=== PATIENT | male | born 1975 | race Caucasian/White ===

== ENCOUNTER 2020-05-05 07:26 | Inpatient (IN) | payer OTHER ==
[2020-05-05] MEDS ORDERED: SODIUM CHLORIDE 0.9% 1000 ML 1,000 ML IV ONE ×4 (07:58→09:45)
--- NOTE | 2020-05-05 08:02 | Emergency Department Report ---
ED General Adult HPI - General Chief complaint: Dyspnea/Respdistress Stated complaint: Time Seen by Provider: 05/05/20 07:57 Source: patient, EMS Mode of arrival: Stretcher Limitations: Language Barrier - History of Present Illness Initial comments: Patient is a 44-year-old male presents to emergency department for evaluation of shortness of breath for the past 3 weeks associate with dry cough. Patient notes abrupt worsening of shortness of breath today. Patient presents in respiratory distress, tachypneic, tachycardic, and hypoxic, consequently requiring my immediate attention. - Related Data Home Medications Medication Instructions Recorded Confirmed Last Taken No Known Home Medications [No 05/05/20 05/05/20 Unknown Reported Home Medications] Allergies Allergy/AdvReac Type Severity Reaction Status Date / Time No Known Allergies Allergy Unverified 05/05/20 07:53 ED Review of Systems ROS: Stated complaint: Other details as noted in HPI Comment: All other systems reviewed and negative ED Past Medical Hx - Past Medical History Previous Medical History?: No - Surgical History Past Surgical History?: Yes Hx Appendectomy: Yes - Medications Home Medications: Home Medications Medication Instructions Recorded Confirmed Last Taken Type No Known Home Medications [No 05/05/20 05/05/20 Unknown History Reported Home Medications] ED Physical Exam - General Limitations: Language Barrier General appearance: alert, in distress - Head Head exam: Present: atraumatic, normocephalic - Eye Eye exam: Present: normal appearance - ENT ENT exam: Present: mucous membranes moist - Neck Neck exam: Present: normal inspection - Respiratory Respiratory exam: Present: respiratory distress, rhonchi, accessory muscle use - Cardiovascular Cardiovascular Exam: Present: tachycardia - GI/Abdominal GI/Abdominal exam: Present: soft, normal bowel sounds - Rectal Rectal exam: Present: deferred - exam: Present: scrotal swelling - Extremities Exam Extremities exam: Present: normal inspection - Back Exam Back exam: Present: normal inspection - Neurological Exam Neurological exam: Present: alert, oriented X3 - Psychiatric Psychiatric exam: Present: normal affect, normal mood - Skin Skin exam: Present: warm, dry, intact, normal color. Absent: rash ED Course Vital Signs 05/05/20 05/05/20 05/05/20 08:08 08:20 08:30 Temperature 98.9 F Pulse Rate 125 H 126 H 127 H Respiratory 22 34 H 37 H Rate Blood Pressure 72/39 Blood Pressure 70/42 [Left] O2 Sat by Pulse 100 100 100 Oximetry 05/05/20 05/05/20 05/05/20 08:46 09:00 09:16 Temperature Pulse Rate 116 H 117 H 114 H Respiratory 20 19 22 Rate Blood Pressure 67/47 68/43 75/43 Blood Pressure [Left] O2 Sat by Pulse 100 100 100 Oximetry 05/05/20 05/05/20 05/05/20 09:30 09:46 10:00 Temperature Pulse Rate 120 H 115 H 116 H Respiratory 13 19 15 Rate Blood Pressure 64/37 73/51 86/55 Blood Pressure [Left] O2 Sat by Pulse 99 98 Oximetry 05/05/20 05/05/20 05/05/20 10:16 10:30 10:46 Temperature Pulse Rate 114 H 120 H 113 H Respiratory 30 H 16 31 H Rate Blood Pressure 81/53 71/39 79/48 Blood Pressure [Left] O2 Sat by Pulse 100 100 99 Oximetry 05/05/20 05/05/20 05/05/20 11:00 11:16 11:30 Temperature Pulse Rate 110 H 116 H 117 H Respiratory 31 H 37 H 15 Rate Blood Pressure 83/50 77/40 74/34 Blood Pressure [Left] O2 Sat by Pulse 100 100 100 Oximetry 05/05/20 05/05/20 05/05/20 11:46 12:00 12:15 Temperature Pulse Rate 116 H 114 H Respiratory 37 H 19 Rate Blood Pressure 70/38 94/55 101/63 Blood Pressure [Left] O2 Sat by Pulse 100 100 Oximetry 05/05/20 05/05/20 12:30 12:46 Temperature Pulse Rate 110 H 105 H Respiratory 33 H 24 Rate Blood Pressure 82/55 96/63 Blood Pressure [Left] O2 Sat by Pulse 100 100 Oximetry - Reevaluation(s) Reevaluation #1: 05/05/20 08:02 Patient immediately brought back to emergency department, IV access established, treated with IV normal saline 1 L x 1, oxygen via nasal cannula Reevaluation #2: 05/05/20 08:44 Patient hypotensive, with improving but persistent tachycardia, given additional IV NS x1, ABG, blood cultures, lactic ordered Reevaluation #3: 05/05/20 08:46 Patient appears to have infiltrate on x-ray, ordered additional IV NS x1, ceftriaxone, azithromycin, pending formal radiology interpretation Reevaluation #4: 05/05/20 09:08 Patient found to be anemic, ordered additional labs including type and screen, patient denies bleeding anywhere, denies change in stool color. Patient denies alcohol intake. Reevaluation #5: 05/05/20 09:44 Patient persistently hypotensive following 3 L IV normal saline, has not produ hayes any urine, additional IV NS ordered, IV magnesium ordered 05/05/20 11:41 Patient again becomes hypotensive, central line placed by myself, Levophed began in emergency department. 05/05/20 13:28 CTA chest shows multiple pulmonary emboli and possible hepatic abscess, hospitalist notified, heparin started to the emergency department. - Central Line Placement Right Femoral Consent Obtained: verbal consent, emergent situation Time Out Performed: Yes Patient Placed on Monitor/Pulse Ox: Yes MD Prep: mask, gown, gloves Central Line Prep: Chlorhexidine scrub Local Anesthesia Used: Lidocaine 1% Ultrasound Used for Placement: Yes Central Line Lumen Inserted: triple Reason for Insertion: Volume Resuscitation Central Line Position: good blood return, all ports aspirated, flus, sutured in place with nyl Dressing Applied: Tegaderm Patient Tolerated Procedure: well Complications: none ED Medical Decision Making - Lab Data Result diagrams: 05/05/20 08:10 05/05/20 08:10 Labs 05/05/20 05/05/20 05/05/20 08:10 08:10 08:10 WBC 11.0 RBC 2.91 L Hgb 8.1 L Hct 24.5 L MCV 84 MCH 28 MCHC 33 RDW 15.1 Plt Count 107 L Add Manual Diff Complete Total Counted 100 Seg Neutrophils % Production Miner Seg Neuts % (Manual) 97.0 H Lymphocytes % (Manual) 2.0 L Monocytes % (Manual) 1.0 Promyelocytes % 0 Nucleated RBC % Not Reportable Seg Neutrophils # Man 10.7 H Band Neutrophils # 0.0 Lymphocytes # (Manual) 0.2 L Abs React Lymphs (Man) 0.0 Monocytes # (Manual) 0.1 Eosinophils # (Manual) 0.0 Basophils # (Manual) 0.0 Metamyelocytes # 0.0 Myelocytes # 0.0 Promyelocytes # 0.0 Blast Cells # 0.0 WBC Morphology Not Reportable Hypersegmented Neuts Not Reportable Hyposegmented Neuts Not Reportable Hypogranular Neuts Not Reportable Smudge Cells Not Reportable Toxic Granulation Not Reportable Toxic Vacuolation Not Reportable Dohle Bodies Not Reportable Pelger-Huet Anomaly Not Reportable [place] Rods Not Reportable Platelet Estimate Consistent w auto Clumped Platelets Not Reportable Plt Clumps, EDTA Not Reportable Large Platelets Not Reportable Giant Platelets Not Reportable Platelet Satelliting Not Reportable Plt Morphology Comment Not Reportable RBC Morphology Normal Dimorphic RBCs Not Reportable Polychromasia Not Reportable Hypochromasia Not Reportable Poikilocytosis Not Reportable Anisocytosis Not Reportable Microcytosis Not Reportable Macrocytosis Not Reportable Spherocytes Not Reportable Pappenheimer Bodies Not Reportable Sickle Cells Not Reportable Target Cells Not Reportable Tear Drop Cells Not Reportable Ovalocytes Not Reportable Helmet Cells Not Reportable [place] Bodies Not Reportable Aylett Rings Not Reportable Mami Cells Not Reportable Bite Cells Not Reportable Crenated Cell Not Reportable Elliptocytes Not Reportable Acanthocytes (Spur) Not Reportable Rouleaux Not Reportable Hemoglobin C Crystals Not Reportable Schistocytes Not Reportable Malaria parasites Not Reportable Aristides Bodies Not Reportable Hem Pathologist Commnt No PT INR D-Dimer > 13925 H ABG pH ABG pCO2 ABG pO2 ABG HCO3 ABG O2 Saturation ABG O2 Content ABG Base Excess ABG Hemoglobin ABG Carboxyhemoglobin ABG Methemoglobin Oxyhemoglobin FiO2 Sodium 128 L Potassium 4.0 Chloride 98.8 Carbon Dioxide 15 L Anion Gap 18 BUN 32 H Creatinine 1.5 H Estimated GFR 51 BUN/Creatinine Ratio 21 Glucose 87 Lactic Acid Calcium 7.5 L Magnesium 1.30 L Troponin T 0.056 H Triglycerides 231 H Cholesterol 80 LDL Cholesterol Direct 17 L HDL Cholesterol 11 L Cholesterol/HDL Ratio 7.27 TSH Thyroxine (T4) Blood Type Antibody Screen 05/05/20 05/05/20 05/05/20 08:10 08:10 08:10 WBC RBC Hgb Hct MCV MCH MCHC RDW Plt Count Add Manual Diff Total Counted Seg Neutrophils % Seg Neuts % (Manual) Lymphocytes % (Manual) Monocytes % (Manual) Promyelocytes % Nucleated RBC % Seg Neutrophils # Man Band Neutrophils # Lymphocytes # (Manual) Abs React Lymphs (Man) Monocytes # (Manual) Eosinophils # (Manual) Basophils # (Manual) Metamyelocytes # Myelocytes # Promyelocytes # Blast Cells # WBC Morphology Hypersegmented Neuts Hyposegmented Neuts Hypogranular Neuts Smudge Cells Toxic Granulation Toxic Vacuolation Dohle Bodies Pelger-Huet Anomaly [place] Rods Platelet Estimate Clumped Platelets Plt Clumps, EDTA Large Platelets Giant Platelets Platelet Satelliting Plt Morphology Comment RBC Morphology Dimorphic RBCs Polychromasia Hypochromasia Poikilocytosis Anisocytosis Microcytosis Macrocytosis Spherocytes Pappenheimer Bodies Sickle Cells Target Cells Tear Drop Cells Ovalocytes Helmet Cells [place] Bodies Aylett Rings Mami Cells Bite Cells Crenated Cell Elliptocytes Acanthocytes (Spur) Rouleaux Hemoglobin C Crystals Schistocytes Malaria parasites Aristides Bodies Hem Pathologist Commnt PT 15.8 H INR 1.28 H D-Dimer ABG pH ABG pCO2 ABG pO2 ABG HCO3 ABG O2 Saturation ABG O2 Content ABG Base Excess ABG Hemoglobin ABG Carboxyhemoglobin ABG Methemoglobin Oxyhemoglobin FiO2 Sodium Potassium Chloride Carbon Dioxide Anion Gap BUN Creatinine Estimated GFR BUN/Creatinine Ratio Glucose Lactic Acid Calcium Magnesium Troponin T Triglycerides Cholesterol LDL Cholesterol Direct HDL Cholesterol Cholesterol/HDL Ratio TSH 12.770 H Thyroxine (T4) 7.4 Blood Type Antibody Screen 05/05/20 05/05/20 05/05/20 08:55 09:10 09:35 WBC RBC Hgb Hct MCV MCH MCHC RDW Plt Count Add Manual Diff Total Counted Seg Neutrophils % Seg Neuts % (Manual) Lymphocytes % (Manual) Monocytes % (Manual) Promyelocytes % Nucleated RBC % Seg Neutrophils # Man Band Neutrophils # Lymphocytes # (Manual) Abs React Lymphs (Man) Monocytes # (Manual) Eosinophils # (Manual) Basophils # (Manual) Metamyelocytes # Myelocytes # Promyelocytes # Blast Cells # WBC Morphology Hypersegmented Neuts Hyposegmented Neuts Hypogranular Neuts Smudge Cells Toxic Granulation Toxic Vacuolation Dohle Bodies Pelger-Huet Anomaly [place] Rods Platelet Estimate Clumped Platelets Plt Clumps, EDTA Large Platelets Giant Platelets Platelet Satelliting Plt Morphology Comment RBC Morphology Dimorphic RBCs Polychromasia Hypochromasia Poikilocytosis Anisocytosis Microcytosis Macrocytosis Spherocytes Pappenheimer Bodies Sickle Cells Target Cells Tear Drop Cells Ovalocytes Helmet Cells [place] Bodies Aylett Rings Mami Cells Bite Cells Crenated Cell Elliptocytes Acanthocytes (Spur) Rouleaux Hemoglobin C Crystals Schistocytes Malaria parasites Aristides Bodies Hem Pathologist Commnt PT INR D-Dimer ABG pH 7.409 ABG pCO2 16.7 ABG pO2 27.6 L* ABG HCO3 10.3 L ABG O2 Saturation 38.5 L ABG O2 Content 3.6 ABG Base Excess -13.0 L ABG Hemoglobin 6.7 L ABG Carboxyhemoglobin 1.0 ABG Methemoglobin 0.8 Oxyhemoglobin 37.9 L FiO2 21 Sodium Potassium Chloride Carbon Dioxide Anion Gap BUN Creatinine Estimated GFR BUN/Creatinine Ratio Glucose Lactic Acid 6.40 H* Calcium Magnesium Troponin T Triglycerides Cholesterol LDL Cholesterol Direct HDL Cholesterol Cholesterol/HDL Ratio TSH Thyroxine (T4) Blood Type O POSITIVE Antibody Screen Negative Vital Signs 05/05/20 05/05/20 05/05/20 08:08 08:20 08:30 Temperature 98.9 F Pulse Rate 125 H 126 H 127 H Respiratory 22 34 H 37 H Rate Blood Pressure 72/39 Blood Pressure 70/42 [Left] O2 Sat by Pulse 100 100 100 Oximetry 05/05/20 05/05/20 05/05/20 08:46 09:00 09:16 Temperature Pulse Rate 116 H 117 H 114 H Respiratory 20 19 22 Rate Blood Pressure 67/47 68/43 75/43 Blood Pressure [Left] O2 Sat by Pulse 100 100 100 Oximetry 05/05/20 05/05/20 05/05/20 09:30 09:46 10:00 Temperature Pulse Rate 120 H 115 H 116 H Respiratory 13 19 15 Rate Blood Pressure 64/37 73/51 86/55 Blood Pressure [Left] O2 Sat by Pulse 99 98 Oximetry - EKG Data -: EKG Interpreted by Me (Sinus tachycardia 116, no ST-T changes, normal QRS) - Radiology Data Radiology results: report reviewed [facility] [address] [place] [address] Cat Scan Report Signed Patient: ASHELY MORGAN MR#: [id number] 30 : 1975 Acct:[id number] Age/Sex: 44 / M ADM Date: 05/05/20 Loc: [facility]: ARA PETERSON MD Ordering Physician: MAXI CLANCY MD Date of Service: 05/05/20 Procedure(s): CT angio chest Accession Number(s): [id number] cc: MAXI CLANCY MD CT abdomen pelvis wo con, CT angio chest INDICATION: flank pain/renal failure. COMPARISON: None TECHNIQUE: Axial CT images were obtained through the chest after injection of IV contrast. 3 plane MIP and/or 3D reconstructions were produced. Abdominal and pelvic CT exam performed. All CT scans at this location are performed using CT dose reduction for ALARA by means of automated exposure control. FINDINGS: PULMONARY ARTERIES: There are pulmonary emboli with low clot burden. RV to LV ratio is normal. HEART: No significant abnormality. MEDIASTINUM / MONI: Reactive lymphadenopathy. LUNGS: There are numerous bilateral pulmonary nodules present in the lungs. One of the nodules in the left upper lobe demonstrates a small area of cavitation. Associated interlobular septal thickening. Small right greater than left pleural effusions. ADDITIONAL FINDINGS: None. SKELETAL STRUCTURES: No significant osseous abnormality. CT ABDOMEN and PELVIS: Liver: There is a right hepatic multiseptated fluid collection in hepatic segment 6 and 7. The largest collection measures approximately 7.3 x 6.3 x 7.9 cm in anteroposterior by transverse by craniocaudal dimension. There is mild extension into the perihepatic fat. There are other suspected smaller collections seen in the superior aspect of hepatic segment 7. Biliary: No significant abnormality. Spleen: No significant abnormality. Pancreas: No significant abnormality. Adrenals: No significant abnormality. Kidneys: No significant abnormality. Lymphatics: No lymphadenopathy. Vasculature: No significant abnormality. Bowel: No significant abnormality. Pelvis: No significant abnormality. Osseous Structures: No aggressive osseous lesion. Additional Findings: Large right fat containing hernia. IMPRESSION: 1. . Pulmonary emboli with large clot burden no evidence of right heart strain. 2. Diffuse septic pulmonary emboli. 3. Large right hepatic abscess. This is amenable to CT guided drain placement if indicated. Signer Name: Félix Aguirre MD Signed: 05/05/2020 12:55 PM Workstation Name: [id number] Transcribed By: DIAMOND Dictated By: Félix Aguirre MD Electronically Authenticated By: Félix Aguirre MD Signed Date/Time: 05/05/20 1255 DD/ 1247 TD/TT: [facility] [address] [place] [address] XRay Report Signed Patient: ASHELY MORGAN MR#: [id number] [birth year] : 1975 Acct:[id number] Age/Sex: 44 / M ADM Date: 05/05/20 Loc: ED Attending Dr: Ordering Physician: MAXI CLANCY MD Date of Service: 05/05/20 Procedure(s): XR chest 1V ap Accession Number(s): [id number] cc: MAXI CLANCY MD Fluoro Time In Minutes: CHEST 1 VIEW INDICATION: dyspnea. COMPARISON: None FINDINGS: SUPPORT DEVICES: None. HEART: Within normal limits. LUNGS/PLEURA: Patchy bibasilar predominant airspace disease. No appreciable effusion. ADDITIONAL FINDINGS: None. IMPRESSION: 1. Pulmonary findings as above. Signer Name: Oskar Hwang MD Signed: 05/05/2020 8:59 AM Workstation Name: [id number] Transcribed By: JW Dictated By: Oskar Hwang MD Electronically Authenticated By: Oskar Hwang MD Signed Date/Time: 05/05/20858 DD/ 8 TD/TT: Critical Care Time: Yes Critical care time in (mins) excluding proc time.: 70 Critical care attestation.: If time is entered above; I have spent that time in minutes in the direct care o f this critically ill patient, excluding procedure time. ED Disposition Clinical Impression: Severe sepsis, Pneumonia, unspecified organism, Multiple pulmonary emboli, Liver abscess, Inguinal hernia, Urinary tract infection Disposition: -09 OP ADMIT IP TO THIS HOSP Is pt being admited?: Yes Condition: Stable Severe Sepsis/Septic Shock - PUI for COVID-19 PUI?: Yes Vital Signs: Reviewed Rhonchi No Gallops Tachy Capillary refill < 2 secs Warm Pulse quality: +2 (normal)
[2020-05-05] MEDS ORDERED: cefTRIAXone/NS 1 GM/50 ML 1 GM/50 ML BAG IV ONE ×2 (08:45→12:00)
[2020-05-05] MEDS ORDERED: AZITHROMYCIN/NS 500 MG/250 ML 500 MG/250 ML BAG IV ONE (08:45)
[2020-05-05 08:50] LABS: Hematocrit 24.5 % (35.5-45.6); Hemoglobin 8.1 gm/dl (11.8-15.2); Mean Corpuscular HGB Conc 33 % (32-34); Mean Corpuscular Volume 84 fl (84-94); Platelet Count 107 K/mm3 (140-440); Red Blood Count 2.91 M/mm3 (3.65-5.03); Red Cell Distribution Width 15.1 % (13.2-15.2)
[2020-05-05 09:03] LABS: Calcium 7.5 mg/dL (8.4-10.2)
--- NOTE | 2020-05-05 09:04 | XRay Report ---
CHEST 1 VIEW INDICATION: dyspnea. COMPARISON: None FINDINGS: SUPPORT DEVICES: None. HEART: Within normal limits. LUNGS/PLEURA: Patchy bibasilar predominant airspace disease. No appreciable effusion. ADDITIONAL FINDINGS: None. IMPRESSION: 1. Pulmonary findings as above. Signer Name: Oskra Hwang MD Signed: 05/05/2020 8:59 AM Workstation Name: [id number]
[2020-05-05 09:17] LABS: Chol/HDL Ratio 7.27 %
[2020-05-05 09:23] LABS: Total Cells Counted 100
[2020-05-05 09:24] LABS: Platelet Estimate Consistent w Auto; RBC Morphology Normal
[2020-05-05 09:55] LABS: INR 1.28 (0.87-1.13)
[2020-05-05 10:08] LABS: ABG HCO3 10.3 mmol/L (20.0-26.0); ABG Methemoglobin 0.8 % (0.0-1.5); ABG Oxygen Saturation 38.5 % (95.0-99.0); ABG PCO2 16.7 mm Hg; ABG PH 7.409 pH Units (7.350-7.450)
[2020-05-05] MEDS ORDERED: MORPHINE 2 MG/1 ML INJ IV ONE (10:22)
[2020-05-05] MEDS ORDERED: MAGNESIUM SULFATE 1 GM in SODIUM CHLORIDE 0.9% 50 ML IV ONE (10:30)
[2020-05-05 10:34] LABS: ABG PO2 27.6 mm Hg (80.0-90.0)
[2020-05-05 10:37] LABS: Bacteria,Urine 4+ /HPF (Negative); Bilirubin,Urine NEG (Negative); Blood,Urine SM (Negative); Color,Urine Yellow (Yellow); Mucus,Urine 3+ /HPF; Protein,Urine <15 mg/dL mg/dL (Negative); Urobilinogen,Urine < 2.0 mg/dL (<2.0)
[2020-05-05 10:58] LABS: Albumin 1.5 g/dL (3.9-5); Bilirubin,Direct 0.4 mg/dL (0-0.2)
[2020-05-05] MEDS: NORepinephrine/NS 4 MG-250 ML 4 MG/250 ML BAG IV SCH (11:45)
[2020-05-05] MEDS ORDERED: dexAMETHasone 4 MG/ML VIAL IV ONE (12:00)
[2020-05-05] MEDS ORDERED: ENOXAPARIN 40 MG/0.4 ML INJ SUB-Q SCH (12:00)
[2020-05-05] MEDS ORDERED: HEPARIN 10,000 UNITS/10 ML VIAL IV PRN ×2 (12:41→13:53)
[2020-05-05] MEDS ORDERED: HEPARIN 10,000 UNITS/10 ML VIAL IV ONE (12:41)
--- NOTE | 2020-05-05 13:00 | Cat Scan Report ---
CT abdomen pelvis wo con, CT angio chest INDICATION: flank pain/renal failure. COMPARISON: None TECHNIQUE: Axial CT images were obtained through the chest after injection of IV contrast. 3 plane OK P and/or 3D reconstructions were produced. Abdominal and pelvic CT exam performed. All CT scans at [facility] location are performed using CT dose reduction for ALARA by means of automated exposure control. FINDINGS: PULMONARY ARTERIES: There are pulmonary emboli with low clot burden. RV to LV ratio is normal. HEART: No significant abnormality. MEDIASTINUM / MONI: Reactive lymphadenopathy. LUNGS: There are numerous bilateral pulmonary nodules present in the lungs. One of the nodules in the left upper lobe demonstrates a small area of cavitation. Associated interlobular septal thickening. Small right greater than left pleural effusions. ADDITIONAL FINDINGS: None. SKELETAL STRUCTURES: No significant osseous abnormality. CT ABDOMEN and PELVIS: Liver: There is a right hepatic multiseptated fluid collection in hepatic segment 6 and 7. The larges t collection measures approximately 7.3 x 6.3 x 7.9 cm in anteroposterior by transverse by craniocaud al dimension. There is mild extension into the perihepatic fat. There are other suspected smaller col lections seen in the superior aspect of hepatic segment 7. Biliary: No significant abnormality. Spleen: No significant abnormality. Pancreas: No significant abnormality. Adrenals: No significant abnormality. Kidneys: No significant abnormality. Lymphatics: No lymphadenopathy. Vasculature: No significant abnormality. Bowel: No significant abnormality. Pelvis: No significant abnormality. Osseous Structures: No aggressive osseous lesion. Additional Findings: Large right fat containing hernia. IMPRESSION: 1. . Pulmonary emboli with large clot burden no evidence of right heart strain. 2. Diffuse septic pulmonary emboli. 3. Large right hepatic abscess. This is amenable to CT guided drain placement if indicated. Signer Name: Félix Aguirre MD Signed: 05/05/2020 12:55 PM Workstation Name: [id number]
--- NOTE | 2020-05-05 13:00 | Cat Scan Report ---
CT abdomen pelvis wo con, CT angio chest INDICATION: flank pain/renal failure. COMPARISON: None TECHNIQUE: Axial CT images were obtained through the chest after injection of IV contrast. 3 plane MN P and/or 3D reconstructions were produced. Abdominal and pelvic CT exam performed. All CT scans at [facility] location are performed using CT dose reduction for ALARA by means of automated exposure control. FINDINGS: PULMONARY ARTERIES: There are pulmonary emboli with low clot burden. RV to LV ratio is normal. HEART: No significant abnormality. MEDIASTINUM / MONI: Reactive lymphadenopathy. LUNGS: There are numerous bilateral pulmonary nodules present in the lungs. One of the nodules in the left upper lobe demonstrates a small area of cavitation. Associated interlobular septal thickening. Small right greater than left pleural effusions. ADDITIONAL FINDINGS: None. SKELETAL STRUCTURES: No significant osseous abnormality. CT ABDOMEN and PELVIS: Liver: There is a right hepatic multiseptated fluid collection in hepatic segment 6 and 7. The larges t collection measures approximately 7.3 x 6.3 x 7.9 cm in anteroposterior by transverse by craniocaud al dimension. There is mild extension into the perihepatic fat. There are other suspected smaller col lections seen in the superior aspect of hepatic segment 7. Biliary: No significant abnormality. Spleen: No significant abnormality. Pancreas: No significant abnormality. Adrenals: No significant abnormality. Kidneys: No significant abnormality. Lymphatics: No lymphadenopathy. Vasculature: No significant abnormality. Bowel: No significant abnormality. Pelvis: No significant abnormality. Osseous Structures: No aggressive osseous lesion. Additional Findings: Large right fat containing hernia. IMPRESSION: 1. . Pulmonary emboli with large clot burden no evidence of right heart strain. 2. Diffuse septic pulmonary emboli. 3. Large right hepatic abscess. This is amenable to CT guided drain placement if indicated. Signer Name: Félix Aguirre MD Signed: 05/05/2020 12:55 PM Workstation Name: [id number]
--- NOTE | 2020-05-05 13:01 | History and Physical Report ---
History of Present Illness Date of examination: 05/05/20 Date of admission: 05/05/20 09:57 Chief complaint: Shortness of breath History of present illness: 44-year-old male with no significant past medical history presented to the emergency department with complaints of shortness of breath for the last 3 weeks. Shortness of breath is progressively worse and making to present to the emergency department this morning. Patient said he has associated dry cough. P atient denied fever chills, night sweats. Patient denied contact with Covid patient. He denied any chest pain, palpitation or leg swelling. Patient was seen in the emergency department. In the emergency department test x-ray was done and showed bibasilar infiltrates, CTA chest was done and significant for blood clot suspected septic emboli and liver abscess. Patient was hypotensive was started with IV fluids and pressor support. I have discussed with vascular surgery and said the clot burden is minimal and does not need any intervention at this time. Interventional radiology will do drainage of the abscess once the patient is stable. Patient started with IV antibiotics. ID was consulted. Patient was requiring 4 L of oxygen and pulmonary consulted. Patient will be admitted to [facility]. REVIEW OF SYSTEMS: GENERAL: no weight change, no fatigue, no fever HEAD: no head ache EYES: no blurry vision, no acute visual loss EARS: no hearing loss, no discharge, no earache NOSE: no stuffiness, no sneezing, no discharge MOUTH, THROAT AND NECK: no bleeding gums, no sore throat, no swollen neck CARDIAC: no palpitations, no dyspnea on exertion, no orthopnea, no PND, no edema, no chest pain RESPIRATORY: no shortness of breath, no wheeze, no cough, no sputum, no hemoptysis, no asthma GI: no decreased appetite, no nausea, no vomiting, no dysphagia, no diarrhea, no constipation, no abdominal pain URINARY: No urgency, hematuria, dysuria or frequency. MUSCULOSKELETAL: no muscle weakness, no pain, no joint stiffness NEUROLOGIC: no loss of sensation/numbness, no tingling, no tremors, no we akness/paralysis HEMATOLOGIC: no anemia, no easy bruising SKIN: no rashes ENDOCRINE: no heat/cold intolerance, no polyuria, no polydipsia, no thyroid problems, no diabetes PSYCHIATRIC: no anxiety, no depression, no suicidal ideations Past History Past Medical History: No medical history Past Surgical History: appendectomy Social history: full code. denies: smoking, alcohol abuse, prescription drug abuse, IV drug use Family history: no significant family history Medications and Allergies Allergies Allergy/AdvReac Type Severity Reaction Status Date / Time No Known Allergies Allergy Unverified 05/05/20 07:53 Home Medications Medication Instructions Recorded Confirmed Last Taken Type No Known Home Medications [No 05/05/20 05/05/20 Unknown History Reported Home Medications] Active Meds: Active Medications Azithromycin (Azithromycin 250 Mg Tab) 500 mg PO QDAY RADHA; Protocol Enoxaparin Sodium (Enoxaparin 40 Mg/0.4 Ml Inj) 40 mg SUB-Q BID RADHA; Protocol Last Admin: 05/05/20 12:17 Dose: 40 mg Documented by: Heparin Sodium (Porcine) (Heparin 10,000 Units/10 Ml Vial) 2,700 unit 40 unit/kg (2700 unit) IV Q6H PRN PRN Reason: Anti-Xa Assay < 0.1 units/ml Ceftriaxone Sodium (Rocephin/Ns 2 Gm/100 Ml) 2 gm in 100 mls @ 200 mls/hr IV Q24H RADHA; Protocol Sodium Chloride (Nacl 0.9% 1000 Ml) 1,000 mls @ 150 mls/hr IV DIRECT RADHA Norepinephrine (Levophed Drip 4 Mg/Ns 250 Ml) 4 mg in 250 mls @ 7.5 mls/hr IV TITR RADHA; Protocol Oxycodone/Acetaminophen (Oxycodone /Acetaminophen 5-325mg Tab) 1 tab PO Q6H PRN PRN Reason: Pain, Moderate (4-6) Exam - Physical Exam Narrative exam: Patient is on 4 L of oxygen The patient appeared well nourished and normally developed. Vital signs as documented. Head exam is unremarkable. No scleral icterus . Neck is without jugular venous distension, thyromegaly, or carotid bruits. Lungs dyspneic, on 4 L of oxygen, clear to auscultation Cardiac exam reveals regular rate and Rhythm. Abdominal exam reveals normal bowel sounds, nontender, no organomegaly. Extremities are nonedematous and both femoral and pedal pulses are normal. [employer]: Alert and oriented 3. No focal weakness. - Constitutional Vitals: Temp Pulse Resp BP Pulse Ox 98.9 F 116 H 15 86/55 98 05/05/20 08:08 05/05/20 10:00 05/05/20 10:00 05/05/20 10:00 05/05/20 10:00 HEART Score - HEART Score Troponin: Troponin T 0.056 ng/mL (0.00-0.029) H 05/05/20 08:10 Results - Labs CBC & Chem 7: 05/05/20 08:10 05/05/20 08:10 Labs: Laboratory Last Values WBC 11.0 K/mm3 (4.5-11.0) 05/05/20 08:10 RBC 2.91 M/mm3 (3.65-5.03) L 05/05/20 08:10 Hgb 8.1 gm/dl (11.8-15.2) L 05/05/20 08:10 Hct 24.5 % (35.5-45.6) L 05/05/20 08:10 MCV 84 fl (84-94) 05/05/20 08:10 MCH 28 pg (28-32) 05/05/20 08:10 MCHC 33 % (32-34) 05/05/20 08:10 RDW 15.1 % (13.2-15.2) 05/05/20 08:10 Plt Count 107 K/mm3 (140-440) L 05/05/20 08:10 Add Manual Diff Complete 05/05/20 08:10 Total Counted 100 05/05/20 08:10 Seg Neutrophils % Air Tester 05/05/20 08:10 Seg Neuts % (Manual) 97.0 % (40.0-70.0) H 05/05/20 08:10 Lymphocytes % (Manual) 2.0 % (13.4-35.0) L 05/05/20 08:10 Monocytes % (Manual) 1.0 % (0.0-7.3) 05/05/20 08:10 Promyelocytes % 0 % 05/05/20 08:10 Nucleated RBC % Not Reportable 05/05/20 08:10 Seg Neutrophils # Man 10.7 K/mm3 (1.8-7.7) H 05/05/20 08:10 Band Neutrophils # 0.0 K/mm3 05/05/20 08:10 Lymphocytes # (Manual) 0.2 K/mm3 (1.2-5.4) L 05/05/20 08:10 Abs React Lymphs (Man) 0.0 K/mm3 05/05/20 08:10 Monocytes # (Manual) 0.1 K/mm3 (0.0-0.8) 05/05/20 08:10 Eosinophils # (Manual) 0.0 K/mm3 (0.0-0.4) 05/05/20 08:10 Basophils # (Manual) 0.0 K/mm3 (0.0-0.1) 05/05/20 08:10 Metamyelocytes # 0.0 K/mm3 05/05/20 08:10 Myelocytes # 0.0 K/mm3 05/05/20 08:10 Promyelocytes # 0.0 K/mm3 05/05/20 08:10 Blast Cells # 0.0 K/mm3 05/05/20 08:10 WBC Morphology Not Reportable 05/05/20 08:10 Hypersegmented Neuts Not Reportable 05/05/20 08:10 Hyposegmented Neuts Not Reportable 05/05/20 08:10 Hypogranular Neuts Not Reportable 05/05/20 08:10 Smudge Cells Not Reportable 05/05/20 08:10 Toxic Granulation Not Reportable 05/05/20 08:10 Toxic Vacuolation Not Reportable 05/05/20 08:10 Dohle Bodies Not Reportable 05/05/20 08:10 Pelger-Huet Anomaly Not Reportable 05/05/20 08:10 Quita Rods Not Reportable 05/05/20 08:10 Platelet Estimate Consistent w auto 05/05/20 08:10 Clumped Platelets Not Reportable 05/05/20 08:10 Plt Clumps, EDTA Not Reportable 05/05/20 08:10 Large Platelets Not Reportable 05/05/20 08:10 Giant Platelets Not Reportable 05/05/20 08:10 Platelet Satelliting Not Reportable 05/05/20 08:10 Plt Morphology Comment Not Reportable 05/05/20 08:10 RBC Morphology Normal 05/05/20 08:10 Dimorphic RBCs Not Reportable 05/05/20 08:10 Polychromasia Not Reportable 05/05/20 08:10 Hypochromasia Not Reportable 05/05/20 08:10 Poikilocytosis Not Reportable 05/05/20 08:10 Anisocytosis Not Reportable 05/05/20 08:10 Microcytosis Not Reportable 05/05/20 08:10 Macrocytosis Not Reportable 05/05/20 08:10 Spherocytes Not Reportable 05/05/20 08:10 Pappenheimer Bodies Not Reportable 05/05/20 08:10 Sickle Cells Not Reportable 05/05/20 08:10 Target Cells Not Reportable 05/05/20 08:10 Tear Drop Cells Not Reportable 05/05/20 08:10 Ovalocytes Not Reportable 05/05/20 08:10 Helmet Cells Not Reportable 05/05/20 08:10 Bush-Helper Bodies Not Reportable 05/05/20 08:10 Culver Rings Not Reportable 05/05/20 08:10 Mami Cells Not Reportable 05/05/20 08:10 Bite Cells Not Reportable 05/05/20 08:10 Crenated Cell Not Reportable 05/05/20 08:10 Elliptocytes Not Reportable 05/05/20 08:10 Acanthocytes (Spur) Not Reportable 05/05/20 08:10 Rouleaux Not Reportable 05/05/20 08:10 Hemoglobin C Crystals Not Reportable 05/05/20 08:10 Schistocytes Not Reportable 05/05/20 08:10 Malaria parasites Not Reportable 05/05/20 08:10 Aristides Bodies Not Reportable 05/05/20 08:10 Hem Pathologist Commnt No 05/05/20 08:10 PT 15.8 Sec. (12.2-14.9) H 05/05/20 08:10 INR 1.28 (0.87-1.13) H 05/05/20 08:10 D-Dimer > 18056 ng/mlDDU (0-234) H 05/05/20 08:10 ABG pH 7.409 pH Units (7.350-7.450) 05/05/20 09:10 ABG pCO2 16.7 mm Hg 05/05/20 09:10 ABG pO2 27.6 mm Hg (80.0-90.0) L* 05/05/20 09:10 ABG HCO3 10.3 mmol/L (20.0-26.0) L 05/05/20 09:10 ABG O2 Saturation 38.5 % (95.0-99.0) L 05/05/20 09:10 ABG O2 Content 3.6 (0.0-44) 05/05/20 09:10 ABG Base Excess -13.0 mmol/L (-2.0-3.0) L 05/05/20 09:10 ABG Hemoglobin 6.7 gm/dl (14.0-18.0) L 05/05/20 09:10 ABG Carboxyhemoglobin 1.0 % (0.0-5.0) 05/05/20 09:10 ABG Methemoglobin 0.8 % (0.0-1.5) 05/05/20 09:10 Oxyhemoglobin 37.9 % (95.0-99.0) L 05/05/20 09:10 FiO2 21 % 05/05/20 09:10 Sodium 128 mmol/L (137-145) L 05/05/20 08:10 Potassium 4.0 mmol/L (3.6-5.0) 05/05/20 08:10 Chloride 98.8 mmol/L (98-107) 05/05/20 08:10 Carbon Dioxide 15 mmol/L (22-30) L 05/05/20 08:10 Anion Gap 18 mmol/L 05/05/20 08:10 BUN 32 mg/dL (9-20) H 05/05/20 08:10 Creatinine 1.5 mg/dL (0.8-1.3) H 05/05/20 08:10 Estimated GFR 51 ml/min 05/05/20 08:10 BUN/Creatinine Ratio 21 % 05/05/20 08:10 Glucose 87 mg/dL (75-100) 05/05/20 08:10 Lactic Acid 6.20 mmol/L (0.7-2.0) H* 05/05/20 10:17 Calcium 7.5 mg/dL (8.4-10.2) L 05/05/20 08:10 Magnesium 1.30 mg/dL (1.7-2.3) L 05/05/20 08:10 Total Bilirubin 0.40 mg/dL (0.1-1.2) 05/05/20 10:17 Direct Bilirubin 0.4 mg/dL (0-0.2) H 05/05/20 10:17 Indirect Bilirubin 0.0 mg/dL 05/05/20 10:17 AST 39 units/L (5-40) 05/05/20 10:17 ALT 42 units/L (7-56) 05/05/20 10:17 Alkaline Phosphatase 183 units/L (35-129) H 05/05/20 10:17 Troponin T 0.056 ng/mL (0.00-0.029) H 05/05/20 08:10 Total Protein 4.1 g/dL (6.3-8.2) L 05/05/20 10:17 Albumin 1.5 g/dL (3.9-5) L 05/05/20 10:17 Albumin/Globulin Ratio 0.6 % 05/05/20 10:17 Triglycerides 231 mg/dL (2-149) H 05/05/20 08:10 Cholesterol 80 mg/dL (50-199) 05/05/20 08:10 LDL Cholesterol Direct 17 mg/dL (50-130) L 05/05/20 08:10 HDL Cholesterol 11 mg/dL (40-59) L 05/05/20 08:10 Cholesterol/HDL Ratio 7.27 % 05/05/20 08:10 Lipase 68 units/L (13-60) H 05/05/20 10:17 TSH 12.770 mlU/mL (0.270-4.200) H 05/05/20 08:10 Thyroxine (T4) 7.4 ug/dL (4.0-12.0) 05/05/20 08:10 Urine Color Yellow (Yellow) 05/05/20 Unknown Urine Turbidity Slightly-cloudy (Clear) 05/05/20 Unknown Urine pH 5.0 (5.0-7.0) 05/05/20 Unknown Ur Specific Nichols 1.009 (1.003-1.030) 05/05/20 Unknown Urine Protein <15 mg/dl mg/dL (Negative) 05/05/20 Unknown Urine Glucose (UA) Neg mg/dL (Negative) 05/05/20 Unknown Urine Ketones Neg mg/dL (Negative) 05/05/20 Unknown Urine Blood Sm (Negative) 05/05/20 Unknown Urine Nitrite Pos (Negative) 05/05/20 Unknown Urine Bilirubin Neg (Negative) 05/05/20 Unknown Urine Urobilinogen < 2.0 mg/dL (<2.0) 05/05/20 Unknown Ur Leukocyte Esterase Neg (Negative) 05/05/20 Unknown Urine WBC (Auto) 13.0 /HPF (0.0-6.0) H 05/05/20 Unknown Urine RBC (Auto) 1.0 /HPF (0.0-6.0) 05/05/20 Unknown Urine Bacteria (Auto) 4+ /HPF (Negative) 05/05/20 Unknown Urine Mucus 3+ /HPF 05/05/20 Unknown Blood Type O POSITIVE 05/05/20 09:35 Antibody Screen Negative 05/05/20 09:35 Assessment and Plan Assessment and plan: Septic shock -Patient is on IV fluids, IV antibiotics, on pressor support -ID consulted -Order Covid test Septic emboli -Continue with IV antibiotics -Blood clot burden is minimal, no vascular intervention needed -I order echo -Start on heparin drip Acute respiratory failure with hypoxia -Patient is on 4 L of oxygen -Could be due to septic emboli -Continue antibiotics for now Liver abscess -Continue with antibiotics for now -Discussed with Dr. Pina and may consider drainage of the abscess once patient is stable CODE STATUS; full Prognosis; guarded Disposition; admit to ICU The high probability of a clinically significant, sudden or life threatening deterioration of the [respiratory, cardiovascular] system(s) required my full and direct attention, intervention and personal management. The aggregate critical care time was [45] minutes. This time is in addition to time spent performing reported procedures but includes the following: [x] Data Review and interpretation [x] Patient assessment and monitoring of vital signs [x] Documentation [x] Medication orders and management Advance Directives: Yes VTE prophylaxis?: Chemical Plan of care discussed with patient/family: Yes
--- NOTE | 2020-05-05 13:51 | Event Note ---
Date: 05/05/[address] scan. There is MINIMAL thrombus burden. There was a typographic error in the report. There are septic emboli with a right hepatic multiloculated, probable, hepatic abscess. If possible, recommend transfer to a facility with hepatobiliary surgeon. Patient may ultimately require partial right hepatectomy.
[2020-05-05] MEDS ORDERED: HEPARIN/ 0.45% NACL DRIP 25,000 UNIT/500 ML BAG ONE (14:00)
[2020-05-05 14:07] LABS: Hematocrit 25.8 % (35.5-45.6); Hemoglobin 8.5 gm/dl (11.8-15.2)
[2020-05-05] MEDS: HEPARIN/ 0.45% NACL DRIP 25,000 UNIT/500 ML BAG IV SCH (14:12)
--- NOTE | 2020-05-05 16:12 | Consultation ---
History of Present Illness - Reason for Consult Consult date: 05/05/20 - History of Present Illness 44-year-old male no past medical history admitted to the hospital complaining of shortness of breath. Began 3 weeks prior to admission and progressively worse since that time. He also complains of associated dry cough, however he denies any other symptoms. Afebrile with a normal white count. Renal function worsened, GFR 51. Covid pending. No cultures. Currently on ceftriaxone and azithromycin. Imaging personally viewed: Chest CTA: Pulmonary emboli with large clot burden, diffuse septic pulmonary emboli. Large right hepatic abscess. Review of systems: Deferred due to PPE conservation strategy. Past History Past Medical History: No medical history Past Surgical History: appendectomy Social history: full code. denies: smoking, alcohol abuse, prescription drug abuse, IV drug use Family history: no significant family history Medications and Allergies Allergies Allergy/AdvReac Type Severity Reaction Status Date / Time No Known Allergies Allergy Unverified 05/05/20 07:53 Home Medications Medication Instructions Recorded Confirmed Last Taken Type No Known Home Medications [No 05/05/20 05/05/20 Unknown History Reported Home Medications] Active Meds: Active Medications Azithromycin (Azithromycin 250 Mg Tab) 500 mg PO QDAY RADHA; Protocol Heparin Sodium (Porcine) (Heparin 10,000 Units/10 Ml Vial) 2,700 unit 40 unit/kg (2700 unit) IV Q6H PRN PRN Reason: Anti-Xa Assay < 0.1 units/ml Ceftriaxone Sodium (Rocephin/Ns 2 Gm/100 Ml) 2 gm in 100 mls @ 200 mls/hr IV Q24H RADHA; Protocol Sodium Chloride (Nacl 0.9% 1000 Ml) 1,000 mls @ 150 mls/hr IV DIRECT RADHA Norepinephrine (Levophed Drip 4 Mg/Ns 250 Ml) 4 mg in 250 mls @ 7.5 mls/hr IV TITR RADHA; Protocol Last Titration: 05/05/20 15:09 Dose: 10 mcg/min, 37.5 mls/hr Documented by: Heparin Sodium/Sodium Chloride (Heparin/ 0.45% Nacl-25,000 Unit/500 Ml) 25,000 unit in 500 mls @ 20 mls/hr IV TITR RADHA; Protocol Last Admin: 05/05/20 14:12 Dose: 1,000 units/hr, 20 mls/hr Documented by: Oxycodone/Acetaminophen (Oxycodone /Acetaminophen 5-325mg Tab) 1 tab PO Q6H PRN PRN Reason: Pain, Moderate (4-6) Physical Examination - Physical Exam Narrative exam: Physical exam deferred due to PPE conservation strategy. Please refer to primary team's note. - Constitutional Vitals: Vital Signs Temp Pulse Resp BP Pulse Ox 98.9 F 106 H 28 H 95/71 97 05/05/20 08:08 05/05/20 14:46 05/05/20 14:46 05/05/20 14:46 05/05/20 14:46 Temperature -Last 24 Hours Temperature 98.9 F Results - Labs CBC & Chem 7: 05/05/20 13:35 05/05/20 08:10 Labs: Abnormal lab results 05/05/20 05/05/20 05/05/20 Range/Units 08:10 08:10 08:10 RBC 2.91 L (3.65-5.03) M/mm3 Hgb 8.1 L (11.8-15.2) gm/dl Hct 24.5 L (35.5-45.6) % Plt Count 107 L (140-440) K/mm3 Seg Neuts % (Manual) 97.0 H (40.0-70.0) % Lymphocytes % (Manual) 2.0 L (13.4-35.0) % Seg Neutrophils # Man 10.7 H (1.8-7.7) K/mm3 Lymphocytes # (Manual) 0.2 L (1.2-5.4) K/mm3 PT (12.2-14.9) Sec. INR (0.87-1.13) APTT (24.2-36.6) Sec. D-Dimer > 36091 H (0-234) ng/mlDDU ABG pO2 (80.0-90.0) mm Hg ABG HCO3 (20.0-26.0) mmol/L ABG O2 Saturation (95.0-99.0) % ABG Base Excess (-2.0-3.0) mmol/L ABG Hemoglobin (14.0-18.0) gm/dl Oxyhemoglobin (95.0-99.0) % Sodium 128 L (137-145) mmol/L Carbon Dioxide 15 L (22-30) mmol/L BUN 32 H (9-20) mg/dL Creatinine 1.5 H (0.8-1.3) mg/dL Lactic Acid (0.7-2.0) mmol/L Calcium 7.5 L (8.4-10.2) mg/dL Magnesium 1.30 L (1.7-2.3) mg/dL Ferritin (30.0-300.0) ng/mL Direct Bilirubin (0-0.2) mg/dL Alkaline Phosphatase (35-129) units/L Troponin T 0.056 H (0.00-0.029) ng/mL Total Protein (6.3-8.2) g/dL Albumin (3.9-5) g/dL Triglycerides 231 H (2-149) mg/dL LDL Cholesterol Direct 17 L (50-130) mg/dL HDL Cholesterol 11 L (40-59) mg/dL Lipase (13-60) units/L TSH (0.270-4.200) mlU/mL Urine WBC (Auto) (0.0-6.0) /HPF 05/05/20 05/05/20 05/05/20 Range/Units 08:10 08:10 08:55 RBC (3.65-5.03) M/mm3 Hgb (11.8-15.2) gm/dl Hct (35.5-45.6) % Plt Count (140-440) K/mm3 Seg Neuts % (Manual) (40.0-70.0) % Lymphocytes % (Manual) (13.4-35.0) % Seg Neutrophils # Man (1.8-7.7) K/mm3 Lymphocytes # (Manual) (1.2-5.4) K/mm3 PT 15.8 H (12.2-14.9) Sec. INR 1.28 H (0.87-1.13) APTT (24.2-36.6) Sec. D-Dimer (0-234) ng/mlDDU ABG pO2 (80.0-90.0) mm Hg ABG HCO3 (20.0-26.0) mmol/L ABG O2 Saturation (95.0-99.0) % ABG Base Excess (-2.0-3.0) mmol/L ABG Hemoglobin (14.0-18.0) gm/dl Oxyhemoglobin (95.0-99.0) % Sodium (137-145) mmol/L Carbon Dioxide (22-30) mmol/L BUN (9-20) mg/dL Creatinine (0.8-1.3) mg/dL Lactic Acid 6.40 H* (0.7-2.0) mmol/L Calcium (8.4-10.2) mg/dL Magnesium (1.7-2.3) mg/dL Ferritin (30.0-300.0) ng/mL Direct Bilirubin (0-0.2) mg/dL Alkaline Phosphatase (35-129) units/L Troponin T (0.00-0.029) ng/mL Total Protein (6.3-8.2) g/dL Albumin (3.9-5) g/dL Triglycerides (2-149) mg/dL LDL Cholesterol Direct (50-130) mg/dL HDL Cholesterol (40-59) mg/dL Lipase (13-60) units/L TSH 12.770 H (0.270-4.200) mlU/mL Urine WBC (Auto) (0.0-6.0) /HPF 05/05/20 05/05/20 05/05/20 Range/Units 09:10 10:17 10:17 RBC (3.65-5.03) M/mm3 Hgb (11.8-15.2) gm/dl Hct (35.5-45.6) % Plt Count (140-440) K/mm3 Seg Neuts % (Manual) (40.0-70.0) % Lymphocytes % (Manual) (13.4-35.0) % Seg Neutrophils # Man (1.8-7.7) K/mm3 Lymphocytes # (Manual) (1.2-5.4) K/mm3 PT (12.2-14.9) Sec. INR (0.87-1.13) APTT (24.2-36.6) Sec. D-Dimer (0-234) ng/mlDDU ABG pO2 27.6 L* (80.0-90.0) mm Hg ABG HCO3 10.3 L (20.0-26.0) mmol/L ABG O2 Saturation 38.5 L (95.0-99.0) % ABG Base Excess -13.0 L (-2.0-3.0) mmol/L ABG Hemoglobin 6.7 L (14.0-18.0) gm/dl Oxyhemoglobin 37.9 L (95.0-99.0) % Sodium (137-145) mmol/L Carbon Dioxide (22-30) mmol/L BUN (9-20) mg/dL Creatinine (0.8-1.3) mg/dL Lactic Acid 6.20 H* (0.7-2.0) mmol/L Calcium (8.4-10.2) mg/dL Magnesium (1.7-2.3) mg/dL Ferritin (30.0-300.0) ng/mL Direct Bilirubin 0.4 H (0-0.2) mg/dL Alkaline Phosphatase 183 H (35-129) units/L Troponin T (0.00-0.029) ng/mL Total Protein 4.1 L (6.3-8.2) g/dL Albumin 1.5 L (3.9-5) g/dL Triglycerides (2-149) mg/dL LDL Cholesterol Direct (50-130) mg/dL HDL Cholesterol (40-59) mg/dL Lipase 68 H (13-60) units/L TSH (0.270-4.200) mlU/mL Urine WBC (Auto) (0.0-6.0) /HPF 05/05/20 05/05/20 05/05/20 Range/Units 10:17 13:35 13:35 RBC (3.65-5.03) M/mm3 Hgb 8.5 L (11.8-15.2) gm/dl Hct 25.8 L (35.5-45.6) % Plt Count (140-440) K/mm3 Seg Neuts % (Manual) (40.0-70.0) % Lymphocytes % (Manual) (13.4-35.0) % Seg Neutrophils # Man (1.8-7.7) K/mm3 Lymphocytes # (Manual) (1.2-5.4) K/mm3 PT (12.2-14.9) Sec. INR (0.87-1.13) APTT (24.2-36.6) Sec. D-Dimer (0-234) ng/mlDDU ABG pO2 (80.0-90.0) mm Hg ABG HCO3 (20.0-26.0) mmol/L ABG O2 Saturation (95.0-99.0) % ABG Base Excess (-2.0-3.0) mmol/L ABG Hemoglobin (14.0-18.0) gm/dl Oxyhemoglobin (95.0-99.0) % Sodium (137-145) mmol/L Carbon Dioxide (22-30) mmol/L BUN (9-20) mg/dL Creatinine (0.8-1.3) mg/dL Lactic Acid 4.70 H* (0.7-2.0) mmol/L Calcium (8.4-10.2) mg/dL Magnesium (1.7-2.3) mg/dL Ferritin 1695.0 H (30.0-300.0) ng/mL Direct Bilirubin (0-0.2) mg/dL Alkaline Phosphatase (35-129) units/L Troponin T (0.00-0.029) ng/mL Total Protein (6.3-8.2) g/dL Albumin (3.9-5) g/dL Triglycerides (2-149) mg/dL LDL Cholesterol Direct (50-130) mg/dL HDL Cholesterol (40-59) mg/dL Lipase (13-60) units/L TSH (0.270-4.200) mlU/mL Urine WBC (Auto) (0.0-6.0) /HPF 05/05/20 05/05/20 Range/Units 13:35 Unknown RBC (3.65-5.03) M/mm3 Hgb (11.8-15.2) gm/dl Hct (35.5-45.6) % Plt Count (140-440) K/mm3 Seg Neuts % (Manual) (40.0-70.0) % Lymphocytes % (Manual) (13.4-35.0) % Seg Neutrophils # Man (1.8-7.7) K/mm3 Lymphocytes # (Manual) (1.2-5.4) K/mm3 PT (12.2-14.9) Sec. INR (0.87-1.13) APTT 210.9 H* (24.2-36.6) Sec. D-Dimer (0-234) ng/mlDDU ABG pO2 (80.0-90.0) mm Hg ABG HCO3 (20.0-26.0) mmol/L ABG O2 Saturation (95.0-99.0) % ABG Base Excess (-2.0-3.0) mmol/L ABG Hemoglobin (14.0-18.0) gm/dl Oxyhemoglobin (95.0-99.0) % Sodium (137-145) mmol/L Carbon Dioxide (22-30) mmol/L BUN (9-20) mg/dL Creatinine (0.8-1.3) mg/dL Lactic Acid (0.7-2.0) mmol/L Calcium (8.4-10.2) mg/dL Magnesium (1.7-2.3) mg/dL Ferritin (30.0-300.0) ng/mL Direct Bilirubin (0-0.2) mg/dL Alkaline Phosphatase (35-129) units/L Troponin T (0.00-0.029) ng/mL Total Protein (6.3-8.2) g/dL Albumin (3.9-5) g/dL Triglycerides (2-149) mg/dL LDL Cholesterol Direct (50-130) mg/dL HDL Cholesterol (40-59) mg/dL Lipase (13-60) units/L TSH (0.270-4.200) mlU/mL Urine WBC (Auto) 13.0 H (0.0-6.0) /HPF Assessment and Plan Cultures: None A/P: 44 yo M no PMHx presents with liver abscess, PE, and septic emboli. #Liver abscess: Recommend drainage with culture and microscopy. Given migration from endemic areas would need to consider Entamoeba histolytica vs bacterial, less likely parasitic but would remain on differential. #Septic emboli: awaiting echocardigram, though may be shedding bacteria from liver? Contineu empiric antibiotics #PE: anticoagulation per hosptial protocol. Recs: -Follow up COVID PCR -Treat with empiric ceftriaxone and metronidazole -Drain liver abscess via IR, please send for culture and evaluate for Entamoeba histolytica. -Follow up echocardiogram read. -Ordered blood cultures Thank you for the consult, we will continue to follow. Whit Briggs MD [facility] ([facility] O: [phone] F: [phone]
[2020-05-05] MEDS: metroNIDAZOLE/NS 500 MG/100 ML 500 MG/100 ML BAG IV SCH (17:58)
[2020-05-05] MEDS: oxyCODONE /ACETAMINOPHEN 5-325MG TAB PO PRN (18:07)
[2020-05-06] MEDS: metroNIDAZOLE/NS 500 MG/100 ML 500 MG/100 ML BAG IV SCH ×3 (01:00→16:17)
[2020-05-06 05:19] LABS: Hemoglobin 7.2 gm/dl (11.8-15.2); Mean Corpuscular HGB Conc 33 % (32-34); Mean Corpuscular Volume 85 fl (84-94); Platelet Count 122 K/mm3 (140-440); Red Blood Count 2.59 M/mm3 (3.65-5.03)
[2020-05-06 05:23] LABS: Alanine Aminotransferase 48 units/L (7-56); Albumin 1.7 g/dL (3.9-5); Blood Urea Nitrogen 20 mg/dL (9-20); Calcium 7.2 mg/dL (8.4-10.2); Hemolysis Index 0
[2020-05-06 05:31] LABS: BUN/Creatinine Ratio 29
[2020-05-06 06:24] LABS: Band Neutrophils # (Manual) 0.7 K/mm3; Total Cells Counted 100
[2020-05-06 06:25] LABS: Anisocytosis Few; Hypochromasia 2+; Platelet Estimate Consistent w Auto; Target Cells Few
[2020-05-06] MEDS: NORepinephrine/NS 4 MG-250 ML 4 MG/250 ML BAG IV SCH (08:47)
--- NOTE | 2020-05-06 08:56 | Progress Note ---
Assessment and Plan Assessment and plan: Septic shock -Patient is on IV fluids, IV antibiotics, on pressor support -ID consulted -Order Covid test Septic emboli -Continue with IV antibiotics -Blood clot burden is minimal, no vascular intervention needed -I order echo -Start on heparin drip Acute respiratory failure with hypoxia -Patient is on 4 L of oxygen -Could be due to septic emboli -Continue antibiotics for now Liver abscess -Continue with antibiotics for now -Discussed with Dr. Pina and may consider drainage of the abscess once patient is stable CODE STATUS; full Prognosis; guarded Disposition; admit to ICU 05/06/2020 -Septic shock, septic emboli to the lungs, primary source could be the liver, liver abscess -Patient is on IV Levaquin and Flagyl, ID consult appreciated. Blood culture grew gram-positive rods, will follow identification -Patient is on IV heparin -Interventional radiology consulted for drainage of the liver abscess -Patient is still on pressors. Patient is off oxygen. The high probability of a clinically significant, sudden or life threatening deterioration of the [respiratory, cardiovascular] system(s) required my full and direct attention, intervention and personal management. The aggregate critical care time was [45] minutes. This time is in addition to time spent performing reported procedures but includes the following: [x] Data Review and interpretation [x] Patient assessment and monitoring of vital signs [x] Documentation [x] Medication orders and management History Interval history: Patient was seen and evaluated this morning Patient said he is feeling okay, no abdominal pain Patient is off oxygen Hospitalist Physical - Physical exam Narrative exam: Patient is on 4 L of oxygen The patient appeared well nourished and normally developed. Vital signs as documented. Head exam is unremarkable. No scleral icterus . Neck is without jugular venous distension, thyromegaly, or carotid bruits. Lungs clear to auscultation bilaterally Cardiac exam reveals regular rate and Rhythm. Abdominal exam reveals normal bowel sounds, nontender, no organomegaly. Extremities are nonedematous and both femoral and pedal pulses are normal. 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 No focal weakness. - Constitutional Vitals: Temp Pulse Resp BP Pulse Ox 98 F 94 H 29 H 96/48 95 05/06/20 08:00 05/06/20 08:49 05/06/20 08:49 05/06/20 08:00 05/06/20 08:49 HEART Score - HEART Score Troponin: Troponin T 0.056 ng/mL (0.00-0.029) H 05/05/20 08:10 Results - Labs CBC & Chem 7: 05/06/20 03:30 05/06/20 03:30 Labs: Laboratory Last Values WBC 22.9 K/mm3 (4.5-11.0) H 05/06/20 03:30 RBC 2.59 M/mm3 (3.65-5.03) L 05/06/20 03:30 Hgb 7.2 gm/dl (11.8-15.2) L 05/06/20 03:30 Hct 22.0 % (35.5-45.6) L 05/06/20 03:30 MCV 85 fl (84-94) 05/06/20 03:30 MCH 28 pg (28-32) 05/06/20 03:30 MCHC 33 % (32-34) 05/06/20 03:30 RDW 15.0 % (13.2-15.2) 05/06/20 03:30 Plt Count 122 K/mm3 (140-440) L 05/06/20 03:30 Add Manual Diff Complete 05/06/20 03:30 Total Counted 100 05/06/20 03:30 Seg Neutrophils % Bone Char Operator 05/06/20 03:30 Seg Neuts % (Manual) 89.0 % (40.0-70.0) H 05/06/20 03:30 Band Neutrophils % 3.0 % 05/06/20 03:30 Lymphocytes % (Manual) 5.0 % (13.4-35.0) L 05/06/20 03:30 Monocytes % (Manual) 3.0 % (0.0-7.3) 05/06/20 03:30 Promyelocytes % 0 % 05/05/20 08:10 Nucleated RBC % Not Reportable 05/06/20 03:30 Seg Neutrophils # Man 20.4 K/mm3 (1.8-7.7) H 05/06/20 03:30 Band Neutrophils # 0.7 K/mm3 05/06/20 03:30 Lymphocytes # (Manual) 1.1 K/mm3 (1.2-5.4) L 05/06/20 03:30 Abs React Lymphs (Man) 0.0 K/mm3 05/06/20 03:30 Monocytes # (Manual) 0.7 K/mm3 (0.0-0.8) 05/06/20 03:30 Eosinophils # (Manual) 0.0 K/mm3 (0.0-0.4) 05/06/20 03:30 Basophils # (Manual) 0.0 K/mm3 (0.0-0.1) 05/06/20 03:30 Metamyelocytes # 0.0 K/mm3 05/06/20 03:30 Myelocytes # 0.0 K/mm3 05/06/20 03:30 Promyelocytes # 0.0 K/mm3 05/06/20 03:30 Blast Cells # 0.0 K/mm3 05/06/20 03:30 WBC Morphology Not Reportable 05/06/20 03:30 Hypersegmented Neuts Not Reportable 05/06/20 03:30 Hyposegmented Neuts Not Reportable 05/06/20 03:30 Hypogranular Neuts Not Reportable 05/06/20 03:30 Smudge Cells Not Reportable 05/06/20 03:30 Toxic Granulation Not Reportable 05/06/20 03:30 Toxic Vacuolation Not Reportable 05/06/20 03:30 Dohle Bodies Not Reportable 05/06/20 03:30 Pelger-Huet Anomaly Not Reportable 05/06/20 03:30 [place] Rods Not Reportable 05/06/20 03:30 Platelet Estimate Consistent w auto 05/06/20 03:30 Clumped Platelets Not Reportable 05/06/20 03:30 Plt Clumps, EDTA Not Reportable 05/06/20 03:30 Large Platelets Not Reportable 05/06/20 03:30 Giant Platelets Not Reportable 05/06/20 03:30 Platelet Satelliting Not Reportable 05/06/20 03:30 Plt Morphology Comment Not Reportable 05/06/20 03:30 RBC Morphology Not Reportable 05/06/20 03:30 Dimorphic RBCs Not Reportable 05/06/20 03:30 Polychromasia Not Reportable 05/06/20 03:30 Hypochromasia 2+ 05/06/20 03:30 Poikilocytosis Not Reportable 05/06/20 03:30 Anisocytosis Few 05/06/20 03:30 Microcytosis Not Reportable 05/06/20 03:30 Macrocytosis Not Reportable 05/06/20 03:30 Spherocytes Not Reportable 05/06/20 03:30 Pappenheimer Bodies Not Reportable 05/06/20 03:30 Sickle Cells Not Reportable 05/06/20 03:30 Target Cells Few 05/06/20 03:30 Tear Drop Cells Not Reportable 05/06/20 03:30 Ovalocytes Not Reportable 05/06/20 03:30 Helmet Cells Not Reportable 05/06/20 03:30 [place] Bodies Not Reportable 05/06/20 03:30 [place] Rings Not Reportable 05/06/20 03:30 [place] Cells Not Reportable 05/06/20 03:30 Bite Cells Not Reportable 05/06/20 03:30 Crenated Cell Not Reportable 05/06/20 03:30 Elliptocytes Not Reportable 05/06/20 03:30 Acanthocytes (Spur) Not Reportable 05/06/20 03:30 Rouleaux Not Reportable 05/06/20 03:30 Hemoglobin C Crystals Not Reportable 05/06/20 03:30 Schistocytes Not Reportable 05/06/20 03:30 Malaria parasites Not Reportable 05/06/20 03:30 Aristides Bodies Not Reportable 05/06/20 03:30 Hem Pathologist Commnt No 05/06/20 03:30 PT 15.8 Sec. (12.2-14.9) H 05/05/20 08:10 INR 1.28 (0.87-1.13) H 05/05/20 08:10 APTT 210.9 Sec. (24.2-36.6) H* 05/05/20 13:35 D-Dimer > 96715 ng/mlDDU (0-234) H 05/05/20 08:10 Heparin Anti-Xa Level < 0.10 U.I./ml (0.3-0.7) L 05/06/20 02:30 ABG pH 7.409 pH Units (7.350-7.450) 05/05/20 09:10 ABG pCO2 16.7 mm Hg 05/05/20 09:10 ABG pO2 27.6 mm Hg (80.0-90.0) L* 05/05/20 09:10 ABG HCO3 10.3 mmol/L (20.0-26.0) L 05/05/20 09:10 ABG O2 Saturation 38.5 % (95.0-99.0) L 05/05/20 09:10 ABG O2 Content 3.6 (0.0-44) 05/05/20 09:10 ABG Base Excess -13.0 mmol/L (-2.0-3.0) L 05/05/20 09:10 ABG Hemoglobin 6.7 gm/dl (14.0-18.0) L 05/05/20 09:10 ABG Carboxyhemoglobin 1.0 % (0.0-5.0) 05/05/20 09:10 ABG Methemoglobin 0.8 % (0.0-1.5) 05/05/20 09:10 Oxyhemoglobin 37.9 % (95.0-99.0) L 05/05/20 09:10 FiO2 21 % 05/05/20 09:10 Sodium 134 mmol/L (137-145) L 05/06/20 03:30 Potassium 3.9 mmol/L (3.6-5.0) 05/06/20 03:30 Chloride 105.5 mmol/L (98-107) 05/06/20 03:30 Carbon Dioxide 22 mmol/L (22-30) D 05/06/20 03:30 Anion Gap 10 mmol/L 05/06/20 03:30 BUN 20 mg/dL (9-20) 05/06/20 03:30 Creatinine 0.7 mg/dL (0.8-1.3) L D 05/06/20 03:30 Estimated GFR > 60 ml/min 05/06/20 03:30 BUN/Creatinine Ratio 29 % 05/06/20 03:30 Glucose 162 mg/dL (75-100) H 05/06/20 03:30 Lactic Acid 1.20 mmol/L (0.7-2.0) 05/06/20 03:30 Calcium 7.2 mg/dL (8.4-10.2) L 05/06/20 03:30 Magnesium 1.90 mg/dL (1.7-2.3) 05/06/20 03:30 Ferritin 1695.0 ng/mL (30.0-300.0) H 05/05/20 10:17 Total Bilirubin 0.40 mg/dL (0.1-1.2) 05/06/20 03:30 Direct Bilirubin 0.4 mg/dL (0-0.2) H 05/05/20 10:17 Indirect Bilirubin 0.0 mg/dL 05/05/20 10:17 AST 38 units/L (5-40) 05/06/20 03:30 ALT 48 units/L (7-56) 05/06/20 03:30 Alkaline Phosphatase 153 units/L (35-129) H 05/06/20 03:30 Troponin T 0.056 ng/mL (0.00-0.029) H 05/05/20 08:10 Total Protein 4.9 g/dL (6.3-8.2) L 05/06/20 03:30 Albumin 1.7 g/dL (3.9-5) L 05/06/20 03:30 Albumin/Globulin Ratio 0.5 % 05/06/20 03:30 Triglycerides 231 mg/dL (2-149) H 05/05/20 08:10 Cholesterol 80 mg/dL (50-199) 05/05/20 08:10 LDL Cholesterol Direct 17 mg/dL (50-130) L 05/05/20 08:10 HDL Cholesterol 11 mg/dL (40-59) L 05/05/20 08:10 Cholesterol/HDL Ratio 7.27 % 05/05/20 08:10 Lipase 68 units/L (13-60) H 05/05/20 10:17 TSH 12.770 mlU/mL (0.270-4.200) H 05/05/20 08:10 Thyroxine (T4) 7.4 ug/dL (4.0-12.0) 05/05/20 08:10 Urine Color Yellow (Yellow) 05/05/20 Unknown Urine Turbidity Slightly-cloudy (Clear) 05/05/20 Unknown Urine pH 5.0 (5.0-7.0) 05/05/20 Unknown Ur Specific [place] 1.009 (1.003-1.030) 05/05/20 Unknown Urine Protein <15 mg/dl mg/dL (Negative) 05/05/20 Unknown Urine Glucose (UA) Neg mg/dL (Negative) 05/05/20 Unknown Urine Ketones Neg mg/dL (Negative) 05/05/20 Unknown Urine Blood Sm (Negative) 05/05/20 Unknown Urine Nitrite Pos (Negative) 05/05/20 Unknown Urine Bilirubin Neg (Negative) 05/05/20 Unknown Urine Urobilinogen < 2.0 mg/dL (<2.0) 05/05/20 Unknown Ur Leukocyte Esterase Neg (Negative) 05/05/20 Unknown Urine WBC (Auto) 13.0 /HPF (0.0-6.0) H 05/05/20 Unknown Urine RBC (Auto) 1.0 /HPF (0.0-6.0) 05/05/20 Unknown Urine Bacteria (Auto) 4+ /HPF (Negative) 05/05/20 Unknown Urine Mucus 3+ /HPF 05/05/20 Unknown Blood Type O POSITIVE 05/05/20 09:35 Antibody Screen Negative 05/05/20 09:35 Microbiology: Microbiology 05/05/20 08:55 Peripheral/Venous Blood Culture - Preliminary 05/05/20 08:55 Peripheral/Venous Blood Culture - Preliminary [place]/IV: Voiding Method Urinal Active Medications - Current Medications Current Medications: Generic Name Dose Route Start Last Admin Trade Name Freq PRN Reason Stop Dose Admin Heparin Sodium (Porcine) 2,700 unit 05/05/20 13:53 Heparin 10,000 Units/10 Ml Vial 40 unit/kg (2700 unit) IV Q6H PRN Anti-Xa Assay < 0.1 units/ml Ceftriaxone Sodium 2 gm in 100 mls @ 200 mls/hr 05/06/20 10:00 Rocephin/Ns 2 Gm/100 Ml IV Q24H RADHA Protocol Sodium Chloride 1,000 mls @ 150 mls/hr 05/05/20 12:00 Nacl 0.9% 1000 Ml IV DIRECT RADHA Norepinephrine 4 mg in 250 mls @ 7.5 mls/hr 05/05/20 12:00 05/06/20 08:47 Levophed Drip 4 Mg/Ns 250 Ml IV 2 mcg/min TITR RADHA 7.5 mls/hr Administration Protocol 2 MCG/MIN Heparin Sodium/Sodium Chloride 25,000 unit in 500 mls @ 20 mls/hr 05/05/20 14:00 05/06/20 05:52 Heparin/ 0.45% Nacl-25,000 Unit/500 Ml IV 1,200 units/hr TITR RADHA 24 mls/hr Titration Protocol 1,000 UNITS/HR Metronidazole 500 mg in 100 mls @ 100 mls/hr 05/05/20 17:00 05/06/20 08:43 Flagyl 500 Mg/100 Ml IV 100 mls/hr Q8H RADHA Administration Protocol Oxycodone/Acetaminophen 1 tab 05/05/20 11:29 05/05/20 18:07 Oxycodone /Acetaminophen 5-325mg Tab PO 1 tab Q6H PRN Administration Pain, Moderate (4-6)
[2020-05-06] MEDS: cefTRIAXone/NS 2 GM/100 ML 2 GM/100 ML BAG IV SCH (09:41)
[2020-05-06] MEDS ORDERED: AZITHROMYCIN 250 MG TAB PO SCH (10:00)
[2020-05-06] MEDS: SODIUM CHLORIDE 0.9% 1000 ML 1,000 ML IV SCH ×2 (11:44→21:04)
--- NOTE | 2020-05-06 13:14 | Consultation ---
History of Present Illness Consult date: 05/06/20 Requesting physician: ARA PETERSON Reason for consult: hypoxemia History of present illness: 44 y/o male admitted yesterday after findings on CTA showed septic emboli, questionable PE's with large burden (IR disagrees with this read) and hepatic abscess with bacteremia. Patient appears to may have been septic, early, so started on IVF's (ordered but not started) and started on IV pressor therapy and admitted to the unit. Per IMS note, we were consulted secondary to hypoxemia. Patient did not require EKOS. He has also been weaned off the pressors and is currently on room air. Past History Past Medical History: No medical history Past Surgical History: appendectomy Social history: full code. denies: smoking, alcohol abuse, prescription drug abuse, IV drug use Family history: no significant family history Medications and Allergies Allergies Allergy/AdvReac Type Severity Reaction Status Date / Time No Known Allergies Allergy Unverified 05/05/20 07:53 Home Medications Medication Instructions Recorded Confirmed Last Taken Type No Known Home Medications [No 05/05/20 05/05/20 Unknown History Reported Home Medications] Active Meds: Active Medications Heparin Sodium (Porcine) (Heparin 10,000 Units/10 Ml Vial) 2,700 unit 40 unit/kg (2700 unit) IV Q6H PRN PRN Reason: Anti-Xa Assay < 0.1 units/ml Ceftriaxone Sodium (Rocephin/Ns 2 Gm/100 Ml) 2 gm in 100 mls @ 200 mls/hr IV Q24H RADHA; Protocol Last Admin: 05/06/20 09:41 Dose: 200 mls/hr Documented by: Sodium Chloride (Nacl 0.9% 1000 Ml) 1,000 mls @ 150 mls/hr IV DIRECT RADHA Last Admin: 05/06/20 11:44 Dose: 150 mls/hr Documented by: Norepinephrine (Levophed Drip 4 Mg/Ns 250 Ml) 4 mg in 250 mls @ 7.5 mls/hr IV TITR RADHA; Protocol Last Titration: 05/06/20 11:44 Dose: 0 mcg/min, 0 mls/hr Documented by: Heparin Sodium/Sodium Chloride (Heparin/ 0.45% Nacl-25,000 Unit/500 Ml) 25,000 unit in 500 mls @ 20 mls/hr IV TITR RADHA; Protocol Last Titration: 05/06/20 05:52 Dose: 1,200 units/hr, 24 mls/hr Documented by: Metronidazole (Flagyl 500 Mg/100 Ml) 500 mg in 100 mls @ 100 mls/hr IV Q8H RADHA; Protocol Last Admin: 05/06/20 08:43 Dose: 100 mls/hr Documented by: Oxycodone/Acetaminophen (Oxycodone /Acetaminophen 5-325mg Tab) 1 tab PO Q6H PRN PRN Reason: Pain, Moderate (4-6) Last Admin: 05/05/20 18:07 Dose: 1 tab Documented by: Physical Examination Vital signs: Vital Signs Temp Pulse Resp BP Pulse Ox 98.9 F 125 H 22 70/42 100 05/05/20 08:08 05/05/20 08:08 05/05/20 08:08 05/05/20 08:08 05/05/20 08:08 General appearance: no acute distress, alert Eyes: non-icteric ENT: oropharynx moist Neck: supple Effort: normal Ascultation: Bilateral: clear Results - Laboratory Findings CBC and BMP: 05/06/20 03:30 05/06/20 03:30 ABG ABG pH 7.409 pH Units (7.350-7.450) 05/05/20 09:10 ABG pCO2 16.7 mm Hg 05/05/20 09:10 ABG pO2 27.6 mm Hg (80.0-90.0) L* 05/05/20 09:10 ABG O2 Saturation 38.5 % (95.0-99.0) L 05/05/20 09:10 PT/INR, D-dimer PT 15.8 Sec. (12.2-14.9) H 05/05/20 08:10 INR 1.28 (0.87-1.13) H 05/05/20 08:10 D-Dimer > 48944 ng/mlDDU (0-234) H 05/05/20 08:10 Abnormal lab findings: Abnormal Labs 05/05/20 05/05/20 05/05/20 08:10 08:10 08:10 WBC RBC 2.91 L Hgb 8.1 L Hct 24.5 L Plt Count 107 L Seg Neuts % (Manual) 97.0 H Lymphocytes % (Manual) 2.0 L Seg Neutrophils # Man 10.7 H Lymphocytes # (Manual) 0.2 L PT INR APTT D-Dimer > 34951 H Heparin Anti-Xa Level ABG pO2 ABG HCO3 ABG O2 Saturation ABG Base Excess ABG Hemoglobin Oxyhemoglobin Sodium 128 L Carbon Dioxide 15 L BUN 32 H Creatinine 1.5 H Glucose Lactic Acid Calcium 7.5 L Magnesium 1.30 L Ferritin Direct Bilirubin Alkaline Phosphatase Troponin T 0.056 H Total Protein Albumin Triglycerides 231 H LDL Cholesterol Direct 17 L HDL Cholesterol 11 L Lipase TSH Urine WBC (Auto) 05/05/20 05/05/20 05/05/20 08:10 08:10 08:55 WBC RBC Hgb Hct Plt Count Seg Neuts % (Manual) Lymphocytes % (Manual) Seg Neutrophils # Man Lymphocytes # (Manual) PT 15.8 H INR 1.28 H APTT D-Dimer Heparin Anti-Xa Level ABG pO2 ABG HCO3 ABG O2 Saturation ABG Base Excess ABG Hemoglobin Oxyhemoglobin Sodium Carbon Dioxide BUN Creatinine Glucose Lactic Acid 6.40 H* Calcium Magnesium Ferritin Direct Bilirubin Alkaline Phosphatase Troponin T Total Protein Albumin Triglycerides LDL Cholesterol Direct HDL Cholesterol Lipase TSH 12.770 H Urine WBC (Auto) 05/05/20 05/05/20 05/05/20 09:10 10:17 10:17 WBC RBC Hgb Hct Plt Count Seg Neuts % (Manual) Lymphocytes % (Manual) Seg Neutrophils # Man Lymphocytes # (Manual) PT INR APTT D-Dimer Heparin Anti-Xa Level ABG pO2 27.6 L* ABG HCO3 10.3 L ABG O2 Saturation 38.5 L ABG Base Excess -13.0 L ABG Hemoglobin 6.7 L Oxyhemoglobin 37.9 L Sodium Carbon Dioxide BUN Creatinine Glucose Lactic Acid 6.20 H* Calcium Magnesium Ferritin Direct Bilirubin 0.4 H Alkaline Phosphatase 183 H Troponin T Total Protein 4.1 L Albumin 1.5 L Triglycerides LDL Cholesterol Direct HDL Cholesterol Lipase 68 H TSH Urine WBC (Auto) 05/05/20 05/05/20 05/05/20 10:17 13:35 13:35 WBC RBC Hgb 8.5 L Hct 25.8 L Plt Count Seg Neuts % (Manual) Lymphocytes % (Manual) Seg Neutrophils # Man Lymphocytes # (Manual) PT INR APTT D-Dimer Heparin Anti-Xa Level ABG pO2 ABG HCO3 ABG O2 Saturation ABG Base Excess ABG Hemoglobin Oxyhemoglobin Sodium Carbon Dioxide BUN Creatinine Glucose Lactic Acid 4.70 H* Calcium Magnesium Ferritin 1695.0 H Direct Bilirubin Alkaline Phosphatase Troponin T Total Protein Albumin Triglycerides LDL Cholesterol Direct HDL Cholesterol Lipase TSH Urine WBC (Auto) 05/05/20 05/05/20 05/05/20 13:35 18:21 20:27 WBC RBC Hgb Hct Plt Count Seg Neuts % (Manual) Lymphocytes % (Manual) Seg Neutrophils # Man Lymphocytes # (Manual) PT INR APTT 210.9 H* D-Dimer Heparin Anti-Xa Level 0.23 L ABG pO2 ABG HCO3 ABG O2 Saturation ABG Base Excess ABG Hemoglobin Oxyhemoglobin Sodium Carbon Dioxide BUN Creatinine Glucose Lactic Acid 3.30 H* Calcium Magnesium Ferritin Direct Bilirubin Alkaline Phosphatase Troponin T Total Protein Albumin Triglycerides LDL Cholesterol Direct HDL Cholesterol Lipase TSH Urine WBC (Auto) 05/05/20 05/05/20 05/06/20 20:42 Unknown 02:30 WBC RBC Hgb Hct Plt Count Seg Neuts % (Manual) Lymphocytes % (Manual) Seg Neutrophils # Man Lymphocytes # (Manual) PT INR APTT D-Dimer Heparin Anti-Xa Level < 0.10 L ABG pO2 ABG HCO3 ABG O2 Saturation ABG Base Excess ABG Hemoglobin Oxyhemoglobin Sodium Carbon Dioxide BUN Creatinine Glucose Lactic Acid 4.20 H* Calcium Magnesium Ferritin Direct Bilirubin Alkaline Phosphatase Troponin T Total Protein Albumin Triglycerides LDL Cholesterol Direct HDL Cholesterol Lipase TSH Urine WBC (Auto) 13.0 H 05/06/20 05/06/20 05/06/20 03:30 03:30 11:54 WBC 22.9 H RBC 2.59 L Hgb 7.2 L Hct 22.0 L Plt Count 122 L Seg Neuts % (Manual) 89.0 H Lymphocytes % (Manual) 5.0 L Seg Neutrophils # Man 20.4 H Lymphocytes # (Manual) 1.1 L PT INR APTT D-Dimer Heparin Anti-Xa Level 0.13 L ABG pO2 ABG HCO3 ABG O2 Saturation ABG Base Excess ABG Hemoglobin Oxyhemoglobin Sodium 134 L Carbon Dioxide BUN Creatinine 0.7 L D Glucose 162 H Lactic Acid Calcium 7.2 L Magnesium Ferritin Direct Bilirubin Alkaline Phosphatase 153 H Troponin T Total Protein 4.9 L Albumin 1.7 L Triglycerides LDL Cholesterol Direct HDL Cholesterol Lipase TSH Urine WBC (Auto) - Diagnostic Findings Chest x-ray: image reviewed CT scan - chest: image reviewed (Appears to be septic emobli with some lower lobe atelectasis) Assessment and Plan 44 male with hepatic abscess and septic emboli with sepsis and septic shock, now resolving with abx therapy and fluid resuscitation. 1. Vasopressors are off. OXygen weaned off. If remains stable over the next few hours, will transfer to the floor. 2. Appreciate ID and Vascular help, continue broad spec abx therapy.
--- NOTE | 2020-05-06 14:36 | Event Note ---
Date: 05/06/20 44-year-old male with septic emboli to the lungs and right hepatic mass concerning for hepatic abscess. Patient has minimal thrombotic burden to the lungs with a single subsegmental left upper lung pulmonary embolism. DVT of the bilateral lower extremities ordered. GI and ID have been consulted. Patient will need GI work-up before drainage can be performed including AFP and hepatitis panel. Recommend transfer to facility with hepatobiliary surgery available as this abscess may ultimately require right partial hepatectomy. Due to the current pandemic, this may not be possible. However, this should probably be attempted prior to drainage. Drainage can be performed, but morbidity may occur with biloma formation and biliary leakage which is why hepatobiliary backup is important. N.p.o. after midnight except sips of water with meds in case more urgent drainage required.
--- NOTE | 2020-05-06 15:40 | Progress Note ---
Assessment and Plan Cultures: Blood cultures: Gram-negative selma A/P: 44 yo M no PMHx presents with liver abscess, PE, and septic emboli. #Liver abscess: Recommend drainage with culture and microscopy. Given migration from endemic areas would need to consider Entamoeba histolytica vs bacterial, less likely parasitic but would remain on differential. #Septic emboli: Echo without vegetations., though may be shedding bacteria from liver? Continue empiric antibiotics #PE: anticoagulation per hosptial protocol. Recs: -Treat with empiric ceftriaxone and metronidazole -Drain liver abscess via IR, please send for culture and evaluate for Entamoeba histolytica. -Follow-up blood culture results Thank you for the consult, we will continue to follow. Whit Briggs MD [facility], [place], [facility]ated [facility] ([facility]) O: [phone] F: [phone] Subjective Date of service: 05/06/20 Interval history: Afebrile, white count elevated 22.9. Covid negative. Blood cultures with gram-negative rods. Currently on ceftriaxone and metronidazole. Objective - Exam Narrative Exam: Physical exam deferred due to PPE conservation strategy. Please refer to primary team's note. - Constitutional Vitals: Vital Signs Temp Pulse Resp BP Pulse Ox 97.8 F 105 H 21 104/62 96 05/06/20 12:00 05/06/20 11:20 05/06/20 11:20 05/06/20 11:20 05/06/20 11:20 Temperature -Last 24 Hours Temperature 97.8 F Temperature 98 F Temperature 98.2 F Temperature 98.6 F Temperature 98.2 F Temperature 98.3 F - Labs CBC & Chem 7: 05/06/20 03:30 05/06/20 03:30 Labs: Abnormal lab results 05/05/20 05/05/20 05/05/20 Range/Units 18:21 20:27 20:42 WBC (4.5-11.0) K/mm3 RBC (3.65-5.03) M/mm3 Hgb (11.8-15.2) gm/dl Hct (35.5-45.6) % Plt Count (140-440) K/mm3 Seg Neuts % (Manual) (40.0-70.0) % Lymphocytes % (Manual) (13.4-35.0) % Seg Neutrophils # Man (1.8-7.7) K/mm3 Lymphocytes # (Manual) (1.2-5.4) K/mm3 Heparin Anti-Xa Level 0.23 L (0.3-0.7) U.I./ml Sodium (137-145) mmol/L Creatinine (0.8-1.3) mg/dL Glucose (75-100) mg/dL Lactic Acid 3.30 H* 4.20 H* (0.7-2.0) mmol/L Calcium (8.4-10.2) mg/dL Alkaline Phosphatase (35-129) units/L Total Protein (6.3-8.2) g/dL Albumin (3.9-5) g/dL 05/06/20 05/06/20 05/06/20 Range/Units 02:30 03:30 03:30 WBC 22.9 H (4.5-11.0) K/mm3 RBC 2.59 L (3.65-5.03) M/mm3 Hgb 7.2 L (11.8-15.2) gm/dl Hct 22.0 L (35.5-45.6) % Plt Count 122 L (140-440) K/mm3 Seg Neuts % (Manual) 89.0 H (40.0-70.0) % Lymphocytes % (Manual) 5.0 L (13.4-35.0) % Seg Neutrophils # Man 20.4 H (1.8-7.7) K/mm3 Lymphocytes # (Manual) 1.1 L (1.2-5.4) K/mm3 Heparin Anti-Xa Level < 0.10 L (0.3-0.7) U.I./ml Sodium 134 L (137-145) mmol/L Creatinine 0.7 L D (0.8-1.3) mg/dL Glucose 162 H (75-100) mg/dL Lactic Acid (0.7-2.0) mmol/L Calcium 7.2 L (8.4-10.2) mg/dL Alkaline Phosphatase 153 H (35-129) units/L Total Protein 4.9 L (6.3-8.2) g/dL Albumin 1.7 L (3.9-5) g/dL 05/06/20 Range/Units 11:54 WBC (4.5-11.0) K/mm3 RBC (3.65-5.03) M/mm3 Hgb (11.8-15.2) gm/dl Hct (35.5-45.6) % Plt Count (140-440) K/mm3 Seg Neuts % (Manual) (40.0-70.0) % Lymphocytes % (Manual) (13.4-35.0) % Seg Neutrophils # Man (1.8-7.7) K/mm3 Lymphocytes # (Manual) (1.2-5.4) K/mm3 Heparin Anti-Xa Level 0.13 L (0.3-0.7) U.I./ml Sodium (137-145) mmol/L Creatinine (0.8-1.3) mg/dL Glucose (75-100) mg/dL Lactic Acid (0.7-2.0) mmol/L Calcium (8.4-10.2) mg/dL Alkaline Phosphatase (35-129) units/L Total Protein (6.3-8.2) g/dL Albumin (3.9-5) g/dL
[2020-05-06] MEDS: HEPARIN/ 0.45% NACL DRIP 25,000 UNIT/500 ML BAG IV SCH (16:19)
[2020-05-06] MEDS ORDERED: IPRATROPIUM 0.02% NEBU 2.5 ML IH ONE (19:34)
[2020-05-06] MEDS ORDERED: LEVALBUTEROL 0.63 MG/3 ML NEBU IH ONE (19:35)
[2020-05-06] MEDS ORDERED: ADENOSINE 6 MG/2 ML INJ ONE ×4 (19:39→19:45)
[2020-05-06] MEDS ORDERED: HALOPERIDOL LACTATE 5 MG/1 ML INJ ONE ×2 (19:40→19:51)
[2020-05-06] MEDS ORDERED: HALOPERIDOL LACTATE 5 MG/1 ML INJ IM ONE (19:45)
[2020-05-06] MEDS ORDERED: AMIODARONE 150 MG/3 ML INJ IV ONE (19:45)
[2020-05-06] MEDS ORDERED: ADENOSINE 6 MG/2 ML INJ IV ONE ×3 (19:52)
[2020-05-06] MEDS ORDERED: ACETAMINOPHEN 650 MG RECT SUPP PR ONE ×2 (19:56→20:00)
[2020-05-06] MEDS ORDERED: HYDROmorphone 1 MG/1 ML INJ ONE (20:07)
[2020-05-06] MEDS ORDERED: AMIODARONE 150 MG in DEXTROSE 5% IN WATER 100 ML IV ONE (20:15)
--- NOTE | 2020-05-06 20:46 | XRay Report ---
CHEST 1 VIEW 05/06/2020 7:35 PM INDICATION / CLINICAL INFORMATION: respiratory distress. COMPARISON: One view of the chest from 05/05/2020. FINDINGS: SUPPORT DEVICES: None. HEART / MEDIASTINUM: Stable. LUNGS / PLEURA: Similar elevation of the right hemidiaphragm with low lung volumes and increased righ t pulmonary opacities with slightly improved left pulmonary opacities. No significant pleural effusio n. No pneumothorax. ADDITIONAL FINDINGS: No significant additional findings. IMPRESSION: Interval evolution of bilateral pulmonary opacities as above. Increased right pulmonary opacities may represent worsening atelectasis. Signer Name: Bert Vincent MD Signed: 05/06/2020 8:42 PM Workstation Name: [id number]
[2020-05-06] MEDS ORDERED: AMIODARONE 900 MG in DEXTROSE 5% IN WATER 482 ML IV SCH (21:00)
--- NOTE | 2020-05-06 22:06 | Progress Note ---
Assessment and Plan - Patient Problems (1) SVT (supraventricular tachycardia) Current Visit: Yes Status: Acute Plan to address problem: Patient with a heart rate of 170/min consistent with SVT Add nursing 6 mg, 12 mg, 18 mg was given with brief response Amiodarone 100 mg bolus was given and started on IV amiodarone drip Haldol was given 5 mg x 2 Some improvement in her heart rate to 130s Impression Severe PE Sepsis We will follow the patient closely Critical care statement The high probability OF a clinically significant sudden or life-threatening deterioration of the cardiorespiratory system and endocrine system required my full and direct attention, intervention and postoperative management. The aggregate critical care time was 32 minutes. The time is in addition to time spent performing reported procedures but includes the followin: Data review and interpretation 2: Patient assessment and monitoring of vital signs 3: Documentation 4:: Medication orders and management Recheck the patient after 1 hour Patient more stable Patient still tachycardic in 120s Subjective Date of service: 05/06/20 Principal diagnosis: Acute pulmonary embolism, liver abscess Interval history: Called to patient because of severe tachypnea and respiratory distress. Patient has a heart rate of 170 consistent with sinus tach Objective - Constitutional Vitals: Vital Signs - 12hr 05/06/20 05/06/20 05/06/20 10:10 10:20 10:30 Temperature Pulse Rate 91 H 90 110 H Pulse Rate [ From Monitor] Respiratory 22 20 30 H Rate Blood Pressure 94/60 94/60 97/61 O2 Sat by Pulse 94 93 94 Oximetry 05/06/20 05/06/20 05/06/20 10:40 10:50 11:00 Temperature Pulse Rate 96 H 96 H 111 H Pulse Rate [ From Monitor] Respiratory 20 23 24 Rate Blood Pressure 97/61 97/61 101/54 O2 Sat by Pulse 93 93 95 Oximetry 05/06/20 05/06/20 05/06/20 11:10 11:20 11:30 Temperature Pulse Rate 99 H 105 H 113 H Pulse Rate [ From Monitor] Respiratory 24 21 30 H Rate Blood Pressure 101/54 104/62 104/62 O2 Sat by Pulse 95 96 95 Oximetry 05/06/20 05/06/20 05/06/20 11:40 11:50 12:00 Temperature 97.8 F Pulse Rate 100 H 101 H 97 H Pulse Rate [ 96 H From Monitor] Respiratory 22 24 23 Rate Blood Pressure 98/72 97/55 101/53 O2 Sat by Pulse 94 94 95 Oximetry 05/06/20 05/06/20 05/06/20 12:10 12:20 12:30 Temperature Pulse Rate 107 H 100 H 96 H Pulse Rate [ From Monitor] Respiratory 17 24 24 Rate Blood Pressure 101/53 97/55 99/53 O2 Sat by Pulse 95 94 Oximetry 05/06/20 05/06/20 05/06/20 12:40 12:50 13:00 Temperature Pulse Rate 98 H 104 H 113 H Pulse Rate [ From Monitor] Respiratory 12 28 H 21 Rate Blood Pressure 99/53 101/56 101/56 O2 Sat by Pulse 96 95 97 Oximetry 05/06/20 05/06/20 05/06/20 13:10 13:20 13:30 Temperature Pulse Rate 99 H 100 H 103 H Pulse Rate [ From Monitor] Respiratory 23 25 H 16 Rate Blood Pressure 99/73 106/56 100/61 O2 Sat by Pulse 95 94 94 Oximetry 05/06/20 05/06/20 05/06/20 13:40 13:50 14:00 Temperature Pulse Rate 91 H 93 H 97 H Pulse Rate [ From Monitor] Respiratory 21 Rate Blood Pressure 100/61 98/58 106/55 O2 Sat by Pulse 94 94 94 Oximetry 05/06/20 05/06/20 05/06/20 14:10 14:20 14:30 Temperature Pulse Rate 98 H 110 H 97 H Pulse Rate [ From Monitor] Respiratory 25 H 21 15 Rate Blood Pressure 106/55 99/55 104/56 O2 Sat by Pulse 96 95 94 Oximetry 05/06/20 05/06/20 05/06/20 14:40 14:50 15:00 Temperature Pulse Rate 108 H 96 H 93 H Pulse Rate [ From Monitor] Respiratory 14 15 18 Rate Blood Pressure 104/56 105/61 109/58 O2 Sat by Pulse 94 94 95 Oximetry 05/06/20 05/06/20 05/06/20 15:10 15:20 15:30 Temperature Pulse Rate 97 H 105 H 107 H Pulse Rate [ From Monitor] Respiratory 26 H 33 H 25 H Rate Blood Pressure 109/58 110/63 106/69 O2 Sat by Pulse 93 96 95 Oximetry 05/06/20 05/06/20 05/06/20 15:40 15:50 16:00 Temperature 99.2 F Pulse Rate 90 97 H 95 H Pulse Rate [ From Monitor] Respiratory 22 21 19 Rate Blood Pressure 106/69 104/64 109/65 O2 Sat by Pulse 94 95 94 Oximetry 05/06/20 05/06/20 05/06/20 16:10 16:13 16:20 Temperature Pulse Rate 106 H 95 H Pulse Rate [ 91 H From Monitor] Respiratory 24 19 15 Rate Blood Pressure 109/65 109/58 O2 Sat by Pulse 94 94 95 Oximetry 05/06/20 05/06/20 05/06/20 16:30 16:40 16:50 Temperature Pulse Rate 101 H 94 H 105 H Pulse Rate [ From Monitor] Respiratory 20 22 26 H Rate Blood Pressure 104/63 104/63 113/71 O2 Sat by Pulse 94 95 95 Oximetry 05/06/20 05/06/20 05/06/20 17:00 17:10 17:20 Temperature Pulse Rate 93 H 112 H 100 H Pulse Rate [ From Monitor] Respiratory 21 33 H 26 H Rate Blood Pressure 110/59 110/59 106/68 O2 Sat by Pulse 95 95 Oximetry 05/06/20 05/06/20 05/06/20 17:30 17:40 17:50 Temperature Pulse Rate 100 H 110 H 107 H Pulse Rate [ From Monitor] Respiratory 25 H 30 H 27 H Rate Blood Pressure 106/64 106/64 113/70 O2 Sat by Pulse 97 96 94 Oximetry 05/06/20 05/06/20 05/06/20 18:00 18:10 18:20 Temperature Pulse Rate 109 H 101 H 108 H Pulse Rate [ From Monitor] Respiratory 26 H 22 27 H Rate Blood Pressure 116/63 116/63 112/67 O2 Sat by Pulse 95 94 96 Oximetry 05/06/20 05/06/20 05/06/20 18:30 18:40 18:50 Temperature Pulse Rate 112 H 106 H 108 H Pulse Rate [ From Monitor] Respiratory 27 H 26 H 23 Rate Blood Pressure 108/67 108/67 115/67 O2 Sat by Pulse 95 97 Oximetry 05/06/20 05/06/20 05/06/20 19:00 19:10 19:20 Temperature Pulse Rate 134 H 157 H 167 H Pulse Rate [ From Monitor] Respiratory 23 45 H 39 H Rate Blood Pressure 115/67 115/67 115/67 O2 Sat by Pulse 91 84 84 Oximetry 05/06/20 05/06/20 05/06/20 19:30 19:40 19:50 Temperature Pulse Rate 177 H 171 H 155 H Pulse Rate [ From Monitor] Respiratory 40 H 44 H 42 H Rate Blood Pressure 115/67 115/67 115/67 O2 Sat by Pulse 84 79 L 82 L Oximetry 05/06/20 05/06/20 05/06/20 20:00 20:10 20:20 Temperature 101.9 F H Pulse Rate 176 H 163 H 148 H Pulse Rate [ From Monitor] Respiratory 51 H 42 H 34 H Rate Blood Pressure 115/67 131/50 116/53 O2 Sat by Pulse 77 L 99 Oximetry 05/06/20 05/06/20 05/06/20 20:30 20:40 20:50 Temperature Pulse Rate 142 H 139 H 169 H Pulse Rate [ From Monitor] Respiratory 33 H 39 H 55 H Rate Blood Pressure 108/50 108/50 102/54 O2 Sat by Pulse 99 95 88 Oximetry 05/06/20 05/06/20 05/06/20 21:00 21:10 21:30 Temperature Pulse Rate 131 H 132 H Pulse Rate [ 146 H From Monitor] Respiratory 27 H 29 H Rate Blood Pressure 103/55 103/55 100/46 O2 Sat by Pulse 96 97 Oximetry General appearance: Present: severe distress, well-nourished - EENT Eyes: PERRL, EOM intact ENT: hearing intact, clear oral mucosa Ears: bilateral: normal - Neck Neck: supple, normal ROM - Respiratory Respiratory effort: normal Respiratory: bilateral: rhonchi, wheezing - Breasts Breasts: normal - Cardiovascular Heart rate: 170 Rhythm: regular Heart Sounds: Present: S1 & S2. Absent: gallop, rub Extremities: pulses intact, No edema, normal color, Full ROM - Gastrointestinal General gastrointestinal: Present: soft, non-tender, non-distended, normal bowel sounds - Genitourinary Male genitourinary: normal - Integumentary Integumentary: clear, warm, dry - Musculoskeletal Musculoskeletal: 1, strength equal bilaterally - Neurologic Neurologic: moves all extremities - Psychiatric Psychiatric: memory intact, appropriate mood/affect, intact judgment & insight - Labs CBC & Chem 7: 05/06/20 03:30 05/06/20 03:30 Labs: Abnormal lab results 05/05/20 05/06/20 05/06/20 Range/Units 20:42 02:30 03:30 WBC 22.9 H (4.5-11.0) K/mm3 RBC 2.59 L (3.65-5.03) M/mm3 Hgb 7.2 L (11.8-15.2) gm/dl Hct 22.0 L (35.5-45.6) % Plt Count 122 L (140-440) K/mm3 Seg Neuts % (Manual) 89.0 H (40.0-70.0) % Lymphocytes % (Manual) 5.0 L (13.4-35.0) % Seg Neutrophils # Man 20.4 H (1.8-7.7) K/mm3 Lymphocytes # (Manual) 1.1 L (1.2-5.4) K/mm3 Heparin Anti-Xa Level < 0.10 L (0.3-0.7) U.I./ml Sodium (137-145) mmol/L Creatinine (0.8-1.3) mg/dL Glucose (75-100) mg/dL Lactic Acid 4.20 H* (0.7-2.0) mmol/L Calcium (8.4-10.2) mg/dL Alkaline Phosphatase (35-129) units/L Total Protein (6.3-8.2) g/dL Albumin (3.9-5) g/dL 05/06/20 05/06/20 Range/Units 03:30 11:54 WBC (4.5-11.0) K/mm3 RBC (3.65-5.03) M/mm3 Hgb (11.8-15.2) gm/dl Hct (35.5-45.6) % Plt Count (140-440) K/mm3 Seg Neuts % (Manual) (40.0-70.0) % Lymphocytes % (Manual) (13.4-35.0) % Seg Neutrophils # Man (1.8-7.7) K/mm3 Lymphocytes # (Manual) (1.2-5.4) K/mm3 Heparin Anti-Xa Level 0.13 L (0.3-0.7) U.I./ml Sodium 134 L (137-145) mmol/L Creatinine 0.7 L D (0.8-1.3) mg/dL Glucose 162 H (75-100) mg/dL Lactic Acid (0.7-2.0) mmol/L Calcium 7.2 L (8.4-10.2) mg/dL Alkaline Phosphatase 153 H (35-129) units/L Total Protein 4.9 L (6.3-8.2) g/dL Albumin 1.7 L (3.9-5) g/dL HEART Score - HEART Score Troponin: Troponin T 0.056 ng/mL (0.00-0.029) H 05/05/20 08:10
[2020-05-07 00:08] LABS: Hepatitis B Surface Antigen Non-Reactive (Negative); Hepatitis C Virus Antibody Non-Reactive (NonReactive)
[2020-05-07] MEDS ORDERED: HEPARIN 10,000 UNITS/10 ML VIAL IV ONE (00:31)
[2020-05-07] MEDS: NORepinephrine/NS 4 MG-250 ML 4 MG/250 ML BAG IV SCH ×2 (00:53→22:46)
[2020-05-07] MEDS: metroNIDAZOLE/NS 500 MG/100 ML 500 MG/100 ML BAG IV SCH ×3 (02:59→17:05)
[2020-05-07] MEDS: SODIUM CHLORIDE 0.9% 1000 ML 1,000 ML IV SCH ×2 (03:00→15:57)
[2020-05-07] MEDS ORDERED: LEVALBUTEROL 0.63 MG/3 ML NEBU IH ONE (05:00)
[2020-05-07] MEDS: LEVALBUTEROL 0.63 MG/3 ML NEBU IH ONE (05:02)
[2020-05-07 06:46] LABS: Hematocrit 21.8 % (35.5-45.6); Hemoglobin 7.3 gm/dl (11.8-15.2); Mean Corpuscular HGB Conc 34 % (32-34); Mean Corpuscular Volume 83 fl (84-94); Platelet Count 107 K/mm3 (140-440); Red Blood Count 2.63 M/mm3 (3.65-5.03); Red Cell Distribution Width 15.5 % (13.2-15.2)
[2020-05-07] MEDS: HEPARIN/ 0.45% NACL DRIP 25,000 UNIT/500 ML BAG IV SCH (08:07)
--- NOTE | 2020-05-07 08:25 | Progress Note ---
Assessment and Plan Assessment and plan: Septic shock -Patient is on IV fluids, IV antibiotics, on pressor support -ID consulted -Order Covid test Septic emboli -Continue with IV antibiotics -Blood clot burden is minimal, no vascular intervention needed -I order echo -Start on heparin drip Acute respiratory failure with hypoxia -Patient is on 4 L of oxygen -Could be due to septic emboli -Continue antibiotics for now Liver abscess -Continue with antibiotics for now -Discussed with Dr. Pina and may consider drainage of the abscess once patient is stable CODE STATUS; full Prognosis; guarded Disposition; admit to ICU 05/06/2020 -Septic shock, septic emboli to the lungs, primary source could be the liver, liver abscess -Patient is on IV Levaquin and Flagyl, ID consult appreciated. Blood culture grew gram-positive rods, will follow identification -Patient is on IV heparin -Interventional radiology consulted for drainage of the liver abscess -Patient is still on pressors. Patient is off oxygen. 05/07/2020 -Patient had SVT yesterday afternoon and was given adenosine and amiodarone -Currently controlled, cardiology consult placed -IR will do drainage of the abscess The high probability of a clinically significant, sudden or life threatening deterioration of the [respiratory, cardiovascular] system(s) required my full and direct attention, intervention and personal management. The aggregate critical care time was [45] minutes. This time is in addition to time spent performing reported procedures but includes the following: [x] Data Review and interpretation [x] Patient assessment and monitoring of vital signs [x] Documentation [x] Medication orders and management History Interval history: Patient was seen and evaluated this morning Patient had SVT yesterday afternoon and was given adenosisne and amiodarone Hospitalist Physical - Physical exam Narrative exam: Patient is on 4 L of oxygen The patient appeared well nourished and normally developed. Vital signs as documented. Head exam is unremarkable. No scleral icterus . Neck is without jugular venous distension, thyromegaly, or carotid bruits. Lungs clear to auscultation bilaterally Cardiac exam reveals regular rate and Rhythm. Abdominal exam reveals normal bowel sounds, nontender, no organomegaly. Extremities are nonedematous and both femoral and pedal pulses are normal. 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 No focal weakness. - Constitutional Vitals: Temp Pulse Resp BP Pulse Ox 98.6 F 95 H 30 H 116/71 98 05/07/20 07:00 05/07/20 08:10 05/07/20 08:10 05/07/20 08:10 05/07/20 08:19 General appearance: Present: severe distress, well-nourished HEART Score - HEART Score Troponin: Troponin T 0.056 ng/mL (0.00-0.029) H 05/05/20 08:10 Results - Labs CBC & Chem 7: 05/07/20 06:30 05/06/20 03:30 Labs: Laboratory Last Values WBC 24.2 K/mm3 (4.5-11.0) H 05/07/20 06:30 RBC 2.63 M/mm3 (3.65-5.03) L 05/07/20 06:30 Hgb 7.3 gm/dl (11.8-15.2) L 05/07/20 06:30 Hct 21.8 % (35.5-45.6) L 05/07/20 06:30 MCV 83 fl (84-94) L 05/07/20 06:30 MCH 28 pg (28-32) 05/07/20 06:30 MCHC 34 % (32-34) 05/07/20 06:30 RDW 15.5 % (13.2-15.2) H 05/07/20 06:30 Plt Count 107 K/mm3 (140-440) L 05/07/20 06:30 Add Manual Diff Complete 05/06/20 03:30 Total Counted 100 05/06/20 03:30 Seg Neutrophils % Inventory Auditor 05/07/20 06:30 Seg Neuts % (Manual) 89.0 % (40.0-70.0) H 05/06/20 03:30 Band Neutrophils % 3.0 % 05/06/20 03:30 Lymphocytes % (Manual) 5.0 % (13.4-35.0) L 05/06/20 03:30 Monocytes % (Manual) 3.0 % (0.0-7.3) 05/06/20 03:30 Promyelocytes % 0 % 05/05/20 08:10 Nucleated RBC % Not Reportable 05/06/20 03:30 Seg Neutrophils # Man 20.4 K/mm3 (1.8-7.7) H 05/06/20 03:30 Band Neutrophils # 0.7 K/mm3 05/06/20 03:30 Lymphocytes # (Manual) 1.1 K/mm3 (1.2-5.4) L 05/06/20 03:30 Abs React Lymphs (Man) 0.0 K/mm3 05/06/20 03:30 Monocytes # (Manual) 0.7 K/mm3 (0.0-0.8) 05/06/20 03:30 Eosinophils # (Manual) 0.0 K/mm3 (0.0-0.4) 05/06/20 03:30 Basophils # (Manual) 0.0 K/mm3 (0.0-0.1) 05/06/20 03:30 Metamyelocytes # 0.0 K/mm3 05/06/20 03:30 Myelocytes # 0.0 K/mm3 05/06/20 03:30 Promyelocytes # 0.0 K/mm3 05/06/20 03:30 Blast Cells # 0.0 K/mm3 05/06/20 03:30 WBC Morphology Not Reportable 05/06/20 03:30 Hypersegmented Neuts Not Reportable 05/06/20 03:30 Hyposegmented Neuts Not Reportable 05/06/20 03:30 Hypogranular Neuts Not Reportable 05/06/20 03:30 Smudge Cells Not Reportable 05/06/20 03:30 Toxic Granulation Not Reportable 05/06/20 03:30 Toxic Vacuolation Not Reportable 05/06/20 03:30 Dohle Bodies Not Reportable 05/06/20 03:30 Pelger-Huet Anomaly Not Reportable 05/06/20 03:30 [place] Rods Not Reportable 05/06/20 03:30 Platelet Estimate Consistent w auto 05/06/20 03:30 Clumped Platelets Not Reportable 05/06/20 03:30 Plt Clumps, EDTA Not Reportable 05/06/20 03:30 Large Platelets Not Reportable 05/06/20 03:30 Giant Platelets Not Reportable 05/06/20 03:30 Platelet Satelliting Not Reportable 05/06/20 03:30 Plt Morphology Comment Not Reportable 05/06/20 03:30 RBC Morphology Not Reportable 05/06/20 03:30 Dimorphic RBCs Not Reportable 05/06/20 03:30 Polychromasia Not Reportable 05/06/20 03:30 Hypochromasia 2+ 05/06/20 03:30 Poikilocytosis Not Reportable 05/06/20 03:30 Anisocytosis Few 05/06/20 03:30 Microcytosis Not Reportable 05/06/20 03:30 Macrocytosis Not Reportable 05/06/20 03:30 Spherocytes Not Reportable 05/06/20 03:30 Pappenheimer Bodies Not Reportable 05/06/20 03:30 Sickle Cells Not Reportable 05/06/20 03:30 Target Cells Few 05/06/20 03:30 Tear Drop Cells Not Reportable 05/06/20 03:30 Ovalocytes Not Reportable 05/06/20 03:30 Helmet Cells Not Reportable 05/06/20 03:30 [place] Bodies Not Reportable 05/06/20 03:30 [place] Rings Not Reportable 05/06/20 03:30 [place] Cells Not Reportable 05/06/20 03:30 Bite Cells Not Reportable 05/06/20 03:30 Crenated Cell Not Reportable 05/06/20 03:30 Elliptocytes Not Reportable 05/06/20 03:30 Acanthocytes (Spur) Not Reportable 05/06/20 03:30 Rouleaux Not Reportable 05/06/20 03:30 Hemoglobin C Crystals Not Reportable 05/06/20 03:30 Schistocytes Not Reportable 05/06/20 03:30 Malaria parasites Not Reportable 05/06/20 03:30 Aristides Bodies Not Reportable 05/06/20 03:30 Hem Pathologist Commnt No 05/06/20 03:30 PT 15.8 Sec. (12.2-14.9) H 05/05/20 08:10 INR 1.28 (0.87-1.13) H 05/05/20 08:10 APTT 210.9 Sec. (24.2-36.6) H* 05/05/20 13:35 D-Dimer > 53239 ng/mlDDU (0-234) H 05/05/20 08:10 Heparin Anti-Xa Level 0.36 U.I./ml (0.3-0.7) 05/07/20 06:30 ABG pH 7.409 pH Units (7.350-7.450) 05/05/20 09:10 ABG pCO2 16.7 mm Hg 05/05/20 09:10 ABG pO2 27.6 mm Hg (80.0-90.0) L* 05/05/20 09:10 ABG HCO3 10.3 mmol/L (20.0-26.0) L 05/05/20 09:10 ABG O2 Saturation 38.5 % (95.0-99.0) L 05/05/20 09:10 ABG O2 Content 3.6 (0.0-44) 05/05/20 09:10 ABG Base Excess -13.0 mmol/L (-2.0-3.0) L 05/05/20 09:10 ABG Hemoglobin 6.7 gm/dl (14.0-18.0) L 05/05/20 09:10 ABG Carboxyhemoglobin 1.0 % (0.0-5.0) 05/05/20 09:10 ABG Methemoglobin 0.8 % (0.0-1.5) 05/05/20 09:10 Oxyhemoglobin 37.9 % (95.0-99.0) L 05/05/20 09:10 FiO2 21 % 05/05/20 09:10 Sodium 134 mmol/L (137-145) L 05/06/20 03:30 Potassium 3.9 mmol/L (3.6-5.0) 05/06/20 03:30 Chloride 105.5 mmol/L (98-107) 05/06/20 03:30 Carbon Dioxide 22 mmol/L (22-30) D 05/06/20 03:30 Anion Gap 10 mmol/L 05/06/20 03:30 BUN 20 mg/dL (9-20) 05/06/20 03:30 Creatinine 0.7 mg/dL (0.8-1.3) L D 05/06/20 03:30 Estimated GFR > 60 ml/min 05/06/20 03:30 BUN/Creatinine Ratio 29 % 05/06/20 03:30 Glucose 162 mg/dL (75-100) H 05/06/20 03:30 Lactic Acid 1.20 mmol/L (0.7-2.0) 05/06/20 03:30 Calcium 7.2 mg/dL (8.4-10.2) L 05/06/20 03:30 Magnesium 1.90 mg/dL (1.7-2.3) 05/06/20 03:30 Ferritin 1695.0 ng/mL (30.0-300.0) H 05/05/20 10:17 Total Bilirubin 0.40 mg/dL (0.1-1.2) 05/06/20 03:30 Direct Bilirubin 0.4 mg/dL (0-0.2) H 05/05/20 10:17 Indirect Bilirubin 0.0 mg/dL 05/05/20 10:17 AST 38 units/L (5-40) 05/06/20 03:30 ALT 48 units/L (7-56) 05/06/20 03:30 Alkaline Phosphatase 153 units/L (35-129) H 05/06/20 03:30 Troponin T 0.056 ng/mL (0.00-0.029) H 05/05/20 08:10 Total Protein 4.9 g/dL (6.3-8.2) L 05/06/20 03:30 Albumin 1.7 g/dL (3.9-5) L 05/06/20 03:30 Albumin/Globulin Ratio 0.5 % 05/06/20 03:30 Triglycerides 231 mg/dL (2-149) H 05/05/20 08:10 Cholesterol 80 mg/dL (50-199) 05/05/20 08:10 LDL Cholesterol Direct 17 mg/dL (50-130) L 05/05/20 08:10 HDL Cholesterol 11 mg/dL (40-59) L 05/05/20 08:10 Cholesterol/HDL Ratio 7.27 % 05/05/20 08:10 Lipase 68 units/L (13-60) H 05/05/20 10:17 TSH 12.770 mlU/mL (0.270-4.200) H 05/05/20 08:10 Thyroxine (T4) 7.4 ug/dL (4.0-12.0) 05/05/20 08:10 Urine Color Yellow (Yellow) 05/05/20 Unknown Urine Turbidity Slightly-cloudy (Clear) 05/05/20 Unknown Urine pH 5.0 (5.0-7.0) 05/05/20 Unknown Ur Specific [place] 1.009 (1.003-1.030) 05/05/20 Unknown Urine Protein <15 mg/dl mg/dL (Negative) 05/05/20 Unknown Urine Glucose (UA) Neg mg/dL (Negative) 05/05/20 Unknown Urine Ketones Neg mg/dL (Negative) 05/05/20 Unknown Urine Blood Sm (Negative) 05/05/20 Unknown Urine Nitrite Pos (Negative) 05/05/20 Unknown Urine Bilirubin Neg (Negative) 05/05/20 Unknown Urine Urobilinogen < 2.0 mg/dL (<2.0) 05/05/20 Unknown Ur Leukocyte Esterase Neg (Negative) 05/05/20 Unknown Urine WBC (Auto) 13.0 /HPF (0.0-6.0) H 05/05/20 Unknown Urine RBC (Auto) 1.0 /HPF (0.0-6.0) 05/05/20 Unknown Urine Bacteria (Auto) 4+ /HPF (Negative) 05/05/20 Unknown Urine Mucus 3+ /HPF 05/05/20 Unknown Coronavirus (PCR) Negative (Negative) 05/06/20 10:02 Hepatitis A IgM Ab Non-reactive (NonReactive) 05/06/20 22:22 Hep Bs Antigen Non-reactive (Negative) 05/06/20 22:22 Hep B Core IgM Ab Non-reactive (NonReactive) 05/06/20 22:22 Hepatitis C Antibody Non-reactive (NonReactive) 05/06/20 22:22 Blood Type O POSITIVE 05/05/20 09:35 Antibody Screen Negative 05/05/20 09:35 Microbiology: Microbiology 05/05/20 08:55 Peripheral/Venous Blood Culture - Preliminary 05/05/20 08:55 Peripheral/Venous Blood Culture - Preliminary Gram Negative Khalil 05/05/20 Unknown Urine,Clean Catch Urine Culture - Preliminary - Diagnostic Impressions Diagnostic Impressions: Echocardiogram 05/05/20 13:01 Transthoracic Echocardiogram Indication: PE BP: 95/71 HR: 108 Conclusions *Global left ventricular systolic function is normal. *The estimated ejection fraction is 50-55%. *The right ventricle is mildly dilated. *The right ventricular global systolic function is normal. *There is mild mitral regurgitation. *There is mild tricuspid regurgitation. *The right ventricular systolic pressure is calculated at 32 mmHg. *There is trace pulmonic regurgitation. *The aortic valve is trileaflet. The leaflets are thin with normal excursion. There is no aortic stenosis or regurgitation present. Findings Left Ventricle: The left ventricular chamber size is normal. Global left ventricular systolic function is normal. The estimated ejection fraction is 50-55%. Abnormal left ventricular diastolic filling is observed, consistent with impaired relaxation. Left Atrium: The left atrial chamber size is normal. Right Ventricle: The right ventricle is mildly dilated. The right ventricular global systolic function is normal. Right Atrium: The right atrial cavity size is normal. Aortic Valve: The aortic valve is trileaflet. The leaflets are thin with normal excursion. There is no aortic stenosis or regurgitation present. The aortic valve structure is normal. Mitral Valve: The mitral valve leaflets are mildly thickened. There is mild mitral regurgitation. Tricuspid Valve: The tricuspid valve leaflets are normal. There is mild tricuspid regurgitation. The right ventricular systolic pressure is calculated at 32 mmHg. Pulmonic Valve: The pulmonic valve appears normal. There is trace pulmonic regurgitation. Pericardium: There is no pericardial effusion. Aorta: The aorta appears normal. Venous: The inferior vena cava appears normal. Measurements Chambers 2D Name Value Normal Range IVSd (2D) 1.09 cm (0.6 - 1.1) LVPWd (2D) 1.08 cm (0.6 - 1.1) LVIDd (2D) 4.78 cm (3.7 - 5.6) LVIDs (2D) 3.74 cm (2 - 3.8) LV FS (2D) 21.72 % - Ao root diameter (2D) 3.12 cm (2 - 3.7) Volumes/Mass Name Value Normal Range LA ESV SP 4CH (A/L) 35.91 ml - LA ESV SP 2CH (A/L) 41.54 ml - LA ESV BP (A/L) 38.98 ml - LA ESV BP (A/L) index 22.28 ml/m2 - LA ESV SP 4CH (MOD) 31.77 ml - LA ESV SP 2CH (MOD) 41.03 ml - LA ESV BP (MOD) 36.28 ml - LA ESV BP (MOD) index 20.73 ml/m2 - Diastolic/Systolic Function Name Value Normal Range MV E-wave Vmax 0.93 m/sec - MV deceleration time 148.87 msec - MV A-wave Vmax 0.58 m/sec - MV E:A ratio 1.59 ratio - Aortic Valve Name Value Normal Range AV Vmax 1.34 m/sec - AV VTI 21.39 cm - AV peak gradient 7.18 mmHg - AV mean gradient 4.09 mmHg - LVOT diameter 2.04 cm - LVOT Vmax 1.06 m/sec - LVOT VTI 17.75 cm - LVOT peak gradient 4.48 mmHg - LVOT mean gradient 2.8 mmHg - SV LVOT 58.19 ml - PAUL (continuity Vmax) 2.59 cm2 - PAUL (continuity VTI) 2.72 cm2 - Ascending Ao 3.02 cm - Mitral Valve Name Value Normal Range MR Vmax 4.21 m/sec - Tricuspid Valve Name Value Normal Range TR Vmax 2.7 m/sec - TR peak gradient 29 mmHg - RAP 3 mmHg - RVSP 32 mmHg - IVC diameter 1.45 cm (1.2 - 2.3) Pulmonic Valve/Qp:Qs Name Value Normal Range PV Vmax 0.82 m/sec - PV peak gradient 2.71 mmHg - NV end-diastolic Vmax 1.1 m/sec - PV acceleration time 87.54 msec - [place]/IV: Voiding Method Urinal Active Medications - Current Medications Current Medications: Generic Name Dose Route Start Last Admin Trade Name Freq PRN Reason Stop Dose Admin Heparin Sodium (Porcine) 2,700 unit 05/05/20 13:53 Heparin 10,000 Units/10 Ml Vial 40 unit/kg (2700 unit) IV Q6H PRN Anti-Xa Assay < 0.1 units/ml Hydromorphone HCl 1 mg 05/06/20 20:14 Hydromorphone 1 Mg/1 Ml Inj IV Q3H PRN Pain , Severe (7-10) Ceftriaxone Sodium 2 gm in 100 mls @ 200 mls/hr 05/06/20 10:00 05/06/20 09:41 Rocephin/Ns 2 Gm/100 Ml IV 200 mls/hr Q24H RADHA Administration Protocol Sodium Chloride 1,000 mls @ 150 mls/hr 05/05/20 12:00 05/07/20 03:00 Nacl 0.9% 1000 Ml IV 150 mls/hr DIRECT RADHA Administration Norepinephrine 4 mg in 250 mls @ 7.5 mls/hr 05/05/20 12:00 05/07/20 07:51 Levophed Drip 4 Mg/Ns 250 Ml IV 0 mcg/min TITR RADHA 0 mls/hr Titration Protocol 2 MCG/MIN Heparin Sodium/Sodium Chloride 25,000 unit in 500 mls @ 20 mls/hr 05/05/20 14:00 05/07/20 08:07 Heparin/ 0.45% Nacl-25,000 Unit/500 Ml IV 1,550 units/hr TITR RADHA 31 mls/hr Administration Protocol 1,000 UNITS/HR Metronidazole 500 mg in 100 mls @ 100 mls/hr 05/05/20 17:00 05/07/20 02:59 Flagyl 500 Mg/100 Ml IV 100 mls/hr Q8H RADHA Administration Protocol Amiodarone HCl 900 mg/ 500 mls @ 33.333 mls/hr 05/06/20 21:00 05/06/20 20:37 Dextrose IV 1 mg/min DIRECT RADHA 33.333 mls/hr Administration Protocol 1 MG/MIN Oxycodone/Acetaminophen 1 tab 05/05/20 11:29 05/05/20 18:07 Oxycodone /Acetaminophen 5-325mg Tab PO 1 tab Q6H PRN Administration Pain, Moderate (4-6)
[2020-05-07] MEDS: HYDROmorphone 1 MG/1 ML INJ IV PRN ×4 (09:24→22:03)
[2020-05-07] MEDS: cefTRIAXone/NS 2 GM/100 ML 2 GM/100 ML BAG IV SCH (09:24)
--- NOTE | 2020-05-07 09:47 | Gastroenterology Consultation ---
History of Present Illness - Reason for Consult Consult date: 05/07/20 hepatic lesion/abscess Requesting physician: ARA PETERSON - History of Present Illness The patient is a 44 yo male who presented with progressive sob for past couple weeks, found to have septic pulmonary emboli and large liver abscess. Pt was hypotensive initially, on pressors, currently sleeping but arousable and answering questions appropriately. Denies abd pain, no known h/o liver disease, denies known chronic medical issues. No h/o alcohol abuse, IVDU, n/v, or other gi complaints. Currently on abx, ID and IR following. Past History Past Medical History: No medical history Past Surgical History: appendectomy Social history: full code. denies: smoking, alcohol abuse, prescription drug abuse, IV drug use Family history: no significant family history Medications and Allergies Allergies Allergy/AdvReac Type Severity Reaction Status Date / Time No Known Allergies Allergy Unverified 05/05/20 07:53 Home Medications Medication Instructions Recorded Confirmed Last Taken Type No Known Home Medications [No 05/05/20 05/05/20 Unknown History Reported Home Medications] Active Meds: Active Medications Heparin Sodium (Porcine) (Heparin 10,000 Units/10 Ml Vial) 2,700 unit 40 unit/kg (2700 unit) IV Q6H PRN PRN Reason: Anti-Xa Assay < 0.1 units/ml Hydromorphone HCl (Hydromorphone 1 Mg/1 Ml Inj) 1 mg IV Q3H PRN PRN Reason: Pain , Severe (7-10) Last Admin: 05/07/20 09:24 Dose: 1 mg Documented by: Ceftriaxone Sodium (Rocephin/Ns 2 Gm/100 Ml) 2 gm in 100 mls @ 200 mls/hr IV Q24H RADHA; Protocol Last Admin: 05/07/20 09:24 Dose: 200 mls/hr Documented by: Sodium Chloride (Nacl 0.9% 1000 Ml) 1,000 mls @ 150 mls/hr IV DIRECT RADHA Last Admin: 05/07/20 03:00 Dose: 150 mls/hr Documented by: Norepinephrine (Levophed Drip 4 Mg/Ns 250 Ml) 4 mg in 250 mls @ 7.5 mls/hr IV TITR RADHA; Protocol Last Titration: 05/07/20 07:51 Dose: 0 mcg/min, 0 mls/hr Documented by: Heparin Sodium/Sodium Chloride (Heparin/ 0.45% Nacl-25,000 Unit/500 Ml) 25,000 unit in 500 mls @ 20 mls/hr IV TITR RADHA; Protocol Last Titration: 05/07/20 09:14 Dose: 0 units/hr, 0 mls/hr Documented by: Metronidazole (Flagyl 500 Mg/100 Ml) 500 mg in 100 mls @ 100 mls/hr IV Q8H RADHA; Protocol Last Admin: 05/07/20 09:24 Dose: 100 mls/hr Documented by: Amiodarone HCl 900 mg/ (Dextrose) 500 mls @ 33.333 mls/hr IV DIRECT RADHA; Protocol Last Admin: 05/06/20 20:37 Dose: 1 mg/min, 33.333 mls/hr Documented by: Oxycodone/Acetaminophen (Oxycodone /Acetaminophen 5-325mg Tab) 1 tab PO Q6H PRN PRN Reason: Pain, Moderate (4-6) Last Admin: 05/05/20 18:07 Dose: 1 tab Documented by: Reviewed/updated patient's home and current medications Review of Systems - Review of Systems All systems: negative (per HPI) Exam - Constitutional Vital Signs: Temp Pulse Resp BP Pulse Ox 98.6 F 95 H 30 H 116/71 98 05/07/20 07:00 05/07/20 08:10 05/07/20 08:10 05/07/20 08:10 05/07/20 08:19 General appearance: no acute distress - Respiratory Respiratory effort: normal Respiratory: bilateral: CTA - Cardiovascular Rhythm: other (tachycardic) - Gastrointestinal General gastrointestinal: Present: soft, non-tender, non-distended - Integumentary Integumentary: Present: warm - Neurologic Neurological: alert and oriented x3 - Psychiatric Psychiatric: appropriate mood/affect - Labs CBC & Chem 7: 05/07/20 06:30 05/06/20 03:30 Lab Results: Laboratory Results - last 24 hr 05/06/20 05/06/20 05/06/20 10:02 11:54 22:22 WBC RBC Hgb Hct MCV MCH MCHC RDW Plt Count Seg Neutrophils % Heparin Anti-Xa Level 0.13 L Coronavirus (PCR) Negative Hepatitis A IgM Ab Non-reactive Hep Bs Antigen Non-reactive Hep B Core IgM Ab Non-reactive Hepatitis C Antibody Non-reactive 05/06/20 05/07/20 05/07/20 22:22 06:30 06:30 WBC 24.2 H RBC 2.63 L Hgb 7.3 L Hct 21.8 L MCV 83 L MCH 28 MCHC 34 RDW 15.5 H Plt Count 107 L Seg Neutrophils % [employer]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 Liver lesion - likely abscess, no known chronic liver disease/cirrhosis and imaging not characteristic of HCC per report, AFP pending, viral hep serologies negative. potential drainage per IR, ID following 2. Septic emboli 3. PE - anticoagulation per primary
[2020-05-07 10:40] LABS: Alanine Aminotransferase 38 units/L (7-56); Albumin 1.7 g/dL (3.9-5); BUN/Creatinine Ratio 21; Blood Urea Nitrogen 17 mg/dL (9-20); Calcium 6.6 mg/dL (8.4-10.2); Hemolysis Index 6
[2020-05-07 10:41] LABS: BUN/Creatinine Ratio 19; Blood Urea Nitrogen 15 mg/dL (9-20); Calcium 6.6 mg/dL (8.4-10.2); Hemolysis Index 8
[2020-05-07] MEDS ORDERED: MIDAZOLAM 5 MG/5 ML INJ MDV IV ONE (11:00)
[2020-05-07] MEDS ORDERED: fentaNYL 100 MCG/2 ML INJ IV ONE (11:00)
--- NOTE | 2020-05-07 11:28 | Consultation ---
History of Present Illness Consult date: 05/07/20 Requesting physician: ARA PETERSON Consult reason: other (SVT) History of present illness: The pt is a 44 YO male with no known past medical history. Pt is lethargic on evaluation and thus HPI is obtained per the chart and per primary RN. Pt presented on 05/05/2020 with complaints of shortness of breath for the last 3 weeks. Patient said he had associated dry cough. Patient denied fever chills, night sweats. Patient denied any known contact with COVID-19. He denied any chest pain, palpitations or leg swelling. Following arrival to ED, CXR showed bibasilar infiltrates, chest CTA showed diffuse septic pulmonary emboli, no evidence of right heart strain, large hepatic abscess. Abdomen/pelvis CT showed hepatic fluid collection likely c/w liver abscess. Pt has been initiated on heparin gtt in setting of PE. GI w/u of liver lesion is in progress. Per ID team, drainage of liver lesion is recommended. Pt was initially hypotensive requiring vasopressor support, currently weaned off vasopressors. Pt was noted t o have tachycardia yesterday which was suspected to be SVT for which he was initiated on IV amio overnight and thus cardiology has been consulted. Review of telemetry and ECGs does not show any apparent SVT, pt appears to have been in NSR and sinus tachycardia since admission. Past History Past Medical History: No medical history Past Surgical History: appendectomy Social history: full code. denies: smoking, alcohol abuse, prescription drug abuse, IV drug use Family history: no significant family history Medications and Allergies Allergies Allergy/AdvReac Type Severity Reaction Status Date / Time No Known Allergies Allergy Unverified 05/05/20 07:53 Home Medications Medication Instructions Recorded Confirmed Last Taken Type No Known Home Medications [No 05/05/20 05/05/20 Unknown History Reported Home Medications] Active Meds: Active Medications Heparin Sodium (Porcine) (Heparin 10,000 Units/10 Ml Vial) 2,700 unit 40 unit/kg (2700 unit) IV Q6H PRN PRN Reason: Anti-Xa Assay < 0.1 units/ml Hydromorphone HCl (Hydromorphone 1 Mg/1 Ml Inj) 1 mg IV Q3H PRN PRN Reason: Pain , Severe (7-10) Last Admin: 05/07/20 09:24 Dose: 1 mg Documented by: Ceftriaxone Sodium (Rocephin/Ns 2 Gm/100 Ml) 2 gm in 100 mls @ 200 mls/hr IV Q24H RADHA; Protocol Last Admin: 05/07/20 09:24 Dose: 200 mls/hr Documented by: Sodium Chloride (Nacl 0.9% 1000 Ml) 1,000 mls @ 150 mls/hr IV DIRECT RADHA Last Admin: 05/07/20 03:00 Dose: 150 mls/hr Documented by: Norepinephrine (Levophed Drip 4 Mg/Ns 250 Ml) 4 mg in 250 mls @ 7.5 mls/hr IV TITR RADHA; Protocol Last Titration: 05/07/20 07:51 Dose: 0 mcg/min, 0 mls/hr Documented by: Heparin Sodium/Sodium Chloride (Heparin/ 0.45% Nacl-25,000 Unit/500 Ml) 25,000 unit in 500 mls @ 20 mls/hr IV TITR RADHA; Protocol Last Titration: 05/07/20 09:14 Dose: 0 units/hr, 0 mls/hr Documented by: Metronidazole (Flagyl 500 Mg/100 Ml) 500 mg in 100 mls @ 100 mls/hr IV Q8H RADHA; Protocol Last Admin: 05/07/20 09:24 Dose: 100 mls/hr Documented by: Amiodarone HCl 900 mg/ (Dextrose) 500 mls @ 33.333 mls/hr IV DIRECT RADHA; Protocol Last Infusion: 05/07/20 09:50 Dose: 0 mg/min, 0 mls/hr Documented by: Oxycodone/Acetaminophen (Oxycodone /Acetaminophen 5-325mg Tab) 1 tab PO Q6H PRN PRN Reason: Pain, Moderate (4-6) Last Admin: 05/05/20 18:07 Dose: 1 tab Documented by: Review of Systems ROS unobtainable: due to mental status Physical Examination Vital Signs Temp Pulse Resp BP Pulse Ox 98.9 F 125 H 22 70/42 100 05/05/20 08:08 05/05/20 08:08 05/05/20 08:08 05/05/20 08:08 05/05/20 08:08 General appearance: other (lethargic) HEENT: Positive: PERRL Neck: Positive: neck supple, trachea midline Cardiac: Positive: Regular Rhythm, S1/S2, Tachycardia Lungs: Positive: Decreased Breath Sounds Neuro: Positive: Other (lethargic) Skin: Negative: Rash Extremities: Absent: edema Results 05/07/20 06:30 05/07/20 09:37 Cardiac Enzymes 05/07/20 Range/Units 06:30 AST 41 H (5-40) units/L CBC 05/07/20 Range/Units 06:30 WBC 24.2 H (4.5-11.0) K/mm3 RBC 2.63 L (3.65-5.03) M/mm3 Hgb 7.3 L (11.8-15.2) gm/dl Hct 21.8 L (35.5-45.6) % Plt Count 107 L (140-440) K/mm3 Comprehensive Metabolic Panel 05/07/20 05/07/20 Range/Units 06:30 09:37 Sodium Not Reportable 135 L Potassium Not Reportable 3.6 Chloride Not Reportable 107.6 H Carbon Dioxide 18 L 19 L (22-30) mmol/L BUN 17 15 (9-20) mg/dL Creatinine 0.8 0.8 (0.8-1.3) mg/dL Glucose 135 H 128 H (75-100) mg/dL Calcium 6.6 L 6.6 L (8.4-10.2) mg/dL AST 41 H (5-40) units/L ALT 38 (7-56) units/L Alkaline Phosphatase 204 H (35-129) units/L Total Protein 4.5 L (6.3-8.2) g/dL Albumin 1.7 L (3.9-5) g/dL - Imaging and Cardiology Echo: report reviewed EKG: report reviewed, image reviewed EKG interpretations - Telemetry EKG Rhythm: Sinus Tachycardia - EKG Sinus rhythms and dysrhythmias: sinus tachycardia Assessment and Plan Pt was noted to have tachycardia yesterday which was suspected to be SVT for which he was initiated on IV amio overnight and thus cardiology has been consulted. Review of telemetry and ECGs does not show any apparent SVT, pt appears to have been in NSR and sinus tachycardia since admission. tte reviewed - EF 50-55%, RV mildly dilated, RVSP 32mmHg, mild MR, mild TR. D/c IV amio. Initiate low dose lopressor and titrate as BPs permit. Management of suspected liver abscess per GI and ID teams - IR drainage of liver lesion has been recommended. Per IR - recommend transfer to facility with hepatobiliary surgery available as this abscess may ultimately require right partial hepatectomy. Drainage can be performed, but morbidity may occur with biloma formation and biliary leakage which is why hepatobiliary backup is important. Pt is noted to have anemia and thrombocytopenia. He is receiving heparin gtt in setting of PE - ? HIT. Recommend further eval/management per primary. Pt is critically ill. Overall guarded prognosis. Will follow. The patient has been seen in conjunction with Dr. Cruz who agrees with the assessment and plan of care. - Patient Problems (1) Sinus tachycardia Current Visit: Yes Status: Acute (2) Liver abscess Current Visit: Yes Status: Suspected (3) Sepsis Current Visit: Yes Status: Suspected (4) Multiple pulmonary emboli Current Visit: Yes Status: Acute (5) Anemia Current Visit: Yes Status: Acute (6) Thrombocytopenia Current Visit: Yes Status: Acute
--- NOTE | 2020-05-07 11:54 | Progress Note ---
Assessment and Plan 44 male with hepatic abscess and septic emboli with sepsis and septic shock, now resolving with abx therapy and fluid resuscitation. 05/07/20: Going for drainage catheter placement today. Continue broad spec abx therapy. Pressors are still off. Guarded prognosis. 1. Vasopressors are off. OXygen weaned off. If remains stable over the next few hours, will transfer to the floor. 2. Appreciate ID and Vascular help, continue broad spec abx therapy. Subjective Date of service: 05/07/20 Principal diagnosis: Acute pulmonary embolism, liver abscess Interval history: At shift change yesterday patient developed SVT, febrile and agitation along with presumed anxiety. Treated with adenosine but no relief so started on Amio. Cards has seen and stopped amio and placed on BID BB. Back on oxygen but now at 2 liters. Good sats. Patient still appears to be in pain as well. Objective Vital Signs - 12hr 05/06/20 05/06/20 05/06/20 23:40 23:50 23:56 Temperature Pulse Rate 117 H 106 H 102 H Pulse Rate [ From Monitor] Respiratory 19 26 H 24 Rate Blood Pressure 81/42 85/42 85/42 O2 Sat by Pulse 100 96 100 Oximetry 05/07/20 05/07/20 05/07/20 00:00 00:10 00:20 Temperature 99.5 F Pulse Rate 100 H 118 H 121 H Pulse Rate [ 107 H From Monitor] Respiratory 22 31 H 37 H Rate Blood Pressure 80/41 80/41 84/34 O2 Sat by Pulse 100 100 100 Oximetry 05/07/20 05/07/20 05/07/20 00:30 00:40 00:50 Temperature Pulse Rate 117 H 114 H 108 H Pulse Rate [ From Monitor] Respiratory 32 H 24 23 Rate Blood Pressure 80/49 80/49 83/47 O2 Sat by Pulse 96 97 97 Oximetry 05/07/20 05/07/20 05/07/20 01:00 01:10 01:20 Temperature Pulse Rate 114 H 104 H 119 H Pulse Rate [ From Monitor] Respiratory 17 22 23 Rate Blood Pressure 94/49 83/47 87/49 O2 Sat by Pulse 99 97 97 Oximetry 05/07/20 05/07/20 05/07/20 01:30 01:40 01:50 Temperature Pulse Rate 105 H 114 H 114 H Pulse Rate [ From Monitor] Respiratory 27 H 32 H 32 H Rate Blood Pressure 94/48 94/48 83/44 O2 Sat by Pulse 97 97 97 Oximetry 05/07/20 05/07/20 05/07/20 02:00 02:10 02:20 Temperature Pulse Rate 113 H 102 H 114 H Pulse Rate [ From Monitor] Respiratory 32 H 26 H 20 Rate Blood Pressure 93/57 93/57 97/45 O2 Sat by Pulse 85 99 98 Oximetry 05/07/20 05/07/20 05/07/20 02:30 02:40 02:50 Temperature Pulse Rate 103 H 113 H 102 H Pulse Rate [ From Monitor] Respiratory 24 33 H 21 Rate Blood Pressure 102/48 102/48 92/51 O2 Sat by Pulse 98 98 95 Oximetry 05/07/20 05/07/20 05/07/20 03:00 03:10 03:20 Temperature Pulse Rate 101 H Pulse Rate [ From Monitor] Respiratory 23 Rate Blood Pressure 93/56 93/56 95/58 O2 Sat by Pulse 98 98 99 Oximetry 05/07/20 05/07/20 05/07/20 03:30 03:40 03:50 Temperature Pulse Rate 91 H Pulse Rate [ From Monitor] Respiratory 23 Rate Blood Pressure 95/58 121/64 108/62 O2 Sat by Pulse 98 99 98 Oximetry 05/07/20 05/07/20 05/07/20 04:00 04:10 04:20 Temperature 99.3 F Pulse Rate 95 H 102 H 115 H Pulse Rate [ 93 H From Monitor] Respiratory 12 34 H 35 H Rate Blood Pressure 105/61 105/61 101/65 O2 Sat by Pulse 95 96 90 Oximetry 05/07/20 05/07/20 05/07/20 04:30 04:40 04:50 Temperature Pulse Rate 91 H 93 H 102 H Pulse Rate [ From Monitor] Respiratory 25 H 27 H 34 H Rate Blood Pressure 99/62 99/62 107/68 O2 Sat by Pulse 93 92 93 Oximetry 05/07/20 05/07/20 05/07/20 05:00 05:10 05:20 Temperature Pulse Rate 100 H 109 H 93 H Pulse Rate [ From Monitor] Respiratory 33 H 23 29 H Rate Blood Pressure 114/64 114/64 114/68 O2 Sat by Pulse 91 98 98 Oximetry 05/07/20 05/07/20 05/07/20 05:30 05:40 05:50 Temperature Pulse Rate 91 H 98 H 89 Pulse Rate [ From Monitor] Respiratory 32 H 26 H 24 Rate Blood Pressure 113/59 113/59 122/67 O2 Sat by Pulse 98 99 99 Oximetry 05/07/20 05/07/20 05/07/20 06:00 06:10 06:20 Temperature Pulse Rate 101 H 96 H 91 H Pulse Rate [ From Monitor] Respiratory 19 29 H 22 Rate Blood Pressure 119/69 119/69 122/67 O2 Sat by Pulse 98 99 99 Oximetry 05/07/20 05/07/20 05/07/20 06:30 06:40 06:50 Temperature Pulse Rate 94 H 90 92 H Pulse Rate [ From Monitor] Respiratory 27 H 24 25 H Rate Blood Pressure 119/65 119/65 120/72 O2 Sat by Pulse 100 99 99 Oximetry 05/07/20 05/07/20 05/07/20 07:00 07:10 07:20 Temperature 98.6 F Pulse Rate 97 H 94 H 102 H Pulse Rate [ From Monitor] Respiratory 23 26 H 32 H Rate Blood Pressure 114/82 114/82 116/72 O2 Sat by Pulse 99 100 99 Oximetry 05/07/20 05/07/20 05/07/20 07:30 07:40 07:50 Temperature Pulse Rate 108 H 92 H 98 H Pulse Rate [ From Monitor] Respiratory 16 24 27 H Rate Blood Pressure 102/69 102/69 112/73 O2 Sat by Pulse 100 100 100 Oximetry 05/07/20 05/07/20 05/07/20 08:00 08:10 08:19 Temperature Pulse Rate 117 H 95 H Pulse Rate [ From Monitor] Respiratory 30 H 30 H Rate Blood Pressure 116/71 116/71 O2 Sat by Pulse 97 98 98 Oximetry 05/07/20 05/07/20 05/07/20 08:20 08:30 08:40 Temperature Pulse Rate 109 H 106 H 108 H Pulse Rate [ From Monitor] Respiratory 38 H 37 H 37 H Rate Blood Pressure 126/73 129/76 129/76 O2 Sat by Pulse 98 98 89 Oximetry 05/07/20 05/07/20 05/07/20 08:50 09:00 09:10 Temperature Pulse Rate 98 H 106 H 123 H Pulse Rate [ From Monitor] Respiratory 29 H 32 H 47 H Rate Blood Pressure 132/82 109/82 109/82 O2 Sat by Pulse 93 91 89 Oximetry 05/07/20 05/07/20 05/07/20 09:20 09:30 09:40 Temperature Pulse Rate 105 H 105 H 102 H Pulse Rate [ From Monitor] Respiratory 34 H 26 H 24 Rate Blood Pressure 113/77 112/69 112/69 O2 Sat by Pulse 93 93 91 Oximetry 05/07/20 05/07/20 05/07/20 09:50 10:00 10:10 Temperature Pulse Rate 107 H 111 H 106 H Pulse Rate [ From Monitor] Respiratory 25 H 25 H 25 H Rate Blood Pressure 112/65 112/61 112/61 O2 Sat by Pulse 92 93 93 Oximetry 05/07/20 05/07/20 05/07/20 10:20 10:30 10:40 Temperature Pulse Rate 112 H 106 H 110 H Pulse Rate [ From Monitor] Respiratory 22 26 H 25 H Rate Blood Pressure 104/62 118/68 118/68 O2 Sat by Pulse 91 92 92 Oximetry 05/07/20 05/07/20 05/07/20 10:50 11:00 11:10 Temperature Pulse Rate 111 H 110 H 110 H Pulse Rate [ From Monitor] Respiratory 24 29 H 24 Rate Blood Pressure 124/66 127/70 127/70 O2 Sat by Pulse 93 88 91 Oximetry Constitutional: no acute distress, alert Eyes: non-icteric ENT: oropharynx moist Neck: supple Effort: normal Ascultation: Bilateral: clear CBC and BMP: 05/07/20 06:30 05/07/20 09:37 ABG, PT/INR, D-dimer: ABG ABG pH 7.409 pH Units (7.350-7.450) 05/05/20 09:10 ABG pCO2 16.7 mm Hg 05/05/20 09:10 ABG pO2 27.6 mm Hg (80.0-90.0) L* 05/05/20 09:10 ABG O2 Saturation 38.5 % (95.0-99.0) L 05/05/20 09:10 PT/INR, D-dimer PT 15.8 Sec. (12.2-14.9) H 05/05/20 08:10 INR 1.28 (0.87-1.13) H 05/05/20 08:10 D-Dimer Cancelled 05/07/20 06:30 Abnormal lab findings: Abnormal Labs 0205/05/20 05/05/20 08:10 08:10 08:10 WBC RBC 2.91 L Hgb 8.1 L Hct 24.5 L MCV RDW Plt Count 107 L Seg Neuts % (Manual) 97.0 H Lymphocytes % (Manual) 2.0 L Seg Neutrophils # Man 10.7 H Lymphocytes # (Manual) 0.2 L PT INR APTT D-Dimer > 76561 H Heparin Anti-Xa Level ABG pO2 ABG HCO3 ABG O2 Saturation ABG Base Excess ABG Hemoglobin Oxyhemoglobin Sodium 128 L Chloride Carbon Dioxide 15 L BUN 32 H Creatinine 1.5 H Glucose Lactic Acid Calcium 7.5 L Magnesium 1.30 L Ferritin Direct Bilirubin AST Alkaline Phosphatase Troponin T 0.056 H Total Protein Albumin Triglycerides 231 H LDL Cholesterol Direct 17 L HDL Cholesterol 11 L Lipase TSH Urine WBC (Auto) 05/05/20 05/05/20 05/05/20 08:10 08:10 08:55 WBC RBC Hgb Hct MCV RDW Plt Count Seg Neuts % (Manual) Lymphocytes % (Manual) Seg Neutrophils # Man Lymphocytes # (Manual) PT 15.8 H INR 1.28 H APTT D-Dimer Heparin Anti-Xa Level ABG pO2 ABG HCO3 ABG O2 Saturation ABG Base Excess ABG Hemoglobin Oxyhemoglobin Sodium Chloride Carbon Dioxide BUN Creatinine Glucose Lactic Acid 6.40 H* Calcium Magnesium Ferritin Direct Bilirubin AST Alkaline Phosphatase Troponin T Total Protein Albumin Triglycerides LDL Cholesterol Direct HDL Cholesterol Lipase TSH 12.770 H Urine WBC (Auto) 05/05/20 05/05/20 05/05/20 09:10 10:17 10:17 WBC RBC Hgb Hct MCV RDW Plt Count Seg Neuts % (Manual) Lymphocytes % (Manual) Seg Neutrophils # Man Lymphocytes # (Manual) PT INR APTT D-Dimer Heparin Anti-Xa Level ABG pO2 27.6 L* ABG HCO3 10.3 L ABG O2 Saturation 38.5 L ABG Base Excess -13.0 L ABG Hemoglobin 6.7 L Oxyhemoglobin 37.9 L Sodium Chloride Carbon Dioxide BUN Creatinine Glucose Lactic Acid 6.20 H* Calcium Magnesium Ferritin Direct Bilirubin 0.4 H AST Alkaline Phosphatase 183 H Troponin T Total Protein 4.1 L Albumin 1.5 L Triglycerides LDL Cholesterol Direct HDL Cholesterol Lipase 68 H TSH Urine WBC (Auto) 05/05/20 05/05/20 05/05/20 10:17 13:35 13:35 WBC RBC Hgb 8.5 L Hct 25.8 L MCV RDW Plt Count Seg Neuts % (Manual) Lymphocytes % (Manual) Seg Neutrophils # Man Lymphocytes # (Manual) PT INR APTT D-Dimer Heparin Anti-Xa Level ABG pO2 ABG HCO3 ABG O2 Saturation ABG Base Excess ABG Hemoglobin Oxyhemoglobin Sodium Chloride Carbon Dioxide BUN Creatinine Glucose Lactic Acid 4.70 H* Calcium Magnesium Ferritin 1695.0 H Direct Bilirubin AST Alkaline Phosphatase Troponin T Total Protein Albumin Triglycerides LDL Cholesterol Direct HDL Cholesterol Lipase TSH Urine WBC (Auto) 05/05/20 05/05/20 05/05/20 13:35 18:21 20:27 WBC RBC Hgb Hct MCV RDW Plt Count Seg Neuts % (Manual) Lymphocytes % (Manual) Seg Neutrophils # Man Lymphocytes # (Manual) PT INR APTT 210.9 H* D-Dimer Heparin Anti-Xa Level 0.23 L ABG pO2 ABG HCO3 ABG O2 Saturation ABG Base Excess ABG Hemoglobin Oxyhemoglobin Sodium Chloride Carbon Dioxide BUN Creatinine Glucose Lactic Acid 3.30 H* Calcium Magnesium Ferritin Direct Bilirubin AST Alkaline Phosphatase Troponin T Total Protein Albumin Triglycerides LDL Cholesterol Direct HDL Cholesterol Lipase TSH Urine WBC (Auto) 05/05/20 05/05/20 05/06/20 20:42 Unknown 02:30 WBC RBC Hgb Hct MCV RDW Plt Count Seg Neuts % (Manual) Lymphocytes % (Manual) Seg Neutrophils # Man Lymphocytes # (Manual) PT INR APTT D-Dimer Heparin Anti-Xa Level < 0.10 L ABG pO2 ABG HCO3 ABG O2 Saturation ABG Base Excess ABG Hemoglobin Oxyhemoglobin Sodium Chloride Carbon Dioxide BUN Creatinine Glucose Lactic Acid 4.20 H* Calcium Magnesium Ferritin Direct Bilirubin AST Alkaline Phosphatase Troponin T Total Protein Albumin Triglycerides LDL Cholesterol Direct HDL Cholesterol Lipase TSH Urine WBC (Auto) 13.0 H 05/06/20 05/06/20 05/06/20 03:30 03:30 11:54 WBC 22.9 H RBC 2.59 L Hgb 7.2 L Hct 22.0 L MCV RDW Plt Count 122 L Seg Neuts % (Manual) 89.0 H Lymphocytes % (Manual) 5.0 L Seg Neutrophils # Man 20.4 H Lymphocytes # (Manual) 1.1 L PT INR APTT D-Dimer Heparin Anti-Xa Level 0.13 L ABG pO2 ABG HCO3 ABG O2 Saturation ABG Base Excess ABG Hemoglobin Oxyhemoglobin Sodium 134 L Chloride Carbon Dioxide BUN Creatinine 0.7 L D Glucose 162 H Lactic Acid Calcium 7.2 L Magnesium Ferritin Direct Bilirubin AST Alkaline Phosphatase 153 H Troponin T Total Protein 4.9 L Albumin 1.7 L Triglycerides LDL Cholesterol Direct HDL Cholesterol Lipase TSH Urine WBC (Auto) 05/06/20 05/07/20 05/07/20 22:22 06:30 06:30 WBC 24.2 H RBC 2.63 L Hgb 7.3 L Hct 21.8 L MCV 83 L RDW 15.5 H Plt Count 107 L Seg Neuts % (Manual) Lymphocytes % (Manual) Seg Neutrophils # Man Lymphocytes # (Manual) PT INR APTT D-Dimer Heparin Anti-Xa Level < 0.10 L ABG pO2 ABG HCO3 ABG O2 Saturation ABG Base Excess ABG Hemoglobin Oxyhemoglobin Sodium Chloride Carbon Dioxide 18 L BUN Creatinine Glucose 135 H Lactic Acid Calcium 6.6 L Magnesium Ferritin Direct Bilirubin AST 41 H Alkaline Phosphatase 204 H Troponin T Total Protein 4.5 L Albumin 1.7 L Triglycerides LDL Cholesterol Direct HDL Cholesterol Lipase TSH Urine WBC (Auto) 05/07/20 09:37 WBC RBC Hgb Hct MCV RDW Plt Count Seg Neuts % (Manual) Lymphocytes % (Manual) Seg Neutrophils # Man Lymphocytes # (Manual) PT INR APTT D-Dimer Heparin Anti-Xa Level ABG pO2 ABG HCO3 ABG O2 Saturation ABG Base Excess ABG Hemoglobin Oxyhemoglobin Sodium 135 L Chloride 107.6 H Carbon Dioxide 19 L BUN Creatinine Glucose 128 H Lactic Acid Calcium 6.6 L Magnesium Ferritin Direct Bilirubin AST Alkaline Phosphatase Troponin T Total Protein Albumin Triglycerides LDL Cholesterol Direct HDL Cholesterol Lipase TSH Urine WBC (Auto)
[2020-05-07] MEDS ORDERED: SODIUM CHLORIDE 0.9% 500 ML 500 ML ONE (13:07)
[2020-05-07] MEDS ORDERED: SODIUM CHLORIDE 0.45% 500 ML IV SCH (13:25)
--- NOTE | 2020-05-07 13:36 | Operative Report ---
Operative Report Operative Report: Exam: CT-guided placement of 8 Bangladeshi drainage catheter in hepatic abscess Clinical indication: Patient with a history of sepsis nonresponsive to Flagyl and multiloculated right lobe hepatic abscess demonstrated on CT Date: 05/07/2020 Procedure: Following an explanation of the risks, benefits and alternatives; written informed consent was obtained. The patient was brought to the CT suite and placed in supine position on the gantry. Initial pt skilled images of the right upper abdomen were performed and appropriate access site chosen. I the patient's right upper quadrant was prepped and draped in the usual sterile fashion. 1% lidocaine was used for anesthesia. Using intermittent CT guidance, a 15 cm 18-gauge trocar needle was advanced penitentiary to position the tip of the trocar needle within the central aspect of the hepatic abscess. There is prompt return of brown purulent fluid. A total of 40 mL was aspirated and sent for laboratory analysis. A 0.035 guidewire was then advanced through the catheter and coiled within the abscess cavity. The needle was removed. Following serial dilation over the guidewire, an 8 Bangladeshi drainage catheter was advanced over the guidewire and positioned with the pigtail in the central aspect of the abscess. The catheter was securely fastened to the skin using 2-0 silk suture and attached to MARCIAL bulb drainage. A sterile dressing was applied. The patient tolerated the procedure well. There were no immediate postprocedure complications. Conscious sedation was not utilized. The patient was given half a milligram of Versed for anxiolysis. Continuous cardiopulmonary monitoring was utilized. Impression: CT-guided placement of 8 Bangladeshi drainage catheter in right lobe hepatic abscess with 40 mL of purulent fluid aspirated and sent for laboratory analysis.
[2020-05-07 13:53] LABS: Band Neutrophils # (Manual) 0.2 K/mm3; Total Cells Counted 100
[2020-05-07 13:54] LABS: Macrocytosis Rare
[2020-05-07 13:55] LABS: Platelet Estimate Consistent w Auto; Schistocytes Rare
[2020-05-07] MEDS ORDERED: ACETAMINOPHEN 325 MG TAB ONE (14:18)
[2020-05-07] MEDS: ACETAMINOPHEN 325 MG TAB PO PRN (14:30)
[2020-05-07 14:54] LABS: Iron 61 ug/dL (49-181); Total Iron Binding Capacity 169 mcg/dL (250-450)
[2020-05-07] MEDS: oxyCODONE /ACETAMINOPHEN 5-325MG TAB PO PRN (15:48)
--- NOTE | 2020-05-07 18:51 | Progress Note ---
Assessment and Plan Cultures: Blood cultures: ESBL E. coli A/P: 44 yo M no PMHx presents with liver abscess, PE, and septic emboli. #Liver abscess: Status post IR drainage, cultures with ESBL E. coli #Septic emboli: Echo without vegetations., though may be shedding bacteria from liver? Continue empiric antibiotics #PE: anticoagulation per hosptial protocol. Recs: -Stop empiric ceftriaxone and metronidazole -Start meropenem for ESBL -Follow-up blood culture results Thank you for the consult, we will continue to follow. Whit Briggs MD [facility] ([facility]) O: [phone] F: [phone] Subjective Date of service: 05/07/20 Principal diagnosis: Acute pulmonary embolism, liver abscess Interval history: Febrile to 103.1, white count 24.2. Cultures with ESBL E. coli Objective - Exam Narrative Exam: Physical exam deferred due to PPE conservation strategy. Please refer to primary team's note. - Constitutional Vitals: Vital Signs Temp Pulse Resp BP Pulse Ox 100.1 F H 85 19 99/56 94 05/07/20 16:08 05/07/20 18:00 05/07/20 18:00 05/07/20 18:00 05/07/20 18:00 Temperature -Last 24 Hours Temperature 100.1 F Temperature 103.1 F Temperature 98.6 F Temperature 99.3 F Temperature 99.5 F Temperature 101.9 F - Labs CBC & Chem 7: 05/07/20 06:30 05/07/20 09:37 Labs: Abnormal lab results 05/06/20 05/07/20 05/07/20 Range/Units 22:22 06:30 06:30 WBC 24.2 H (4.5-11.0) K/mm3 RBC 2.63 L (3.65-5.03) M/mm3 Hgb 7.3 L (11.8-15.2) gm/dl Hct 21.8 L (35.5-45.6) % MCV 83 L (84-94) fl RDW 15.5 H (13.2-15.2) % Plt Count 107 L (140-440) K/mm3 Seg Neuts % (Manual) 98.0 H (40.0-70.0) % Lymphocytes % (Manual) 1.0 L (13.4-35.0) % Seg Neutrophils # Man 23.7 H (1.8-7.7) K/mm3 Lymphocytes # (Manual) 0.2 L (1.2-5.4) K/mm3 Heparin Anti-Xa Level < 0.10 L (0.3-0.7) U.I./ml Sodium (137-145) mmol/L Chloride (98-107) mmol/L Carbon Dioxide 18 L (22-30) mmol/L Glucose 135 H (75-100) mg/dL POC Glucose (70-105) mg/dL Calcium 6.6 L (8.4-10.2) mg/dL TIBC (250-450) mcg/dL Ferritin (30.0-300.0) ng/mL AST 41 H (5-40) units/L Alkaline Phosphatase 204 H (35-129) units/L Total Protein 4.5 L (6.3-8.2) g/dL Albumin 1.7 L (3.9-5) g/dL Vitamin B12 (211-911) pg/mL Folate (7.3-26.0) ng/mL 05/07/20 05/07/20 05/07/20 Range/Units 09:37 11:38 12:38 WBC (4.5-11.0) K/mm3 RBC (3.65-5.03) M/mm3 Hgb (11.8-15.2) gm/dl Hct (35.5-45.6) % MCV (84-94) fl RDW (13.2-15.2) % Plt Count (140-440) K/mm3 Seg Neuts % (Manual) (40.0-70.0) % Lymphocytes % (Manual) (13.4-35.0) % Seg Neutrophils # Man (1.8-7.7) K/mm3 Lymphocytes # (Manual) (1.2-5.4) K/mm3 Heparin Anti-Xa Level (0.3-0.7) U.I./ml Sodium 135 L (137-145) mmol/L Chloride 107.6 H (98-107) mmol/L Carbon Dioxide 19 L (22-30) mmol/L Glucose 128 H (75-100) mg/dL POC Glucose 108 H (70-105) mg/dL Calcium 6.6 L (8.4-10.2) mg/dL TIBC 169 L (250-450) mcg/dL Ferritin (30.0-300.0) ng/mL AST (5-40) units/L Alkaline Phosphatase (35-129) units/L Total Protein (6.3-8.2) g/dL Albumin (3.9-5) g/dL Vitamin B12 (211-911) pg/mL Folate (7.3-26.0) ng/mL 05/07/20 05/07/20 05/07/20 Range/Units 12:38 12:39 12:39 WBC (4.5-11.0) K/mm3 RBC (3.65-5.03) M/mm3 Hgb (11.8-15.2) gm/dl Hct (35.5-45.6) % MCV (84-94) fl RDW (13.2-15.2) % Plt Count (140-440) K/mm3 Seg Neuts % (Manual) (40.0-70.0) % Lymphocytes % (Manual) (13.4-35.0) % Seg Neutrophils # Man (1.8-7.7) K/mm3 Lymphocytes # (Manual) (1.2-5.4) K/mm3 Heparin Anti-Xa Level (0.3-0.7) U.I./ml Sodium (137-145) mmol/L Chloride (98-107) mmol/L Carbon Dioxide (22-30) mmol/L Glucose (75-100) mg/dL POC Glucose (70-105) mg/dL Calcium (8.4-10.2) mg/dL TIBC (250-450) mcg/dL Ferritin 1831.0 H (30.0-300.0) ng/mL AST (5-40) units/L Alkaline Phosphatase (35-129) units/L Total Protein (6.3-8.2) g/dL Albumin (3.9-5) g/dL Vitamin B12 > 2000 H (211-911) pg/mL Folate 7.19 L (7.3-26.0) ng/mL
[2020-05-07] MEDS: MEROPENEM/NS 1 GRAM/100 ML 1 GRAM/100 ML BAG IV SCH (20:36)
[2020-05-07] MEDS: METOPROLOL TARTRATE 25 MG TAB PO SCH (21:34)
[2020-05-08] MEDS: oxyCODONE /ACETAMINOPHEN 5-325MG TAB PO PRN ×2 (00:36→18:07)
[2020-05-08] MEDS: HYDROmorphone 1 MG/1 ML INJ IV PRN ×3 (01:33→15:38)
[2020-05-08] MEDS: SODIUM CHLORIDE 0.9% 1000 ML 1,000 ML IV SCH ×3 (01:37→21:34)
[2020-05-08] MEDS: MEROPENEM/NS 1 GRAM/100 ML 1 GRAM/100 ML BAG IV SCH ×3 (04:21→21:33)
[2020-05-08 06:21] LABS: Hematocrit 23.9 % (35.5-45.6); Hemoglobin 7.9 gm/dl (11.8-15.2); Mean Corpuscular HGB Conc 33 % (32-34); Mean Corpuscular Volume 84 fl (84-94); Red Blood Count 2.83 M/mm3 (3.65-5.03); Red Cell Distribution Width 15.5 % (13.2-15.2)
[2020-05-08 06:37] LABS: Platelet Count 67 K/mm3 (140-440)
[2020-05-08 06:40] LABS: BUN/Creatinine Ratio 17; Blood Urea Nitrogen 15 mg/dL (9-20); Calcium 7.1 mg/dL (8.4-10.2); Hemolysis Index 5
[2020-05-08] MEDS: LEVALBUTEROL 0.63 MG/3 ML NEBU IH ONE (07:25)
[2020-05-08 07:40] LABS: Total Cells Counted 100
[2020-05-08 07:41] LABS: Anisocytosis 1+; Dohle Bodies Few; Platelet Estimate Consistent w Auto
[2020-05-08] MEDS: ACETAMINOPHEN 325 MG TAB PO PRN (07:49)
--- NOTE | 2020-05-08 09:44 | Progress Note ---
Assessment and Plan Assessment and plan: Septic shock -Patient is on IV fluids, IV antibiotics, on pressor support -ID consulted -Order Covid test Septic emboli -Continue with IV antibiotics -Blood clot burden is minimal, no vascular intervention needed -I order echo -Start on heparin drip Acute respiratory failure with hypoxia -Patient is on 4 L of oxygen -Could be due to septic emboli -Continue antibiotics for now Liver abscess -Continue with antibiotics for now -Discussed with Dr. Pina and may consider drainage of the abscess once patient is stable CODE STATUS; full Prognosis; guarded Disposition; admit to ICU 05/06/2020 -Septic shock, septic emboli to the lungs, primary source could be the liver, liver abscess -Patient is on IV Levaquin and Flagyl, ID consult appreciated. Blood culture grew gram-positive rods, will follow identification -Patient is on IV heparin -Interventional radiology consulted for drainage of the liver abscess -Patient is still on pressors. Patient is off oxygen. 05/07/2020 -Patient had SVT yesterday afternoon and was given adenosine and amiodarone -Currently controlled, cardiology consult placed -IR will do drainage of the abscess 05/08/2020 -IR drained about 40 mL of purulent fluid from the liver and put a draining tube -Blood culture grew ESBL and ID is following the patient and change antibiotics to meropenem -Patient still have leukocytosis and fever -We will continue inpatient management The high probability of a clinically significant, sudden or life threatening deterioration of the [respiratory, cardiovascular] system(s) required my full and direct attention, intervention and personal management. The aggregate critical care time was [45] minutes. This time is in addition to time spent performing reported procedures but includes the following: [x] Data Review and interpretation [x] Patient assessment and monitoring of vital signs [x] Documentation [x] Medication orders and management History Interval history: Patient was seen and evaluated this morning Patient did not have any complaints Patient had fever overnight Hospitalist Physical - Physical exam Narrative exam: Patient is on 4 L of oxygen The patient appeared well nourished and normally developed. Vital signs as documented. Head exam is unremarkable. No scleral icterus . Neck is without jugular venous distension, thyromegaly, or carotid bruits. Lungs clear to auscultation bilaterally Cardiac exam reveals regular rate and Rhythm. Abdominal exam reveals draining tube in the right upper quadrant. Extremities are nonedematous and both femoral and pedal pulses are normal. STRATEGY SPECIALIST: Alert and oriented 3. No focal weakness. - Constitutional Vitals: Temp Pulse Resp BP Pulse Ox 102.4 F H 98 H 33 H 130/52 98 05/08/20 07:33 05/08/20 06:10 05/08/20 07:56 05/08/20 06:10 05/08/20 06:10 General appearance: Present: severe distress, well-nourished HEART Score - HEART Score Troponin: Troponin T 0.056 ng/mL (0.00-0.029) H 05/05/20 08:10 Results - Labs CBC & Chem 7: 05/08/20 06:00 05/08/20 06:00 Labs: Laboratory Last Values WBC 23.4 K/mm3 (4.5-11.0) H 05/08/20 06:00 RBC 2.83 M/mm3 (3.65-5.03) L 05/08/20 06:00 Hgb 7.9 gm/dl (11.8-15.2) L 05/08/20 06:00 Hct 23.9 % (35.5-45.6) L 05/08/20 06:00 MCV 84 fl (84-94) 05/08/20 06:00 MCH 28 pg (28-32) 05/08/20 06:00 MCHC 33 % (32-34) 05/08/20 06:00 RDW 15.5 % (13.2-15.2) H 05/08/20 06:00 Plt Count 67 K/mm3 (140-440) L 05/08/20 06:00 Add Manual Diff Complete 05/08/20 06:00 Total Counted 100 05/08/20 06:00 Seg Neutrophils % Cattle Inspector 05/08/20 06:00 Seg Neuts % (Manual) 98.0 % (40.0-70.0) H 05/08/20 06:00 Band Neutrophils % 1.0 % 05/07/20 06:30 Lymphocytes % (Manual) 2.0 % (13.4-35.0) L 05/08/20 06:00 Monocytes % (Manual) 3.0 % (0.0-7.3) 05/06/20 03:30 Promyelocytes % 0 % 05/05/20 08:10 Nucleated RBC % Not Reportable 05/08/20 06:00 Seg Neutrophils # Man 22.9 K/mm3 (1.8-7.7) H 05/08/20 06:00 Band Neutrophils # 0.0 K/mm3 05/08/20 06:00 Lymphocytes # (Manual) 0.5 K/mm3 (1.2-5.4) L 05/08/20 06:00 Abs React Lymphs (Man) 0.0 K/mm3 05/08/20 06:00 Monocytes # (Manual) 0.0 K/mm3 (0.0-0.8) 05/08/20 06:00 Eosinophils # (Manual) 0.0 K/mm3 (0.0-0.4) 05/08/20 06:00 Basophils # (Manual) 0.0 K/mm3 (0.0-0.1) 05/08/20 06:00 Metamyelocytes # 0.0 K/mm3 05/08/20 06:00 Myelocytes # 0.0 K/mm3 05/08/20 06:00 Promyelocytes # 0.0 K/mm3 05/08/20 06:00 Blast Cells # 0.0 K/mm3 05/08/20 06:00 WBC Morphology Not Reportable 05/08/20 06:00 Hypersegmented Neuts Not Reportable 05/08/20 06:00 Hyposegmented Neuts Not Reportable 05/08/20 06:00 Hypogranular Neuts Not Reportable 05/08/20 06:00 Smudge Cells Not Reportable 05/08/20 06:00 Toxic Granulation Not Reportable 05/08/20 06:00 Toxic Vacuolation Not Reportable 05/08/20 06:00 Dohle Bodies Few 05/08/20 06:00 Pelger-Huet Anomaly Not Reportable 05/08/20 06:00 [place] Rods Not Reportable 05/08/20 06:00 Platelet Estimate Consistent w auto 05/08/20 06:00 Clumped Platelets Not Reportable 05/08/20 06:00 Plt Clumps, EDTA Not Reportable 05/08/20 06:00 Large Platelets Not Reportable 05/08/20 06:00 Giant Platelets Not Reportable 05/08/20 06:00 Platelet Satelliting Not Reportable 05/08/20 06:00 Plt Morphology Comment Not Reportable 05/08/20 06:00 RBC Morphology Not Reportable 05/08/20 06:00 Dimorphic RBCs Not Reportable 05/08/20 06:00 Polychromasia Not Reportable 05/08/20 06:00 Hypochromasia Not Reportable 05/08/20 06:00 Poikilocytosis Not Reportable 05/08/20 06:00 Anisocytosis 1+ 05/08/20 06:00 Microcytosis Not Reportable 05/08/20 06:00 Macrocytosis Not Reportable 05/08/20 06:00 Spherocytes Not Reportable 05/08/20 06:00 Pappenheimer Bodies Not Reportable 05/08/20 06:00 Sickle Cells Not Reportable 05/08/20 06:00 Target Cells Not Reportable 05/08/20 06:00 Tear Drop Cells Not Reportable 05/08/20 06:00 Ovalocytes Not Reportable 05/08/20 06:00 Helmet Cells Not Reportable 05/08/20 06:00 [place] Bodies Not Reportable 05/08/20 06:00 [place] Rings Not Reportable 05/08/20 06:00 Mami Cells Not Reportable 05/08/20 06:00 Bite Cells Not Reportable 05/08/20 06:00 Crenated Cell Not Reportable 05/08/20 06:00 Elliptocytes Not Reportable 05/08/20 06:00 Acanthocytes (Spur) Not Reportable 05/08/20 06:00 Rouleaux Not Reportable 05/08/20 06:00 Hemoglobin C Crystals Not Reportable 05/08/20 06:00 Schistocytes Not Reportable 05/08/20 06:00 Malaria parasites Not Reportable 05/08/20 06:00 Aristides Bodies Not Reportable 05/08/20 06:00 Hem Pathologist Commnt No 05/08/20 06:00 PT 15.8 Sec. (12.2-14.9) H 05/05/20 08:10 INR 1.28 (0.87-1.13) H 05/05/20 08:10 APTT 210.9 Sec. (24.2-36.6) H* 05/05/20 13:35 D-Dimer Cancelled 05/07/20 06:30 Heparin Anti-Xa Level 0.36 U.I./ml (0.3-0.7) 05/07/20 06:30 ABG pH 7.409 pH Units (7.350-7.450) 05/05/20 09:10 ABG pCO2 16.7 mm Hg 05/05/20 09:10 ABG pO2 27.6 mm Hg (80.0-90.0) L* 05/05/20 09:10 ABG HCO3 10.3 mmol/L (20.0-26.0) L 05/05/20 09:10 ABG O2 Saturation 38.5 % (95.0-99.0) L 05/05/20 09:10 ABG O2 Content 3.6 (0.0-44) 05/05/20 09:10 ABG Base Excess -13.0 mmol/L (-2.0-3.0) L 05/05/20 09:10 ABG Hemoglobin 6.7 gm/dl (14.0-18.0) L 05/05/20 09:10 ABG Carboxyhemoglobin 1.0 % (0.0-5.0) 05/05/20 09:10 ABG Methemoglobin 0.8 % (0.0-1.5) 05/05/20 09:10 Oxyhemoglobin 37.9 % (95.0-99.0) L 05/05/20 09:10 FiO2 21 % 05/05/20 09:10 Sodium 137 mmol/L (137-145) 05/08/20 06:00 Potassium 3.4 mmol/L (3.6-5.0) L 05/08/20 06:00 Chloride 108.7 mmol/L (98-107) H 05/08/20 06:00 Carbon Dioxide 22 mmol/L (22-30) 05/08/20 06:00 Anion Gap 10 mmol/L 05/08/20 06:00 BUN 15 mg/dL (9-20) 05/08/20 06:00 Creatinine 0.9 mg/dL (0.8-1.3) 05/08/20 06:00 Estimated GFR > 60 ml/min 05/08/20 06:00 BUN/Creatinine Ratio 17 % 05/08/20 06:00 Glucose 106 mg/dL (75-100) H 05/08/20 06:00 POC Glucose 84 mg/dL (70-105) 05/07/20 17:40 Lactic Acid 1.20 mmol/L (0.7-2.0) 05/06/20 03:30 Calcium 7.1 mg/dL (8.4-10.2) L 05/08/20 06:00 Magnesium 1.90 mg/dL (1.7-2.3) 05/06/20 03:30 Iron 61 ug/dL (49-181) 05/07/20 12:38 TIBC 169 mcg/dL (250-450) L 05/07/20 12:38 Ferritin 1831.0 ng/mL (30.0-300.0) H 05/07/20 12:38 Total Bilirubin 0.70 mg/dL (0.1-1.2) 05/07/20 06:30 Direct Bilirubin 0.4 mg/dL (0-0.2) H 05/05/20 10:17 Indirect Bilirubin 0.0 mg/dL 05/05/20 10:17 AST 41 units/L (5-40) H 05/07/20 06:30 ALT 38 units/L (7-56) 05/07/20 06:30 Alkaline Phosphatase 204 units/L (35-129) H 05/07/20 06:30 Troponin T 0.056 ng/mL (0.00-0.029) H 05/05/20 08:10 Total Protein 4.5 g/dL (6.3-8.2) L 05/07/20 06:30 Albumin 1.7 g/dL (3.9-5) L 05/07/20 06:30 Albumin/Globulin Ratio 0.6 % 05/07/20 06:30 Triglycerides 231 mg/dL (2-149) H 05/05/20 08:10 Cholesterol 80 mg/dL (50-199) 05/05/20 08:10 LDL Cholesterol Direct 17 mg/dL (50-130) L 05/05/20 08:10 HDL Cholesterol 11 mg/dL (40-59) L 05/05/20 08:10 Cholesterol/HDL Ratio 7.27 % 05/05/20 08:10 Lipase 68 units/L (13-60) H 05/05/20 10:17 Vitamin B12 > 2000 pg/mL (211-911) H 05/07/20 12:39 Folate 7.19 ng/mL (7.3-26.0) L 05/07/20 12:39 TSH 12.770 mlU/mL (0.270-4.200) H 05/05/20 08:10 Thyroxine (T4) 7.4 ug/dL (4.0-12.0) 05/05/20 08:10 Free T3 Index 3.7 pg/mL (2.3-4.2) 05/05/20 08:10 Urine Color Yellow (Yellow) 05/05/20 Unknown Urine Turbidity Slightly-cloudy (Clear) 05/05/20 Unknown Urine pH 5.0 (5.0-7.0) 05/05/20 Unknown Ur Specific [place] 1.009 (1.003-1.030) 05/05/20 Unknown Urine Protein <15 mg/dl mg/dL (Negative) 05/05/20 Unknown Urine Glucose (UA) Neg mg/dL (Negative) 05/05/20 Unknown Urine Ketones Neg mg/dL (Negative) 05/05/20 Unknown Urine Blood Sm (Negative) 05/05/20 Unknown Urine Nitrite Pos (Negative) 05/05/20 Unknown Urine Bilirubin Neg (Negative) 05/05/20 Unknown Urine Urobilinogen < 2.0 mg/dL (<2.0) 05/05/20 Unknown Ur Leukocyte Esterase Neg (Negative) 05/05/20 Unknown Urine WBC (Auto) 13.0 /HPF (0.0-6.0) H 05/05/20 Unknown Urine RBC (Auto) 1.0 /HPF (0.0-6.0) 05/05/20 Unknown Urine Bacteria (Auto) 4+ /HPF (Negative) 05/05/20 Unknown Urine Mucus 3+ /HPF 05/05/20 Unknown Coronavirus (PCR) Negative (Negative) 05/06/20 10:02 Hepatitis A IgM Ab Non-reactive (NonReactive) 05/06/20 22:22 Hep Bs Antigen Non-reactive (Negative) 05/06/20 22:22 Hep B Core IgM Ab Non-reactive (NonReactive) 05/06/20 22:22 Hepatitis C Antibody Non-reactive (NonReactive) 05/06/20 22:22 Blood Type O POSITIVE 05/05/20 09:35 Antibody Screen Negative 05/05/20 09:35 Microbiology: Microbiology 05/05/20 08:55 Peripheral/Venous Blood Culture - Preliminary Escherichia Coli - Diagnostic Impressions Diagnostic Impressions: Echocardiogram 05/05/20 13:01 Transthoracic Echocardiogram Indication: PE BP: 95/71 HR: 108 Conclusions *Global left ventricular systolic function is normal. *The estimated ejection fraction is 50-55%. *The right ventricle is mildly dilated. *The right ventricular global systolic function is normal. *There is mild mitral regurgitation. *There is mild tricuspid regurgitation. *The right ventricular systolic pressure is calculated at 32 mmHg. *There is trace pulmonic regurgitation. *The aortic valve is trileaflet. The leaflets are thin with normal excursion. There is no aortic stenosis or regurgitation present. Findings Left Ventricle: The left ventricular chamber size is normal. Global left ventricular systolic function is normal. The estimated ejection fraction is 50-55%. Abnormal left ventricular diastolic filling is observed, consistent with impaired relaxation. Left Atrium: The left atrial chamber size is normal. Right Ventricle: The right ventricle is mildly dilated. The right ventricular global systolic function is normal. Right Atrium: The right atrial cavity size is normal. Aortic Valve: The aortic valve is trileaflet. The leaflets are thin with normal excursion. There is no aortic stenosis or regurgitation present. The aortic valve structure is normal. Mitral Valve: The mitral valve leaflets are mildly thickened. There is mild mitral regurgitation. Tricuspid Valve: The tricuspid valve leaflets are normal. There is mild tricuspid regurgitation. The right ventricular systolic pressure is calculated at 32 mmHg. Pulmonic Valve: The pulmonic valve appears normal. There is trace pulmonic regurgitation. Pericardium: There is no pericardial effusion. Aorta: The aorta appears normal. Venous: The inferior vena cava appears normal. Measurements Chambers 2D Name Value Normal Range IVSd (2D) 1.09 cm (0.6 - 1.1) LVPWd (2D) 1.08 cm (0.6 - 1.1) LVIDd (2D) 4.78 cm (3.7 - 5.6) LVIDs (2D) 3.74 cm (2 - 3.8) LV FS (2D) 21.72 % - Ao root diameter (2D) 3.12 cm (2 - 3.7) Volumes/Mass Name Value Normal Range LA ESV SP 4CH (A/L) 35.91 ml - LA ESV SP 2CH (A/L) 41.54 ml - LA ESV BP (A/L) 38.98 ml - LA ESV BP (A/L) index 22.28 ml/m2 - LA ESV SP 4CH (MOD) 31.77 ml - LA ESV SP 2CH (MOD) 41.03 ml - LA ESV BP (MOD) 36.28 ml - LA ESV BP (MOD) index 20.73 ml/m2 - Diastolic/Systolic Function Name Value Normal Range MV E-wave Vmax 0.93 m/sec - MV deceleration time 148.87 msec - MV A-wave Vmax 0.58 m/sec - MV E:A ratio 1.59 ratio - Aortic Valve Name Value Normal Range AV Vmax 1.34 m/sec - AV VTI 21.39 cm - AV peak gradient 7.18 mmHg - AV mean gradient 4.09 mmHg - LVOT diameter 2.04 cm - LVOT Vmax 1.06 m/sec - LVOT VTI 17.75 cm - LVOT peak gradient 4.48 mmHg - LVOT mean gradient 2.8 mmHg - SV LVOT 58.19 ml - PAUL (continuity Vmax) 2.59 cm2 - PAUL (continuity VTI) 2.72 cm2 - Ascending Ao 3.02 cm - Mitral Valve Name Value Normal Range MR Vmax 4.21 m/sec - Tricuspid Valve Name Value Normal Range TR Vmax 2.7 m/sec - TR peak gradient 29 mmHg - RAP 3 mmHg - RVSP 32 mmHg - IVC diameter 1.45 cm (1.2 - 2.3) Pulmonic Valve/Qp:Qs Name Value Normal Range PV Vmax 0.82 m/sec - PV peak gradient 2.71 mmHg - IN end-diastolic Vmax 1.1 m/sec - PV acceleration time 87.54 msec - [place]/IV: Voiding Method Urinal Active Medications - Current Medications Current Medications: Generic Name Dose Route Start Last Admin Trade Name Freq PRN Reason Stop Dose Admin Acetaminophen 650 mg 05/07/20 14:23 05/08/20 07:49 Acetaminophen 325 Mg Tab PO 650 mg Q6H PRN Administration Fever >101 Heparin Sodium (Porcine) 2,700 unit 05/05/20 13:53 Heparin 10,000 Units/10 Ml Vial 40 unit/kg (2700 unit) IV Q6H PRN Anti-Xa Assay < 0.1 units/ml Hydromorphone HCl 1 mg 05/06/20 20:14 05/08/20 07:56 Hydromorphone 1 Mg/1 Ml Inj IV 1 mg Q3H PRN Administration Pain , Severe (7-10) Sodium Chloride 1,000 mls @ 150 mls/hr 05/05/20 12:00 05/08/20 09:27 Nacl 0.9% 1000 Ml IV 150 mls/hr DIRECT RADHA Administration Norepinephrine 4 mg in 250 mls @ 7.5 mls/hr 05/05/20 12:00 05/08/20 09:27 Levophed Drip 4 Mg/Ns 250 Ml IV 6 mcg/min TITR RADHA 22.5 mls/hr Titration Protocol 2 MCG/MIN Heparin Sodium/Sodium Chloride 25,000 unit in 500 mls @ 20 mls/hr 05/05/20 14:00 05/07/20 09:14 Heparin/ 0.45% Nacl-25,000 Unit/500 Ml IV 0 units/hr TITR RADHA 0 mls/hr Titration Protocol 1,000 UNITS/HR Sodium Chloride 500 mls @ 999 mls/hr 05/07/20 13:25 Nacl 0.45% IV DIRECT RADHA MEROPENEM/NS 1 GRAM/100 ML 1 gram in 100 mls @ 100 mls/hr 05/07/20 20:00 05/08/20 04:21 Merrem/Ns 1 Gram/100 Ml IV 100 mls/hr Q8H RADHA Administration Protocol Metoprolol Tartrate 12.5 mg 05/07/20 22:00 05/07/20 21:34 Metoprolol Tartrate 25 Mg Tab PO Not Given BID RADHA Oxycodone/Acetaminophen 1 tab 05/05/20 11:29 05/08/20 00:36 Oxycodone /Acetaminophen 5-325mg Tab PO 1 tab Q6H PRN Administration Pain, Moderate (4-6)
[2020-05-08] MEDS: METOPROLOL TARTRATE 25 MG TAB PO SCH (09:52)
[2020-05-08 10:25] LABS: INR 1.55 (0.87-1.13)
[2020-05-08] MEDS: NORepinephrine/NS 4 MG-250 ML 4 MG/250 ML BAG IV SCH (10:39)
[2020-05-08] MEDS: LACTATED RINGERS 1,000 ML IV SCH ×2 (11:53→13:03)
[2020-05-08] MEDS ORDERED: POTASSIUM CHLORIDE 20 MEQ PACKET FEEDTUBE ONE (12:00)
[2020-05-08] MEDS ORDERED: MAGNESIUM SULFATE 2 GM/50 ML BAG IV ONE (13:00)
--- NOTE | 2020-05-08 13:09 | Progress Note ---
Assessment and Plan 44 male with hepatic abscess and septic emboli with sepsis and septic shock, now resolving with abx therapy and fluid resuscitation. 05/08/20: Vasodilated secondary to catecholamine release and sepsis. Will given more IVF's in addition to maintenance fluids. Wean Pressors for MAPs >65. Monitor urine output. Continue IV abx therapy per ID recs. Will check CXR. RPT Mag. SCD's and hold anticoagulation given low platelets, although likely low from sepsis. CCT 31 minutes 05/07/20: Going for drainage catheter placement today. Continue broad spec abx therapy. Pressors are still off. Guarded prognosis. 1. Vasopressors are off. OXygen weaned off. If remains stable over the next few hours, will transfer to the floor. 2. Appreciate ID and Vascular help, continue broad spec abx therapy. Subjective Date of service: 05/08/20 Principal diagnosis: Acute pulmonary embolism, liver abscess Interval history: Drains placed yesterday. Clinically improved. Still Hypotensive. Awake and alert. on 4 liters NC as he had significant desats last night. Pain appears to be controlled. Objective Vital Signs - 12hr 05/08/20 05/08/20 05/08/20 01:00 01:10 01:20 Temperature Pulse Rate 95 H 108 H 96 H Respiratory 19 17 18 Rate Blood Pressure 116/77 116/77 117/71 O2 Sat by Pulse 98 97 96 Oximetry 05/08/20 05/08/20 05/08/20 01:30 01:33 01:40 Temperature Pulse Rate 114 H 100 H Respiratory 25 H 23 13 Rate Blood Pressure 117/71 127/65 O2 Sat by Pulse 96 96 Oximetry 05/08/20 05/08/20 05/08/20 01:50 02:00 02:10 Temperature Pulse Rate 105 H 99 H 100 H Respiratory 19 13 13 Rate Blood Pressure 105/61 104/56 104/56 O2 Sat by Pulse 93 96 96 Oximetry 05/08/20 05/08/20 05/08/20 02:20 02:30 02:40 Temperature Pulse Rate 113 H 95 H 103 H Respiratory 21 7 L 18 Rate Blood Pressure 101/47 104/58 104/58 O2 Sat by Pulse 91 98 96 Oximetry 05/08/20 05/08/20 05/08/20 02:50 03:00 03:10 Temperature Pulse Rate 95 H 91 H 94 H Respiratory 13 16 16 Rate Blood Pressure 106/54 110/59 110/59 O2 Sat by Pulse 97 98 98 Oximetry 05/08/20 05/08/20 05/08/20 03:14 03:20 03:30 Temperature 100.9 F H Pulse Rate 114 H 103 H Respiratory 17 20 Rate Blood Pressure 101/58 102/55 O2 Sat by Pulse 98 98 Oximetry 05/08/20 05/08/20 05/08/20 03:40 03:50 04:00 Temperature Pulse Rate 99 H 93 H 102 H Respiratory 14 14 13 Rate Blood Pressure 102/55 102/55 114/59 O2 Sat by Pulse 98 99 98 Oximetry 05/08/20 05/08/20 05/08/20 04:10 04:20 04:30 Temperature Pulse Rate 107 H 88 110 H Respiratory 24 15 20 Rate Blood Pressure 114/59 115/58 115/58 O2 Sat by Pulse 99 99 96 Oximetry 05/08/20 05/08/20 05/08/20 04:40 04:50 05:00 Temperature Pulse Rate 89 94 H 102 H Respiratory 15 17 20 Rate Blood Pressure 111/66 124/70 125/68 O2 Sat by Pulse 100 100 100 Oximetry 05/08/20 05/08/20 05/08/20 05:10 05:20 05:30 Temperature Pulse Rate 101 H 117 H 97 H Respiratory 14 20 14 Rate Blood Pressure 125/68 117/63 114/63 O2 Sat by Pulse 99 97 99 Oximetry 05/08/20 05/08/20 05/08/20 05:40 05:50 06:00 Temperature Pulse Rate 98 H 121 H 97 H Respiratory 17 35 H 18 Rate Blood Pressure 114/63 121/58 130/52 O2 Sat by Pulse 99 95 100 Oximetry 05/08/20 05/08/20 05/08/20 06:10 07:33 07:56 Temperature 102.4 F H Pulse Rate 98 H Respiratory 19 33 H Rate Blood Pressure 130/52 O2 Sat by Pulse 98 Oximetry 05/08/20 05/08/20 08:26 11:40 Temperature 98.3 F Pulse Rate Respiratory 20 Rate Blood Pressure O2 Sat by Pulse Oximetry Constitutional: no acute distress, alert Eyes: non-icteric ENT: oropharynx moist Neck: supple Effort: normal Ascultation: Bilateral: clear CBC and BMP: 05/08/20 06:00 05/08/20 06:00 ABG, PT/INR, D-dimer: ABG ABG pH 7.409 pH Units (7.350-7.450) 05/05/20 09:10 ABG pCO2 16.7 mm Hg 05/05/20 09:10 ABG pO2 27.6 mm Hg (80.0-90.0) L* 05/05/20 09:10 ABG O2 Saturation 38.5 % (95.0-99.0) L 05/05/20 09:10 PT/INR, D-dimer PT 18.6 Sec. (12.2-14.9) H 05/08/20 09:15 INR 1.55 (0.87-1.13) H 05/08/20 09:15 D-Dimer Cancelled 05/07/20 06:30 Abnormal lab findings: Abnormal Labs 05/05/20 05/05/20 05/05/20 08:10 08:10 08:10 WBC RBC 2.91 L Hgb 8.1 L Hct 24.5 L MCV RDW Plt Count 107 L Seg Neuts % (Manual) 97.0 H Lymphocytes % (Manual) 2.0 L Seg Neutrophils # Man 10.7 H Lymphocytes # (Manual) 0.2 L PT INR APTT D-Dimer > 00873 H Heparin Anti-Xa Level ABG pO2 ABG HCO3 ABG O2 Saturation ABG Base Excess ABG Hemoglobin Oxyhemoglobin Sodium 128 L Potassium Chloride Carbon Dioxide 15 L BUN 32 H Creatinine 1.5 H Glucose POC Glucose Lactic Acid Calcium 7.5 L Magnesium 1.30 L TIBC Ferritin Direct Bilirubin AST Alkaline Phosphatase Troponin T 0.056 H Total Protein Albumin Triglycerides 231 H LDL Cholesterol Direct 17 L HDL Cholesterol 11 L Lipase Vitamin B12 Folate TSH Urine WBC (Auto) 05/05/20 05/05/20 05/05/20 08:10 08:10 08:55 WBC RBC Hgb Hct MCV RDW Plt Count Seg Neuts % (Manual) Lymphocytes % (Manual) Seg Neutrophils # Man Lymphocytes # (Manual) PT 15.8 H INR 1.28 H APTT D-Dimer Heparin Anti-Xa Level ABG pO2 ABG HCO3 ABG O2 Saturation ABG Base Excess ABG Hemoglobin Oxyhemoglobin Sodium Potassium Chloride Carbon Dioxide BUN Creatinine Glucose POC Glucose Lactic Acid 6.40 H* Calcium Magnesium TIBC Ferritin Direct Bilirubin AST Alkaline Phosphatase Troponin T Total Protein Albumin Triglycerides LDL Cholesterol Direct HDL Cholesterol Lipase Vitamin B12 Folate TSH 12.770 H Urine WBC (Auto) 05/05/20 05/05/20 05/05/20 09:10 10:17 10:17 WBC RBC Hgb Hct MCV RDW Plt Count Seg Neuts % (Manual) Lymphocytes % (Manual) Seg Neutrophils # Man Lymphocytes # (Manual) PT INR APTT D-Dimer Heparin Anti-Xa Level ABG pO2 27.6 L* ABG HCO3 10.3 L ABG O2 Saturation 38.5 L ABG Base Excess -13.0 L ABG Hemoglobin 6.7 L Oxyhemoglobin 37.9 L Sodium Potassium Chloride Carbon Dioxide BUN Creatinine Glucose POC Glucose Lactic Acid 6.20 H* Calcium Magnesium TIBC Ferritin Direct Bilirubin 0.4 H AST Alkaline Phosphatase 183 H Troponin T Total Protein 4.1 L Albumin 1.5 L Triglycerides LDL Cholesterol Direct HDL Cholesterol Lipase 68 H Vitamin B12 Folate TSH Urine WBC (Auto) 05/05/20 05/05/20 05/05/20 10:17 13:35 13:35 WBC RBC Hgb 8.5 L Hct 25.8 L MCV RDW Plt Count Seg Neuts % (Manual) Lymphocytes % (Manual) Seg Neutrophils # Man Lymphocytes # (Manual) PT INR APTT D-Dimer Heparin Anti-Xa Level ABG pO2 ABG HCO3 ABG O2 Saturation ABG Base Excess ABG Hemoglobin Oxyhemoglobin Sodium Potassium Chloride Carbon Dioxide BUN Creatinine Glucose POC Glucose Lactic Acid 4.70 H* Calcium Magnesium TIBC Ferritin 1695.0 H Direct Bilirubin AST Alkaline Phosphatase Troponin T Total Protein Albumin Triglycerides LDL Cholesterol Direct HDL Cholesterol Lipase Vitamin B12 Folate TSH Urine WBC (Auto) 05/05/20 05/05/20 05/05/20 13:35 18:21 20:27 WBC RBC Hgb Hct MCV RDW Plt Count Seg Neuts % (Manual) Lymphocytes % (Manual) Seg Neutrophils # Man Lymphocytes # (Manual) PT INR APTT 210.9 H* D-Dimer Heparin Anti-Xa Level 0.23 L ABG pO2 ABG HCO3 ABG O2 Saturation ABG Base Excess ABG Hemoglobin Oxyhemoglobin Sodium Potassium Chloride Carbon Dioxide BUN Creatinine Glucose POC Glucose Lactic Acid 3.30 H* Calcium Magnesium TIBC Ferritin Direct Bilirubin AST Alkaline Phosphatase Troponin T Total Protein Albumin Triglycerides LDL Cholesterol Direct HDL Cholesterol Lipase Vitamin B12 Folate TSH Urine WBC (Auto) 05/05/20 05/05/2021 20:42 Unknown 02:30 WBC RBC Hgb Hct MCV RDW Plt Count Seg Neuts % (Manual) Lymphocytes % (Manual) Seg Neutrophils # Man Lymphocytes # (Manual) PT INR APTT D-Dimer Heparin Anti-Xa Level < 0.10 L ABG pO2 ABG HCO3 ABG O2 Saturation ABG Base Excess ABG Hemoglobin Oxyhemoglobin Sodium Potassium Chloride Carbon Dioxide BUN Creatinine Glucose POC Glucose Lactic Acid 4.20 H* Calcium Magnesium TIBC Ferritin Direct Bilirubin AST Alkaline Phosphatase Troponin T Total Protein Albumin Triglycerides LDL Cholesterol Direct HDL Cholesterol Lipase Vitamin B12 Folate TSH Urine WBC (Auto) 13.0 H 05/06/20 05/06/20 05/06/20 03:30 03:30 11:54 WBC 22.9 H RBC 2.59 L Hgb 7.2 L Hct 22.0 L MCV RDW Plt Count 122 L Seg Neuts % (Manual) 89.0 H Lymphocytes % (Manual) 5.0 L Seg Neutrophils # Man 20.4 H Lymphocytes # (Manual) 1.1 L PT INR APTT D-Dimer Heparin Anti-Xa Level 0.13 L ABG pO2 ABG HCO3 ABG O2 Saturation ABG Base Excess ABG Hemoglobin Oxyhemoglobin Sodium 134 L Potassium Chloride Carbon Dioxide BUN Creatinine 0.7 L D Glucose 162 H POC Glucose Lactic Acid Calcium 7.2 L Magnesium TIBC Ferritin Direct Bilirubin AST Alkaline Phosphatase 153 H Troponin T Total Protein 4.9 L Albumin 1.7 L Triglycerides LDL Cholesterol Direct HDL Cholesterol Lipase Vitamin B12 Folate TSH Urine WBC (Auto) 05/06/20 05/07/20 05/07/20 22:22 06:30 06:30 WBC 24.2 H RBC 2.63 L Hgb 7.3 L Hct 21.8 L MCV 83 L RDW 15.5 H Plt Count 107 L Seg Neuts % (Manual) 98.0 H Lymphocytes % (Manual) 1.0 L Seg Neutrophils # Man 23.7 H Lymphocytes # (Manual) 0.2 L PT INR APTT D-Dimer Heparin Anti-Xa Level < 0.10 L ABG pO2 ABG HCO3 ABG O2 Saturation ABG Base Excess ABG Hemoglobin Oxyhemoglobin Sodium Potassium Chloride Carbon Dioxide 18 L BUN Creatinine Glucose 135 H POC Glucose Lactic Acid Calcium 6.6 L Magnesium TIBC Ferritin Direct Bilirubin AST 41 H Alkaline Phosphatase 204 H Troponin T Total Protein 4.5 L Albumin 1.7 L Triglycerides LDL Cholesterol Direct HDL Cholesterol Lipase Vitamin B12 Folate TSH Urine WBC (Auto) 05/07/20 05/07/20 05/07/20 09:37 11:38 12:38 WBC RBC Hgb Hct MCV RDW Plt Count Seg Neuts % (Manual) Lymphocytes % (Manual) Seg Neutrophils # Man Lymphocytes # (Manual) PT INR APTT D-Dimer Heparin Anti-Xa Level ABG pO2 ABG HCO3 ABG O2 Saturation ABG Base Excess ABG Hemoglobin Oxyhemoglobin Sodium 135 L Potassium Chloride 107.6 H Carbon Dioxide 19 L BUN Creatinine Glucose 128 H POC Glucose 108 H Lactic Acid Calcium 6.6 L Magnesium TIBC 169 L Ferritin Direct Bilirubin AST Alkaline Phosphatase Troponin T Total Protein Albumin Triglycerides LDL Cholesterol Direct HDL Cholesterol Lipase Vitamin B12 Folate TSH Urine WBC (Auto) 05/07/20 05/07/20 05/07/20 12:38 12:39 12:39 WBC RBC Hgb Hct MCV RDW Plt Count Seg Neuts % (Manual) Lymphocytes % (Manual) Seg Neutrophils # Man Lymphocytes # (Manual) PT INR APTT D-Dimer Heparin Anti-Xa Level ABG pO2 ABG HCO3 ABG O2 Saturation ABG Base Excess ABG Hemoglobin Oxyhemoglobin Sodium Potassium Chloride Carbon Dioxide BUN Creatinine Glucose POC Glucose Lactic Acid Calcium Magnesium TIBC Ferritin 1831.0 H Direct Bilirubin AST Alkaline Phosphatase Troponin T Total Protein Albumin Triglycerides LDL Cholesterol Direct HDL Cholesterol Lipase Vitamin B12 > 2000 H Folate 7.19 L TSH Urine WBC (Auto) 05/08/20 05/08/20 05/08/20 06:00 06:00 09:15 WBC 23.4 H RBC 2.83 L Hgb 7.9 L Hct 23.9 L MCV RDW 15.5 H Plt Count 67 L Seg Neuts % (Manual) 98.0 H Lymphocytes % (Manual) 2.0 L Seg Neutrophils # Man 22.9 H Lymphocytes # (Manual) 0.5 L PT 18.6 H INR 1.55 H APTT D-Dimer Heparin Anti-Xa Level ABG pO2 ABG HCO3 ABG O2 Saturation ABG Base Excess ABG Hemoglobin Oxyhemoglobin Sodium Potassium 3.4 L Chloride 108.7 H Carbon Dioxide BUN Creatinine Glucose 106 H POC Glucose Lactic Acid Calcium 7.1 L Magnesium TIBC Ferritin Direct Bilirubin AST Alkaline Phosphatase Troponin T Total Protein Albumin Triglycerides LDL Cholesterol Direct HDL Cholesterol Lipase Vitamin B12 Folate TSH Urine WBC (Auto)
--- NOTE | 2020-05-08 13:31 | Progress Note ---
Assessment and Plan Tele reviewed: Pt remains in sinus tach, HR 100s. Continued low dose lopressor. Management of suspected liver abscess per GI and ID teams - s/p CT guided drainage of liver lesion. Pt is noted to have anemia and thrombocytopenia, suspect secondary to sepsis per critical care team. Heparin gtt is currently held. Further eval/management per critical care team/ primary team. Currently stable cardiac status. Will follow on as needed basis over the weekend. The patient has been seen in conjunction with Dr. Crzu who agrees with the as sessment and plan of care. - Patient Problems (1) Sinus tachycardia Current Visit: Yes Status: Acute (2) Liver abscess Current Visit: Yes Status: Suspected (3) Sepsis Current Visit: Yes Status: Suspected (4) Multiple pulmonary emboli Current Visit: Yes Status: Acute (5) Anemia Current Visit: Yes Status: Acute (6) Thrombocytopenia Current Visit: Yes Status: Acute Subjective Date of service: 05/08/20 Principal diagnosis: Acute pulmonary embolism, liver abscess Interval history: Patient is resting in bed comfortably, alert & oriented. No new cardiac complaints. Tele reviewed: Sinus Tach, HR 107. Objective Last Vital Signs Temp 98.3 F 05/08/20 11:40 Pulse 98 H 05/08/20 06:10 Resp 20 05/08/20 08:26 BP 130/52 05/08/20 06:10 Pulse Ox 98 05/08/20 06:10 - Physical Examination HEENT: Positive: PERRL Neck: Positive: neck supple, trachea midline Neuro: Positive: Other (lethargic) Skin: Negative: Rash Extremities: Absent: edema - Labs and Meds Coagulation 05/08/20 Range/Units 09:15 PT 18.6 H (12.2-14.9) Sec. INR 1.55 H (0.87-1.13) CBC 05/08/20 Range/Units 06:00 WBC 23.4 H (4.5-11.0) K/mm3 RBC 2.83 L (3.65-5.03) M/mm3 Hgb 7.9 L (11.8-15.2) gm/dl Hct 23.9 L (35.5-45.6) % Plt Count 67 L (140-440) K/mm3 Comprehensive Metabolic Panel 05/08/20 Range/Units 06:00 Sodium 137 (137-145) mmol/L Potassium 3.4 L (3.6-5.0) mmol/L Chloride 108.7 H (98-107) mmol/L Carbon Dioxide 22 (22-30) mmol/L BUN 15 (9-20) mg/dL Creatinine 0.9 (0.8-1.3) mg/dL Glucose 106 H (75-100) mg/dL Calcium 7.1 L (8.4-10.2) mg/dL - Imaging and Cardiology EKG: report reviewed, image reviewed Echo: report reviewed - Telemetry EKG Rhythm: Sinus Tachycardia - EKG Sinus rhythms and dysrhythmias: sinus tachycardia
--- NOTE | 2020-05-08 14:29 | Progress Note ---
Assessment and Plan Cultures: Blood cultures: ESBL E. coli Surgical culture: Gram-negative selma A/P: 44 yo M no PMHx presents with liver abscess, PE, and septic emboli. #Acute sepsis: Present with fevers and leukocytosis. Secondary to bacteremia and liver abscess #Liver abscess: Status post IR drainage, cultures with ESBL E. coli #Septic emboli: Echo without vegetations, though may be shedding bacteria from liver? Continue empiric antibiotics #PE: anticoagulation per hosptial protocol. Recs: -Stop empiric ceftriaxone and metronidazole -Start meropenem for ESBL -Follow-up repeat blood cultures -If sepsis does not improve now with appropriate anti-ESBL therapy, would reimage abdomen with contrast to ensure no on drained fluid collections Thank you for the consult, we will continue to follow. Dr. Gaona covering this weekend, Dr. Garrett taking over Monday Whit Briggs MD [facility] ([facility]) O: [phone] F: [phone] Subjective Date of service: 05/08/20 Principal diagnosis: Acute pulmonary embolism, liver abscess Interval history: Remains persistently febrile to 102.4. White count remains elevated 23.4. Blood cultures now positive Objective - Exam Narrative Exam: Physical exam deferred due to PPE conservation strategy. Please refer to [facility] team's note. - Constitutional Vitals: Vital Signs Temp Pulse Resp BP Pulse Ox 98.3 F 98 H 20 130/52 98 05/08/20 11:40 05/08/20 06:10 05/08/20 08:26 05/08/20 06:10 05/08/20 06:10 Temperature -Last 24 Hours Temperature 98.3 F Temperature 102.4 F Temperature 100.9 F Temperature 98.7 F Temperature 97.8 F Temperature 100.1 F - Labs CBC & Chem 7: 05/08/20 06:00 05/08/20 06:00 Labs: Abnormal lab results 05/07/20 05/07/20 05/07/20 Range/Units 11:38 12:38 12:38 WBC (4.5-11.0) K/mm3 RBC (3.65-5.03) M/mm3 Hgb (11.8-15.2) gm/dl Hct (35.5-45.6) % RDW (13.2-15.2) % Plt Count (140-440) K/mm3 Seg Neuts % (Manual) (40.0-70.0) % Lymphocytes % (Manual) (13.4-35.0) % Seg Neutrophils # Man (1.8-7.7) K/mm3 Lymphocytes # (Manual) (1.2-5.4) K/mm3 PT (12.2-14.9) Sec. INR (0.87-1.13) Potassium (3.6-5.0) mmol/L Chloride (98-107) mmol/L Glucose (75-100) mg/dL POC Glucose 108 H (70-105) mg/dL Calcium (8.4-10.2) mg/dL TIBC 169 L (250-450) mcg/dL Ferritin 1831.0 H (30.0-300.0) ng/mL Vitamin B12 (211-911) pg/mL Folate (7.3-26.0) ng/mL 05/07/20 05/07/20 05/08/20 Range/Units 12:39 12:39 06:00 WBC 23.4 H (4.5-11.0) K/mm3 RBC 2.83 L (3.65-5.03) M/mm3 Hgb 7.9 L (11.8-15.2) gm/dl Hct 23.9 L (35.5-45.6) % RDW 15.5 H (13.2-15.2) % Plt Count 67 L (140-440) K/mm3 Seg Neuts % (Manual) 98.0 H (40.0-70.0) % Lymphocytes % (Manual) 2.0 L (13.4-35.0) % Seg Neutrophils # Man 22.9 H (1.8-7.7) K/mm3 Lymphocytes # (Manual) 0.5 L (1.2-5.4) K/mm3 PT (12.2-14.9) Sec. INR (0.87-1.13) Potassium (3.6-5.0) mmol/L Chloride (98-107) mmol/L Glucose (75-100) mg/dL POC Glucose (70-105) mg/dL Calcium (8.4-10.2) mg/dL TIBC (250-450) mcg/dL Ferritin (30.0-300.0) ng/mL Vitamin B12 > 2000 H (211-911) pg/mL Folate 7.19 L (7.3-26.0) ng/mL 05/08/20 05/08/20 Range/Units 06:00 09:15 WBC (4.5-11.0) K/mm3 RBC (3.65-5.03) M/mm3 Hgb (11.8-15.2) gm/dl Hct (35.5-45.6) % RDW (13.2-15.2) % Plt Count (140-440) K/mm3 Seg Neuts % (Manual) (40.0-70.0) % Lymphocytes % (Manual) (13.4-35.0) % Seg Neutrophils # Man (1.8-7.7) K/mm3 Lymphocytes # (Manual) (1.2-5.4) K/mm3 PT 18.6 H (12.2-14.9) Sec. INR 1.55 H (0.87-1.13) Potassium 3.4 L (3.6-5.0) mmol/L Chloride 108.7 H (98-107) mmol/L Glucose 106 H (75-100) mg/dL POC Glucose (70-105) mg/dL Calcium 7.1 L (8.4-10.2) mg/dL TIBC (250-450) mcg/dL Ferritin (30.0-300.0) ng/mL Vitamin B12 (211-911) pg/mL Folate (7.3-26.0) ng/mL
--- NOTE | 2020-05-08 19:25 | XRay Report ---
CHEST 1 VIEW 05/08/2020 6:14 PM INDICATION / CLINICAL INFORMATION: hypoxia. COMPARISON: 05/06/2020 FINDINGS: SUPPORT DEVICES: None. HEART / MEDIASTINUM: Unchanged LUNGS / PLEURA: There are worsening pulmonary opacities bilaterally. There is elevation of the right hemidiaphragm. No pneumothorax. ADDITIONAL FINDINGS: No significant additional findings. IMPRESSION: 1. Interval worsening. Signer Name: Manjit Cruz MD Signed: 05/08/2020 7:21 PM Workstation Name: [id number]
[2020-05-09] MEDS: ACETAMINOPHEN 325 MG TAB PO PRN (00:05)
[2020-05-09] MEDS: oxyCODONE /ACETAMINOPHEN 5-325MG TAB PO PRN ×2 (00:06→12:39)
[2020-05-09] MEDS: MEROPENEM/NS 1 GRAM/100 ML 1 GRAM/100 ML BAG IV SCH ×3 (03:13→21:45)
[2020-05-09 06:26] LABS: Basophils % (Auto) 0.2 % (0.0-1.8); Eosinophils # (Auto) 0.1 K/mm3 (0.0-0.4); Eosinophils % (Auto) 0.8 % (0.0-4.3); Hematocrit 20.4 % (35.5-45.6); Hemoglobin 6.7 gm/dl (11.8-15.2); Lymphocytes # (Auto) 1.2 K/mm3 (1.2-5.4); Lymphocytes % (Auto) 9.4 % (13.4-35.0); Mean Corpuscular HGB Conc 33 % (32-34); Mean Corpuscular Volume 85 fl (84-94); Monocytes # (Auto) 0.5 K/mm3 (0.0-0.8); Monocytes % (Auto) 3.7 % (0.0-7.3); Red Blood Count 2.41 M/mm3 (3.65-5.03); Red Cell Distribution Width 15.9 % (13.2-15.2)
[2020-05-09 06:27] LABS: Platelet Count 71 K/mm3 (140-440)
[2020-05-09 06:39] LABS: Blood Urea Nitrogen 14 mg/dL (9-20); Hemolysis Index 3
[2020-05-09 06:47] LABS: BUN/Creatinine Ratio 20
[2020-05-09] MEDS: SODIUM CHLORIDE 0.9% 1000 ML 1,000 ML IV SCH ×2 (07:27→12:44)
--- NOTE | 2020-05-09 09:41 | Progress Note ---
Assessment and Plan 44 male with hepatic abscess and septic emboli with sepsis and septic shock, now resolving with abx therapy and fluid resuscitation. 05/09/20: Wean FiO2 for sats >88%. Abx therapy per ID. CXR is most likely volume overload vs systemic changes post drain placement from catecholamine response. He has gotten a lot of fluid, however BP is borderline so will hold on lasix and ask RT to continue to wean FiO2 and flow. Prognosis still remains guarded. 05/08/20: Vasodilated secondary to catecholamine release and sepsis. Will given more IVF's in addition to maintenance fluids. Wean Pressors for MAPs >65. Monitor urine output. Continue IV abx therapy per ID recs. Will check CXR. RPT Mag. SCD's and hold anticoagulation given low platelets, although likely low from sepsis. CCT 31 minutes 05/07/20: Going for drainage catheter placement today. Continue broad spec abx therapy. Pressors are still off. Guarded prognosis. 1. Vasopressors are off. OXygen weaned off. If remains stable over the next few hours, will transfer to the floor. 2. Appreciate ID and Vascular help, continue broad spec abx therapy. Subjective Date of service: 05/09/20 Principal diagnosis: Acute pulmonary embolism, liver abscess Interval history: Down to 10 liters now with good sats. BP stable. Objective Vital Signs - 12hr 05/08/20 05/08/20 05/08/20 21:40 21:50 22:00 Temperature Pulse Rate 98 H 100 H 110 H Pulse Rate [ From Monitor] Respiratory 15 19 23 Rate Respiratory Rate [Left Back ] Blood Pressure 89/60 89/60 89/60 O2 Sat by Pulse 99 100 100 Oximetry 05/08/20 05/08/20 05/08/20 22:10 22:20 22:30 Temperature Pulse Rate 95 H 93 H 97 H Pulse Rate [ From Monitor] Respiratory 23 17 15 Rate Respiratory Rate [Left Back ] Blood Pressure 139/112 89/60 89/60 O2 Sat by Pulse 100 100 100 Oximetry 05/08/20 05/08/20 05/08/20 22:40 22:50 23:00 Temperature Pulse Rate 93 H 98 H 91 H Pulse Rate [ From Monitor] Respiratory 14 18 16 Rate Respiratory Rate [Left Back ] Blood Pressure 89/60 89/60 107/61 O2 Sat by Pulse 100 100 100 Oximetry 05/08/20 05/08/20 05/08/20 23:10 23:20 23:30 Temperature Pulse Rate 96 H 98 H 98 H Pulse Rate [ From Monitor] Respiratory 15 13 17 Rate Respiratory Rate [Left Back ] Blood Pressure 107/61 107/61 107/61 O2 Sat by Pulse 100 100 100 Oximetry 05/08/20 05/08/20 05/08/20 23:40 23:44 23:50 Temperature Pulse Rate 132 H 119 H Pulse Rate [ From Monitor] Respiratory 32 H 32 H Rate Respiratory Rate [Left Back ] Blood Pressure 107/61 107/61 O2 Sat by Pulse 100 99 100 Oximetry 05/08/20 05/09/20 05/09/20 23:56 00:00 00:05 Temperature 100.6 F H Pulse Rate 114 H 131 H Pulse Rate [ From Monitor] Respiratory 30 H 39 H 24 Rate Respiratory 39 H Rate [Left Back ] Blood Pressure 107/61 107/61 O2 Sat by Pulse 97 95 Oximetry 05/09/20 05/09/20 05/09/20 00:06 00:27 00:30 Temperature Pulse Rate 130 H 125 H Pulse Rate [ From Monitor] Respiratory 24 25 H Rate Respiratory Rate [Left Back ] Blood Pressure 122/99 O2 Sat by Pulse 97 Oximetry 05/09/20 05/09/20 05/09/20 01:00 01:05 01:06 Temperature Pulse Rate 119 H Pulse Rate [ From Monitor] Respiratory 23 16 16 Rate Respiratory Rate [Left Back ] Blood Pressure 111/56 O2 Sat by Pulse 100 Oximetry 05/09/20 05/09/20 05/09/20 01:30 02:00 02:30 Temperature Pulse Rate 128 H 99 H 106 H Pulse Rate [ From Monitor] Respiratory 23 15 17 Rate Respiratory Rate [Left Back ] Blood Pressure 111/56 82/38 95/39 O2 Sat by Pulse 87 100 100 Oximetry 05/09/20 05/09/20 05/09/20 03:00 03:29 03:30 Temperature Pulse Rate 90 83 81 Pulse Rate [ From Monitor] Respiratory 18 16 Rate Respiratory Rate [Left Back ] Blood Pressure 93/47 82/49 O2 Sat by Pulse 100 100 Oximetry 05/09/20 05/09/20 05/09/20 04:00 04:30 05:00 Temperature 98.9 F Pulse Rate 82 79 79 Pulse Rate [ 82 From Monitor] Respiratory 15 17 14 Rate Respiratory Rate [Left Back ] Blood Pressure 93/48 84/54 99/54 O2 Sat by Pulse 100 100 100 Oximetry 05/09/20 05/09/20 05/09/20 05:30 06:00 06:06 Temperature Pulse Rate 75 76 Pulse Rate [ From Monitor] Respiratory 19 11 L Rate Respiratory Rate [Left Back ] Blood Pressure 104/58 108/57 O2 Sat by Pulse 100 100 100 Oximetry 05/09/20 05/09/20 05/09/20 06:30 08:00 08:52 Temperature 98.2 F Pulse Rate 76 Pulse Rate [ From Monitor] Respiratory 18 Rate Respiratory Rate [Left Back ] Blood Pressure 102/59 O2 Sat by Pulse 100 100 Oximetry Constitutional: no acute distress, alert Eyes: non-icteric ENT: oropharynx moist Neck: supple Effort: normal Ascultation: Bilateral: clear CBC and BMP: 05/09/20 05:34 05/09/20 05:34 ABG, PT/INR, D-dimer: ABG ABG pH 7.409 pH Units (7.350-7.450) 05/05/20 09:10 ABG pCO2 16.7 mm Hg 05/05/20 09:10 ABG pO2 27.6 mm Hg (80.0-90.0) L* 05/05/20 09:10 ABG O2 Saturation 38.5 % (95.0-99.0) L 05/05/20 09:10 PT/INR, D-dimer PT 18.6 Sec. (12.2-14.9) H 05/08/20 09:15 INR 1.55 (0.87-1.13) H 05/08/20 09:15 D-Dimer Cancelled 05/07/20 06:30 Abnormal lab findings: Abnormal Labs 05/05/20 05/05/20 05/05/20 08:10 08:10 08:10 WBC RBC 2.91 L Hgb 8.1 L Hct 24.5 L MCV RDW Plt Count 107 L Lymph % (Auto) Seg Neutrophils % Seg Neuts % (Manual) 97.0 H Lymphocytes % (Manual) 2.0 L Seg Neutrophils # Seg Neutrophils # Man 10.7 H Lymphocytes # (Manual) 0.2 L PT INR APTT D-Dimer > 53197 H Heparin Anti-Xa Level ABG pO2 ABG HCO3 ABG O2 Saturation ABG Base Excess ABG Hemoglobin Oxyhemoglobin Sodium 128 L Potassium Chloride Carbon Dioxide 15 L BUN 32 H Creatinine 1.5 H Glucose POC Glucose Lactic Acid Calcium 7.5 L Magnesium 1.30 L TIBC Ferritin Direct Bilirubin AST Alkaline Phosphatase Troponin T 0.056 H Total Protein Albumin Triglycerides 231 H LDL Cholesterol Direct 17 L HDL Cholesterol 11 L Lipase Vitamin B12 Folate TSH Urine WBC (Auto) 05/05/20 05/05/20 05/05/20 08:10 08:10 08:55 WBC RBC Hgb Hct MCV RDW Plt Count Lymph % (Auto) Seg Neutrophils % Seg Neuts % (Manual) Lymphocytes % (Manual) Seg Neutrophils # Seg Neutrophils # Man Lymphocytes # (Manual) PT 15.8 H INR 1.28 H APTT D-Dimer Heparin Anti-Xa Level ABG pO2 ABG HCO3 ABG O2 Saturation ABG Base Excess ABG Hemoglobin Oxyhemoglobin Sodium Potassium Chloride Carbon Dioxide BUN Creatinine Glucose POC Glucose Lactic Acid 6.40 H* Calcium Magnesium TIBC Ferritin Direct Bilirubin AST Alkaline Phosphatase Troponin T Total Protein Albumin Triglycerides LDL Cholesterol Direct HDL Cholesterol Lipase Vitamin B12 Folate TSH 12.770 H Urine WBC (Auto) 05/05/20 05/05/20 05/05/20 09:10 10:17 10:17 WBC RBC Hgb Hct MCV RDW Plt Count Lymph % (Auto) Seg Neutrophils % Seg Neuts % (Manual) Lymphocytes % (Manual) Seg Neutrophils # Seg Neutrophils # Man Lymphocytes # (Manual) PT INR APTT D-Dimer Heparin Anti-Xa Level ABG pO2 27.6 L* ABG HCO3 10.3 L ABG O2 Saturation 38.5 L ABG Base Excess -13.0 L ABG Hemoglobin 6.7 L Oxyhemoglobin 37.9 L Sodium Potassium Chloride Carbon Dioxide BUN Creatinine Glucose POC Glucose Lactic Acid 6.20 H* Calcium Magnesium TIBC Ferritin Direct Bilirubin 0.4 H AST Alkaline Phosphatase 183 H Troponin T Total Protein 4.1 L Albumin 1.5 L Triglycerides LDL Cholesterol Direct HDL Cholesterol Lipase 68 H Vitamin B12 Folate TSH Urine WBC (Auto) 05/05/20 05/05/20 05/05/20 10:17 13:35 13:35 WBC RBC Hgb 8.5 L Hct 25.8 L MCV RDW Plt Count Lymph % (Auto) Seg Neutrophils % Seg Neuts % (Manual) Lymphocytes % (Manual) Seg Neutrophils # Seg Neutrophils # Man Lymphocytes # (Manual) PT INR APTT D-Dimer Heparin Anti-Xa Level ABG pO2 ABG HCO3 ABG O2 Saturation ABG Base Excess ABG Hemoglobin Oxyhemoglobin Sodium Potassium Chloride Carbon Dioxide BUN Creatinine Glucose POC Glucose Lactic Acid 4.70 H* Calcium Magnesium TIBC Ferritin 1695.0 H Direct Bilirubin AST Alkaline Phosphatase Troponin T Total Protein Albumin Triglycerides LDL Cholesterol Direct HDL Cholesterol Lipase Vitamin B12 Folate TSH Urine WBC (Auto) 05/05/20 05/05/20 05/05/20 13:35 18:21 20:27 WBC RBC Hgb Hct MCV RDW Plt Count Lymph % (Auto) Seg Neutrophils % Seg Neuts % (Manual) Lymphocytes % (Manual) Seg Neutrophils # Seg Neutrophils # Man Lymphocytes # (Manual) PT INR APTT 210.9 H* D-Dimer Heparin Anti-Xa Level 0.23 L ABG pO2 ABG HCO3 ABG O2 Saturation ABG Base Excess ABG Hemoglobin Oxyhemoglobin Sodium Potassium Chloride Carbon Dioxide BUN Creatinine Glucose POC Glucose Lactic Acid 3.30 H* Calcium Magnesium TIBC Ferritin Direct Bilirubin AST Alkaline Phosphatase Troponin T Total Protein Albumin Triglycerides LDL Cholesterol Direct HDL Cholesterol Lipase Vitamin B12 Folate TSH Urine WBC (Auto) 05/05/20 05/05/20 05/06/20 20:42 Unknown 02:30 WBC RBC Hgb Hct MCV RDW Plt Count Lymph % (Auto) Seg Neutrophils % Seg Neuts % (Manual) Lymphocytes % (Manual) Seg Neutrophils # Seg Neutrophils # Man Lymphocytes # (Manual) PT INR APTT D-Dimer Heparin Anti-Xa Level < 0.10 L ABG pO2 ABG HCO3 ABG O2 Saturation ABG Base Excess ABG Hemoglobin Oxyhemoglobin Sodium Potassium Chloride Carbon Dioxide BUN Creatinine Glucose POC Glucose Lactic Acid 4.20 H* Calcium Magnesium TIBC Ferritin Direct Bilirubin AST Alkaline Phosphatase Troponin T Total Protein Albumin Triglycerides LDL Cholesterol Direct HDL Cholesterol Lipase Vitamin B12 Folate TSH Urine WBC (Auto) 13.0 H 05/06/20 05/06/20 05/06/20 03:30 03:30 11:54 WBC 22.9 H RBC 2.59 L Hgb 7.2 L Hct 22.0 L MCV RDW Plt Count 122 L Lymph % (Auto) Seg Neutrophils % Seg Neuts % (Manual) 89.0 H Lymphocytes % (Manual) 5.0 L Seg Neutrophils # Seg Neutrophils # Man 20.4 H Lymphocytes # (Manual) 1.1 L PT INR APTT D-Dimer Heparin Anti-Xa Level 0.13 L ABG pO2 ABG HCO3 ABG O2 Saturation ABG Base Excess ABG Hemoglobin Oxyhemoglobin Sodium 134 L Potassium Chloride Carbon Dioxide BUN Creatinine 0.7 L D Glucose 162 H POC Glucose Lactic Acid Calcium 7.2 L Magnesium TIBC Ferritin Direct Bilirubin AST Alkaline Phosphatase 153 H Troponin T Total Protein 4.9 L Albumin 1.7 L Triglycerides LDL Cholesterol Direct HDL Cholesterol Lipase Vitamin B12 Folate TSH Urine WBC (Auto) 05/06/20 05/07/20 05/07/20 22:22 06:30 06:30 WBC 24.2 H RBC 2.63 L Hgb 7.3 L Hct 21.8 L MCV 83 L RDW 15.5 H Plt Count 107 L Lymph % (Auto) Seg Neutrophils % Seg Neuts % (Manual) 98.0 H Lymphocytes % (Manual) 1.0 L Seg Neutrophils # Seg Neutrophils # Man 23.7 H Lymphocytes # (Manual) 0.2 L PT INR APTT D-Dimer Heparin Anti-Xa Level < 0.10 L ABG pO2 ABG HCO3 ABG O2 Saturation ABG Base Excess ABG Hemoglobin Oxyhemoglobin Sodium Potassium Chloride Carbon Dioxide 18 L BUN Creatinine Glucose 135 H POC Glucose Lactic Acid Calcium 6.6 L Magnesium TIBC Ferritin Direct Bilirubin AST 41 H Alkaline Phosphatase 204 H Troponin T Total Protein 4.5 L Albumin 1.7 L Triglycerides LDL Cholesterol Direct HDL Cholesterol Lipase Vitamin B12 Folate TSH Urine WBC (Auto) 05/07/20 05/07/20 05/07/20 09:37 11:38 12:38 WBC RBC Hgb Hct MCV RDW Plt Count Lymph % (Auto) Seg Neutrophils % Seg Neuts % (Manual) Lymphocytes % (Manual) Seg Neutrophils # Seg Neutrophils # Man Lymphocytes # (Manual) PT INR APTT D-Dimer Heparin Anti-Xa Level ABG pO2 ABG HCO3 ABG O2 Saturation ABG Base Excess ABG Hemoglobin Oxyhemoglobin Sodium 135 L Potassium Chloride 107.6 H Carbon Dioxide 19 L BUN Creatinine Glucose 128 H POC Glucose 108 H Lactic Acid Calcium 6.6 L Magnesium TIBC 169 L Ferritin Direct Bilirubin AST Alkaline Phosphatase Troponin T Total Protein Albumin Triglycerides LDL Cholesterol Direct HDL Cholesterol Lipase Vitamin B12 Folate TSH Urine WBC (Auto) 05/07/20 05/07/20 05/07/20 12:38 12:39 12:39 WBC RBC Hgb Hct MCV RDW Plt Count Lymph % (Auto) Seg Neutrophils % Seg Neuts % (Manual) Lymphocytes % (Manual) Seg Neutrophils # Seg Neutrophils # Man Lymphocytes # (Manual) PT INR APTT D-Dimer Heparin Anti-Xa Level ABG pO2 ABG HCO3 ABG O2 Saturation ABG Base Excess ABG Hemoglobin Oxyhemoglobin Sodium Potassium Chloride Carbon Dioxide BUN Creatinine Glucose POC Glucose Lactic Acid Calcium Magnesium TIBC Ferritin 1831.0 H Direct Bilirubin AST Alkaline Phosphatase Troponin T Total Protein Albumin Triglycerides LDL Cholesterol Direct HDL Cholesterol Lipase Vitamin B12 > 2000 H Folate 7.19 L TSH Urine WBC (Auto) 05/08/20 05/08/20 05/08/20 06:00 06:00 09:15 WBC 23.4 H RBC 2.83 L Hgb 7.9 L Hct 23.9 L MCV RDW 15.5 H Plt Count 67 L Lymph % (Auto) Seg Neutrophils % Seg Neuts % (Manual) 98.0 H Lymphocytes % (Manual) 2.0 L Seg Neutrophils # Seg Neutrophils # Man 22.9 H Lymphocytes # (Manual) 0.5 L PT 18.6 H INR 1.55 H APTT D-Dimer Heparin Anti-Xa Level ABG pO2 ABG HCO3 ABG O2 Saturation ABG Base Excess ABG Hemoglobin Oxyhemoglobin Sodium Potassium 3.4 L Chloride 108.7 H Carbon Dioxide BUN Creatinine Glucose 106 H POC Glucose Lactic Acid Calcium 7.1 L Magnesium TIBC Ferritin Direct Bilirubin AST Alkaline Phosphatase Troponin T Total Protein Albumin Triglycerides LDL Cholesterol Direct HDL Cholesterol Lipase Vitamin B12 Folate TSH Urine WBC (Auto) 05/09/20 05/09/20 05:34 05:34 WBC 12.6 H RBC 2.41 L Hgb 6.7 L Hct 20.4 L MCV RDW 15.9 H Plt Count 71 L Lymph % (Auto) 9.4 L Seg Neutrophils % 85.9 H Seg Neuts % (Manual) Lymphocytes % (Manual) Seg Neutrophils # 10.8 H Seg Neutrophils # Man Lymphocytes # (Manual) PT INR APTT D-Dimer Heparin Anti-Xa Level ABG pO2 ABG HCO3 ABG O2 Saturation ABG Base Excess ABG Hemoglobin Oxyhemoglobin Sodium Potassium Chloride 111.1 H Carbon Dioxide 21 L BUN Creatinine 0.7 L Glucose POC Glucose Lactic Acid Calcium 7.0 L Magnesium TIBC Ferritin Direct Bilirubin AST Alkaline Phosphatase Troponin T Total Protein Albumin Triglycerides LDL Cholesterol Direct HDL Cholesterol Lipase Vitamin B12 Folate TSH Urine WBC (Auto)
--- NOTE | 2020-05-09 10:55 | Progress Note ---
Assessment and Plan Septic shock -Patient is on IV fluids, IV antibiotics, able to discontinue pressor support. -ID consulted -Order Covid test Septic emboli -Antibiotics changed to meropenem secondary to ESBL positivity. -Blood clot burden is minimal, no vascular intervention needed -Since meropenem patient's fever curve is come down to 98. Patient's white count is come down to 23. -I order echo -Start on heparin drip Acute respiratory failure with hypoxia -Patient is on 4 L of oxygen -Could be due to septic emboli -Continue antibiotics for now Sinus tachycardia improved with low-dose Lopressor. Will titrate accordingly. Liver abscess -Continue with antibiotics for now -Discussed with Dr. Pina and may consider drainage of the abscess once patient is stable Anemia associated thrombocytopenia we will transfuse 1 unit packed red blood cells today. Hold heparin. Most likely secondary to severe sepsis. CODE STATUS; full Prognosis; guarded Disposition; admit to ICU The high probability of a clinically significant, sudden or life threatening d eterioration of the x] system(s) required my full and direct attention, intervention and personal management. The aggregate critical care time was [32] minutes. This time is in addition to time spent performing reported procedures but includes the following: [x] Data Review and interpretation [x] Patient assessment and monitoring of vital signs [x] Documentation [x] Medication orders and management Subjective Date of service: 05/09/20 Principal diagnosis: Acute pulmonary embolism, liver abscess Interval history: 44-year-old male with no significant past medical history presented to the emergency department with complaints of shortness of breath for the last 3 weeks. Shortness of breath is progressively worse and making to present to the emergency department this morning. Patient said he has associated dry cough. Patient denied fever chills, night sweats. Patient denied contact with Covid patient. He denied any chest pain, palpitation or leg swelling. Patient was seen in the emergency department. In the emergency department test x-ray was done and showed bibasilar infiltrates, CTA chest was done and significant for blood clot suspected septic emboli and liver abscess. Patient was hypotensive was started with IV fluids and pressor support. I have discussed with vascular surgery and said the clot burden is minimal and does not need any intervention at this time. Interve ntional radiology will do drainage of the abscess once the patient is stable. Patient started with IV antibiotics. ID was consulted. Patient was requiring 4 L of oxygen and pulmonary consulted. Patient will be admitted to ICU. 05/06/2020 -Septic shock, septic emboli to the lungs, primary source could be the liver, liver abscess -Patient is on IV Levaquin and Flagyl, ID consult appreciated. Blood culture grew gram-positive rods, will follow identification -Patient is on IV heparin -Interventional radiology consulted for drainage of the liver abscess -Patient is still on pressors. Patient is off oxygen. 05/07/2020 -Patient had SVT yesterday afternoon and was given adenosine and amiodarone -Currently controlled, cardiology consult placed -IR will do drainage of the abscess 05/08/2020 -IR drained about 40 mL of purulent fluid from the liver and put a draining tube -Blood culture grew ESBL and ID is following the patient and change antibiotics to meropenem -Patient still have leukocytosis and fever -We will continue inpatient management 05/09/2020 Purulent exudate has decreased from draining Hospital course complicated by blood culture ESBL started on meropenem Patient is afebrile so far today. SVT has resolved pulse in the 90s. Objective - Constitutional Vitals: Vital Signs - 12hr 05/08/20 05/08/20 05/08/20 23:00 23:10 23:20 Temperature Pulse Rate 91 H 96 H 98 H Pulse Rate [ From Monitor] Respiratory 16 15 13 Rate Respiratory Rate [Left Back ] Blood Pressure 107/61 107/61 107/61 O2 Sat by Pulse 100 100 100 Oximetry 05/08/20 05/08/20 05/08/20 23:30 23:40 23:44 Temperature Pulse Rate 98 H 132 H Pulse Rate [ From Monitor] Respiratory 17 32 H Rate Respiratory Rate [Left Back ] Blood Pressure 107/61 107/61 O2 Sat by Pulse 100 100 99 Oximetry 05/08/20 05/08/20 05/09/20 23:50 23:56 00:00 Temperature 100.6 F H Pulse Rate 119 H 114 H 131 H Pulse Rate [ From Monitor] Respiratory 32 H 30 H 39 H Rate Respiratory Rate [Left Back ] Blood Pressure 107/61 107/61 107/61 O2 Sat by Pulse 100 97 95 Oximetry 05/09/20 05/09/20 05/09/20 00:05 00:06 00:27 Temperature Pulse Rate 130 H Pulse Rate [ From Monitor] Respiratory 24 24 Rate Respiratory 39 H Rate [Left Back ] Blood Pressure O2 Sat by Pulse Oximetry 05/09/20 05/09/20 05/09/20 00:30 01:00 01:05 Temperature Pulse Rate 125 H 119 H Pulse Rate [ From Monitor] Respiratory 25 H 23 16 Rate Respiratory Rate [Left Back ] Blood Pressure 122/99 111/56 O2 Sat by Pulse 97 100 Oximetry 05/09/20 05/09/20 05/09/20 01:06 01:30 02:00 Temperature Pulse Rate 128 H 99 H Pulse Rate [ From Monitor] Respiratory 16 23 15 Rate Respiratory Rate [Left Back ] Blood Pressure 111/56 82/38 O2 Sat by Pulse 87 100 Oximetry 05/09/20 05/09/20 05/09/20 02:30 03:00 03:29 Temperature Pulse Rate 106 H 90 83 Pulse Rate [ From Monitor] Respiratory 17 18 Rate Respiratory Rate [Left Back ] Blood Pressure 95/39 93/47 O2 Sat by Pulse 100 100 Oximetry 05/09/20 05/09/20 05/09/20 03:30 04:00 04:30 Temperature 98.9 F Pulse Rate 81 82 79 Pulse Rate [ 82 From Monitor] Respiratory 16 15 17 Rate Respiratory Rate [Left Back ] Blood Pressure 82/49 93/48 84/54 O2 Sat by Pulse 100 100 100 Oximetry 05/09/20 05/09/20 05/09/20 05:00 05:30 06:00 Temperature Pulse Rate 79 75 76 Pulse Rate [ From Monitor] Respiratory 14 19 11 L Rate Respiratory Rate [Left Back ] Blood Pressure 99/54 104/58 108/57 O2 Sat by Pulse 100 100 100 Oximetry 05/09/20 05/09/20 05/09/20 06:06 06:30 08:00 Temperature 98.2 F Pulse Rate 76 Pulse Rate [ From Monitor] Respiratory 18 Rate Respiratory Rate [Left Back ] Blood Pressure 102/59 O2 Sat by Pulse 100 100 Oximetry 05/09/20 08:52 Temperature Pulse Rate Pulse Rate [ From Monitor] Respiratory Rate Respiratory Rate [Left Back ] Blood Pressure O2 Sat by Pulse 100 Oximetry General appearance: Present: no acute distress - EENT Eyes: PERRL, EOM intact - Respiratory Respiratory effort: normal - Cardiovascular Heart rate: 105 Extremities: pulses intact, No edema, normal color, Full ROM - Gastrointestinal General gastrointestinal: Present: soft, non-tender, non-distended, normal bowel sounds - Musculoskeletal Musculoskeletal: generalized weakness - Neurologic Neurologic: moves all extremities - Psychiatric Psychiatric: memory intact, appropriate mood/affect, intact judgment & insight - Labs CBC & Chem 7: 05/09/20 05:34 05/09/20 05:34 Labs: Abnormal lab results 05/09/20 05/09/20 Range/Units 05:34 05:34 WBC 12.6 H (4.5-11.0) K/mm3 RBC 2.41 L (3.65-5.03) M/mm3 Hgb 6.7 L (11.8-15.2) gm/dl Hct 20.4 L (35.5-45.6) % RDW 15.9 H (13.2-15.2) % Plt Count 71 L (140-440) K/mm3 Lymph % (Auto) 9.4 L (13.4-35.0) % Seg Neutrophils % 85.9 H (40.0-70.0) % Seg Neutrophils # 10.8 H (1.8-7.7) K/mm3 Chloride 111.1 H (98-107) mmol/L Carbon Dioxide 21 L (22-30) mmol/L Creatinine 0.7 L (0.8-1.3) mg/dL Calcium 7.0 L (8.4-10.2) mg/dL HEART Score - HEART Score Troponin: Troponin T 0.056 ng/mL (0.00-0.029) H 05/05/20 08:10
[2020-05-09] MEDS ORDERED: SODIUM CHLORIDE 0.9% 500 ML 500 ML IV ONE (14:58)
[2020-05-10] MEDS: SODIUM CHLORIDE 0.9% 1000 ML 1,000 ML IV SCH ×4 (00:21→22:31)
[2020-05-10] MEDS: ACETAMINOPHEN 325 MG TAB PO PRN (00:21)
[2020-05-10] MEDS: MEROPENEM/NS 1 GRAM/100 ML 1 GRAM/100 ML BAG IV SCH ×3 (04:21→20:47)
[2020-05-10] MEDS: HYDROmorphone 1 MG/1 ML INJ IV PRN (07:39)
[2020-05-10 07:52] LABS: Hematocrit 27.8 % (35.5-45.6); Hemoglobin 9.4 gm/dl (11.8-15.2)
[2020-05-10 08:50] LABS: Hematocrit 27.1 % (35.5-45.6); Hemoglobin 9.3 gm/dl (11.8-15.2); Mean Corpuscular HGB Conc 34 % (32-34); Mean Corpuscular Volume 84 fl (84-94); Red Blood Count 3.24 M/mm3 (3.65-5.03)
[2020-05-10 08:52] LABS: Platelet Count 56 K/mm3 (140-440)
[2020-05-10] MEDS: oxyCODONE /ACETAMINOPHEN 5-325MG TAB PO PRN ×2 (09:19→15:06)
--- NOTE | 2020-05-10 10:24 | Progress Note ---
Assessment and Plan Cultures: Blood cultures 05/05/2020: ESBL E. coli Surgical culture 05/07/2020: ESBL E. coli A/P: 44 yo M no PMHx presents with liver abscess, PE, and septic emboli. #Acute sepsis with initial septic shock: Patient is off pressors, leukocytosis improving, remains with high fever 103. Secondary to bacteremia and liver abscess #ESBL E. coli bacteremia: Secondary to liver abscess. #Large multiseptated liver abscess: CT shows a right hepatic multiseptated collection 7.3 x 6.3 x 7.9 cm. Status post IR drainage on 05/07/2020 70 cc of purulent drained, cultures with ESBL E. coli #Septic emboli: Echo without vegetations, though may be shedding bacteria from liver? Continue empiric antibiotics #Acute hypoxemic respiratory failure: Now on 5 L nasal cannula. #PE: anticoagulation per hosptial protocol. #Acute thrombocytopenia: Worsening. Recs: -Surgical evaluation, fever worsening, large multiseptated liver abscesses so metimes require evaluation by HPB surgery due to inadequate response to IR drainage -Order blood cultures today, given fever 103 this morning -Continue meropenem 1 g IV every 8 hours for ESBL D4 Connie Gaona MD [facility] ([facility]) Office [phone] Subjective Date of service: 05/10/20 Principal diagnosis: Acute pulmonary embolism, liver abscess Interval history: Feels okay, patient is not the best historian, noted fever 103 Objective - Exam Narrative Exam: General appearance: Alert in NAD pleasant Eyes: anicteric sclerae, moist conjunctivae; no lid-lag; PERRLA HENT: Normocephalic, Atraumatic; normal external ears, nares open, oropharynx clear Neck: supple, tracheal midline, no JVD Lungs: CTA CV: RRR no murmur Abdomen: Soft, mild distention, nontender Extremities: no edema, no cyanosis Skin: No rash. Psych: no agitated Neuro: alert and oriented x 3. Moving all extermities - Constitutional Vitals: Vital Signs Temp Pulse Resp BP Pulse Ox 99.2 F 101 H 16 100/56 95 05/10/20 09:55 05/10/20 10:00 05/10/20 10:00 05/10/20 10:00 05/10/20 10:00 Temperature -Last 24 Hours Temperature 99.2 F Temperature 103.0 F Temperature 98.5 F Temperature 100.5 F Temperature 98.9 F Temperature 98.9 F Temperature 98.8 F Temperature 98.7 F Temperature 98.7 F Temperature 98.7 F Temperature 98.2 F Temperature 98.1 F Temperature 98 F Temperature 98.1 F Temperature 97.8 F Temperature 98.3 F Temperature 98 F - Labs CBC & Chem 7: 05/10/20 07:00 05/09/20 05:34 Labs: Abnormal lab results 05/09/20 05/10/20 05/10/20 Range/Units 15:30 07:00 07:00 WBC 11.8 H (4.5-11.0) K/mm3 RBC 3.24 L (3.65-5.03) M/mm3 Hgb 9.4 L 9.3 L (11.8-15.2) gm/dl Hct 27.8 L D 27.1 L (35.5-45.6) % RDW 16.0 H (13.2-15.2) % Plt Count 56 L (140-440) K/mm3 Crossmatch See Detail
--- NOTE | 2020-05-10 10:50 | Progress Note ---
Assessment and Plan Septic shock -Patient is on IV fluids, IV antibiotics, able to discontinue pressor support. -ID consulted -Order Covid test Septic emboli-from liver -Antibiotics changed to meropenem secondary to ESBL positivity. -Blood clot burden is minimal, no vascular intervention needed -Since meropenem patient's fever curve is come down to 98. Patient's white count is come down to 23. - order echo -Start on heparin drip Acute respiratory failure with hypoxia -Patient is on 4 L of oxygen -Could be due to septic emboli -Continue antibiotics for now Sinus tachycardia improved with low-dose Lopressor. Will titrate accordingly. Liver abscess -Continue with antibiotics for now -Abscess has been drained however patient had fever yesterday was considering need for surgical intervention. Anemia associated thrombocytopenia patient transfused yesterday. Hold heparin. Most likely secondary to severe sepsis. CODE STATUS; full Prognosis; guarded Disposition; admit to ICU The high probability of a clinically significant, sudden or life threatening deterioration of the x] system(s) required my full and direct attention, intervention and personal management. The aggregate critical care time was [32] minutes. This time is in addition to time spent performing reported procedures but includes the following: [x] Data Review and interpretation [x] Patient assessment and monitoring of vital signs [x] Documentation [x] Medication orders and management Subjective Date of service: 05/10/20 Principal diagnosis: Acute pulmonary embolism, liver abscess Interval history: 44-year-old male with no significant past medical history presented to the em ergency department with complaints of shortness of breath for the last 3 weeks. Shortness of breath is progressively worse and making to present to the emergency department this morning. Patient said he has associated dry cough. Patient denied fever chills, night sweats. Patient denied contact with Covid patient. He denied any chest pain, palpitation or leg swelling. Patient was seen in the emergency department. In the emergency department test x-ray was done and showed bibasilar infilt rates, CTA chest was done and significant for blood clot suspected septic emboli and liver abscess. Patient was hypotensive was started with IV fluids and pressor support. I have discussed with vascular surgery and said the clot burden is minimal and does not need any intervention at this time. I nterventional radiology will do drainage of the abscess once the patient is stable. Patient started with IV antibiotics. ID was consulted. Patient was requiring 4 L of oxygen and pulmonary consulted. Patient will be admitted to ICU. 05/06/2020 -Septic shock, septic emboli to the lungs, primary source could be the liver, liver abscess -Patient is on IV Levaquin and Flagyl, ID consult appreciated. Blood culture grew gram-positive rods, will follow identification -Patient is on IV heparin -Interventional radiology consulted for drainage of the liver abscess -Patient is still on pressors. Patient is off oxygen. 05/07/2020 -Patient had SVT yesterday afternoon and was given adenosine and amiodarone -Currently controlled, cardiology consult placed -IR will do drainage of the abscess 05/08/2020 -IR drained about 40 mL of purulent fluid from the liver and put a draining tube -Blood culture grew ESBL and ID is following the patient and change antibiotics to meropenem -Patient still have leukocytosis and fever -We will continue inpatient management 05/09/2020 Purulent exudate has decreased from draining Hospital course complicated by blood culture ESBL started on meropenem Patient is afebrile so far today. SVT has resolved pulse in the 90s. 05/10/2020 Patient today remains febrile at 101. Patient denied any pain. Able to eat felt well. No arthralgias myalgias. Discussed with patient about blood culture findings in [place]. Antibiotics has been changed to meropenem Objective - Constitutional Vitals: Vital Signs - 12hr 05/09/20 05/09/20 05/10/20 23:00 23:30 00:00 Temperature 100.5 F H Pulse Rate 121 H 92 H 89 Pulse Rate [ 89 From Monitor] Pulse Rate [ Right Dorsalis Pedis] Respiratory 27 H 25 H 23 Rate Blood Pressure 125/83 125/83 126/68 O2 Sat by Pulse 100 100 100 Oximetry 05/10/20 05/10/20 05/10/20 00:30 01:00 01:30 Temperature Pulse Rate 86 88 87 Pulse Rate [ From Monitor] Pulse Rate [ Right Dorsalis Pedis] Respiratory 24 23 20 Rate Blood Pressure 126/68 116/66 116/66 O2 Sat by Pulse 100 100 100 Oximetry 05/10/20 05/10/20 05/10/20 02:00 02:30 03:00 Temperature Pulse Rate 86 88 80 Pulse Rate [ From Monitor] Pulse Rate [ Right Dorsalis Pedis] Respiratory 20 23 22 Rate Blood Pressure 109/60 109/60 112/69 O2 Sat by Pulse 100 100 100 Oximetry 05/10/20 05/10/20 05/10/20 03:24 03:30 04:00 Temperature 98.5 F Pulse Rate 78 75 Pulse Rate [ 78 From Monitor] Pulse Rate [ Right Dorsalis Pedis] Respiratory 20 20 Rate Blood Pressure 112/69 113/70 O2 Sat by Pulse 100 100 Oximetry 05/10/20 05/10/20 05/10/20 04:22 04:30 05:00 Temperature Pulse Rate 86 81 Pulse Rate [ From Monitor] Pulse Rate [ Right Dorsalis Pedis] Respiratory 21 21 Rate Blood Pressure 113/70 120/77 O2 Sat by Pulse 99 98 100 Oximetry 05/10/20 05/10/20 05/10/20 05:30 06:00 06:30 Temperature Pulse Rate 103 H 140 H Pulse Rate [ From Monitor] Pulse Rate [ Right Dorsalis Pedis] Respiratory 34 H 47 H 40 H Rate Blood Pressure 120/77 120/77 143/104 O2 Sat by Pulse Oximetry 05/10/20 05/10/20 05/10/20 07:00 07:30 08:00 Temperature 103.0 F H Pulse Rate 132 H 134 H 127 H Pulse Rate [ 130 H From Monitor] Pulse Rate [ 130 H Right Dorsalis Pedis] Respiratory 19 34 H 19 Rate Blood Pressure 138/86 143/104 151/83 O2 Sat by Pulse 93 98 Oximetry 05/10/20 05/10/20 05/10/20 08:08 08:30 09:00 Temperature Pulse Rate 127 H 110 H Pulse Rate [ From Monitor] Pulse Rate [ Right Dorsalis Pedis] Respiratory 21 18 Rate Blood Pressure 151/83 132/74 O2 Sat by Pulse 97 96 96 Oximetry 05/10/20 05/10/20 05/10/20 09:30 09:55 10:00 Temperature 99.2 F Pulse Rate 104 H 101 H Pulse Rate [ From Monitor] Pulse Rate [ Right Dorsalis Pedis] Respiratory 23 16 Rate Blood Pressure 143/94 100/56 O2 Sat by Pulse 95 Oximetry General appearance: Present: no acute distress, well-nourished - EENT Eyes: PERRL, EOM intact ENT: hearing intact, clear oral mucosa Ears: bilateral: normal - Neck Neck: supple, normal ROM - Respiratory Respiratory effort: normal Respiratory: bilateral: CTA - Breasts Breasts: normal - Cardiovascular Rhythm: regular Heart Sounds: Present: S1 & S2. Absent: gallop, rub Extremities: pulses intact, No edema, normal color, Full ROM - Gastrointestinal General gastrointestinal: Present: soft, non-tender, non-distended, normal bowel sounds - Genitourinary Male genitourinary: normal - Integumentary Integumentary: clear, warm, dry - Musculoskeletal Musculoskeletal: 1, strength equal bilaterally - Neurologic Neurologic: moves all extremities - Psychiatric Psychiatric: memory intact, appropriate mood/affect, intact judgment & insight - Labs CBC & Chem 7: 05/11/20 04:48 05/09/20 05:34 Labs: Abnormal lab results 05/09/20 05/10/20 05/10/20 Range/Units 15:30 07:00 07:00 WBC 11.8 H (4.5-11.0) K/mm3 RBC 3.24 L (3.65-5.03) M/mm3 Hgb 9.4 L 9.3 L (11.8-15.2) gm/dl Hct 27.8 L D 27.1 L (35.5-45.6) % RDW 16.0 H (13.2-15.2) % Plt Count 56 L (140-440) K/mm3 Crossmatch See Detail HEART Score - HEART Score Troponin: Troponin T 0.056 ng/mL (0.00-0.029) H 05/05/20 08:10
[2020-05-10 10:51] LABS: Total Cells Counted 100
[2020-05-10 10:52] LABS: Hypochromasia 1+
[2020-05-10 10:55] LABS: Platelet Estimate Consistent w Auto; Schistocytes Few
[2020-05-10] MEDS ORDERED: METOPROLOL TARTRATE 5 MG/5 ML INJ IV PRN (12:26)
[2020-05-11] MEDS: MEROPENEM/NS 1 GRAM/100 ML 1 GRAM/100 ML BAG IV SCH ×3 (04:08→21:34)
[2020-05-11 05:48] LABS: Hematocrit 24.7 % (35.5-45.6); Hemoglobin 8.3 gm/dl (11.8-15.2)
[2020-05-11] MEDS: SODIUM CHLORIDE 0.9% 1000 ML 1,000 ML IV SCH (07:30)
[2020-05-11] MEDS: oxyCODONE /ACETAMINOPHEN 5-325MG TAB PO PRN (08:10)
--- NOTE | 2020-05-11 10:34 | Progress Note ---
Assessment and Plan Septic shock now resolved. Patient was still having fever however until today. -Patient is on IV fluids, IV antibiotics, able to discontinue pressor support. -ID consulted Septic emboli-from liver -Antibiotics changed to meropenem secondary to ESBL positivity. At present afebrile. -Blood clot burden is minimal, no vascular intervention needed -Since meropenem patient's fever curve is come down to 98. Patient's white count is come down as well -Previous plan was to consult surgery when patient had persistent fever. Patient had I&D from interventional radiology for liver abscess. Still possible failed attempt. Given the fact the patient was afebrile may be responding to meropenem. Also surgical intervention will be much more invasive.. - order echo Acute respiratory failure with hypoxia-resolved oxygen has been weaned. Will wean down again today -Patient is on 3 L of oxygen continue to wean O2. -Could be due to septic emboli -Continue antibiotics for now Sinus tachycardia improved with low-dose Lopressor. Will titrate accordingly. Liver abscess -Continue with antibiotics for now -Abscess has been drained however patient had fever yesterday was considering need for surgical intervention. Anemia associated thrombocytopenia patient transfused yesterday. H&H 8 and 23 hold heparin. Most likely secondary to severe sepsis. CODE STATUS; full Prognosis; guarded Disposition; admit to ICU The high probability of a clinically significant, sudden or life threatening deterioration of the x] system(s) required my full and direct attention, intervention and personal management. The aggregate critical care time was [32] minutes. This time is in addition to time spent performing reported procedures but includes the following: [x] Data Review and interpretation [x] Patient assessment and monitoring of vital signs [x] Documentation [x] Medication orders and management Subjective Date of service: 05/11/20 Principal diagnosis: Acute pulmonary embolism, liver abscess Interval history: 44-year-old male with no significant past medical history presented to the emergency department with complaints of shortness of breath for the last 3 weeks. Shortness of breath is progressively worse and making to present to the emergency department this morning. Patient said he has associated dry cough. Patient denied fever chills, night sweats. Patient denied contact with Covid patient. He denied any chest pain, palpitation or leg swelling. Patient was seen in the emergency department. In the emergency department test x-ray was done and showed bibasilar infiltrates, CTA chest was done and significant for blood clot suspected septic emboli and liver abscess. Patient was hypotensive was started with IV fluids and pressor support. I have discussed with vascular surgery and said the clot burden is minimal and does not need any intervention at this time. Interventional radiology will do drainage of the abscess once the patient is stable. Patient started with IV antibiotics. ID was consulted. Patient was r equiring 4 L of oxygen and pulmonary consulted. Patient will be admitted to ICU. 05/06/2020 -Septic shock, septic emboli to the lungs, primary source could be the liver, liver abscess -Patient is on IV Levaquin and Flagyl, ID consult appreciated. Blood culture grew gram-positive rods, will follow identification -Patient is on IV heparin -Interventional radiology consulted for drainage of the liver abscess -Patient is still on pressors. Patient is off oxygen. 05/07/2020 -Patient had SVT yesterday afternoon and was given adenosine and amiodarone -Currently controlled, cardiology consult placed -IR will do drainage of the abscess 05/08/2020 -IR drained about 40 mL of purulent fluid from the liver and put a draining tube -Blood culture grew ESBL and ID is following the patient and change antibiotics to meropenem -Patient still have leukocytosis and fever -We will continue inpatient management 05/09/2020 Purulent exudate has decreased from draining Hospital course complicated by blood culture ESBL started on meropenem Patient is afebrile so far today. SVT has resolved pulse in the 90s. 05/10/2020 Patient today remains febrile at 101. Patient denied any pain. Able to eat felt well. No arthralgias myalgias. Discussed with patient about blood culture findings in [place]. Antibiotics has been changed to meropenem 05/11/2020. This is the first morning that patient has been afebrile. Patient denies pain denies arthralgias myalgias eating well. Hemoglobin hematocrit 8 and 24. Objective - Constitutional Vitals: Vital Signs - 12hr 05/10/20 05/10/20 05/11/20 22:44 23:00 00:00 Temperature 98.2 F Pulse Rate 69 73 77 Respiratory 14 14 23 Rate Blood Pressure 140/91 139/86 140/91 O2 Sat by Pulse 100 96 100 Oximetry 05/11/20 05/11/2021 00:01 01:00 02:00 Temperature Pulse Rate 72 81 82 Respiratory 21 17 Rate Blood Pressure 146/98 O2 Sat by Pulse 100 100 Oximetry 05/11/20 05/11/20 05/11/20 03:00 03:41 04:00 Temperature 98.8 F Pulse Rate 88 83 Respiratory 21 25 H Rate Blood Pressure 120/79 134/84 O2 Sat by Pulse 100 100 Oximetry 05/11/20 05/11/20 05/11/20 05:00 06:00 07:00 Temperature Pulse Rate 80 88 Respiratory 26 H 18 Rate Blood Pressure 137/83 124/82 135/87 O2 Sat by Pulse 100 100 100 Oximetry 05/11/20 09:24 Temperature Pulse Rate Respiratory Rate Blood Pressure O2 Sat by Pulse 95 Oximetry General appearance: Present: no acute distress, well-nourished - EENT Eyes: PERRL, EOM intact ENT: hearing intact, clear oral mucosa Ears: bilateral: normal - Neck Neck: supple, normal ROM - Respiratory Respiratory effort: normal Respiratory: bilateral: CTA - Breasts Breasts: normal - Cardiovascular Rhythm: regular Heart Sounds: Present: S1 & S2. Absent: gallop, rub Extremities: pulses intact, No edema, normal color, Full ROM - Gastrointestinal General gastrointestinal: Present: soft, non-tender, non-distended, normal bowel sounds - Genitourinary Male genitourinary: normal - Integumentary Integumentary: clear, warm, dry - Musculoskeletal Musculoskeletal: 1, strength equal bilaterally - Neurologic Neurologic: moves all extremities - Psychiatric Psychiatric: memory intact, appropriate mood/affect, intact judgment & insight - Labs CBC & Chem 7: 05/11/20 04:48 05/09/20 05:34 Labs: Abnormal lab results 05/10/20 05/11/20 Range/Units 07:00 04:48 Hgb 8.3 L (11.8-15.2) gm/dl Hct 24.7 L (35.5-45.6) % Plt Count 74 L (140-440) K/mm3 Seg Neuts % (Manual) 99.0 H (40.0-70.0) % Nucleated RBC % 1.0 H (0.0-0.9) % Seg Neutrophils # Man 11.7 H (1.8-7.7) K/mm3 Lymphocytes # (Manual) 0.0 L (1.2-5.4) K/mm3 HEART Score - HEART Score Troponin: Troponin T 0.056 ng/mL (0.00-0.029) H 05/05/20 08:10
[2020-05-11 10:36] LABS: Alanine Aminotransferase 26 units/L (7-56); Albumin 1.6 g/dL (3.9-5); Blood Urea Nitrogen 9 mg/dL (9-20); Calcium 7.2 mg/dL (8.4-10.2); Hemolysis Index 11
[2020-05-11 10:37] LABS: BUN/Creatinine Ratio 23
--- NOTE | 2020-05-11 11:37 | Progress Note ---
Assessment and Plan Pt resting in bed, no current cardiac complaints. tele reviewed - currently in ST HR 115, in SR HR 80s - 115s over the weekend. Sinus tachycardia appears physiologic. Cont PO lopressor. Management of suspected liver abscess per GI and ID teams - s/p CT guided drainage of liver lesion. Chest CTA positive for pulmonary emboli - septic emboli suspected. Pt noted to have anemia and thrombocytopenia, suspect secondary to sepsis per critical care team, and thus heparin gtt has been held. Further eval/management per critical care team/ primary team. Currently stable cardiac status. Nothing further to add from cardiac perspective at this time. Will follow on as needed basis. Recommend pt follow up in our office with Dr. Cruz within 2 weeks of hospital discharge ([phone]). The patient has been seen in conjunction with Dr. Adame who agrees with the assessment and plan of care. - Patient Problems (1) Sinus tachycardia Current Visit: Yes Status: Acute (2) Liver abscess Current Visit: Yes Status: Suspected (3) Sepsis Current Visit: Yes Status: Suspected (4) Multiple pulmonary emboli Current Visit: Yes Status: Acute (5) Anemia Current Visit: Yes Status: Acute (6) Thrombocytopenia Current Visit: Yes Status: Acute Subjective Date of service: 05/11/20 Principal diagnosis: Acute pulmonary embolism, liver abscess Interval history: pt resting in bed, no current cardiac complaints. tele reviewed - currently in ST HR 115, in SR HR 80s - 115s over the weekend. Objective Last Vital Signs Temp 98.8 F 05/11/20 03:41 Pulse 88 05/11/20 06:00 Resp 18 05/11/20 06:00 BP 135/87 05/11/20 07:00 Pulse Ox 95 05/11/20 09:24 - Physical Examination General: No Apparent Distress HEENT: Positive: PERRL Neck: Positive: neck supple, trachea midline Cardiac: Positive: Regular Rhythm, S1/S2 Lungs: Positive: Decreased Breath Sounds Neuro: Positive: Grossly Intact Abdomen: Negative: Tender Skin: Negative: Rash Musculoskeletal: No Pain Extremities: Absent: edema - Labs and Meds Cardiac Enzymes 05/11/20 Range/Units 09:11 AST 35 (5-40) units/L CBC 05/11/20 Range/Units 04:48 Hgb 8.3 L (11.8-15.2) gm/dl Hct 24.7 L (35.5-45.6) % Plt Count 74 L (140-440) K/mm3 Comprehensive Metabolic Panel 05/11/20 Range/Units 09:11 Sodium 137 (137-145) mmol/L Potassium 3.6 (3.6-5.0) mmol/L Chloride 105.8 (98-107) mmol/L Carbon Dioxide 25 (22-30) mmol/L BUN 9 (9-20) mg/dL Creatinine 0.4 L (0.8-1.3) mg/dL Glucose 99 (75-100) mg/dL Calcium 7.2 L (8.4-10.2) mg/dL AST 35 (5-40) units/L ALT 26 (7-56) units/L Alkaline Phosphatase 348 H (35-129) units/L Total Protein 5.1 L (6.3-8.2) g/dL Albumin 1.6 L (3.9-5) g/dL - Imaging and Cardiology EKG: report reviewed, image reviewed Echo: report reviewed - Telemetry EKG Rhythm: Sinus Tachycardia - EKG Sinus rhythms and dysrhythmias: sinus tachycardia
--- NOTE | 2020-05-11 12:07 | Progress Note ---
Assessment and Plan Cultures: 05/05/2020 blood culture: ESBL E. coli 05/07/2020 IR drainage culture: E. coli 05/10/2020 blood culture: No growth A/P: 44 yo M no PMHx presents with liver abscess, PE, and septic emboli. #Acute sepsis with initial septic shock: Secondary to bacteremia and liver abscess #ESBL E. coli bacteremia: Secondary to liver abscess. #Large multiseptated liver abscess: CT showed a right hepatic multiseptated collection 7.3 x 6.3 x 7.9 cm. Status post IR drainage on 05/07/2020, 70 cc of purulent drained, cultures with E. coli #Septic emboli: Echo without vegetations, though may be shedding bacteria from liver abscess causing lung seeding. Continue antibiotics #Acute hypoxemic respiratory failure #Acute PE: on anticoagulation. #Acute thrombocytopenia: probably from sepsis Recs: -Continue meropenem 1 g IV every 8 hours, D4 -f/u blood cultures -anticipate 4-6 weeks of IV abx and repeat imaging to ensure radiologic improvement before abx can be stopped -given large size and multiloculated abscess, I suspect he may need interim imaging to ensure adequate drainage of all loculations Ese Garrett MD, FACP [facility], [place], [facility] ([facility] O: [phone] F: [phone] Subjective Date of service: 05/11/20 Principal diagnosis: Acute pulmonary embolism, liver abscess Interval history: No fever. Complains of back pain. Drain+. Objective - Exam Narrative Exam: Physical Exam: Constitutional: Alert, cooperative. No acute distress Head, Ears, Nose: Normocephalic, atraumatic. External ears, nose normal Eyes: Conjunctivae/corneas clear. No icterus. No ptosis. Neck: Supple, no meningeal signs Cardiovascular: S1, S2 normal. Respiratory: Good air entry, clear to auscultation bilaterally GI: Soft, RUQ drain present; bowel sounds normal. No peritoneal signs Musculoskeletal: No pedal edema, no cyanosis. Skin: No rash or abscess Hem/Lymphatic: No palpable cervical or supraclavicular nodes. No lymphangitis Psych: Mood ok. Affect normal Neurological: Awake, alert, oriented. No gross abnormality - Constitutional Vitals: Vital Signs Temp Pulse Resp BP Pulse Ox 98.8 F 88 18 135/87 95 03/01/21 03:41 05/11/20 06:00 05/11/20 06:00 05/11/20 07:00 05/11/20 09:24 Temperature -Last 24 Hours Temperature 98.8 F Temperature 98.2 F Temperature 97.7 F Temperature 98.7 F Temperature 99 F - Labs CBC & Chem 7: 05/11/20 04:48 05/11/20 09:11 Labs: Abnormal lab results 05/11/20 05/11/20 Range/Units 04:48 09:11 Hgb 8.3 L (11.8-15.2) gm/dl Hct 24.7 L (35.5-45.6) % Plt Count 74 L (140-440) K/mm3 Creatinine 0.4 L (0.8-1.3) mg/dL Calcium 7.2 L (8.4-10.2) mg/dL Alkaline Phosphatase 348 H (35-129) units/L Total Protein 5.1 L (6.3-8.2) g/dL Albumin 1.6 L (3.9-5) g/dL
[2020-05-11] MEDS: ACETAMINOPHEN 325 MG TAB PO PRN (12:12)
--- NOTE | 2020-05-11 13:38 | Consultation ---
History of Present Illness Consult date: 05/11/20 Chief complaint: Liver abscess - History of present illness History of present illness: 44-year-old male with no past medical history presents to the emergency room secondary to shortness of breath. Cup in the emergency room including a CT of the chest showed pulmonary emboli along with a liver abscess. Patient was found to be septic and was started on IV fluids and pressors. Currently the patient has no complaints. He is tolerating a diet. He denies pain, nausea, vomiting. He has been febrile throughout the hospitalization with most recent T-max of 103. Patient is on antibiotics per infectious disease service. He underwent CT-guided drainage of the liver abscess on 05/07/[address] Bird. Surgery is consulted due to liver abscess with persistent fevers. Past History Past Medical History: No medical history Past Surgical History: appendectomy Social history: full code. denies: smoking, alcohol abuse, prescription drug abuse, IV drug use Family history: no significant family history Medications and Allergies Allergies Allergy/AdvReac Type Severity Reaction Status Date / Time No Known Allergies Allergy Unverified 05/05/20 07:53 Home Medications Medication Instructions Recorded Confirmed Last Taken Type No Known Home Medications [No 05/05/20 05/05/20 Unknown History Reported Home Medications] Active Meds: Active Medications Acetaminophen (Acetaminophen 325 Mg Tab) 650 mg PO Q6H PRN PRN Reason: Fever >101 Last Admin: 05/11/20 12:12 Dose: 650 mg Documented by: Hydromorphone HCl (Hydromorphone 1 Mg/1 Ml Inj) 2 mg IV Q3H PRN PRN Reason: Pain , Severe (7-10) Last Admin: 05/10/20 07:39 Dose: 2 mg Documented by: MEROPENEM/NS 1 GRAM/100 ML (Merrem/Ns 1 Gram/100 Ml) 1 gram in 100 mls @ 100 mls/hr IV Q8H RADHA; Protocol Last Admin: 05/11/20 04:08 Dose: 100 mls/hr Documented by: Metoprolol Tartrate (Metoprolol Tartrate 5 Mg/5 Ml Inj) 2.5 mg IV Q6HR PRN PRN Reason: HR>120 Metoprolol Tartrate (Metoprolol Tartrate 25 Mg Tab) 25 mg PO BID [facility] Oxycodone/Acetaminophen (Oxycodone /Acetaminophen 5-325mg Tab) 1 tab PO Q6H PRN PRN Reason: Pain, Moderate (4-6) Last Admin: 05/11/20 08:10 Dose: 1 tab Documented by: Review of Systems All systems: negative (10 point ROS performed and negative except for that listed in HPI) Exam Vital Signs Temp Pulse Resp BP Pulse Ox 98.9 F 125 H 22 70/42 100 05/05/20 08:08 05/05/20 08:08 05/05/20 08:08 05/05/20 08:08 05/05/20 08:08 Narrative exam: Gen.: Awake, alert, oriented 3. No apparent distress ENT: Trachea midline. No lymphadenopathy. + scleral icterus, No conjunctival pallor CV: S1, S2 present Respiratory: No audible wheezes Abdomen: Soft, nondistended, nontender. Right upper quadrant MARCIAL drain with serous fluid in bulb. No rebound, rigidity, guarding Extremities: No clubbing, cyanosis, edema Results - Labs 05/11/20 04:48 05/11/20 09:11 Abnormal lab results 05/11/20 05/11/20 Range/Units 04:48 09:11 Hgb 8.3 L (11.8-15.2) gm/dl Hct 24.7 L (35.5-45.6) % Plt Count 74 L (140-440) K/mm3 Creatinine 0.4 L (0.8-1.3) mg/dL Calcium 7.2 L (8.4-10.2) mg/dL Alkaline Phosphatase 348 H (35-129) units/L Total Protein 5.1 L (6.3-8.2) g/dL Albumin 1.6 L (3.9-5) g/dL Diabetes panel 05/11/20 Range/Units 09:11 Sodium 137 (137-145) mmol/L Potassium 3.6 (3.6-5.0) mmol/L Chloride 105.8 (98-107) mmol/L Carbon Dioxide 25 (22-30) mmol/L BUN 9 (9-20) mg/dL Creatinine 0.4 L (0.8-1.3) mg/dL Glucose 99 (75-100) mg/dL Calcium 7.2 L (8.4-10.2) mg/dL AST 35 (5-40) units/L ALT 26 (7-56) units/L Alkaline Phosphatase 348 H (35-129) units/L Total Protein 5.1 L (6.3-8.2) g/dL Albumin 1.6 L (3.9-5) g/dL Calcium panel 05/11/20 Range/Units 09:11 Calcium 7.2 L (8.4-10.2) mg/dL Albumin 1.6 L (3.9-5) g/dL Pituitary panel 05/11/20 Range/Units 09:11 Sodium 137 (137-145) mmol/L Potassium 3.6 (3.6-5.0) mmol/L Chloride 105.8 (98-107) mmol/L Carbon Dioxide 25 (22-30) mmol/L BUN 9 (9-20) mg/dL Creatinine 0.4 L (0.8-1.3) mg/dL Glucose 99 (75-100) mg/dL Calcium 7.2 L (8.4-10.2) mg/dL Adrenal panel 05/11/20 Range/Units 09:11 Sodium 137 (137-145) mmol/L Potassium 3.6 (3.6-5.0) mmol/L Chloride 105.8 (98-107) mmol/L Carbon Dioxide 25 (22-30) mmol/L BUN 9 (9-20) mg/dL Creatinine 0.4 L (0.8-1.3) mg/dL Glucose 99 (75-100) mg/dL Calcium 7.2 L (8.4-10.2) mg/dL Total Bilirubin 0.90 (0.1-1.2) mg/dL AST 35 (5-40) units/L ALT 26 (7-56) units/L Alkaline Phosphatase 348 H (35-129) units/L Total Protein 5.1 L (6.3-8.2) g/dL Albumin 1.6 L (3.9-5) g/dL - Imaging CT scan - abdomen: report reviewed, image reviewed CT scan - pelvis: report reviewed, image reviewed Assessment and Plan 44 yo M with 1. large loculated right liver abscess s/p IR drainage 05/07/20 2. sepsis 04/14 #1 Plan: 1. continue IR drain - record output q shift 2. IV abx per ID 3. repeat CT scan A/P with and without IV contrast to reeval abscess 4. If abscess does not show improvement and patient continues to be febrile, recommend transfer to facility with Hepatobiliary surgeon for further evaluation and treatment. D/W Dr Hodge. Plan explained to patient as well. Thank you for this consultation. Please call with any questions or concerns. Evaluation and treatment of this patient was during the time of the national and state emergency arising from COVID19 coronavirus pandemic. Treatment and procedures performed meet the current and available best practice and guidelines for patient during the COVID pandemic.
[2020-05-11] MEDS: METOPROLOL TARTRATE 25 MG TAB PO SCH (21:34)
[2020-05-12] MEDS: MEROPENEM/NS 1 GRAM/100 ML 1 GRAM/100 ML BAG IV SCH ×3 (03:28→20:27)
[2020-05-12 06:33] LABS: Basophils % (Auto) 0.1 % (0.0-1.8); Blood Urea Nitrogen 7 mg/dL (9-20); Calcium 7.4 mg/dL (8.4-10.2); Eosinophils # (Auto) 0.1 K/mm3 (0.0-0.4); Eosinophils % (Auto) 0.4 % (0.0-4.3); Hematocrit 25.7 % (35.5-45.6); Hemoglobin 8.6 gm/dl (11.8-15.2); Hemolysis Index 4; Lymphocytes # (Auto) 1.2 K/mm3 (1.2-5.4); Lymphocytes % (Auto) 7.1 % (13.4-35.0); Mean Corpuscular HGB Conc 33 % (32-34); Mean Corpuscular Volume 86 fl (84-94); Monocytes # (Auto) 0.5 K/mm3 (0.0-0.8); Monocytes % (Auto) 2.9 % (0.0-7.3); Red Blood Count 3.01 M/mm3 (3.65-5.03); Red Cell Distribution Width 16.6 % (13.2-15.2)
[2020-05-12 06:51] LABS: BUN/Creatinine Ratio 18
[2020-05-12 06:52] LABS: Platelet Count 77 K/mm3 (140-440)
--- NOTE | 2020-05-12 10:44 | Progress Note ---
Assessment and Plan Assessment and plan: 44-year-old male with no significant past medical history presented to the emergency department with complaints of shortness of breath for the last 3 weeks. Shortness of breath is progressively worse and making to present to the emergency department this morning. Patient said he has associated dry cough. Patient denied fever chills, night sweats. Patient denied contact with Covid patient. He denied any chest pain, palpitation or leg swelling. Patient was seen in the emergency department. In the emergency department test x-ray was done and showed bibasilar infiltrates, CTA chest was done and significant for blood clot suspected septic emboli and liver abscess. Patient was hypotensive was started with IV fluids and pressor support. I have discussed with vascular surgery and said the clot burden is minimal and does not need any intervention at this time. Interventional radiology will do drainage of the abscess once the patient is stable. Patient started with IV antibiotics. ID was consulted. Patient was requiring 4 L of oxygen and pulmonary consulted. Patient will be admitted to ICU. Septic shock now resolved. Patient was still having fever however until today. -Patient is on IV fluids, IV antibiotics, able to discontinue pressor support. -ID consulted Septic emboli-from liver -Antibiotics changed to meropenem secondary to ESBL positivity. At present afebrile. -Blood clot burden is minimal, no vascular intervention needed -Since meropenem patient's fever curve is come down to 98. Patient's white count is come down as well -Previous plan was to consult surgery when patient had persistent fever. Patient had I&D from interventional radiology for liver abscess. Still possible failed attempt. Given the fact the patient was afebrile may be responding to meropenem. Also surgical intervention will be much more invasive.. - order echo Acute respiratory failure with hypoxia-resolved oxygen has been weaned. Will wean down again today -Patient is on 3 L of oxygen continue to wean O2. -Could be due to septic emboli -Continue antibiotics for now Sinus tachycardia improved with low-dose Lopressor. Will titrate accordingly. Liver abscess -Continue with antibiotics for now -Abscess has been drained however patient had fever yesterday was considering need for surgical intervention. Anemia associated thrombocytopenia patient transfused yesterday. H&H 8 and 23 hold heparin. Most likely secondary to severe sepsis. 05/06/2020 -Septic shock, septic emboli to the lungs, primary source could be the liver, liver abscess -Patient is on IV Levaquin and Flagyl, ID consult appreciated. Blood culture grew gram-positive rods, will follow identification -Patient is on IV heparin -Interventional radiology consulted for drainage of the liver abscess -Patient is still on pressors. Patient is off oxygen. 05/07/2020 -Patient had SVT yesterday afternoon and was given adenosine and amiodarone -Currently controlled, cardiology consult placed -IR will do drainage of the abscess 05/08/2020 -IR drained about 40 mL of purulent fluid from the liver and put a draining tube -Blood culture grew ESBL and ID is following the patient and change antibiotics to meropenem -Patient still have leukocytosis and fever -We will continue inpatient management 05/09/2020 Purulent exudate has decreased from draining Hospital course complicated by blood culture ESBL started on meropenem Patient is afebrile so far today. SVT has resolved pulse in the 90s. 05/10/2020 Patient today remains febrile at 101. Patient denied any pain. Able to eat felt well. No arthralgias myalgias. Discussed with patient about blood culture findings in [place]. Antibiotics has been changed to meropenem 05/11/2020. This is the first morning that patient has been afebrile. Patient denies pain denies arthralgias myalgias eating well. Hemoglobin hematocrit 8 and 24. 3: Patient today with worsening Leukocytosis, awaiting repeat CT scan to evaluate hepatic abscess. Based on this information a decision should be made if transfer is warranted. I have discussed and updated the spouse Iesha on the plan of care. I will also replace electrolytes and monitor. Continue abx for now. History Interval history: Patient seen and examined, resting comfortable, no new complaints, MARCIAL drain with no output today. Hospitalist Physical - Physical exam Narrative exam: General appearance: Present: no acute distress, well-nourished - EENT Eyes: PERRL, EOM intact ENT: hearing intact, clear oral mucosa Ears: bilateral: normal - Neck Neck: supple, normal ROM - Respiratory Respiratory effort: normal Respiratory: bilateral: CTA - Breasts Breasts: normal - Cardiovascular Rhythm: regular Heart Sounds: Present: S1 & S2. Absent: gallop, rub Extremities: pulses intact, No edema, normal color, Full ROM - Gastrointestinal General gastrointestinal: Present: soft, non-tender, non-distended, normal bowel sounds. MARCIAL blas in pLACE - Genitourinary Male genitourinary: normal - Integumentary Integumentary: clear, warm, dry - Musculoskeletal Musculoskeletal: 1, strength equal bilaterally - Neurologic Neurologic: moves all extremities - Psychiatric Psychiatric: memory intact, appropriate mood/affect, intact judgment & insight - Constitutional Vitals: Temp Pulse Resp BP Pulse Ox 100.8 F H 97 H 24 123/72 100 05/12/20 07:28 05/12/20 06:00 05/12/20 06:00 05/12/20 06:00 05/12/20 09:09 General appearance: Present: no acute distress, well-nourished HEART Score - HEART Score Troponin: Troponin T 0.056 ng/mL (0.00-0.029) H 05/05/20 08:10 Results - Labs CBC & Chem 7: 05/12/20 05:26 05/12/20 05:26 Labs: Laboratory Last Values WBC 17.1 K/mm3 (4.5-11.0) H 05/12/20 05:26 RBC 3.01 M/mm3 (3.65-5.03) L 05/12/20 05:26 Hgb 8.6 gm/dl (11.8-15.2) L 05/12/20 05:26 Hct 25.7 % (35.5-45.6) L 05/12/20 05:26 MCV 86 fl (84-94) 05/12/20 05:26 MCH 29 pg (28-32) 05/12/20 05:26 MCHC 33 % (32-34) 05/12/20 05:26 RDW 16.6 % (13.2-15.2) H 05/12/20 05:26 Plt Count 77 K/mm3 (140-440) L 05/12/20 05:26 Lymph % (Auto) 7.1 % (13.4-35.0) L 05/12/20 05:26 [place] % (Auto) 2.9 % (0.0-7.3) 05/12/20 05:26 Eos % (Auto) 0.4 % (0.0-4.3) 05/12/20 05:26 Baso % (Auto) 0.1 % (0.0-1.8) 05/12/20 05:26 Lymph # (Auto) 1.2 K/mm3 (1.2-5.4) 05/12/20 05:26 [place] # (Auto) 0.5 K/mm3 (0.0-0.8) 05/12/20 05:26 Eos # (Auto) 0.1 K/mm3 (0.0-0.4) 05/12/20 05:26 Baso # (Auto) 0.0 K/mm3 (0.0-0.1) 05/12/20 05:26 Add Manual Diff Complete 05/10/20 07:00 Total Counted 100 05/10/20 07:00 Seg Neutrophils % 89.5 % (40.0-70.0) H 05/12/20 05:26 Seg Neuts % (Manual) 99.0 % (40.0-70.0) H 05/10/20 07:00 Band Neutrophils % 1.0 % 05/07/20 06:30 Lymphocytes % (Manual) 2.0 % (13.4-35.0) L 05/08/20 06:00 Monocytes % (Manual) 1.0 % (0.0-7.3) 05/10/20 07:00 Promyelocytes % 0 % 05/05/20 08:10 Nucleated RBC % 1.0 % (0.0-0.9) H 05/10/20 07:00 Seg Neutrophils # 15.3 K/mm3 (1.8-7.7) H 05/12/20 05:26 Seg Neutrophils # Man 11.7 K/mm3 (1.8-7.7) H 05/10/20 07:00 Band Neutrophils # 0.0 K/mm3 05/10/20 07:00 Lymphocytes # (Manual) 0.0 K/mm3 (1.2-5.4) L 05/10/20 07:00 Abs React Lymphs (Man) 0.0 K/mm3 05/10/20 07:00 Monocytes # (Manual) 0.1 K/mm3 (0.0-0.8) 05/10/20 07:00 Eosinophils # (Manual) 0.0 K/mm3 (0.0-0.4) 05/10/20 07:00 Basophils # (Manual) 0.0 K/mm3 (0.0-0.1) 05/10/20 07:00 Metamyelocytes # 0.0 K/mm3 05/10/20 07:00 Myelocytes # 0.0 K/mm3 05/10/20 07:00 Promyelocytes # 0.0 K/mm3 05/10/20 07:00 Blast Cells # 0.0 K/mm3 05/10/20 07:00 WBC Morphology Not Reportable 05/10/20 07:00 Hypersegmented Neuts Not Reportable 05/10/20 07:00 Hyposegmented Neuts Not Reportable 05/10/20 07:00 Hypogranular Neuts Not Reportable 05/10/20 07:00 Smudge Cells Not Reportable 05/10/20 07:00 Toxic Granulation Not Reportable 05/10/20 07:00 Toxic Vacuolation Not Reportable 05/10/20 07:00 Dohle Bodies Not Reportable 05/10/20 07:00 Pelger-Huet Anomaly Not Reportable 05/10/20 07:00 [place] Rods Not Reportable 05/10/20 07:00 Platelet Estimate Consistent w auto 05/10/20 07:00 Clumped Platelets Not Reportable 05/10/20 07:00 Plt Clumps, EDTA Not Reportable 05/10/20 07:00 Large Platelets Not Reportable 05/10/20 07:00 Giant Platelets Not Reportable 05/10/20 07:00 Platelet Satelliting Not Reportable 05/10/20 07:00 Plt Morphology Comment Not Reportable 05/10/20 07:00 RBC Morphology Not Reportable 05/10/20 07:00 Dimorphic RBCs Not Reportable 05/10/20 07:00 Polychromasia Not Reportable 05/10/20 07:00 Hypochromasia 1+ 05/10/20 07:00 Poikilocytosis Not Reportable 05/10/20 07:00 Anisocytosis Not Reportable 05/10/20 07:00 Microcytosis Not Reportable 05/10/20 07:00 Macrocytosis Not Reportable 05/10/20 07:00 Spherocytes Not Reportable 05/10/20 07:00 Pappenheimer Bodies Not Reportable 05/10/20 07:00 Sickle Cells Not Reportable 05/10/20 07:00 Target Cells Not Reportable 05/10/20 07:00 Tear Drop Cells Not Reportable 05/10/20 07:00 Ovalocytes Not Reportable 05/10/20 07:00 Helmet Cells Not Reportable 05/10/20 07:00 [place] Bodies Not Reportable 05/10/20 07:00 [place] Rings Not Reportable 05/10/20 07:00 [place] Cells Not Reportable 05/10/20 07:00 Bite Cells Not Reportable 05/10/20 07:00 Crenated Cell Not Reportable 05/10/20 07:00 Elliptocytes Not Reportable 05/10/20 07:00 Acanthocytes (Spur) Not Reportable 05/10/20 07:00 Rouleaux Not Reportable 05/10/20 07:00 Hemoglobin C Crystals Not Reportable 05/10/20 07:00 Schistocytes Few 05/10/20 07:00 Malaria parasites Not Reportable 05/10/20 07:00 Aristides Bodies Not Reportable 05/10/20 07:00 Hem Pathologist Commnt No 05/10/20 07:00 PT 18.6 Sec. (12.2-14.9) H 05/08/20 09:15 INR 1.55 (0.87-1.13) H 05/08/20 09:15 APTT 210.9 Sec. (24.2-36.6) H* 05/05/20 13:35 D-Dimer Cancelled 05/07/20 06:30 Heparin Anti-Xa Level 0.36 U.I./ml (0.3-0.7) 05/07/20 06:30 ABG pH 7.409 pH Units (7.350-7.450) 05/05/20 09:10 ABG pCO2 16.7 mm Hg 05/05/20 09:10 ABG pO2 27.6 mm Hg (80.0-90.0) L* 05/05/20 09:10 ABG HCO3 10.3 mmol/L (20.0-26.0) L 05/05/20 09:10 ABG O2 Saturation 38.5 % (95.0-99.0) L 05/05/20 09:10 ABG O2 Content 3.6 (0.0-44) 05/05/20 09:10 ABG Base Excess -13.0 mmol/L (-2.0-3.0) L 05/05/20 09:10 ABG Hemoglobin 6.7 gm/dl (14.0-18.0) L 05/05/20 09:10 ABG Carboxyhemoglobin 1.0 % (0.0-5.0) 05/05/20 09:10 ABG Methemoglobin 0.8 % (0.0-1.5) 05/05/20 09:10 Oxyhemoglobin 37.9 % (95.0-99.0) L 05/05/20 09:10 FiO2 21 % 05/05/20 09:10 Sodium 136 mmol/L (137-145) L 05/12/20 05:26 Potassium 3.3 mmol/L (3.6-5.0) L 05/12/20 05:26 Chloride 103.6 mmol/L (98-107) 05/12/20 05:26 Carbon Dioxide 28 mmol/L (22-30) 05/12/20 05:26 Anion Gap 8 mmol/L 05/12/20 05:26 BUN 7 mg/dL (9-20) L 05/12/20 05:26 Creatinine 0.4 mg/dL (0.8-1.3) L 05/12/20 05:26 Estimated GFR > 60 ml/min 05/12/20 05:26 BUN/Creatinine Ratio 18 % 05/12/20 05:26 Glucose 85 mg/dL (75-100) 05/12/20 05:26 POC Glucose 85 mg/dL (70-105) 05/08/20 16:46 Lactic Acid 1.20 mmol/L (0.7-2.0) 05/06/20 03:30 Calcium 7.4 mg/dL (8.4-10.2) L 05/12/20 05:26 Magnesium 1.80 mg/dL (1.7-2.3) 05/08/20 06:00 Iron 61 ug/dL (49-181) 05/07/20 12:38 TIBC 169 mcg/dL (250-450) L 05/07/20 12:38 Ferritin 1831.0 ng/mL (30.0-300.0) H 05/07/20 12:38 Total Bilirubin 0.90 mg/dL (0.1-1.2) 05/11/20 09:11 Direct Bilirubin 0.4 mg/dL (0-0.2) H 05/05/20 10:17 Indirect Bilirubin 0.0 mg/dL 05/05/20 10:17 AST 35 units/L (5-40) 05/11/20 09:11 ALT 26 units/L (7-56) 05/11/20 09:11 Alkaline Phosphatase 348 units/L (35-129) H 05/11/20 09:11 Troponin T 0.056 ng/mL (0.00-0.029) H 05/05/20 08:10 Total Protein 5.1 g/dL (6.3-8.2) L 05/11/20 09:11 Albumin 1.6 g/dL (3.9-5) L 05/11/20 09:11 Albumin/Globulin Ratio 0.5 % 05/11/20 09:11 Triglycerides 231 mg/dL (2-149) H 05/05/20 08:10 Cholesterol 80 mg/dL (50-199) 05/05/20 08:10 LDL Cholesterol Direct 17 mg/dL (50-130) L 05/05/20 08:10 HDL Cholesterol 11 mg/dL (40-59) L 05/05/20 08:10 Cholesterol/HDL Ratio 7.27 % 05/05/20 08:10 Lipase 68 units/L (13-60) H 05/05/20 10:17 Vitamin B12 > 2000 pg/mL (211-911) H 05/07/20 12:39 Folate 7.19 ng/mL (7.3-26.0) L 05/07/20 12:39 TSH 12.770 mlU/mL (0.270-4.200) H 05/05/20 08:10 Thyroxine (T4) 7.4 ug/dL (4.0-12.0) 05/05/20 08:10 Free T3 Index 3.7 pg/mL (2.3-4.2) 05/05/20 08:10 Urine Color Yellow (Yellow) 05/05/20 Unknown Urine Turbidity Slightly-cloudy (Clear) 05/05/20 Unknown Urine pH 5.0 (5.0-7.0) 05/05/20 Unknown Ur Specific Kell 1.009 (1.003-1.030) 05/05/20 Unknown Urine Protein <15 mg/dl mg/dL (Negative) 05/05/20 Unknown Urine Glucose (UA) Neg mg/dL (Negative) 05/05/20 Unknown Urine Ketones Neg mg/dL (Negative) 05/05/20 Unknown Urine Blood Sm (Negative) 05/05/20 Unknown Urine Nitrite Pos (Negative) 05/05/20 Unknown Urine Bilirubin Neg (Negative) 05/05/20 Unknown Urine Urobilinogen < 2.0 mg/dL (<2.0) 05/05/20 Unknown Ur Leukocyte Esterase Neg (Negative) 05/05/20 Unknown Urine WBC (Auto) 13.0 /HPF (0.0-6.0) H 05/05/20 Unknown Urine RBC (Auto) 1.0 /HPF (0.0-6.0) 05/05/20 Unknown Urine Bacteria (Auto) 4+ /HPF (Negative) 05/05/20 Unknown Urine Mucus 3+ /HPF 05/05/20 Unknown Coronavirus (PCR) Negative (Negative) 05/06/20 10:02 Hepatitis A IgM Ab Non-reactive (NonReactive) 05/06/20 22:22 Hep Bs Antigen Non-reactive (Negative) 05/06/20 22:22 Hep B Core IgM Ab Non-reactive (NonReactive) 05/06/20 22:22 Hepatitis C Antibody Non-reactive (NonReactive) 05/06/20 22:22 Blood Type O POSITIVE 05/09/20 15:30 Antibody Screen Negative 05/09/20 15:30 Crossmatch See Detail 05/09/20 15:30 Microbiology: Microbiology 05/07/20 Unknown Abdomen Surgical Culture - Preliminary Escherichia Coli 05/10/20 10:15 Peripheral/Venous Blood Culture - Preliminary NO GROWTH AFTER 24 HOURS 05/10/20 10:15 Peripheral/Venous Blood Culture - Preliminary NO GROWTH AFTER 24 HOURS - Diagnostic Impressions Diagnostic Impressions: Echocardiogram 05/05/20 13:01 Transthoracic Echocardiogram Indication: PE BP: 95/71 HR: 108 Conclusions *Global left ventricular systolic function is normal. *The estimated ejection fraction is 50-55%. *The right ventricle is mildly dilated. *The right ventricular global systolic function is normal. *There is mild mitral regurgitation. *There is mild tricuspid regurgitation. *The right ventricular systolic pressure is calculated at 32 mmHg. *There is trace pulmonic regurgitation. *The aortic valve is trileaflet. The leaflets are thin with normal excursion. There is no aortic stenosis or regurgitation present. Findings Left Ventricle: The left ventricular chamber size is normal. Global left ventricular systolic function is normal. The estimated ejection fraction is 50-55%. Abnormal left ventricular diastolic filling is observed, consistent with impaired relaxation. Left Atrium: The left atrial chamber size is normal. Right Ventricle: The right ventricle is mildly dilated. The right ventricular global systolic function is normal. Right Atrium: The right atrial cavity size is normal. Aortic Valve: The aortic valve is trileaflet. The leaflets are thin with normal excursion. There is no aortic stenosis or regurgitation present. The aortic valve structure is normal. Mitral Valve: The mitral valve leaflets are mildly thickened. There is mild mitral regurgitation. Tricuspid Valve: The tricuspid valve leaflets are normal. There is mild tricuspid regurgitation. The right ventricular systolic pressure is calculated at 32 mmHg. Pulmonic Valve: The pulmonic valve appears normal. There is trace pulmonic regurgitation. Pericardium: There is no pericardial effusion. Aorta: The aorta appears normal. Venous: The inferior vena cava appears normal. Measurements Chambers 2D Name Value Normal Range IVSd (2D) 1.09 cm (0.6 - 1.1) LVPWd (2D) 1.08 cm (0.6 - 1.1) LVIDd (2D) 4.78 cm (3.7 - 5.6) LVIDs (2D) 3.74 cm (2 - 3.8) LV FS (2D) 21.72 % - Ao root diameter (2D) 3.12 cm (2 - 3.7) Volumes/Mass Name Value Normal Range LA ESV SP 4CH (A/L) 35.91 ml - LA ESV SP 2CH (A/L) 41.54 ml - LA ESV BP (A/L) 38.98 ml - LA ESV BP (A/L) index 22.28 ml/m2 - LA ESV SP 4CH (MOD) 31.77 ml - LA ESV SP 2CH (MOD) 41.03 ml - LA ESV BP (MOD) 36.28 ml - LA ESV BP (MOD) index 20.73 ml/m2 - Diastolic/Systolic Function Name Value Normal Range MV E-wave Vmax 0.93 m/sec - MV deceleration time 148.87 msec - MV A-wave Vmax 0.58 m/sec - MV E:A ratio 1.59 ratio - Aortic Valve Name Value Normal Range AV Vmax 1.34 m/sec - AV VTI 21.39 cm - AV peak gradient 7.18 mmHg - AV mean gradient 4.09 mmHg - LVOT diameter 2.04 cm - LVOT Vmax 1.06 m/sec - LVOT VTI 17.75 cm - LVOT peak gradient 4.48 mmHg - LVOT mean gradient 2.8 mmHg - SV LVOT 58.19 ml - PAUL (continuity Vmax) 2.59 cm2 - PAUL (continuity VTI) 2.72 cm2 - Ascending Ao 3.02 cm - Mitral Valve Name Value Normal Range MR Vmax 4.21 m/sec - Tricuspid Valve Name Value Normal Range TR Vmax 2.7 m/sec - TR peak gradient 29 mmHg - RAP 3 mmHg - RVSP 32 mmHg - IVC diameter 1.45 cm (1.2 - 2.3) Pulmonic Valve/Qp:Qs Name Value Normal Range PV Vmax 0.82 m/sec - PV peak gradient 2.71 mmHg - MI end-diastolic Vmax 1.1 m/sec - PV acceleration time 87.54 msec - [place]/IV: Voiding Method Urinal Active Medications - Current Medications Current Medications: Generic Name Dose Route Start Last Admin Trade Name Freq PRN Reason Stop Dose Admin Acetaminophen 650 mg 05/07/20 14:23 05/11/20 12:12 Acetaminophen 325 Mg Tab PO 650 mg Q6H PRN Administration Fever >101 Hydromorphone HCl 2 mg 05/08/20 12:00 05/10/20 07:39 Hydromorphone 1 Mg/1 Ml Inj IV 2 mg Q3H PRN Administration Pain , Severe (7-10) MEROPENEM/NS 1 GRAM/100 ML 1 gram in 100 mls @ 100 mls/hr 05/07/20 20:00 05/12/20 03:28 Merrem/Ns 1 Gram/100 Ml IV 100 mls/hr Q8H RADHA Administration Protocol Metoprolol Tartrate 2.5 mg 05/10/20 12:26 Metoprolol Tartrate 5 Mg/5 Ml Inj IV Q6HR PRN HR>120 Metoprolol Tartrate 25 mg 05/11/20 22:00 05/11/20 21:34 Metoprolol Tartrate 25 Mg Tab PO Not Given BID RADHA Oxycodone/Acetaminophen 1 tab 05/05/20 11:29 05/11/20 08:10 Oxycodone /Acetaminophen 5-325mg Tab PO 1 tab Q6H PRN Administration Pain, Moderate (4-6)
[2020-05-12] MEDS: METOPROLOL TARTRATE 25 MG TAB PO SCH ×2 (12:04→21:57)
--- NOTE | 2020-05-12 13:05 | Progress Note ---
Assessment and Plan Cultures: 05/05/2020 blood culture: ESBL E. coli 05/07/2020 IR drainage culture: E. coli 05/10/2020 blood culture: No growth A/P: 44 yo M no PMHx presents with liver abscess, PE, and septic emboli. #Acute sepsis with initial septic shock: Secondary to bacteremia and liver abscess #ESBL E. coli bacteremia: Secondary to liver abscess. #Large multiseptated liver abscess: CT showed a right hepatic multiseptated collection 7.3 x 6.3 x 7.9 cm. Status post IR drainage on 05/07/2020, 70 cc of purulent drained, cultures with E. coli #Septic emboli: Echo without vegetations, though may be shedding bacteria from liver abscess causing lung seeding. Continue antibiotics #Acute hypoxemic respiratory failure #Acute PE: on anticoagulation. #Acute thrombocytopenia: probably from sepsis Recs: -Continue meropenem 1 g IV every 8 hours, D5 -appreciate Gen Surg eval, f/u repeat CT, depending on response, plan for hepatobiliary surgery eval at higher center -anticipate 4-6 weeks of IV abx and repeat imaging to ensure radiologic improvement before abx can be stopped Ese Garrett MD, FACP [facility] ([facility]) O: [phone] F: [phone] Subjective Date of service: 05/12/20 Principal diagnosis: Acute pulmonary embolism, liver abscess Interval history: No fever. Drain+. Objective - Exam Narrative Exam: Physical Exam: Constitutional: Alert, cooperative. No acute distress Head, Ears, Nose: Normocephalic, atraumatic. External ears, nose normal Eyes: Conjunctivae/corneas clear. No icterus. No ptosis. Neck: Supple, no meningeal signs Cardiovascular: S1, S2 normal. Respiratory: Good air entry, clear to auscultation bilaterally GI: Soft, RUQ drain present; bowel sounds normal. No peritoneal signs Musculoskeletal: No pedal edema, no cyanosis. Skin: No rash or abscess Hem/Lymphatic: No palpable cervical or supraclavicular nodes. No lymphangitis Psych: Mood ok. Affect normal Neurological: Awake, alert, oriented. No gross abnormality - Constitutional Vitals: Vital Signs Temp Pulse Resp BP Pulse Ox 100.8 F H 113 H 24 111/64 100 05/12/20 07:28 05/12/20 12:04 05/12/20 06:00 05/12/20 12:04 05/12/20 09:09 Temperature -Last 24 Hours Temperature 100.8 F Temperature 98.6 F Temperature 98.6 F Temperature 98.4 F Temperature 98.3 F Temperature 99.4 F - Labs CBC & Chem 7: 05/12/20 05:26 05/12/20 05:26 Labs: Abnormal lab results 05/12/20 05/12/20 Range/Units 05:26 05:26 WBC 17.1 H (4.5-11.0) K/mm3 RBC 3.01 L (3.65-5.03) M/mm3 Hgb 8.6 L (11.8-15.2) gm/dl Hct 25.7 L (35.5-45.6) % RDW 16.6 H (13.2-15.2) % Plt Count 77 L (140-440) K/mm3 Lymph % (Auto) 7.1 L (13.4-35.0) % Seg Neutrophils % 89.5 H (40.0-70.0) % Seg Neutrophils # 15.3 H (1.8-7.7) K/mm3 Sodium 136 L (137-145) mmol/L Potassium 3.3 L (3.6-5.0) mmol/L BUN 7 L (9-20) mg/dL Creatinine 0.4 L (0.8-1.3) mg/dL Calcium 7.4 L (8.4-10.2) mg/dL
[2020-05-12] MEDS ORDERED: POTASSIUM CHLORIDE ER 20 MEQ TAB PO ONE (14:00)
--- NOTE | 2020-05-12 16:45 | Cat Scan Report ---
CT ABDOMEN AND PELVIS WITHOUT AND WITH CONTRAST INDICATION / CLINICAL INFORMATION: Liver abscess, follow up. TECHNIQUE: Axial CT images were obtained through the abdomen and pelvis before and after 100 cc Omnipaque [address] scans at this location are performed using CT dose reduction for ALARA by means of automated exposure control. COMPARISON: CT abdomen and pelvis without contrast from 05/05/2020. FINDINGS: LOWER CHEST: Previously seen pleural effusions are larger, but remains small, with increased bilatera l lower lobe airspace disease. Multiple bilateral cavitary and noncavitary pulmonary nodules are agai n noted. No other significant abnormality. LIVER: Multiple lesions of fluid density are noted along the posterior segment of the right hepatic l obe that are consistent with the provided history of abscess with interval percutaneous drainage of t he most anteriorly and inferiorly located abscess measuring 3.8 x 2.7 cm on image 76 of series 5. On the CT performed prior to drainage, that abscess measured 4.1 x 3.6 cm. It is unclear whether or not immediately adjacent abcesses communicate with the drained abscess. The largest residual abscess loca tara posteriorly and laterally along the right hepatic lobe measures 5.8 x 3.0 cm on image 63 of serie s 5. No other significant abnormality. GALLBLADDER: No significant abnormality. BILE DUCTS: A nonspecific moderately dilated right hepatic lobe bile duct is seen on images 42 throug h 50 of series 5. No other biliary ductal dilatation. PANCREAS: No significant abnormality. SPLEEN: Similarly enlarged, measuring 16 cm in length. No other significant abnormality. ADRENALS: No significant abnormality. RIGHT KIDNEY / URETER: No significant abnormality. LEFT KIDNEY / URETER: A lower pole cyst measures up to 1 cm. No other significant abnormality. STOMACH / SMALL BOWEL: No significant abnormality. COLON: There is mild sigmoid diverticulosis without evidence of diverticulitis. No other significant abnormality. APPENDIX: Surgically absent. PERITONEUM: A small amount of free fluid has developed in the interval along the pelvis. No free air. No other organized fluid collection is seen outside of the liver. LYMPH NODES: No significant adenopathy. AORTA / ARTERIES: No significant abnormality. IVC / VEINS: No significant abnormality. URINARY BLADDER: No significant abnormality. REPRODUCTIVE ORGANS: No significant abnormality. ADDITIONAL FINDINGS: Unchanged large right inguinal hernia containing fat without associated acute in flammation. SKELETAL SYSTEM: No significant abnormality. IMPRESSION: 1. Partially visualized multiple bilateral septic emboli with increased atelectasis/other airspace di sease along the lower lobes and slightly larger pleural effusions. 2. Interval percutaneous drainage of a right hepatic lobe abscess with multiple abscesses remaining a long the right hepatic lobe detailed above, some of which may communicate with the previously drained abscess. 3. Additional findings as above. Signer Name: Bert Vincent MD Signed: 05/12/2020 4:41 PM Workstation Name: [id number]
[2020-05-13] MEDS: MEROPENEM/NS 1 GRAM/100 ML 1 GRAM/100 ML BAG IV SCH ×3 (03:39→19:59)
[2020-05-13 06:37] LABS: Hematocrit 21.4 % (35.5-45.6); Hemoglobin 7.4 gm/dl (11.8-15.2)
[2020-05-13] MEDS ORDERED: POTASSIUM CHLORIDE 20 MEQ PACKET FEEDTUBE ONE (08:00)
[2020-05-13] MEDS ORDERED: MAGNESIUM SULFATE 1 GM in SODIUM CHLORIDE 0.9% 50 ML IV ONE (08:30)
[2020-05-13] MEDS: ACETAMINOPHEN 325 MG TAB PO PRN (09:09)
[2020-05-13] MEDS: METOPROLOL TARTRATE 25 MG TAB PO SCH ×2 (09:09→21:48)
[2020-05-13 09:48] LABS: Blood Urea Nitrogen 7 mg/dL (9-20); Calcium 7.1 mg/dL (8.4-10.2); Hemolysis Index 0
[2020-05-13 09:55] LABS: BUN/Creatinine Ratio 14
--- NOTE | 2020-05-13 11:00 | Progress Note ---
Assessment and Plan Assessment and plan: 44-year-old male with no significant past medical history presented to the emergency department with complaints of shortness of breath for the last 3 weeks. Shortness of breath is progressively worse and making to present to the emergency department this morning. Patient said he has associated dry cough. Patient denied fever chills, night sweats. Patient denied contact with Covid patient. He denied any chest pain, palpitation or leg swelling. Patient was seen in the emergency department. In the emergency department test x-ray was done and showed bibasilar infiltrates, CTA chest was done and significant for blood clot suspected septic emboli and liver abscess. Patient was hypotensive was started with IV fluids and pressor support. I have discussed with vascular surgery and said the clot burden is minimal and does not need any intervention at this time. Interventional radiology will do drainage of the abscess once the patient is stable. Patient started with IV antibiotics. ID was consulted. Patient was requiring 4 L of oxygen and pulmonary consulted. Patient will be admitted to ICU. Septic shock now resolved. Patient was still having fever however until today. -Patient is on IV fluids, IV antibiotics, able to discontinue pressor support. -ID consulted Septic emboli-from liver -Antibiotics changed to meropenem secondary to ESBL positivity. At present afebrile. -Blood clot burden is minimal, no vascular intervention needed -Since meropenem patient's fever curve is come down to 98. Patient's white count is come down as well -Previous plan was to consult surgery when patient had persistent fever. Patient had I&D from intervention radiology for liver abscess. Still possible failed attempt. Given the fact the patient was afebrile may be responding to meropenem. Also surgical intervention will be much more invasive.. - order echo Acute respiratory failure with hypoxia-resolved oxygen has been weaned. Will wean down again today -Patient is on 3 L of oxygen continue to wean O2. -Could be due to septic emboli -Continue antibiotics for now Sinus tachycardia improved with low-dose Lopressor. Will titrate accordingly. Liver abscess -Continue with antibiotics for now -Abscess has been drained however patient had fever yesterday was considering need for surgical intervention. Anemia associated thrombocytopenia patient transfused yesterday. H&H 8 and 23 hold heparin. Most likely secondary to severe sepsis. 05/06/2020 -Septic shock, septic emboli to the lungs, primary source could be the liver, liver abscess -Patient is on IV Levaquin and Flagyl, ID consult appreciated. Blood culture grew gram-positive rods, will follow identification -Patient is on IV heparin -Interventional radiology consulted for drainage of the liver abscess -Patient is still on pressors. Patient is off oxygen. 05/07/2020 -Patient had SVT yesterday afternoon and was given adenosine and amiodarone -Currently controlled, cardiology consult placed -IR will do drainage of the abscess 05/08/2020 -IR drained about 40 mL of purulent fluid from the liver and put a draining tube -Blood culture grew ESBL and ID is following the patient and change antibiotics to meropenem -Patient still have leukocytosis and fever -We will continue inpatient management 05/09/2020 Purulent exudate has decreased from draining Hospital course complicated by blood culture ESBL started on meropenem Patient is afebrile so far today. SVT has resolved pulse in the 90s. 05/10/2020 Patient today remains febrile at 101. Patient denied any pain. Able to eat felt well. No arthralgias myalgias. Discussed with patient about blood culture findings in [place]. Antibiotics has been changed to meropenem 05/11/2020. This is the first morning that patient has been afebrile. Patient denies pain denies arthralgias myalgias eating well. Hemoglobin hematocrit 8 and 24. 05/12: Patient today with worsening Leukocytosis, awaiting repeat CT scan to evaluate hepatic abscess. Based on this information a decision should be made if transfer is warranted. I have discussed and updated the spouse Iesha on the plan of care. I will also replace electrolytes and monitor. Continue abx for now. 05/13: Patient seen and examined, imaging study still showing multifocal hepatic Abscess. Discussed with the surgeon, I have contacted [facility] and they are reviewing as patient will need hepatobiliary surgeon, [facility] unable to accept. Hypokalemia, will replace AND ALSO Check Magnesium level. History Interval history: Patient seen and examined, resting comfortable, no new complaints, MARCIAL drain with no output today. Hospitalist Physical - Physical exam Narrative exam: General appearance: Present: no acute distress, well-nourished - EENT Eyes: PERRL, EOM intact ENT: hearing intact, clear oral mucosa Ears: bilateral: normal - Neck Neck: supple, normal ROM - Respiratory Respiratory effort: normal Respiratory: bilateral: CTA - Breasts Breasts: normal - Cardiovascular Rhythm: regular Heart Sounds: Present: S1 & S2. Absent: gallop, rub Extremities: pulses intact, No edema, normal color, Full ROM - Gastrointestinal General gastrointestinal: Present: soft, non-tender, non-distended, normal bowel sounds. MARCIAL blas in pLACE - Genitourinary Male genitourinary: normal - Integumentary Integumentary: clear, warm, dry - Musculoskeletal Musculoskeletal: 1, strength equal bilaterally - Neurologic Neurologic: moves all extremities - Psychiatric Psychiatric: memory intact, appropriate mood/affect, intact judgment & insight - Constitutional Vitals: Temp Pulse Resp BP Pulse Ox 98.9 F 142 H 33 H 130/70 95 05/13/20 08:00 05/13/20 09:09 05/13/20 06:00 05/13/20 09:09 05/13/20 06:00 General appearance: Present: no acute distress, well-nourished HEART Score - HEART Score Troponin: Troponin T 0.056 ng/mL (0.00-0.029) H 05/05/20 08:10 Results - Labs CBC & Chem 7: 05/13/20 05:13 05/13/20 09:21 Labs: Laboratory Last Values WBC 17.1 K/mm3 (4.5-11.0) H 05/12/20 05:26 RBC 3.01 M/mm3 (3.65-5.03) L 05/12/20 05:26 Hgb 7.4 gm/dl (11.8-15.2) L 05/13/20 05:13 Hct 21.4 % (35.5-45.6) L 05/13/20 05:13 MCV 86 fl (84-94) 05/12/20 05:26 MCH 29 pg (28-32) 05/12/20 05:26 MCHC 33 % (32-34) 05/12/20 05:26 RDW 16.6 % (13.2-15.2) H 05/12/20 05:26 Plt Count 96 K/mm3 (140-440) L 05/13/20 05:13 Lymph % (Auto) 7.1 % (13.4-35.0) L 05/12/20 05:26 Stone % (Auto) 2.9 % (0.0-7.3) 05/12/20 05:26 Eos % (Auto) 0.4 % (0.0-4.3) 05/12/20 05:26 Baso % (Auto) 0.1 % (0.0-1.8) 05/12/20 05:26 Lymph # (Auto) 1.2 K/mm3 (1.2-5.4) 05/12/20 05:26 Stone # (Auto) 0.5 K/mm3 (0.0-0.8) 05/12/20 05:26 Eos # (Auto) 0.1 K/mm3 (0.0-0.4) 05/12/20 05:26 Baso # (Auto) 0.0 K/mm3 (0.0-0.1) 05/12/20 05:26 Add Manual Diff Complete 05/10/20 07:00 Total Counted 100 05/10/20 07:00 Seg Neutrophils % 89.5 % (40.0-70.0) H 05/12/20 05:26 Seg Neuts % (Manual) 99.0 % (40.0-70.0) H 05/10/20 07:00 Band Neutrophils % 1.0 % 05/07/20 06:30 Lymphocytes % (Manual) 2.0 % (13.4-35.0) L 05/08/20 06:00 Monocytes % (Manual) 1.0 % (0.0-7.3) 05/10/20 07:00 Promyelocytes % 0 % 05/05/20 08:10 Nucleated RBC % 1.0 % (0.0-0.9) H 05/10/20 07:00 Seg Neutrophils # 15.3 K/mm3 (1.8-7.7) H 05/12/20 05:26 Seg Neutrophils # Man 11.7 K/mm3 (1.8-7.7) H 05/10/20 07:00 Band Neutrophils # 0.0 K/mm3 05/10/20 07:00 Lymphocytes # (Manual) 0.0 K/mm3 (1.2-5.4) L 05/10/20 07:00 Abs React Lymphs (Man) 0.0 K/mm3 05/10/20 07:00 Monocytes # (Manual) 0.1 K/mm3 (0.0-0.8) 05/10/20 07:00 Eosinophils # (Manual) 0.0 K/mm3 (0.0-0.4) 05/10/20 07:00 Basophils # (Manual) 0.0 K/mm3 (0.0-0.1) 05/10/20 07:00 Metamyelocytes # 0.0 K/mm3 05/10/20 07:00 Myelocytes # 0.0 K/mm3 05/10/20 07:00 Promyelocytes # 0.0 K/mm3 05/10/20 07:00 Blast Cells # 0.0 K/mm3 05/10/20 07:00 WBC Morphology Not Reportable 05/10/20 07:00 Hypersegmented Neuts Not Reportable 05/10/20 07:00 Hyposegmented Neuts Not Reportable 05/10/20 07:00 Hypogranular Neuts Not Reportable 05/10/20 07:00 Smudge Cells Not Reportable 05/10/20 07:00 Toxic Granulation Not Reportable 05/10/20 07:00 Toxic Vacuolation Not Reportable 05/10/20 07:00 Dohle Bodies Not Reportable 05/10/20 07:00 Pelger-Huet Anomaly Not Reportable 05/10/20 07:00 [place] Rods Not Reportable 05/10/20 07:00 Platelet Estimate Consistent w auto 05/10/20 07:00 Clumped Platelets Not Reportable 05/10/20 07:00 Plt Clumps, EDTA Not Reportable 05/10/20 07:00 Large Platelets Not Reportable 05/10/20 07:00 Giant Platelets Not Reportable 05/10/20 07:00 Platelet Satelliting Not Reportable 05/10/20 07:00 Plt Morphology Comment Not Reportable 05/10/20 07:00 RBC Morphology Not Reportable 05/10/20 07:00 Dimorphic RBCs Not Reportable 05/10/20 07:00 Polychromasia Not Reportable 05/10/20 07:00 Hypochromasia 1+ 05/10/20 07:00 Poikilocytosis Not Reportable 05/10/20 07:00 Anisocytosis Not Reportable 05/10/20 07:00 Microcytosis Not Reportable 05/10/20 07:00 Macrocytosis Not Reportable 05/10/20 07:00 Spherocytes Not Reportable 05/10/20 07:00 Pappenheimer Bodies Not Reportable 05/10/20 07:00 Sickle Cells Not Reportable 05/10/20 07:00 Target Cells Not Reportable 05/10/20 07:00 Tear Drop Cells Not Reportable 05/10/20 07:00 Ovalocytes Not Reportable 05/10/20 07:00 Helmet Cells Not Reportable 05/10/20 07:00 Bush-Goessel Bodies Not Reportable 05/10/20 07:00 [place] Rings Not Reportable 05/10/20 07:00 Mami Cells Not Reportable 05/10/20 07:00 Bite Cells Not Reportable 05/10/20 07:00 Crenated Cell Not Reportable 05/10/20 07:00 Elliptocytes Not Reportable 05/10/20 07:00 Acanthocytes (Spur) Not Reportable 05/10/20 07:00 Rouleaux Not Reportable 05/10/20 07:00 Hemoglobin C Crystals Not Reportable 05/10/20 07:00 Schistocytes Few 05/10/20 07:00 Malaria parasites Not Reportable 05/10/20 07:00 Aristides Bodies Not Reportable 05/10/20 07:00 Hem Pathologist Commnt No 05/10/20 07:00 PT 18.6 Sec. (12.2-14.9) H 05/08/20 09:15 INR 1.55 (0.87-1.13) H 05/08/20 09:15 APTT 210.9 Sec. (24.2-36.6) H* 05/05/20 13:35 D-Dimer Cancelled 05/07/20 06:30 Heparin Anti-Xa Level 0.36 U.I./ml (0.3-0.7) 05/07/20 06:30 ABG pH 7.409 pH Units (7.350-7.450) 05/05/20 09:10 ABG pCO2 16.7 mm Hg 05/05/20 09:10 ABG pO2 27.6 mm Hg (80.0-90.0) L* 05/05/20 09:10 ABG HCO3 10.3 mmol/L (20.0-26.0) L 05/05/20 09:10 ABG O2 Saturation 38.5 % (95.0-99.0) L 05/05/20 09:10 ABG O2 Content 3.6 (0.0-44) 05/05/20 09:10 ABG Base Excess -13.0 mmol/L (-2.0-3.0) L 05/05/20 09:10 ABG Hemoglobin 6.7 gm/dl (14.0-18.0) L 05/05/20 09:10 ABG Carboxyhemoglobin 1.0 % (0.0-5.0) 05/05/20 09:10 ABG Methemoglobin 0.8 % (0.0-1.5) 05/05/20 09:10 Oxyhemoglobin 37.9 % (95.0-99.0) L 05/05/20 09:10 FiO2 21 % 05/05/20 09:10 Sodium 136 mmol/L (137-145) L 05/13/20 09:21 Potassium 3.4 mmol/L (3.6-5.0) L 05/13/20 09:21 Chloride 101.1 mmol/L (98-107) 05/13/20 09:21 Carbon Dioxide 26 mmol/L (22-30) 05/13/20 09:21 Anion Gap 12 mmol/L 05/13/20 09:21 BUN 7 mg/dL (9-20) L 05/13/20 09:21 Creatinine 0.5 mg/dL (0.8-1.3) L 05/13/20 09:21 Estimated GFR > 60 ml/min 05/13/20 09:21 BUN/Creatinine Ratio 14 % 05/13/20 09:21 Glucose 124 mg/dL (75-100) H 05/13/20 09:21 POC Glucose 85 mg/dL (70-105) 05/08/20 16:46 Lactic Acid 1.20 mmol/L (0.7-2.0) 05/06/20 03:30 Calcium 7.1 mg/dL (8.4-10.2) L 05/13/20 09:21 Magnesium 1.40 mg/dL (1.7-2.3) L 05/13/20 09:21 Iron 61 ug/dL (49-181) 05/07/20 12:38 TIBC 169 mcg/dL (250-450) L 05/07/20 12:38 Ferritin 1831.0 ng/mL (30.0-300.0) H 05/07/20 12:38 Total Bilirubin 0.90 mg/dL (0.1-1.2) 05/11/20 09:11 Direct Bilirubin 0.4 mg/dL (0-0.2) H 05/05/20 10:17 Indirect Bilirubin 0.0 mg/dL 05/05/20 10:17 AST 35 units/L (5-40) 05/11/20 09:11 ALT 26 units/L (7-56) 05/11/20 09:11 Alkaline Phosphatase 348 units/L (35-129) H 05/11/20 09:11 Troponin T 0.056 ng/mL (0.00-0.029) H 05/05/20 08:10 Total Protein 5.1 g/dL (6.3-8.2) L 05/11/20 09:11 Albumin 1.6 g/dL (3.9-5) L 05/11/20 09:11 Albumin/Globulin Ratio 0.5 % 05/11/20 09:11 Triglycerides 231 mg/dL (2-149) H 05/05/20 08:10 Cholesterol 80 mg/dL (50-199) 05/05/20 08:10 LDL Cholesterol Direct 17 mg/dL (50-130) L 05/05/20 08:10 HDL Cholesterol 11 mg/dL (40-59) L 05/05/20 08:10 Cholesterol/HDL Ratio 7.27 % 05/05/20 08:10 Lipase 68 units/L (13-60) H 05/05/20 10:17 Vitamin B12 > 2000 pg/mL (211-911) H 05/07/20 12:39 Folate 7.19 ng/mL (7.3-26.0) L 05/07/20 12:39 TSH 12.770 mlU/mL (0.270-4.200) H 05/05/20 08:10 Thyroxine (T4) 7.4 ug/dL (4.0-12.0) 05/05/20 08:10 Free T3 Index 3.7 pg/mL (2.3-4.2) 05/05/20 08:10 Urine Color Yellow (Yellow) 05/05/20 Unknown Urine Turbidity Slightly-cloudy (Clear) 05/05/20 Unknown Urine pH 5.0 (5.0-7.0) 05/05/20 Unknown Ur Specific [place] 1.009 (1.003-1.030) 05/05/20 Unknown Urine Protein <15 mg/dl mg/dL (Negative) 05/05/20 Unknown Urine Glucose (UA) Neg mg/dL (Negative) 05/05/20 Unknown Urine Ketones Neg mg/dL (Negative) 05/05/20 Unknown Urine Blood Sm (Negative) 05/05/20 Unknown Urine Nitrite Pos (Negative) 05/05/20 Unknown Urine Bilirubin Neg (Negative) 05/05/20 Unknown Urine Urobilinogen < 2.0 mg/dL (<2.0) 05/05/20 Unknown Ur Leukocyte Esterase Neg (Negative) 05/05/20 Unknown Urine WBC (Auto) 13.0 /HPF (0.0-6.0) H 05/05/20 Unknown Urine RBC (Auto) 1.0 /HPF (0.0-6.0) 05/05/20 Unknown Urine Bacteria (Auto) 4+ /HPF (Negative) 05/05/20 Unknown Urine Mucus 3+ /HPF 05/05/20 Unknown Coronavirus (PCR) Negative (Negative) 05/06/20 10:02 Hepatitis A IgM Ab Non-reactive (NonReactive) 05/06/20 22:22 Hep Bs Antigen Non-reactive (Negative) 05/06/20 22:22 Hep B Core IgM Ab Non-reactive (NonReactive) 05/06/20 22:22 Hepatitis C Antibody Non-reactive (NonReactive) 05/06/20 22:22 Blood Type O POSITIVE 05/09/20 15:30 Antibody Screen Negative 05/09/20 15:30 Crossmatch See Detail 05/09/20 15:30 Microbiology: Microbiology 05/07/20 Unknown Abdomen Surgical Culture - Final Escherichia Coli 05/10/20 10:15 Peripheral/Venous Blood Culture - Preliminary NO GROWTH AFTER 48 HOURS 05/10/20 10:15 Peripheral/Venous Blood Culture - Preliminary NO GROWTH AFTER 48 HOURS - Diagnostic Impressions Diagnostic Impressions: Echocardiogram 05/05/20 13:01 Transthoracic Echocardiogram Indication: PE BP: 95/71 HR: 108 Conclusions *Global left ventricular systolic function is normal. *The estimated ejection fraction is 50-55%. *The right ventricle is mildly dilated. *The right ventricular global systolic function is normal. *There is mild mitral regurgitation. *There is mild tricuspid regurgitation. *The right ventricular systolic pressure is calculated at 32 mmHg. *There is trace pulmonic regurgitation. *The aortic valve is trileaflet. The leaflets are thin with normal excursion. There is no aortic stenosis or regurgitation present. Findings Left Ventricle: The left ventricular chamber size is normal. Global left ventricular systolic function is normal. The estimated ejection fraction is 50-55%. Abnormal left ventricular diastolic filling is observed, consistent with impaired relaxation. Left Atrium: The left atrial chamber size is normal. Right Ventricle: The right ventricle is mildly dilated. The right ventricular global systolic function is normal. Right Atrium: The right atrial cavity size is normal. Aortic Valve: The aortic valve is trileaflet. The leaflets are thin with normal excursion. There is no aortic stenosis or regurgitation present. The aortic valve structure is normal. Mitral Valve: The mitral valve leaflets are mildly thickened. There is mild mitral regurgitation. Tricuspid Valve: The tricuspid valve leaflets are normal. There is mild tricuspid regurgitation. The right ventricular systolic pressure is calculated at 32 mmHg. Pulmonic Valve: The pulmonic valve appears normal. There is trace pulmonic regurgitation. Pericardium: There is no pericardial effusion. Aorta: The aorta appears normal. Venous: The inferior vena cava appears normal. Measurements Chambers 2D Name Value Normal Range IVSd (2D) 1.09 cm (0.6 - 1.1) LVPWd (2D) 1.08 cm (0.6 - 1.1) LVIDd (2D) 4.78 cm (3.7 - 5.6) LVIDs (2D) 3.74 cm (2 - 3.8) LV FS (2D) 21.72 % - Ao root diameter (2D) 3.12 cm (2 - 3.7) Volumes/Mass Name Value Normal Range LA ESV SP 4CH (A/L) 35.91 ml - LA ESV SP 2CH (A/L) 41.54 ml - LA ESV BP (A/L) 38.98 ml - LA ESV BP (A/L) index 22.28 ml/m2 - LA ESV SP 4CH (MOD) 31.77 ml - LA ESV SP 2CH (MOD) 41.03 ml - LA ESV BP (MOD) 36.28 ml - LA ESV BP (MOD) index 20.73 ml/m2 - Diastolic/Systolic Function Name Value Normal Range MV E-wave Vmax 0.93 m/sec - MV deceleration time 148.87 msec - MV A-wave Vmax 0.58 m/sec - MV E:A ratio 1.59 ratio - Aortic Valve Name Value Normal Range AV Vmax 1.34 m/sec - AV VTI 21.39 cm - AV peak gradient 7.18 mmHg - AV mean gradient 4.09 mmHg - LVOT diameter 2.04 cm - LVOT Vmax 1.06 m/sec - LVOT VTI 17.75 cm - LVOT peak gradient 4.48 mmHg - LVOT mean gradient 2.8 mmHg - SV LVOT 58.19 ml - PAUL (continuity Vmax) 2.59 cm2 - PAUL (continuity VTI) 2.72 cm2 - Ascending Ao 3.02 cm - Mitral Valve Name Value Normal Range MR Vmax 4.21 m/sec - Tricuspid Valve Name Value Normal Range TR Vmax 2.7 m/sec - TR peak gradient 29 mmHg - RAP 3 mmHg - RVSP 32 mmHg - IVC diameter 1.45 cm (1.2 - 2.3) Pulmonic Valve/Qp:Qs Name Value Normal Range PV Vmax 0.82 m/sec - PV peak gradient 2.71 mmHg - SD end-diastolic Vmax 1.1 m/sec - PV acceleration time 87.54 msec - [place]/IV: Voiding Method Urinal Active Medications - Current Medications Current Medications: Generic Name Dose Route Start Last Admin Trade Name Freq PRN Reason Stop Dose Admin Acetaminophen 650 mg 05/07/20 14:23 05/13/20 09:09 Acetaminophen 325 Mg Tab PO 650 mg Q6H PRN Administration Fever >101 Hydromorphone HCl 2 mg 05/08/20 12:00 05/10/20 07:39 Hydromorphone 1 Mg/1 Ml Inj IV 2 mg Q3H PRN Administration Pain , Severe (7-10) MEROPENEM/NS 1 GRAM/100 ML 1 gram in 100 mls @ 100 mls/hr 05/07/20 20:00 05/13/20 03:39 Merrem/Ns 1 Gram/100 Ml IV 100 mls/hr Q8H RADHA Administration Protocol Metoprolol Tartrate 2.5 mg 05/10/20 12:26 Metoprolol Tartrate 5 Mg/5 Ml Inj IV Q6HR PRN HR>120 Metoprolol Tartrate 25 mg 05/11/20 22:00 05/13/20 09:09 Metoprolol Tartrate 25 Mg Tab PO 25 mg BID RADHA Administration Oxycodone/Acetaminophen 1 tab 05/05/20 11:29 05/11/20 08:10 Oxycodone /Acetaminophen 5-325mg Tab PO 1 tab Q6H PRN Administration Pain, Moderate (4-6) Nutrition/Malnutrition Assess - Dietary Evaluation Nutrition/Malnutrition Findings: Nutrition Notes Start: 05/12/20 11:40 Freq: Status: Active Protocol: Document 05/12/20 11:40 AL (Rec: 05/12/20 12:00 AL [id number]) Co-Sign 05/12/20 11:40 LP Nutrition Notes Need for Assessment generated from: LOS Initial or Follow up Brief Note Current Diagnosis Sepsis Other Pertinent Diagnosis SOB, Liver abcess, Pneumonia, ANemia, UTI Current Diet Regular Diet [place] Body Weight (kg) 0 Weight Status Overweight Subjective/Other Information Pt is a LOS. Pt reported eating 50% of breakfast because it was "too early" and ate 100% of dinner last night . Pt says appetite is good and has no need for ONS. Burn Absent Trauma Absent GI Symptoms None Current % PO Good (75-100%) Minimum of two criteria No physical signs of malnutrition #1 Nutrition Diagnosis No nutrition diagnosis at this time Nutrition Intervention Change Diet Order: Continue Regular diet Anticipated Discharge Needs: Regular diet Revisit per MD consult or patient Sign Off request:
--- NOTE | 2020-05-13 12:18 | Progress Note ---
Assessment and Plan Cultures: 05/05/2020 blood culture: ESBL E. coli 05/07/2020 IR drainage culture: E. coli 05/10/2020 blood culture: No growth A/P: 44 yo M no PMHx presents with liver abscess, PE, and septic emboli. #Acute sepsis with initial septic shock: Secondary to bacteremia and liver abscess #ESBL E. coli bacteremia: Secondary to liver abscess. #Large multiseptated liver abscess: CT showed a right hepatic multiseptated collection 7.3 x 6.3 x 7.9 cm. Status post IR drainage on 05/07/2020, 70 cc of purulent drained, cultures with E. coli #Septic emboli: Echo without vegetations, though may be shedding bacteria from liver abscess causing lung seeding. Continue antibiotics #Acute hypoxemic respiratory failure #Acute PE: on anticoagulation. #Acute thrombocytopenia: probably from sepsis Recs: -Continue meropenem 1 g IV every 8 hours, D6 -f/u repeat CT shows ongoing abscess, unclear if all abscesses communicate with the existing drain. Hence, hepatobiliary surgery eval at higher center v/s additional drain placements -anticipate 4-6 weeks of IV abx and repeat imaging to ensure radiologic improvement before abx can be stopped Ese Garrett MD, FACP [facility] ([facility] O: [phone] F: [phone] Subjective Date of service: 05/13/20 Principal diagnosis: Acute pulmonary embolism, liver abscess Interval history: No fever. Drain+. Got CT done. Denies any new complaints. Objective - Exam Narrative Exam: Physical Exam: Constitutional: Alert, cooperative. No acute distress Head, Ears, Nose: Normocephalic, atraumatic. External ears, nose normal Eyes: Conjunctivae/corneas clear. No icterus. No ptosis. Neck: Supple, no meningeal signs Cardiovascular: S1, S2 normal. Respiratory: Good air entry, clear to auscultation bilaterally GI: Soft, RUQ drain present; bowel sounds normal. No peritoneal signs Musculoskeletal: No pedal edema, no cyanosis. Skin: No rash or abscess Hem/Lymphatic: No palpable cervical or supraclavicular nodes. No lymphangitis Psych: Mood ok. Affect normal Neurological: Awake, alert, oriented. No gross abnormality - Constitutional Vitals: Vital Signs Temp Pulse Resp BP Pulse Ox 98.9 F 120 H 42 H 130/70 97 05/13/20 08:00 05/13/20 10:00 05/13/20 10:00 05/13/20 11:00 05/13/20 11:00 Temperature -Last 24 Hours Temperature 98.9 F Temperature 99.4 F Temperature 98.2 F Temperature 98.4 F Temperature 99.0 F - Labs CBC & Chem 7: 05/13/20 05:13 05/13/20 09:21 Labs: Abnormal lab results 05/13/20 05/13/20 05/13/20 Range/Units 05:13 05:13 09:21 Hgb 7.4 L (11.8-15.2) gm/dl Hct 21.4 L (35.5-45.6) % Plt Count 96 L (140-440) K/mm3 Sodium 136 L (137-145) mmol/L Potassium 3.1 L 3.4 L (3.6-5.0) mmol/L BUN 7 L (9-20) mg/dL Creatinine 0.5 L (0.8-1.3) mg/dL Glucose 124 H (75-100) mg/dL Calcium 7.1 L (8.4-10.2) mg/dL Magnesium 1.40 L (1.7-2.3) mg/dL
[2020-05-13] MEDS: oxyCODONE /ACETAMINOPHEN 5-325MG TAB PO PRN (12:48)
--- NOTE | 2020-05-13 13:14 | Event Note ---
Date: 05/13/20 Pt chart reviewed. Tm 100 over last 24 hours. Patient tolerating diet. RUQ Bal[place]zar drain with scant drainage Repeat CT A/P 05/12/20 images and report reviewed - Interval drainage of the most anteriorly and inferiorly located abscess measuring 3.8 x 2.7 cm, previously 4.1 x 3.6 cm. Multiple other adjacent abscesses, the largest residual abscess located posteriorly and laterally along the right hepatic lobe measuring 5.8 x 3 cm. Patient with mildly improvement of liver abscesses on CT s/p IR drainage 05/07/20. Discussed with Dr. Bird - no role for additional percutaneous drains at this time -Recommend transfer to tertiary care facility so patient can be evaluated by hepatobiliary surgery and possible right partial hepatectomy. HBP surgery not available at [facility]. - Continue abx per ID Discussed with Dr. Berkowitz.
[2020-05-14] MEDS: MEROPENEM/NS 1 GRAM/100 ML 1 GRAM/100 ML BAG IV SCH ×4 (05:44→18:07)
--- NOTE | 2020-05-14 09:12 | Event Note ---
Date: 05/14/20 Spoke with Hepatobiliary surgeon Dr. Marrufo at [facility] yesterday. Details of patient's condition discussed along with imaging findings and interventions thus far. Dr. Marrufo recommended continuing alf abx for at least 6 weeks. He also recommended upsizing existing RUQ drain vs placing additional drain in larger abscess. States there is no role for hepatectomy until patient has failed nonsurgical treatment as surgery would be aggressive option. Transfer request closed. Discussed with Dr. Bird. He will reassess patient today for additional procedures. Dr. Berkowitz notified.
[2020-05-14] MEDS: METOPROLOL TARTRATE 25 MG TAB PO SCH ×2 (09:27→22:01)
[2020-05-14] MEDS ORDERED: fentaNYL 100 MCG/2 ML INJ IV NR (13:10)
[2020-05-14] MEDS ORDERED: MIDAZOLAM 5 MG/5 ML INJ MDV IV ONE (13:12)
[2020-05-14] MEDS ORDERED: SODIUM CHLORIDE 0.9% 500 ML 500 ML ONE (13:12)
--- NOTE | 2020-05-14 13:12 | Progress Note ---
Assessment and Plan Assessment and plan: 44-year-old male with no significant past medical history presented to the emergency department with complaints of shortness of breath for the last 3 weeks. Shortness of breath is progressively worse and making to present to the emergency department this morning. Patient said he has associated dry cough. Patient denied fever chills, night sweats. Patient denied contact with Covid patient. He denied any chest pain, palpitation or leg swelling. Patient was seen in the emergency department. In the emergency department test x-ray was done and showed bibasilar infiltrates, CTA chest was done and significant for blood clot suspected septic emboli and liver abscess. Patient was hypotensive was started with IV fluids and pressor support. I have discussed with vascular surgery and said the clot burden is minimal and does not need any intervention at this time. Interventional radiology will do drainage of the abscess once the patient is stable. Patient started with IV antibiotics. ID was consulted. Patient was requiring 4 L of oxygen and pulmonary consulted. Patient will be admitted to ICU. Septic shock now resolved. Patient was still having fever however until today. -Patient is on IV fluids, IV antibiotics, able to discontinue pressor support. -ID consulted Septic emboli-from liver -Antibiotics changed to meropenem secondary to ESBL positivity. At present afebrile. -Blood clot burden is minimal, no vascular intervention needed -Since meropenem patient's fever curve is come down to 98. Patient's white count is come down as well -Previous plan was to consult surgery when patient had persistent fever. Patient had I&D from intervention radiology for liver abscess. Still possible failed attempt. Given the fact the patient was afebrile may be responding to meropenem. Also surgical intervention will be much more invasive.. - order echo Acute respiratory failure with hypoxia-resolved oxygen has been weaned. Will wean down again today -Patient is on 3 L of oxygen continue to wean O2. -Could be due to septic emboli -Continue antibiotics for now Sinus tachycardia improved with low-dose Lopressor. Will titrate accordingly. Liver abscess -Continue with antibiotics for now -Abscess has been drained however patient had fever yesterday was considering need for surgical intervention. Anemia associated thrombocytopenia patient transfused yesterday. H&H 8 and 23 hold heparin. Most likely secondary to severe sepsis. 05/06/2020 -Septic shock, septic emboli to the lungs, primary source could be the liver, liver abscess -Patient is on IV Levaquin and Flagyl, ID consult appreciated. Blood culture grew gram-positive rods, will follow identification -Patient is on IV heparin -Interventional radiology consulted for drainage of the liver abscess -Patient is still on pressors. Patient is off oxygen. 05/07/2020 -Patient had SVT yesterday afternoon and was given adenosine and amiodarone -Currently controlled, cardiology consult placed -IR will do drainage of the abscess 05/08/2020 -IR drained about 40 mL of purulent fluid from the liver and put a draining tube -Blood culture grew ESBL and ID is following the patient and change antibiotics to meropenem -Patient still have leukocytosis and fever -We will continue inpatient management 05/09/2020 Purulent exudate has decreased from draining Hospital course complicated by blood culture ESBL started on meropenem Patient is afebrile so far today. SVT has resolved pulse in the 90s. 05/10/2020 Patient today remains febrile at 101. Patient denied any pain. Able to eat felt well. No arthralgias myalgias. Discussed with patient about blood culture findings in [place]. Antibiotics has been changed to meropenem 05/11/2020. This is the first morning that patient has been afebrile. Patient denies pain denies arthralgias myalgias eating well. Hemoglobin hematocrit 8 and 24. 05/12: Patient today with worsening Leukocytosis, awaiting repeat CT scan to evaluate hepatic abscess. Based on this information a decision should be made if transfer is warranted. I have discussed and updated the spouse Iesha on the plan of care. I will also replace electrolytes and monitor. Continue abx for now. 05/13: Patient seen and examined, imaging study still showing multifocal hepatic Abscess. Discussed with the surgeon, I have contacted [facility] and they are reviewing as patient will need hepatobiliary surgeon, [facility] unable to accept. Hypokalemia, will replace AND ALSO Check Magnesium level. 05/14: Clinical stable continue to monitor. Per surgery as noted below. Spoke with Hepatobiliary surgeon Dr. Marrufo at [facility] yesterday. Details of patient's condition discussed along with imaging findings and interventions thus far. Dr. Marrufo recommended continuing chcf abx for at least 6 weeks. He als o recommended upsizing existing RUQ drain vs placing additional drain in larger abscess. States there is no role for hepatectomy until patient has failed nonsurgical treatment as surgery would be aggressive option. Transfer request closed. Discussed with Dr. Bird. He will reassess patient today for additional procedures. Will follow. Check am labs. History Interval history: Patient seen and examined, resting comfortable, no new complaints, hr improved Hospitalist Physical - Physical exam Narrative exam: General appearance: Present: no acute distress, well-nourished - EENT Eyes: PERRL, EOM intact ENT: hearing intact, clear oral mucosa Ears: bilateral: normal - Neck Neck: supple, normal ROM - Respiratory Respiratory effort: normal Respiratory: bilateral: CTA - Breasts Breasts: normal - Cardiovascular Rhythm: regular Heart Sounds: Present: S1 & S2. Absent: gallop, rub Extremities: pulses intact, No edema, normal color, Full ROM - Gastrointestinal General gastrointestinal: Present: soft, non-tender, non-distended, normal bowel sounds. MARCIAL blas in pLACE - Genitourinary Male genitourinary: normal - Integumentary Integumentary: clear, warm, dry - Musculoskeletal Musculoskeletal: 1, strength equal bilaterally - Neurologic Neurologic: moves all extremities - Psychiatric Psychiatric: memory intact, appropriate mood/affect, intact judgment & insight - Constitutional Vitals: Temp Pulse Resp BP Pulse Ox 98.4 F 97 H 27 H 95/54 98 05/14/20 08:00 05/14/20 12:00 05/14/20 12:00 05/14/20 12:00 05/14/20 12:00 General appearance: Present: no acute distress, well-nourished HEART Score - HEART Score Troponin: Troponin T 0.056 ng/mL (0.00-0.029) H 05/05/20 08:10 Results - Labs CBC & Chem 7: 05/13/20 05:13 05/13/20 09:21 Labs: Laboratory Last Values WBC 17.1 K/mm3 (4.5-11.0) H 05/12/20 05:26 RBC 3.01 M/mm3 (3.65-5.03) L 05/12/20 05:26 Hgb 7.4 gm/dl (11.8-15.2) L 05/13/20 05:13 Hct 21.4 % (35.5-45.6) L 05/13/20 05:13 MCV 86 fl (84-94) 05/12/20 05:26 MCH 29 pg (28-32) 05/12/20 05:26 MCHC 33 % (32-34) 05/12/20 05:26 RDW 16.6 % (13.2-15.2) H 05/12/20 05:26 Plt Count 96 K/mm3 (140-440) L 05/13/20 05:13 Lymph % (Auto) 7.1 % (13.4-35.0) L 05/12/20 05:26 [place] % (Auto) 2.9 % (0.0-7.3) 05/12/20 05:26 Eos % (Auto) 0.4 % (0.0-4.3) 05/12/20 05:26 Baso % (Auto) 0.1 % (0.0-1.8) 05/12/20 05:26 Lymph # (Auto) 1.2 K/mm3 (1.2-5.4) 05/12/20 05:26 [place] # (Auto) 0.5 K/mm3 (0.0-0.8) 05/12/20 05:26 Eos # (Auto) 0.1 K/mm3 (0.0-0.4) 05/12/20 05:26 Baso # (Auto) 0.0 K/mm3 (0.0-0.1) 05/12/20 05:26 Add Manual Diff Complete 05/10/20 07:00 Total Counted 100 05/10/20 07:00 Seg Neutrophils % 89.5 % (40.0-70.0) H 05/12/20 05:26 Seg Neuts % (Manual) 99.0 % (40.0-70.0) H 05/10/20 07:00 Band Neutrophils % 1.0 % 05/07/20 06:30 Lymphocytes % (Manual) 2.0 % (13.4-35.0) L 05/08/20 06:00 Monocytes % (Manual) 1.0 % (0.0-7.3) 05/10/20 07:00 Promyelocytes % 0 % 05/05/20 08:10 Nucleated RBC % 1.0 % (0.0-0.9) H 05/10/20 07:00 Seg Neutrophils # 15.3 K/mm3 (1.8-7.7) H 05/12/20 05:26 Seg Neutrophils # Man 11.7 K/mm3 (1.8-7.7) H 05/10/20 07:00 Band Neutrophils # 0.0 K/mm3 05/10/20 07:00 Lymphocytes # (Manual) 0.0 K/mm3 (1.2-5.4) L 05/10/20 07:00 Abs React Lymphs (Man) 0.0 K/mm3 05/10/20 07:00 Monocytes # (Manual) 0.1 K/mm3 (0.0-0.8) 05/10/20 07:00 Eosinophils # (Manual) 0.0 K/mm3 (0.0-0.4) 05/10/20 07:00 Basophils # (Manual) 0.0 K/mm3 (0.0-0.1) 05/10/20 07:00 Metamyelocytes # 0.0 K/mm3 05/10/20 07:00 Myelocytes # 0.0 K/mm3 05/10/20 07:00 Promyelocytes # 0.0 K/mm3 05/10/20 07:00 Blast Cells # 0.0 K/mm3 05/10/20 07:00 WBC Morphology Not Reportable 05/10/20 07:00 Hypersegmented Neuts Not Reportable 05/10/20 07:00 Hyposegmented Neuts Not Reportable 05/10/20 07:00 Hypogranular Neuts Not Reportable 05/10/20 07:00 Smudge Cells Not Reportable 05/10/20 07:00 Toxic Granulation Not Reportable 05/10/20 07:00 Toxic Vacuolation Not Reportable 05/10/20 07:00 Dohle Bodies Not Reportable 05/10/20 07:00 Pelger-Huet Anomaly Not Reportable 05/10/20 07:00 [place] Rods Not Reportable 05/10/20 07:00 Platelet Estimate Consistent w auto 05/10/20 07:00 Clumped Platelets Not Reportable 05/10/20 07:00 Plt Clumps, EDTA Not Reportable 05/10/20 07:00 Large Platelets Not Reportable 05/10/20 07:00 Giant Platelets Not Reportable 05/10/20 07:00 Platelet Satelliting Not Reportable 05/10/20 07:00 Plt Morphology Comment Not Reportable 05/10/20 07:00 RBC Morphology Not Reportable 05/10/20 07:00 Dimorphic RBCs Not Reportable 05/10/20 07:00 Polychromasia Not Reportable 05/10/20 07:00 Hypochromasia 1+ 05/10/20 07:00 Poikilocytosis Not Reportable 05/10/20 07:00 Anisocytosis Not Reportable 05/10/20 07:00 Microcytosis Not Reportable 05/10/20 07:00 Macrocytosis Not Reportable 05/10/20 07:00 Spherocytes Not Reportable 05/10/20 07:00 Pappenheimer Bodies Not Reportable 05/10/20 07:00 Sickle Cells Not Reportable 05/10/20 07:00 Target Cells Not Reportable 05/10/20 07:00 Tear Drop Cells Not Reportable 05/10/20 07:00 Ovalocytes Not Reportable 05/10/20 07:00 Helmet Cells Not Reportable 05/10/20 07:00 [place] Bodies Not Reportable 05/10/20 07:00 [place] Rings Not Reportable 05/10/20 07:00 Mami Cells Not Reportable 05/10/20 07:00 Bite Cells Not Reportable 05/10/20 07:00 Crenated Cell Not Reportable 05/10/20 07:00 Elliptocytes Not Reportable 05/10/20 07:00 Acanthocytes (Spur) Not Reportable 05/10/20 07:00 Rouleaux Not Reportable 05/10/20 07:00 Hemoglobin C Crystals Not Reportable 05/10/20 07:00 Schistocytes Few 05/10/20 07:00 Malaria parasites Not Reportable 05/10/20 07:00 Aristides Bodies Not Reportable 05/10/20 07:00 Hem Pathologist Commnt No 05/10/20 07:00 PT 18.6 Sec. (12.2-14.9) H 05/08/20 09:15 INR 1.55 (0.87-1.13) H 05/08/20 09:15 APTT 210.9 Sec. (24.2-36.6) H* 05/05/20 13:35 D-Dimer Cancelled 05/07/20 06:30 Heparin Anti-Xa Level 0.36 U.I./ml (0.3-0.7) 05/07/20 06:30 ABG pH 7.409 pH Units (7.350-7.450) 05/05/20 09:10 ABG pCO2 16.7 mm Hg 05/05/20 09:10 ABG pO2 27.6 mm Hg (80.0-90.0) L* 05/05/20 09:10 ABG HCO3 10.3 mmol/L (20.0-26.0) L 05/05/20 09:10 ABG O2 Saturation 38.5 % (95.0-99.0) L 05/05/20 09:10 ABG O2 Content 3.6 (0.0-44) 05/05/20 09:10 ABG Base Excess -13.0 mmol/L (-2.0-3.0) L 05/05/20 09:10 ABG Hemoglobin 6.7 gm/dl (14.0-18.0) L 05/05/20 09:10 ABG Carboxyhemoglobin 1.0 % (0.0-5.0) 05/05/20 09:10 ABG Methemoglobin 0.8 % (0.0-1.5) 05/05/20 09:10 Oxyhemoglobin 37.9 % (95.0-99.0) L 05/05/20 09:10 FiO2 21 % 05/05/20 09:10 Sodium 136 mmol/L (137-145) L 05/13/20 09:21 Potassium 3.4 mmol/L (3.6-5.0) L 05/13/20 09:21 Chloride 101.1 mmol/L (98-107) 05/13/20 09:21 Carbon Dioxide 26 mmol/L (22-30) 05/13/20 09:21 Anion Gap 12 mmol/L 05/13/20 09:21 BUN 7 mg/dL (9-20) L 05/13/20 09:21 Creatinine 0.5 mg/dL (0.8-1.3) L 05/13/20 09:21 Estimated GFR > 60 ml/min 05/13/20 09:21 BUN/Creatinine Ratio 14 % 05/13/20 09:21 Glucose 124 mg/dL (75-100) H 05/13/20 09:21 POC Glucose 85 mg/dL (70-105) 05/08/20 16:46 Lactic Acid 1.20 mmol/L (0.7-2.0) 05/06/20 03:30 Calcium 7.1 mg/dL (8.4-10.2) L 05/13/20 09:21 Magnesium 1.40 mg/dL (1.7-2.3) L 05/13/20 09:21 Iron 61 ug/dL (49-181) 05/07/20 12:38 TIBC 169 mcg/dL (250-450) L 05/07/20 12:38 Ferritin 1831.0 ng/mL (30.0-300.0) H 05/07/20 12:38 Total Bilirubin 0.90 mg/dL (0.1-1.2) 05/11/20 09:11 Direct Bilirubin 0.4 mg/dL (0-0.2) H 05/05/20 10:17 Indirect Bilirubin 0.0 mg/dL 05/05/20 10:17 AST 35 units/L (5-40) 05/11/20 09:11 ALT 26 units/L (7-56) 05/11/20 09:11 Alkaline Phosphatase 348 units/L (35-129) H 05/11/20 09:11 Troponin T 0.056 ng/mL (0.00-0.029) H 05/05/20 08:10 Total Protein 5.1 g/dL (6.3-8.2) L 05/11/20 09:11 Albumin 1.6 g/dL (3.9-5) L 05/11/20 09:11 Albumin/Globulin Ratio 0.5 % 05/11/20 09:11 Triglycerides 231 mg/dL (2-149) H 05/05/20 08:10 Cholesterol 80 mg/dL (50-199) 05/05/20 08:10 LDL Cholesterol Direct 17 mg/dL (50-130) L 05/05/20 08:10 HDL Cholesterol 11 mg/dL (40-59) L 05/05/20 08:10 Cholesterol/HDL Ratio 7.27 % 05/05/20 08:10 Lipase 68 units/L (13-60) H 05/05/20 10:17 Tumor Marker AFP See scanned report 02/24/21 22:22 Vitamin B12 > 2000 pg/mL (211-911) H 05/07/20 12:39 Folate 7.19 ng/mL (7.3-26.0) L 05/07/20 12:39 TSH 12.770 mlU/mL (0.270-4.200) H 05/05/20 08:10 Thyroxine (T4) 7.4 ug/dL (4.0-12.0) 05/05/20 08:10 Free T3 Index 3.7 pg/mL (2.3-4.2) 05/05/20 08:10 Urine Color Yellow (Yellow) 05/05/20 Unknown Urine Turbidity Slightly-cloudy (Clear) 05/05/20 Unknown Urine pH 5.0 (5.0-7.0) 05/05/20 Unknown Ur Specific [place] 1.009 (1.003-1.030) 05/05/20 Unknown Urine Protein <15 mg/dl mg/dL (Negative) 05/05/20 Unknown Urine Glucose (UA) Neg mg/dL (Negative) 05/05/20 Unknown Urine Ketones Neg mg/dL (Negative) 05/05/20 Unknown Urine Blood Sm (Negative) 05/05/20 Unknown Urine Nitrite Pos (Negative) 05/05/20 Unknown Urine Bilirubin Neg (Negative) 05/05/20 Unknown Urine Urobilinogen < 2.0 mg/dL (<2.0) 05/05/20 Unknown Ur Leukocyte Esterase Neg (Negative) 05/05/20 Unknown Urine WBC (Auto) 13.0 /HPF (0.0-6.0) H 05/05/20 Unknown Urine RBC (Auto) 1.0 /HPF (0.0-6.0) 05/05/20 Unknown Urine Bacteria (Auto) 4+ /HPF (Negative) 05/05/20 Unknown Urine Mucus 3+ /HPF 05/05/20 Unknown Coronavirus (PCR) Negative (Negative) 05/06/20 10:02 Hepatitis A IgM Ab Non-reactive (NonReactive) 05/06/20 22:22 Hep Bs Antigen Non-reactive (Negative) 05/06/20 22:22 Hep B Core IgM Ab Non-reactive (NonReactive) 05/06/20 22:22 Hepatitis C Antibody Non-reactive (NonReactive) 05/06/20 22:22 Blood Type O POSITIVE 05/09/20 15:30 Antibody Screen Negative 05/09/20 15:30 Crossmatch See Detail 05/09/20 15:30 Microbiology: Microbiology 05/10/20 10:15 Peripheral/Venous Blood Culture - Preliminary NO GROWTH AFTER 4 DAYS 05/10/20 10:15 Peripheral/Venous Blood Culture - Preliminary 05/07/20 Unknown Abdomen Surgical Culture - Final Escherichia Coli - Diagnostic Impressions Diagnostic Impressions: Echocardiogram 05/05/20 13:01 Transthoracic Echocardiogram Indication: PE BP: 95/71 HR: 108 Conclusions *Global left ventricular systolic function is normal. *The estimated ejection fraction is 50-55%. *The right ventricle is mildly dilated. *The right ventricular global systolic function is normal. *There is mild mitral regurgitation. *There is mild tricuspid regurgitation. *The right ventricular systolic pressure is calculated at 32 mmHg. *There is trace pulmonic regurgitation. *The aortic valve is trileaflet. The leaflets are thin with normal excursion. There is no aortic stenosis or regurgitation present. Findings Left Ventricle: The left ventricular chamber size is normal. Global left ventricular systolic function is normal. The estimated ejection fraction is 50-55%. Abnormal left ventricular diastolic filling is observed, consistent with impaired relaxation. Left Atrium: The left atrial chamber size is normal. Right Ventricle: The right ventricle is mildly dilated. The right ventricular global systolic function is normal. Right Atrium: The right atrial cavity size is normal. Aortic Valve: The aortic valve is trileaflet. The leaflets are thin with normal excursion. There is no aortic stenosis or regurgitation present. The aortic valve structure is normal. Mitral Valve: The mitral valve leaflets are mildly thickened. There is mild mitral regurgitation. Tricuspid Valve: The tricuspid valve leaflets are normal. There is mild tricuspid regurgitation. The right ventricular systolic pressure is calculated at 32 mmHg. Pulmonic Valve: The pulmonic valve appears normal. There is trace pulmonic regurgitation. Pericardium: There is no pericardial effusion. Aorta: The aorta appears normal. Venous: The inferior vena cava appears normal. Measurements Chambers 2D Name Value Normal Range IVSd (2D) 1.09 cm (0.6 - 1.1) LVPWd (2D) 1.08 cm (0.6 - 1.1) LVIDd (2D) 4.78 cm (3.7 - 5.6) LVIDs (2D) 3.74 cm (2 - 3.8) LV FS (2D) 21.72 % - Ao root diameter (2D) 3.12 cm (2 - 3.7) Volumes/Mass Name Value Normal Range LA ESV SP 4CH (A/L) 35.91 ml - LA ESV SP 2CH (A/L) 41.54 ml - LA ESV BP (A/L) 38.98 ml - LA ESV BP (A/L) index 22.28 ml/m2 - LA ESV SP 4CH (MOD) 31.77 ml - LA ESV SP 2CH (MOD) 41.03 ml - LA ESV BP (MOD) 36.28 ml - LA ESV BP (MOD) index 20.73 ml/m2 - Diastolic/Systolic Function Name Value Normal Range MV E-wave Vmax 0.93 m/sec - MV deceleration time 148.87 msec - MV A-wave Vmax 0.58 m/sec - MV E:A ratio 1.59 ratio - Aortic Valve Name Value Normal Range AV Vmax 1.34 m/sec - AV VTI 21.39 cm - AV peak gradient 7.18 mmHg - AV mean gradient 4.09 mmHg - LVOT diameter 2.04 cm - LVOT Vmax 1.06 m/sec - LVOT VTI 17.75 cm - LVOT peak gradient 4.48 mmHg - LVOT mean gradient 2.8 mmHg - SV LVOT 58.19 ml - PAUL (continuity Vmax) 2.59 cm2 - PAUL (continuity VTI) 2.72 cm2 - Ascending Ao 3.02 cm - Mitral Valve Name Value Normal Range MR Vmax 4.21 m/sec - Tricuspid Valve Name Value Normal Range TR Vmax 2.7 m/sec - TR peak gradient 29 mmHg - RAP 3 mmHg - RVSP 32 mmHg - IVC diameter 1.45 cm (1.2 - 2.3) Pulmonic Valve/Qp:Qs Name Value Normal Range PV Vmax 0.82 m/sec - PV peak gradient 2.71 mmHg - [place] end-diastolic Vmax 1.1 m/sec - PV acceleration time 87.54 msec - [place]/IV: Voiding Method Urinal Active Medications - Current Medications Current Medications: Generic Name Dose Route Start Last Admin Trade Name Freq PRN Reason Stop Dose Admin Acetaminophen 650 mg 05/07/20 14:23 05/13/20 09:09 Acetaminophen 325 Mg Tab PO 650 mg Q6H PRN Administration Fever >101 Hydromorphone HCl 2 mg 05/08/20 12:00 05/10/20 07:39 Hydromorphone 1 Mg/1 Ml Inj IV 2 mg Q3H PRN Administration Pain , Severe (7-10) MEROPENEM/NS 1 GRAM/100 ML 1 gram in 100 mls @ 100 mls/hr 05/07/20 20:00 05/14/20 05:44 Merrem/Ns 1 Gram/100 Ml IV 100 mls/hr Q8H RADHA Administration Protocol Metoprolol Tartrate 2.5 mg 05/10/20 12:26 Metoprolol Tartrate 5 Mg/5 Ml Inj IV Q6HR PRN HR>120 Metoprolol Tartrate 25 mg 05/11/20 22:00 05/14/20 09:27 Metoprolol Tartrate 25 Mg Tab PO 25 mg BID RADHA Administration Oxycodone/Acetaminophen 1 tab 05/05/20 11:29 05/13/20 12:48 Oxycodone /Acetaminophen 5-325mg Tab PO 1 tab Q6H PRN Administration Pain, Moderate (4-6) Nutrition/Malnutrition Assess - Dietary Evaluation Nutrition/Malnutrition Findings: Nutrition Notes Start: 05/12/20 11: 40 Freq: Status: Active Protocol: Document 05/12/20 11:40 AL (Rec: 05/12/20 12:00 AL [id number]) Co-Sign 05/12/20 11:40 LP Nutrition Notes Need for Assessment generated from: LOS Initial or Follow up Brief Note Current Diagnosis Sepsis Other Pertinent Diagnosis SOB, Liver abcess, Pneumonia, ANemia, UTI Current Diet Regular Diet [place] Body Weight (kg) 0 Weight Status Overweight Subjective/Other Information Pt is a LOS. Pt reported eating 50% of breakfast because it was "too early" and ate 100% of dinner last night . Pt says appetite is good and has no need for ONS. Burn Absent Trauma Absent GI Symptoms None Current % PO Good (75-100%) Minimum of two criteria No physical signs of malnutrition #1 Nutrition Diagnosis No nutrition diagnosis at this time Nutrition Intervention Change Diet Order: Continue Regular diet Anticipated Discharge Needs: Regular diet Revisit per MD consult or patient Sign Off request:
[2020-05-14] MEDS ORDERED: MIDAZOLAM 5 MG/5 ML INJ MDV IV NR (14:00)
[2020-05-14] MEDS ORDERED: SODIUM CHLORIDE 0.9% 500 ML 500 ML IV SCH (14:00)
--- NOTE | 2020-05-14 14:02 | Event Note ---
Date: 05/14/20 Off the floor. Appreciate Gen Surg assistance and discussion with Hepatobiliary Surgery. Plan for now is conservative management with drainage and IV abx. Note positive blood cultures, increased dose of IV Meropenem and repeat blood cultures ordered.
--- NOTE | 2020-05-14 14:56 | Cat Scan Report ---
Exam: CT-guided placement of 10 [place]ian drain in hepatic abscess, CT-guided exchange of drainage catheter in hepatic abscess CLINICAL INDICATION: Patient with multiple multiloculated hepatic abscesses DATE: 05/14/2020 PROCEDURE: Following an explanation of the risks, benefits and alternatives; written informed consent was obtained. The patient was brought to the CT suite and placed on the gantry in supine position. Initial CT images were were performed and an appropriate access site chosen in the patient's right lower quadrant. The patient's right abdomen was prepped and draped in the usual sterile fashion. 1% lidocaine was used for anesthesia. Using intermittent CT guidance, a 15 cm 18-gauge trocar needle was advanced into the inferior abscess. There was prompt return of purulent fluid. A 0.035 guidewire was then advanced through the needle and the needle removed. Following serial dilation over the guidewire, a 10 [place] pigtail drainage catheter was advanced over the guidewire and formed within the central aspect of the abscess cavity. The guidewire was removed. CT images were performed to document appropriate positioning. The patient's superior abscess drain was draining poorly and a decision was made to exchange this drainage catheter. The catheter was cut to release the pigtail. A 0.035 guidewire was then advanced through the catheter and the catheter removed. CT imaging was obtained to demonstrate appropriate positioning of the guidewire. Following serial dilation over the guidewire, a 14 [place] drainage catheter was advanced over the guidewire and positioned with the pigtail in central portion of the abscess cavity. There was prompt return of purulent fluid. Both catheters were securely fastened to the skin surface using 2-0 Ethilon suture and sterile dressings were applied. Both catheters were then placed to MARCIAL bulb drainage. The patient tolerated the procedure well. There were no immediate post procedure complication. Conscious sedation was performed under the guidance of radiologic nursing. Continuous cardiopulmonary monitoring was utilized. IMPRESSION: 1) CT-guided placement of 10 [place]ian drainage catheter in inferior hepatic abscess. 2) CT-guided exchange of drainage catheter with placement of a new 14 [place] drainage catheter in superior hepatic abscess.
[2020-05-14] MEDS: oxyCODONE /ACETAMINOPHEN 5-325MG TAB PO PRN (15:29)
[2020-05-14] MEDS: ACETAMINOPHEN 325 MG TAB PO PRN (20:25)
[2020-05-15] MEDS: MEROPENEM/NS 1 GRAM/100 ML 1 GRAM/100 ML BAG IV SCH ×4 (00:05→17:30)
[2020-05-15 05:20] LABS: Hematocrit 21.6 % (35.5-45.6); Hemoglobin 7.1 gm/dl (11.8-15.2); Mean Corpuscular HGB Conc 33 % (32-34); Mean Corpuscular Volume 85 fl (84-94); Platelet Count 143 K/mm3 (140-440); Red Blood Count 2.53 M/mm3 (3.65-5.03); Red Cell Distribution Width 16.9 % (13.2-15.2)
[2020-05-15 05:59] LABS: Blood Urea Nitrogen 11 mg/dL (9-20); Calcium 7.1 mg/dL (8.4-10.2); Hemolysis Index 0
[2020-05-15 06:00] LABS: BUN/Creatinine Ratio 28
[2020-05-15] MEDS: METOPROLOL TARTRATE 25 MG TAB PO SCH ×2 (09:20→22:23)
--- NOTE | 2020-05-15 10:49 | Progress Note ---
Assessment and Plan Cultures: 05/05/2020 blood culture: ESBL E. coli 05/07/2020 IR drainage culture: E. coli 05/10/2020 blood culture: GNR in 1 out of 4 bottles 05/14/2020 blood culture: In process A/P: 44 yo M no PMHx presents with liver abscess, PE, and septic emboli. #Acute sepsis with initial septic shock: Secondary to bacteremia and liver abscess #ESBL E. coli bacteremia: Secondary to liver abscess. #Large multiseptated liver abscess: CT showed a right hepatic multiseptated collection 7.3 x 6.3 x 7.9 cm. Status post IR drainage on 05/07/2020, 70 cc of purulent drained, cultures with E. coli. Appreciate Gen Surg assistance and discussion with Hepatobiliary Surgery. Plan for now is conservative management with drainage and IV abx. Underwent additional drain placement by interventional radiology on 05/14/2020. #Septic emboli: Echo without vegetations, though may be shedding bacteria from liver abscess causing lung seeding. Continue antibiotics #Acute hypoxemic respiratory failure #Acute PE: on anticoagulation. #Acute thrombocytopenia: probably from sepsis Recs: -Continue meropenem 1 g IV every 6 hours, D7 (increased dose due to persistent bacteremia, high inoculum disease) -f/u blood cultures from 05/14/2020 to ensure clearance, will eventually need a PICC line -anticipate 6 weeks of IV abx and repeat imaging to ensure radiologic improvement before abx can be stopped Ese Garrett MD, FACP [facility] O: [phone] F: [phone] Subjective Date of service: 05/15/20 Principal diagnosis: Acute pulmonary embolism, liver abscess Interval history: Afebrile today. No complaints. Underwent additional drain placement by interven tional radiology on 05/14/2020 Objective - Exam Narrative Exam: Physical Exam: Constitutional: Alert, cooperative. No acute distress Head, Ears, Nose: Normocephalic, atraumatic. External ears, nose normal Eyes: Conjunctivae/corneas clear. No icterus. No ptosis. Neck: Supple, no meningeal signs Cardiovascular: S1, S2 normal. Respiratory: Good air entry, clear to auscultation bilaterally GI: Soft, RUQ drains present; bowel sounds normal. No peritoneal signs Musculoskeletal: No pedal edema, no cyanosis. Skin: No rash or abscess Hem/Lymphatic: No palpable cervical or supraclavicular nodes. No lymphangitis Psych: Mood ok. Affect normal Neurological: Awake, alert, oriented. No gross abnormality - Constitutional Vitals: Vital Signs Temp Pulse Resp BP Pulse Ox 98.1 F 80 22 117/71 95 05/15/20 07:56 05/15/20 09:20 05/15/20 07:00 05/15/20 09:20 05/15/20 10:00 Temperature -Last 24 Hours Temperature 98.1 F Temperature 98.4 F Temperature 98.5 F Temperature 97.7 F Temperature 99.8 F Temperature 100.4 F - Labs CBC & Chem 7: 05/15/20 04:45 05/15/20 04:45 Labs: Abnormal lab results 05/15/20 05/15/20 Range/Units 04:45 04:45 WBC 13.7 H (4.5-11.0) K/mm3 RBC 2.53 L (3.65-5.03) M/mm3 Hgb 7.1 L (11.8-15.2) gm/dl Hct 21.6 L (35.5-45.6) % RDW 16.9 H (13.2-15.2) % Sodium 135 L (137-145) mmol/L Creatinine 0.4 L (0.8-1.3) mg/dL Calcium 7.1 L (8.4-10.2) mg/dL
--- NOTE | 2020-05-15 11:17 | Progress Note ---
Assessment and Plan Assessment and plan: 44-year-old male with no significant past medical history presented to the emergency department with complaints of shortness of breath for the last 3 weeks. Shortness of breath is progressively worse and making to present to the emergency department this morning. Patient said he has associated dry cough. Patient denied fever chills, night sweats. Patient denied contact with Covid patient. He denied any chest pain, palpitation or leg swelling. Patient was seen in the emergency department. In the emergency department test x-ray was done and showed bibasilar infiltrates, CTA chest was done and significant for blood clot suspected septic emboli and liver abscess. Patient was hypotensive was started with IV fluids and pressor support. I have discussed with vascular surgery and said the clot burden is minimal and does not need any intervention at this time. Interventional radiology will do drainage of the abscess once the patient is stable. Patient started with IV antibiotics. ID was consulted. Patient was requiring 4 L of oxygen and pulmonary consulted. Patient will be admitted to ICU. Septic shock now resolved. Patient was still having fever however until today. -Patient is on IV fluids, IV antibiotics, able to discontinue pressor support. -ID consulted Septic emboli-from liver -Antibiotics changed to meropenem secondary to ESBL positivity. At present afebrile. -Blood clot burden is minimal, no vascular intervention needed -Since meropenem patient's fever curve is come down to 98. Patient's white count is come down as well -Previous plan was to consult surgery when patient had persistent fever. Patient had I&D from intervention radiology for liver abscess. Still possible failed attempt. Given the fact the patient was afebrile may be responding to meropenem. Also surgical intervention will be much more invasive.. - order echo Acute respiratory failure with hypoxia-resolved oxygen has been weaned. Will wean down again today -Patient is on 3 L of oxygen continue to wean O2. -Could be due to septic emboli -Continue antibiotics for now Sinus tachycardia improved with low-dose Lopressor. Will titrate accordingly. Liver abscess -Continue with antibiotics for now -Abscess has been drained however patient had fever yesterday was considering need for surgical intervention. Anemia associated thrombocytopenia patient transfused yesterday. H&H 8 and 23 hold heparin. Most likely secondary to severe sepsis. 05/06/2020 -Septic shock, septic emboli to the lungs, primary source could be the liver, liver abscess -Patient is on IV Levaquin and Flagyl, ID consult appreciated. Blood culture grew gram-positive rods, will follow identification -Patient is on IV heparin -Interventional radiology consulted for drainage of the liver abscess -Patient is still on pressors. Patient is off oxygen. 05/07/2020 -Patient had SVT yesterday afternoon and was given adenosine and amiodarone -Currently controlled, cardiology consult placed -IR will do drainage of the abscess 05/08/2020 -IR drained about 40 mL of purulent fluid from the liver and put a draining tube -Blood culture grew ESBL and ID is following the patient and change antibiotics to meropenem -Patient still have leukocytosis and fever -We will continue inpatient management 05/09/2020 Purulent exudate has decreased from draining Hospital course complicated by blood culture ESBL started on meropenem Patient is afebrile so far today. SVT has resolved pulse in the 90s. 05/10/2020 Patient today remains febrile at 101. Patient denied any pain. Able to eat felt well. No arthralgias myalgias. Discussed with patient about blood culture findings in [place]. Antibiotics has been changed to meropenem 05/11/2020. This is the first morning that patient has been afebrile. Patient denies pain denies arthralgias myalgias eating well. Hemoglobin hematocrit 8 and 24. 05/12: Patient today with worsening Leukocytosis, awaiting repeat CT scan to evaluate hepatic abscess. Based on this information a decision should be made if transfer is warranted. I have discussed and updated the spouse Iesha on the plan of care. I will also replace electrolytes and monitor. Continue abx for now. 05/13: Patient seen and examined, imaging study still showing multifocal hepatic Abscess. Discussed with the surgeon, I have contacted [facility] and they are reviewing as patient will need hepatobiliary surgeon, [facility] unable to accept. Hypokalemia, will replace AND ALSO Check Magnesium level. 05/14: Clinical stable continue to monitor. Per surgery as noted below. Spoke with Hepatobiliary surgeon Dr. Marrufo at [facility] yesterday. Details of patient's condition discussed along with imaging findings and interventions thus far. Dr. Marrufo recommended continuing snf abx for at least 6 weeks. He als o recommended upsizing existing RUQ drain vs placing additional drain in larger abscess. States there is no role for hepatectomy until patient has failed nonsurgical treatment as surgery would be aggressive option. Transfer request closed. Discussed with Dr. Bird. He will reassess patient today for additional procedures. Will follow. Check am labs. 05/15: Patient had CT-guided drainage of hepatic abscess. Exchange of drain was done and additional drain placed. He remains afebrile this morning. Will transfer to surgical unit. Still with desaturation on room air currently on 2 L of oxygen and tolerating. Continue conservative management. Continue to monitor Hemoglobin. History Interval history: Patient seen and examined, resting comfortable, patient underwent a repeat procedure yesterday with exchange of drainage tubes and placement of additional MARCIAL drain Hospitalist Physical - Physical exam Narrative exam: General appearance: Present: no acute distress, well-nourished - EENT Eyes: PERRL, EOM intact ENT: hearing intact, clear oral mucosa Ears: bilateral: normal - Neck Neck: supple, normal ROM - Respiratory Respiratory effort: normal Respiratory: bilateral: CTA - Breasts Breasts: normal - Cardiovascular Rhythm: regular Heart Sounds: Present: S1 & S2. Absent: gallop, rub Extremities: pulses intact, No edema, normal color, Full ROM - Gastrointestinal General gastrointestinal: Present: soft, non-tender, non-distended, normal bowel sounds. MARCIAL Morales in pLACE - Genitourinary Male genitourinary: normal - Integumentary Integumentary: clear, warm, dry - Musculoskeletal Musculoskeletal: 1, strength equal bilaterally - Neurologic Neurologic: moves all extremities - Psychiatric Psychiatric: memory intact, appropriate mood/affect, intact judgment & insight - Constitutional Vitals: Temp Pulse Resp BP Pulse Ox 98.1 F 80 22 117/71 95 05/15/20 07:56 05/15/20 09:20 05/15/20 07:00 05/15/20 09:20 05/15/20 10:00 General appearance: Present: no acute distress, well-nourished HEART Score - HEART Score Troponin: Troponin T 0.056 ng/mL (0.00-0.029) H 05/05/20 08:10 Results - Labs CBC & Chem 7: 05/15/20 04:45 05/15/20 04:45 Labs: Laboratory Last Values WBC 13.7 K/mm3 (4.5-11.0) H 05/15/20 04:45 RBC 2.53 M/mm3 (3.65-5.03) L 05/15/20 04:45 Hgb 7.1 gm/dl (11.8-15.2) L 05/15/20 04:45 Hct 21.6 % (35.5-45.6) L 05/15/20 04:45 MCV 85 fl (84-94) 05/15/20 04:45 MCH 28 pg (28-32) 05/15/20 04:45 MCHC 33 % (32-34) 05/15/20 04:45 RDW 16.9 % (13.2-15.2) H 05/15/20 04:45 Plt Count 143 K/mm3 (140-440) 05/15/20 04:45 Lymph % (Auto) 7.1 % (13.4-35.0) L 05/12/20 05:26 [place] % (Auto) 2.9 % (0.0-7.3) 05/12/20 05:26 Eos % (Auto) 0.4 % (0.0-4.3) 05/12/20 05:26 Baso % (Auto) 0.1 % (0.0-1.8) 05/12/20 05:26 Lymph # (Auto) 1.2 K/mm3 (1.2-5.4) 05/12/20 05:26 [place] # (Auto) 0.5 K/mm3 (0.0-0.8) 05/12/20 05:26 Eos # (Auto) 0.1 K/mm3 (0.0-0.4) 05/12/20 05:26 Baso # (Auto) 0.0 K/mm3 (0.0-0.1) 05/12/20 05:26 Add Manual Diff Complete 05/10/20 07:00 Total Counted 100 05/10/20 07:00 Seg Neutrophils % 89.5 % (40.0-70.0) H 05/12/20 05:26 Seg Neuts % (Manual) 99.0 % (40.0-70.0) H 05/10/20 07:00 Band Neutrophils % 1.0 % 05/07/20 06:30 Lymphocytes % (Manual) 2.0 % (13.4-35.0) L 05/08/20 06:00 Monocytes % (Manual) 1.0 % (0.0-7.3) 05/10/20 07:00 Promyelocytes % 0 % 05/05/20 08:10 Nucleated RBC % 1.0 % (0.0-0.9) H 05/10/20 07:00 Seg Neutrophils # 15.3 K/mm3 (1.8-7.7) H 05/12/20 05:26 Seg Neutrophils # Man 11.7 K/mm3 (1.8-7.7) H 05/10/20 07:00 Band Neutrophils # 0.0 K/mm3 05/10/20 07:00 Lymphocytes # (Manual) 0.0 K/mm3 (1.2-5.4) L 05/10/20 07:00 Abs React Lymphs (Man) 0.0 K/mm3 05/10/20 07:00 Monocytes # (Manual) 0.1 K/mm3 (0.0-0.8) 05/10/20 07:00 Eosinophils # (Manual) 0.0 K/mm3 (0.0-0.4) 05/10/20 07:00 Basophils # (Manual) 0.0 K/mm3 (0.0-0.1) 05/10/20 07:00 Metamyelocytes # 0.0 K/mm3 05/10/20 07:00 Myelocytes # 0.0 K/mm3 05/10/20 07:00 Promyelocytes # 0.0 K/mm3 05/10/20 07:00 Blast Cells # 0.0 K/mm3 05/10/20 07:00 WBC Morphology Not Reportable 05/10/20 07:00 Hypersegmented Neuts Not Reportable 05/10/20 07:00 Hyposegmented Neuts Not Reportable 05/10/20 07:00 Hypogranular Neuts Not Reportable 05/10/20 07:00 Smudge Cells Not Reportable 05/10/20 07:00 Toxic Granulation Not Reportable 05/10/20 07:00 Toxic Vacuolation Not Reportable 05/10/20 07:00 Dohle Bodies Not Reportable 05/10/20 07:00 Pel[place]-Huet Anomaly Not Reportable 05/10/20 07:00 [place] Rods Not Reportable 05/10/20 07:00 Platelet Estimate Consistent w auto 05/10/20 07:00 Clumped Platelets Not Reportable 05/10/20 07:00 Plt Clumps, EDTA Not Reportable 05/10/20 07:00 Large Platelets Not Reportable 05/10/20 07:00 Giant Platelets Not Reportable 05/10/20 07:00 Platelet Satelliting Not Reportable 05/10/20 07:00 Plt Morphology Comment Not Reportable 05/10/20 07:00 RBC Morphology Not Reportable 05/10/20 07:00 Dimorphic RBCs Not Reportable 05/10/20 07:00 Polychromasia Not Reportable 05/10/20 07:00 Hypochromasia 1+ 05/10/20 07:00 Poikilocytosis Not Reportable 05/10/20 07:00 Anisocytosis Not Reportable 05/10/20 07:00 Microcytosis Not Reportable 05/10/20 07:00 Macrocytosis Not Reportable 05/10/20 07:00 Spherocytes Not Reportable 05/10/20 07:00 Pappenheimer Bodies Not Reportable 05/10/20 07:00 Sickle Cells Not Reportable 05/10/20 07:00 Target Cells Not Reportable 05/10/20 07:00 Tear Drop Cells Not Reportable 05/10/20 07:00 Ovalocytes Not Reportable 05/10/20 07:00 Helmet Cells Not Reportable 05/10/20 07:00 [place] Bodies Not Reportable 05/10/20 07:00 [place] Rings Not Reportable 05/10/20 07:00 [place] Cells Not Reportable 05/10/20 07:00 Bite Cells Not Reportable 05/10/20 07:00 Crenated Cell Not Reportable 05/10/20 07:00 Elliptocytes Not Reportable 05/10/20 07:00 Acanthocytes (Spur) Not Reportable 05/10/20 07:00 Rouleaux Not Reportable 05/10/20 07:00 Hemoglobin C Crystals Not Reportable 05/10/20 07:00 Schistocytes Few 05/10/20 07:00 Malaria parasites Not Reportable 05/10/20 07:00 [place] Bodies Not Reportable 05/10/20 07:00 Hem Pathologist Commnt No 05/10/20 07:00 PT 18.6 Sec. (12.2-14.9) H 05/08/20 09:15 INR 1.55 (0.87-1.13) H 05/08/20 09:15 APTT 210.9 Sec. (24.2-36.6) H* 05/05/20 13:35 D-Dimer Cancelled 05/07/20 06:30 Heparin Anti-Xa Level 0.36 U.I./ml (0.3-0.7) 05/07/20 06:30 ABG pH 7.409 pH Units (7.350-7.450) 05/05/20 09:10 ABG pCO2 16.7 mm Hg 05/05/20 09:10 ABG pO2 27.6 mm Hg (80.0-90.0) L* 05/05/20 09:10 ABG HCO3 10.3 mmol/L (20.0-26.0) L 05/05/20 09:10 ABG O2 Saturation 38.5 % (95.0-99.0) L 05/05/20 09:10 ABG O2 Content 3.6 (0.0-44) 05/05/20 09:10 ABG Base Excess -13.0 mmol/L (-2.0-3.0) L 05/05/20 09:10 ABG Hemoglobin 6.7 gm/dl (14.0-18.0) L 05/05/20 09:10 ABG Carboxyhemoglobin 1.0 % (0.0-5.0) 05/05/20 09:10 ABG Methemoglobin 0.8 % (0.0-1.5) 05/05/20 09:10 Oxyhemoglobin 37.9 % (95.0-99.0) L 05/05/20 09:10 FiO2 21 % 05/05/20 09:10 Sodium 135 mmol/L (137-145) L 05/15/20 04:45 Potassium 3.7 mmol/L (3.6-5.0) 05/15/20 04:45 Chloride 102.4 mmol/L (98-107) 05/15/20 04:45 Carbon Dioxide 28 mmol/L (22-30) 05/15/20 04:45 Anion Gap 8 mmol/L 05/15/20 04:45 BUN 11 mg/dL (9-20) 05/15/20 04:45 Creatinine 0.4 mg/dL (0.8-1.3) L 05/15/20 04:45 Estimated GFR > 60 ml/min 05/15/20 04:45 BUN/Creatinine Ratio 28 % 05/15/20 04:45 Glucose 91 mg/dL (75-100) 05/15/20 04:45 POC Glucose 85 mg/dL (70-105) 05/08/20 16:46 Lactic Acid 1.20 mmol/L (0.7-2.0) 05/06/20 03:30 Calcium 7.1 mg/dL (8.4-10.2) L 05/15/20 04:45 Magnesium 1.90 mg/dL (1.7-2.3) 05/15/20 04:45 Iron 61 ug/dL (49-181) 05/07/20 12:38 TIBC 169 mcg/dL (250-450) L 05/07/20 12:38 Ferritin 1831.0 ng/mL (30.0-300.0) H 05/07/20 12:38 Total Bilirubin 0.90 mg/dL (0.1-1.2) 05/11/20 09:11 Direct Bilirubin 0.4 mg/dL (0-0.2) H 05/05/20 10:17 Indirect Bilirubin 0.0 mg/dL 05/05/20 10:17 AST 35 units/L (5-40) 05/11/20 09:11 ALT 26 units/L (7-56) 05/11/20 09:11 Alkaline Phosphatase 348 units/L (35-129) H 05/11/20 09:11 Troponin T 0.056 ng/mL (0.00-0.029) H 05/05/20 08:10 Total Protein 5.1 g/dL (6.3-8.2) L 05/11/20 09:11 Albumin 1.6 g/dL (3.9-5) L 05/11/20 09:11 Albumin/Globulin Ratio 0.5 % 05/11/20 09:11 Triglycerides 231 mg/dL (2-149) H 05/05/20 08:10 Cholesterol 80 mg/dL (50-199) 05/05/20 08:10 LDL Cholesterol Direct 17 mg/dL (50-130) L 05/05/20 08:10 HDL Cholesterol 11 mg/dL (40-59) L 05/05/20 08:10 Cholesterol/HDL Ratio 7.27 % 05/05/20 08:10 Lipase 68 units/L (13-60) H 05/05/20 10:17 Tumor Marker AFP See scanned report 05/06/20 22:22 Vitamin B12 > 2000 pg/mL (211-911) H 05/07/20 12:39 Folate 7.19 ng/mL (7.3-26.0) L 05/07/20 12:39 TSH 12.770 mlU/mL (0.270-4.200) H 05/05/20 08:10 Thyroxine (T4) 7.4 ug/dL (4.0-12.0) 05/05/20 08:10 Free T3 Index 3.7 pg/mL (2.3-4.2) 05/05/20 08:10 Urine Color Yellow (Yellow) 05/05/20 Unknown Urine Turbidity Slightly-cloudy (Clear) 05/05/20 Unknown Urine pH 5.0 (5.0-7.0) 05/05/20 Unknown Ur Specific [place] 1.009 (1.003-1.030) 05/05/20 Unknown Urine Protein <15 mg/dl mg/dL (Negative) 05/05/20 Unknown Urine Glucose (UA) Neg mg/dL (Negative) 05/05/20 Unknown Urine Ketones Neg mg/dL (Negative) 05/05/20 Unknown Urine Blood Sm (Negative) 05/05/20 Unknown Urine Nitrite Pos (Negative) 05/05/20 Unknown Urine Bilirubin Neg (Negative) 05/05/20 Unknown Urine Urobilinogen < 2.0 mg/dL (<2.0) 05/05/20 Unknown Ur Leukocyte Esterase Neg (Negative) 05/05/20 Unknown Urine WBC (Auto) 13.0 /HPF (0.0-6.0) H 05/05/20 Unknown Urine RBC (Auto) 1.0 /HPF (0.0-6.0) 05/05/20 Unknown Urine Bacteria (Auto) 4+ /HPF (Negative) 05/05/20 Unknown Urine Mucus 3+ /HPF 05/05/20 Unknown Coronavirus (PCR) Negative (Negative) 05/06/20 10:02 Hepatitis A IgM Ab Non-reactive (NonReactive) 05/06/20 22:22 Hep Bs Antigen Non-reactive (Negative) 05/06/20 22:22 Hep B Core IgM Ab Non-reactive (NonReactive) 05/06/20 22:22 Hepatitis C Antibody Non-reactive (NonReactive) 05/06/20 22:22 Blood Type O POSITIVE 05/09/20 15:30 Antibody Screen Negative 05/09/20 15:30 Crossmatch See Detail 05/09/20 15:30 Microbiology: Microbiology 05/10/20 10:15 Peripheral/Venous Blood Culture - Final NO GROWTH AFTER 5 DAYS 05/14/20 15:01 Peripheral/Venous Blood Culture - Preliminary Culture in Progress 05/14/20 15:01 Peripheral/Venous Blood Culture - Preliminary Culture in Progress 05/10/20 10:15 Peripheral/Venous Blood Culture - Preliminary 05/07/20 Unknown Abdomen Surgical Culture - Final Escherichia Coli Escherichia Coli#2 - Diagnostic Impressions Diagnostic Impressions: Echocardiogram 05/05/20 13:01 Transthoracic Echocardiogram Indication: PE BP: 95/71 HR: 108 Conclusions *Global left ventricular systolic function is normal. *The estimated ejection fraction is 50-55%. *The right ventricle is mildly dilated. *The right ventricular global systolic function is normal. *There is mild mitral regurgitation. *There is mild tricuspid regurgitation. *The right ventricular systolic pressure is calculated at 32 mmHg. *There is trace pulmonic regurgitation. *The aortic valve is trileaflet. The leaflets are thin with normal excursion. There is no aortic stenosis or regurgitation present. Findings Left Ventricle: The left ventricular chamber size is normal. Global left ventricular systolic function is normal. The estimated ejection fraction is 50-55%. Abnormal left ventricular diastolic filling is observed, consistent with impaired relaxation. Left Atrium: The left atrial chamber size is normal. Right Ventricle: The right ventricle is mildly dilated. The right ventricular global systolic function is normal. Right Atrium: The right atrial cavity size is normal. Aortic Valve: The aortic valve is trileaflet. The leaflets are thin with normal excursion. There is no aortic stenosis or regurgitation present. The aortic valve structure is normal. Mitral Valve: The mitral valve leaflets are mildly thickened. There is mild mitral regurgitation. Tricuspid Valve: The tricuspid valve leaflets are normal. There is mild tricuspid regurgitation. The right ventricular systolic pressure is calculated at 32 mmHg. Pulmonic Valve: The pulmonic valve appears normal. There is trace pulmonic regurgitation. Pericardium: There is no pericardial effusion. Aorta: The aorta appears normal. Venous: The inferior vena cava appears normal. Measurements Chambers 2D Name Value Normal Range IVSd (2D) 1.09 cm (0.6 - 1.1) LVPWd (2D) 1.08 cm (0.6 - 1.1) LVIDd (2D) 4.78 cm (3.7 - 5.6) LVIDs (2D) 3.74 cm (2 - 3.8) LV FS (2D) 21.72 % - Ao root diameter (2D) 3.12 cm (2 - 3.7) Volumes/Mass Name Value Normal Range LA ESV SP 4CH (A/L) 35.91 ml - LA ESV SP 2CH (A/L) 41.54 ml - LA ESV BP (A/L) 38.98 ml - LA ESV BP (A/L) index 22.28 ml/m2 - LA ESV SP 4CH (MOD) 31.77 ml - LA ESV SP 2CH (MOD) 41.03 ml - LA ESV BP (MOD) 36.28 ml - LA ESV BP (MOD) index 20.73 ml/m2 - Diastolic/Systolic Function Name Value Normal Range MV E-wave Vmax 0.93 m/sec - MV deceleration time 148.87 msec - MV A-wave Vmax 0.58 m/sec - MV E:A ratio 1.59 ratio - Aortic Valve Name Value Normal Range AV Vmax 1.34 m/sec - AV VTI 21.39 cm - AV peak gradient 7.18 mmHg - AV mean gradient 4.09 mmHg - LVOT diameter 2.04 cm - LVOT Vmax 1.06 m/sec - LVOT VTI 17.75 cm - LVOT peak gradient 4.48 mmHg - LVOT mean gradient 2.8 mmHg - SV LVOT 58.19 ml - PAUL (continuity Vmax) 2.59 cm2 - PAUL (continuity VTI) 2.72 cm2 - Ascending Ao 3.02 cm - Mitral Valve Name Value Normal Range MR Vmax 4.21 m/sec - Tricuspid Valve Name Value Normal Range TR Vmax 2.7 m/sec - TR peak gradient 29 mmHg - RAP 3 mmHg - RVSP 32 mmHg - IVC diameter 1.45 cm (1.2 - 2.3) Pulmonic Valve/Qp:Qs Name Value Normal Range PV Vmax 0.82 m/sec - PV peak gradient 2.71 mmHg - AL end-diastolic Vmax 1.1 m/sec - PV acceleration time 87.54 msec - [place]/IV: Voiding Method Urinal Active Medications - Current Medications Current Medications: Generic Name Dose Route Start Last Admin Trade Name Freq PRN Reason Stop Dose Admin Acetaminophen 650 mg 05/07/20 14:23 05/14/20 20:25 Acetaminophen 325 Mg Tab PO 650 mg Q6H PRN Administration Fever >101 Hydromorphone HCl 2 mg 05/08/20 12:00 05/10/20 07:39 Hydromorphone 1 Mg/1 Ml Inj IV 2 mg Q3H PRN Administration Pain , Severe (7-10) Sodium Chloride 500 mls @ 50 mls/hr 05/14/20 14:00 Nacl 0.9% 500 Ml IV DIRECT RADHA MEROPENEM/NS 1 GRAM/100 ML 1 gram in 100 mls @ 100 mls/hr 05/14/20 14:00 05/15/20 06:03 Merrem/Ns 1 Gram/100 Ml IV 100 mls/hr Q6HR RADHA Administration Protocol Metoprolol Tartrate 2.5 mg 05/10/20 12:26 Metoprolol Tartrate 5 Mg/5 Ml Inj IV Q6HR PRN HR>120 Metoprolol Tartrate 25 mg 05/11/20 22:00 05/15/20 09:20 Metoprolol Tartrate 25 Mg Tab PO 25 mg BID RADHA Administration Oxycodone/Acetaminophen 1 tab 05/05/20 11:29 05/14/20 15:29 Oxycodone /Acetaminophen 5-325mg Tab PO 1 tab Q6H PRN Administration Pain, Moderate (4-6) Nutrition/Malnutrition Assess - Dietary Evaluation Nutrition/Malnutrition Findings: Nutrition Notes Start: 05/12/20 11:40 Freq: Status: Active Protocol: Document 05/12/20 11:40 AL (Rec: 05/12/20 12:00 AL [id number]) Co-Sign 05/12/20 11:40 LP Nutrition Notes Need for Assessment generated from: LOS Initial or Follow up Brief Note Current Diagnosis Sepsis Other Pertinent Diagnosis SOB, Liver abcess, Pneumonia, ANemia, UTI Current Diet Regular Diet [place] Body Weight (kg) 0 Weight Status Overweight Subjective/Other Information Pt is a LOS. Pt reported eating 50% of breakfast because it was "too early" and ate 100% of dinner last night . Pt says appetite is good and has no need for ONS. Burn Absent Trauma Absent GI Symptoms None Current % PO Good (75-100%) Minimum of two criteria No physical signs of malnutrition #1 Nutrition Diagnosis No nutrition diagnosis at this time Nutrition Intervention Change Diet Order: Continue Regular diet Anticipated Discharge Needs: Regular diet Revisit per MD consult or patient Sign Off request:
[2020-05-16] MEDS: MEROPENEM/NS 1 GRAM/100 ML 1 GRAM/100 ML BAG IV SCH ×5 (00:38→23:30)
[2020-05-16] MEDS: diphenhydrAMINE 50 MG/ML VIAL IV PRN (02:37)
[2020-05-16] MEDS: METOPROLOL TARTRATE 25 MG TAB PO SCH ×2 (10:51→21:55)
--- NOTE | 2020-05-16 11:30 | Progress Note ---
Assessment and Plan Assessment and plan: 44-year-old male with no significant past medical history presented to the emergency department with complaints of shortness of breath for the last 3 weeks. Shortness of breath is progressively worse and making to present to the emergency department this morning. Patient said he has associated dry cough. Patient denied fever chills, night sweats. Patient denied contact with Covid patient. He denied any chest pain, palpitation or leg swelling. Patient was seen in the emergency department. In the emergency department test x-ray was done and showed bibasilar infiltrates, CTA chest was done and significant for blood clot suspected septic emboli and liver abscess. Patient was hypotensive was started with IV fluids and pressor support. I have discussed with vascular surgery and said the clot burden is minimal and does not need any intervention at this time. Interventional radiology will do drainage of the abscess once the patient is stable. Patient started with IV antibiotics. ID was consulted. Patient was requiring 4 L of oxygen and pulmonary consulted. Patient will be admitted to ICU. Septic shock now resolved. Patient was still having fever however until today. -Patient is on IV fluids, IV antibiotics, able to discontinue pressor support. -ID consulted Septic emboli-from liver -Antibiotics changed to Meropenem secondary to ESBL positively. At present afebrile. -Blood clot burden is minimal, no vascular intervention needed -Since Meropenem patient's fever curve is come down to 98. Patient's white count is come down as well -Previous plan was to consult surgery when patient had persistent fever. Patient had I&D from intervention radiology for liver abscess. Still possible failed attempt. Given the fact the patient was A febrile may be responding to Meropenem. Also surgical intervention will be much more invasive.. - order echo Acute respiratory failure with hypoxia-resolved oxygen has been weaned. Will wean down again today -Patient is on 3 L of oxygen continue to wean O2. -Could be due to septic emboli -Continue antibiotics for now Sinus tachycardia improved with low-dose Lopressor. Will titrate accordingly. Liver abscess -Continue with antibiotics for now -Abscess has been drained however patient had fever yesterday was considering need for surgical intervention. Anemia associated Thrombocytopenia patient transfused yesterday. H&H 8 and 23 hold heparin. Most likely secondary to severe sepsis. 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 Blood culture gr ew gram-positive rods, will follow identification -Patient is on IV heparin -Interventional radiology consulted for drainage of the liver abscess -Patient is still on pressors. Patient is off oxygen. 05/07/2020 -Patient had SVT yesterday afternoon and was given adenosine and amiodarone -Currently controlled, cardiology consult placed -IR will do drainage of the abscess 05/08/2020 -IR drained about 40 mL of purulent fluid from the liver and put a draining tube -Blood culture grew ESBL and ID is following the patient and change antibiotics to meropenem -Patient still have leukocytosis and fever -We will continue inpatient management 05/09/2020 Purulent exudate has decreased from draining Hospital course complicated by blood culture ESBL started on meropenem Patient is afebrile so far today. SVT has resolved pulse in the 90s. 05/10/2020 Patient today remains febrile at 101. Patient denied any pain. Able to eat felt well. No arthralgias myalgias. Discussed with patient about blood culture findings in English. Antibiotics has been changed to meropenem 05/11/2020. This is the first morning that patient has been afebrile. Patient denies pain denies arthralgias myalgias eating well. Hemoglobin hematocrit 8 and 24. 05/12: Patient today with worsening Leukocytosis, awaiting repeat CT scan to evaluate hepatic abscess. Based on this information a decision should be made if transfer is warranted. I have discussed and updated the spouse Iesha on the plan of care. I will also replace electrolytes and monitor. Continue abx for now. 05/13: Patient seen and examined, imaging study still showing multifocal hepatic Abscess. Discussed with the surgeon, I have contacted [facility] and they are reviewing as patient will need hepatobiliary surgeon, [facility] unable to accept. Hypokalemia, will replace AND ALSO Check Magnesium level. 05/14: Clinical stable continue to monitor. Per surgery as noted below. Spoke with Hepatobiliary surgeon Dr. Marrufo at [facility] yesterday. Details of patien t's condition discussed along with imaging findings and interventions thus far. Dr. Marrufo recommended continuing senior care abx for at least 6 weeks. He also recommended upsizing existing RUQ drain vs placing additional drain in larger abscess. States there is no role for hepatectomy until patient has failed nonsurgical treatment as surgery would be aggressive option. Transfer request closed. Discussed with Dr. Bird. He will reassess patient today for additional procedures. Will follow. Check am labs. 05/15: Patient had CT-guided drainage of hepatic abscess. Exchange of drain was done and additional drain placed. He remains afebrile this morning. Will transfer to surgical unit. Still with desaturation on room air currently on 2 L of oxygen and tolerating. Continue conservative management. Continue to monitor Hemoglobin. 05/16: Continue supportive care, monitor drains, check labs in am. Case management to begin to work on placement for 6 weeks of abx and repeat imaging studies as recommended. History Interval history: Patient seen and examined, resting comfortable, clinically improving Hospitalist Physical - Physical exam Narrative exam: General appearance: Present: no acute distress, well-nourished - EENT Eyes: PERRL, EOM intact ENT: hearing intact, clear oral mucosa Ears: bilateral: normal - Neck Neck: supple, normal ROM - Respiratory Respiratory effort: normal Respiratory: bilateral: CTA - Breasts Breasts: normal - Cardiovascular Rhythm: regular Heart Sounds: Present: S1 & S2. Absent: gallop, rub Extremities: pulses intact, No edema, normal color, Full ROM - Gastrointestinal General gastrointestinal: Present: soft, non-tender, non-distended, normal bowel sounds. MARCIAL Morales in pLACE - Genitourinary Male genitourinary: normal - Integumentary Integumentary: clear, warm, dry - Musculoskeletal Musculoskeletal: 1, strength equal bilaterally - Neurologic Neurologic: moves all extremities - Psychiatric Psychiatric: memory intact, appropriate mood/affect, intact judgment & insight - Constitutional Vitals: Temp Pulse Resp BP Pulse Ox 98.7 F 99 H 18 117/77 93 05/16/20 04:55 05/16/20 10:51 05/16/20 04:55 05/16/20 10:51 05/16/20 09:25 General appearance: Present: no acute distress, well-nourished HEART Score - HEART Score Troponin: Troponin T 0.056 ng/mL (0.00-0.029) H 05/05/20 08:10 Results - Labs CBC & Chem 7: 05/15/20 04:45 05/15/20 04:45 Labs: Laboratory Last Values WBC 13.7 K/mm3 (4.5-11.0) H 05/15/20 04:45 RBC 2.53 M/mm3 (3.65-5.03) L 05/15/20 04:45 Hgb 7.1 gm/dl (11.8-15.2) L 05/15/20 04:45 Hct 21.6 % (35.5-45.6) L 05/15/20 04:45 MCV 85 fl (84-94) 05/15/20 04:45 MCH 28 pg (28-32) 05/15/20 04:45 MCHC 33 % (32-34) 05/15/20 04:45 RDW 16.9 % (13.2-15.2) H 05/15/20 04:45 Plt Count 143 K/mm3 (140-440) 05/15/20 04:45 Lymph % (Auto) 7.1 % (13.4-35.0) L 05/12/20 05:26 [place] % (Auto) 2.9 % (0.0-7.3) 05/12/20 05:26 Eos % (Auto) 0.4 % (0.0-4.3) 05/12/20 05:26 Baso % (Auto) 0.1 % (0.0-1.8) 05/12/20 05:26 Lymph # (Auto) 1.2 K/mm3 (1.2-5.4) 05/12/20 05:26 [place] # (Auto) 0.5 K/mm3 (0.0-0.8) 05/12/20 05:26 Eos # (Auto) 0.1 K/mm3 (0.0-0.4) 05/12/20 05:26 Baso # (Auto) 0.0 K/mm3 (0.0-0.1) 05/12/20 05:26 Add Manual Diff Complete 05/10/20 07:00 Total Counted 100 05/10/20 07:00 Seg Neutrophils % 89.5 % (40.0-70.0) H 05/12/20 05:26 Seg Neuts % (Manual) 99.0 % (40.0-70.0) H 05/10/20 07:00 Band Neutrophils % 1.0 % 05/07/20 06:30 Lymphocytes % (Manual) 2.0 % (13.4-35.0) L 05/08/20 06:00 Monocytes % (Manual) 1.0 % (0.0-7.3) 05/10/20 07:00 Promyelocytes % 0 % 05/05/20 08:10 Nucleated RBC % 1.0 % (0.0-0.9) H 05/10/20 07:00 Seg Neutrophils # 15.3 K/mm3 (1.8-7.7) H 05/12/20 05:26 Seg Neutrophils # Man 11.7 K/mm3 (1.8-7.7) H 05/10/20 07:00 Band Neutrophils # 0.0 K/mm3 05/10/20 07:00 Lymphocytes # (Manual) 0.0 K/mm3 (1.2-5.4) L 05/10/20 07:00 Abs React Lymphs (Man) 0.0 K/mm3 05/10/20 07:00 Monocytes # (Manual) 0.1 K/mm3 (0.0-0.8) 05/10/20 07:00 Eosinophils # (Manual) 0.0 K/mm3 (0.0-0.4) 05/10/20 07:00 Basophils # (Manual) 0.0 K/mm3 (0.0-0.1) 05/10/20 07:00 Metamyelocytes # 0.0 K/mm3 05/10/20 07:00 Myelocytes # 0.0 K/mm3 05/10/20 07:00 Promyelocytes # 0.0 K/mm3 05/10/20 07:00 Blast Cells # 0.0 K/mm3 05/10/20 07:00 WBC Morphology Not Reportable 05/10/20 07:00 Hypersegmented Neuts Not Reportable 05/10/20 07:00 Hyposegmented Neuts Not Reportable 05/10/20 07:00 Hypogranular Neuts Not Reportable 05/10/20 07:00 Smudge Cells Not Reportable 05/10/20 07:00 Toxic Granulation Not Reportable 05/10/20 07:00 Toxic Vacuolation Not Reportable 05/10/20 07:00 Dohle Bodies Not Reportable 05/10/20 07:00 Pelger-Huet Anomaly Not Reportable 05/10/20 07:00 [place] Rods Not Reportable 05/10/20 07:00 Platelet Estimate Consistent w auto 05/10/20 07:00 Clumped Platelets Not Reportable 05/10/20 07:00 Plt Clumps, EDTA Not Reportable 05/10/20 07:00 Large Platelets Not Reportable 05/10/20 07:00 Giant Platelets Not Reportable 05/10/20 07:00 Platelet Satelliting Not Reportable 05/10/20 07:00 Plt Morphology Comment Not Reportable 05/10/20 07:00 RBC Morphology Not Reportable 05/10/20 07:00 Dimorphic RBCs Not Reportable 05/10/20 07:00 Polychromasia Not Reportable 05/10/20 07:00 Hypochromasia 1+ 05/10/20 07:00 Poikilocytosis Not Reportable 05/10/20 07:00 Anisocytosis Not Reportable 05/10/20 07:00 Microcytosis Not Reportable 05/10/20 07:00 Macrocytosis Not Reportable 05/10/20 07:00 Spherocytes Not Reportable 05/10/20 07:00 Pappenheimer Bodies Not Reportable 05/10/20 07:00 Sickle Cells Not Reportable 05/10/20 07:00 Target Cells Not Reportable 05/10/20 07:00 Tear Drop Cells Not Reportable 05/10/20 07:00 Ovalocytes Not Reportable 05/10/20 07:00 Helmet Cells Not Reportable 05/10/20 07:00 [place] Bodies Not Reportable 05/10/20 07:00 [place] Rings Not Reportable 05/10/20 07:00 [place] Cells Not Reportable 05/10/20 07:00 Bite Cells Not Reportable 05/10/20 07:00 Crenated Cell Not Reportable 05/10/20 07:00 Elliptocytes Not Reportable 05/10/20 07:00 Acanthocytes (Spur) Not Reportable 05/10/20 07:00 Rouleaux Not Reportable 05/10/20 07:00 Hemoglobin C Crystals Not Reportable 05/10/20 07:00 Schistocytes Few 05/10/20 07:00 Malaria parasites Not Reportable 05/10/20 07:00 [place] Bodies Not Reportable 05/10/20 07:00 Hem Pathologist Commnt No 05/10/20 07:00 PT 18.6 Sec. (12.2-14.9) H 05/08/20 09:15 INR 1.55 (0.87-1.13) H 05/08/20 09:15 APTT 210.9 Sec. (24.2-36.6) H* 05/05/20 13:35 D-Dimer Cancelled 05/07/20 06:30 Heparin Anti-Xa Level 0.36 U.I./ml (0.3-0.7) 05/07/20 06:30 ABG pH 7.409 pH Units (7.350-7.450) 05/05/20 09:10 ABG pCO2 16.7 mm Hg 05/05/20 09:10 ABG pO2 27.6 mm Hg (80.0-90.0) L* 05/05/20 09:10 ABG HCO3 10.3 mmol/L (20.0-26.0) L 05/05/20 09:10 ABG O2 Saturation 38.5 % (95.0-99.0) L 05/05/20 09:10 ABG O2 Content 3.6 (0.0-44) 05/05/20 09:10 ABG Base Excess -13.0 mmol/L (-2.0-3.0) L 05/05/20 09:10 ABG Hemoglobin 6.7 gm/dl (14.0-18.0) L 05/05/20 09:10 ABG Carboxyhemoglobin 1.0 % (0.0-5.0) 05/05/20 09:10 ABG Methemoglobin 0.8 % (0.0-1.5) 05/05/20 09:10 Oxyhemoglobin 37.9 % (95.0-99.0) L 05/05/20 09:10 FiO2 21 % 05/05/20 09:10 Sodium 135 mmol/L (137-145) L 05/15/20 04:45 Potassium 3.7 mmol/L (3.6-5.0) 05/15/20 04:45 Chloride 102.4 mmol/L (98-107) 05/15/20 04:45 Carbon Dioxide 28 mmol/L (22-30) 05/15/20 04:45 Anion Gap 8 mmol/L 05/15/20 04:45 BUN 11 mg/dL (9-20) 05/15/20 04:45 Creatinine 0.4 mg/dL (0.8-1.3) L 05/15/20 04:45 Estimated GFR > 60 ml/min 05/15/20 04:45 BUN/Creatinine Ratio 28 % 05/15/20 04:45 Glucose 91 mg/dL (75-100) 05/15/20 04:45 POC Glucose 85 mg/dL (70-105) 05/08/20 16:46 Lactic Acid 1.20 mmol/L (0.7-2.0) 05/06/20 03:30 Calcium 7.1 mg/dL (8.4-10.2) L 05/15/20 04:45 Magnesium 1.90 mg/dL (1.7-2.3) 05/15/20 04:45 Iron 61 ug/dL (49-181) 05/07/20 12:38 TIBC 169 mcg/dL (250-450) L 05/07/20 12:38 Ferritin 1831.0 ng/mL (30.0-300.0) H 05/07/20 12:38 Total Bilirubin 0.90 mg/dL (0.1-1.2) 05/11/20 09:11 Direct Bilirubin 0.4 mg/dL (0-0.2) H 05/05/20 10:17 Indirect Bilirubin 0.0 mg/dL 05/05/20 10:17 AST 35 units/L (5-40) 05/11/20 09:11 ALT 26 units/L (7-56) 05/11/20 09:11 Alkaline Phosphatase 348 units/L (35-129) H 05/11/20 09:11 Troponin T 0.056 ng/mL (0.00-0.029) H 05/05/20 08:10 Total Protein 5.1 g/dL (6.3-8.2) L 05/11/20 09:11 Albumin 1.6 g/dL (3.9-5) L 05/11/20 09:11 Albumin/Globulin Ratio 0.5 % 05/11/20 09:11 Triglycerides 231 mg/dL (2-149) H 05/05/20 08:10 Cholesterol 80 mg/dL (50-199) 05/05/20 08:10 LDL Cholesterol Direct 17 mg/dL (50-130) L 05/05/20 08:10 HDL Cholesterol 11 mg/dL (40-59) L 05/05/20 08:10 Cholesterol/HDL Ratio 7.27 % 05/05/20 08:10 Lipase 68 units/L (13-60) H 05/05/20 10:17 Tumor Marker AFP See scanned report 05/06/20 22:22 Vitamin B12 > 2000 pg/mL (211-911) H 05/07/20 12:39 Folate 7.19 ng/mL (7.3-26.0) L 05/07/20 12:39 TSH 12.770 mlU/mL (0.270-4.200) H 05/05/20 08:10 Thyroxine (T4) 7.4 ug/dL (4.0-12.0) 05/05/20 08:10 Free T3 Index 3.7 pg/mL (2.3-4.2) 05/05/20 08:10 Urine Color Yellow (Yellow) 05/05/20 Unknown Urine Turbidity Slightly-cloudy (Clear) 05/05/20 Unknown Urine pH 5.0 (5.0-7.0) 05/05/20 Unknown Ur Specific [place] 1.009 (1.003-1.030) 05/05/20 Unknown Urine Protein <15 mg/dl mg/dL (Negative) 05/05/20 Unknown Urine Glucose (UA) Neg mg/dL (Negative) 05/05/20 Unknown Urine Ketones Neg mg/dL (Negative) 05/05/20 Unknown Urine Blood Sm (Negative) 05/05/20 Unknown Urine Nitrite Pos (Negative) 05/05/20 Unknown Urine Bilirubin Neg (Negative) 05/05/20 Unknown Urine Urobilinogen < 2.0 mg/dL (<2.0) 05/05/20 Unknown Ur Leukocyte Esterase Neg (Negative) 05/05/20 Unknown Urine WBC (Auto) 13.0 /HPF (0.0-6.0) H 05/05/20 Unknown Urine RBC (Auto) 1.0 /HPF (0.0-6.0) 05/05/20 Unknown Urine Bacteria (Auto) 4+ /HPF (Negative) 05/05/20 Unknown Urine Mucus 3+ /HPF 05/05/20 Unknown Coronavirus (PCR) Negative (Negative) 05/06/20 10:02 Hepatitis A IgM Ab Non-reactive (NonReactive) 05/06/20 22:22 Hep Bs Antigen Non-reactive (Negative) 05/06/20 22:22 Hep B Core IgM Ab Non-reactive (NonReactive) 05/06/20 22:22 Hepatitis C Antibody Non-reactive (NonReactive) 05/06/20 22:22 Blood Type O POSITIVE 05/09/20 15:30 Antibody Screen Negative 05/09/20 15:30 Crossmatch See Detail 05/09/20 15:30 Microbiology: Microbiology 05/14/20 15:01 Peripheral/Venous Blood Culture - Preliminary NO GROWTH AFTER 24 HOURS 05/14/20 15:01 Peripheral/Venous Blood Culture - Preliminary NO GROWTH AFTER 24 HOURS 05/10/20 10:15 Peripheral/Venous Blood Culture - Preliminary 05/14/20 14:20 Abdomen Surgical Culture - Preliminary Gram Negative Kahlil 05/10/20 10:15 Peripheral/Venous Blood Culture - Final NO GROWTH AFTER 5 DAYS - Diagnostic Impressions Diagnostic Impressions: Echocardiogram 05/05/20 13:01 Transthoracic Echocardiogram Indication: PE BP: 95/71 HR: 108 Conclusions *Global left ventricular systolic function is normal. *The estimated ejection fraction is 50-55%. *The right ventricle is mildly dilated. *The right ventricular global systolic function is normal. *There is mild mitral regurgitation. *There is mild tricuspid regurgitation. *The right ventricular systolic pressure is calculated at 32 mmHg. *There is trace pulmonic regurgitation. *The aortic valve is trileaflet. The leaflets are thin with normal excursion. There is no aortic stenosis or regurgitation present. Findings Left Ventricle: The left ventricular chamber size is normal. Global left ventricular systolic function is normal. The estimated ejection fraction is 50-55%. Abnormal left ventricular diastolic filling is observed, consistent with impaired relaxation. Left Atrium: The left atrial chamber size is normal. Right Ventricle: The right ventricle is mildly dilated. The right ventricular global systolic function is normal. Right Atrium: The right atrial cavity size is normal. Aortic Valve: The aortic valve is trileaflet. The leaflets are thin with normal excursion. There is no aortic stenosis or regurgitation present. The aortic valve structure is normal. Mitral Valve: The mitral valve leaflets are mildly thickened. There is mild mitral regurgitation. Tricuspid Valve: The tricuspid valve leaflets are normal. There is mild tricuspid regurgitation. The right ventricular systolic pressure is calculated at 32 mmHg. Pulmonic Valve: The pulmonic valve appears normal. There is trace pulmonic regurgitation. Pericardium: There is no pericardial effusion. Aorta: The aorta appears normal. Venous: The inferior vena cava appears normal. Measurements Chambers 2D Name Value Normal Range IVSd (2D) 1.09 cm (0.6 - 1.1) LVPWd (2D) 1.08 cm (0.6 - 1.1) LVIDd (2D) 4.78 cm (3.7 - 5.6) LVIDs (2D) 3.74 cm (2 - 3.8) LV FS (2D) 21.72 % - Ao root diameter (2D) 3.12 cm (2 - 3.7) Volumes/Mass Name Value Normal Range LA ESV SP 4CH (A/L) 35.91 ml - LA ESV SP 2CH (A/L) 41.54 ml - LA ESV BP (A/L) 38.98 ml - LA ESV BP (A/L) index 22.28 ml/m2 - LA ESV SP 4CH (MOD) 31.77 ml - LA ESV SP 2CH (MOD) 41.03 ml - LA ESV BP (MOD) 36.28 ml - LA ESV BP (MOD) index 20.73 ml/m2 - Diastolic/Systolic Function Name Value Normal Range MV E-wave Vmax 0.93 m/sec - MV deceleration time 148.87 msec - MV A-wave Vmax 0.58 m/sec - MV E:A ratio 1.59 ratio - Aortic Valve Name Value Normal Range AV Vmax 1.34 m/sec - AV VTI 21.39 cm - AV peak gradient 7.18 mmHg - AV mean gradient 4.09 mmHg - LVOT diameter 2.04 cm - LVOT Vmax 1.06 m/sec - LVOT VTI 17.75 cm - LVOT peak gradient 4.48 mmHg - LVOT mean gradient 2.8 mmHg - SV LVOT 58.19 ml - PAUL (continuity Vmax) 2.59 cm2 - PAUL (continuity VTI) 2.72 cm2 - Ascending Ao 3.02 cm - Mitral Valve Name Value Normal Range MR Vmax 4.21 m/sec - Tricuspid Valve Name Value Normal Range TR Vmax 2.7 m/sec - TR peak gradient 29 mmHg - RAP 3 mmHg - RVSP 32 mmHg - IVC diameter 1.45 cm (1.2 - 2.3) Pulmonic Valve/Qp:Qs Name Value Normal Range PV Vmax 0.82 m/sec - PV peak gradient 2.71 mmHg - AR end-diastolic Vmax 1.1 m/sec - PV acceleration time 87.54 msec - [place]/IV: Voiding Method Urinal Active Medications - Current Medications Current Medications: Generic Name Dose Route Start Last Admin Trade Name Freq PRN Reason Stop Dose Admin Acetaminophen 650 mg 05/07/20 14:23 05/14/20 20:25 Acetaminophen 325 Mg Tab PO 650 mg Q6H PRN Administration Fever >101 Diphenhydramine HCl 25 mg 05/16/20 01:45 05/16/20 02:37 Diphenhydramine 50 Mg/Ml Vial IV 25 mg Q6H PRN Administration Itching Hydromorphone HCl 2 mg 05/08/20 12:00 05/10/20 07:39 Hydromorphone 1 Mg/1 Ml Inj IV 2 mg Q3H PRN Administration Pain , Severe (7-10) MEROPENEM/NS 1 GRAM/100 ML 1 gram in 100 mls @ 100 mls/hr 05/14/20 14:00 05/16/20 06:15 Merrem/Ns 1 Gram/100 Ml IV 100 mls/hr Q6HR RADHA Administration Protocol Metoprolol Tartrate 2.5 mg 05/10/20 12:26 Metoprolol Tartrate 5 Mg/5 Ml Inj IV Q6HR PRN HR>120 Metoprolol Tartrate 25 mg 05/11/20 22:00 05/16/20 10:51 Metoprolol Tartrate 25 Mg Tab PO 25 mg BID RADHA Administration Oxycodone/Acetaminophen 1 tab 05/05/20 11:29 05/14/20 15:29 Oxycodone /Acetaminophen 5-325mg Tab PO 1 tab Q6H PRN Administration Pain, Moderate (4-6) Nutrition/Malnutrition Assess - Dietary Evaluation Nutrition/Malnutrition Findings: Nutrition Notes Start: 05/12/20 11:40 Freq: Status: Active Protocol: Document 05/12/20 11:40 AL (Rec: 05/12/20 12:00 AL [id number]) Co-Sign 05/12/20 11:40 LP Nutrition Notes Need for Assessment generated from: LOS Initial or Follow up Brief Note Current Diagnosis Sepsis Other Pertinent Diagnosis SOB, Liver abcess, Pneumonia, ANemia, UTI Current Diet Regular Diet [place] Body Weight (kg) 0 Weight Status Overweight Subjective/Other Information Pt is a LOS. Pt reported eating 50% of breakfast because it was "too early" and ate 100% of dinner last night . Pt says appetite is good and has no need for ONS. Burn Absent Trauma Absent GI Symptoms None Current % PO Good (75-100%) Minimum of two criteria No physical signs of malnutrition #1 Nutrition Diagnosis No nutrition diagnosis at this time Nutrition Intervention Change Diet Order: Continue Regular diet Anticipated Discharge Needs: Regular diet Revisit per MD consult or patient Sign Off request:
[2020-05-17] MEDS: MEROPENEM/NS 1 GRAM/100 ML 1 GRAM/100 ML BAG IV SCH ×4 (06:09→23:56)
[2020-05-17 06:20] LABS: Hematocrit 21.8 % (35.5-45.6); Hemoglobin 7.4 gm/dl (11.8-15.2); Mean Corpuscular HGB Conc 34 % (32-34); Mean Corpuscular Volume 86 fl (84-94); Platelet Count 200 K/mm3 (140-440); Red Blood Count 2.55 M/mm3 (3.65-5.03); Red Cell Distribution Width 17.2 % (13.2-15.2)
[2020-05-17 06:35] LABS: BUN/Creatinine Ratio 12; Blood Urea Nitrogen 6 mg/dL (9-20); Calcium 7.5 mg/dL (8.4-10.2); Hemolysis Index 10
[2020-05-17] MEDS: METOPROLOL TARTRATE 25 MG TAB PO SCH ×2 (09:28→21:11)
[2020-05-17] MEDS ORDERED: SODIUM CHLORIDE 0.9% 500 ML IVPB IV ONE (11:00)
[2020-05-17] MEDS: DOCUSATE SODIUM 100 MG CAP PO SCH ×2 (11:25→21:11)
--- NOTE | 2020-05-17 12:13 | Progress Note ---
Assessment and Plan Assessment and plan: 44-year-old male with no significant past medical history presented to the emergency department with complaints of shortness of breath for the last 3 weeks. Shortness of breath is progressively worse and making to present to the emergency department this morning. Patient said he has associated dry cough. Patient denied fever chills, night sweats. Patient denied contact with Covid patient. He denied any chest pain, palpitation or leg swelling. Patient was seen in the emergency department. In the emergency department test x-ray was done and showed bibasilar infiltrates, CTA chest was done and significant for blood clot suspected septic emboli and liver abscess. Patient was hypotensive was started with IV fluids and pressor support. I have discussed with vascular surgery and said the clot burden is minimal and does not need any intervention at this time. Interventional radiology will do drainage of the abscess once the patient is stable. Patient started with IV antibiotics. ID was consulted. Patient was requiring 4 L of oxygen and pulmonary consulted. Patient will be admitted to ICU. Septic shock now resolved. Patient was still having fever however until today. -Patient is on IV fluids, IV antibiotics, able to discontinue pressor support. -ID consulted Septic emboli-from liver -Antibiotics changed to Meropenem secondary to ESBL positively. At present afebrile. -Blood clot burden is minimal, no vascular intervention needed -Since Meropenem patient's fever curve is come down to 98. Patient's white count is come down as well -Previous plan was to consult surgery when patient had persistent fever. Patient had I&D from intervention radiology for liver abscess. Still possible failed attempt. Given the fact the patient was A febrile may be responding to Meropenem. Also surgical intervention will be much more invasive.. - order echo Acute respiratory failure with hypoxia-resolved oxygen has been weaned. Will wean down again today -Patient is on 3 L of oxygen continue to wean O2. -Could be due to septic emboli -Continue antibiotics for now Sinus tachycardia improved with low-dose Lopressor. Will titrate accordingly. Liver abscess -Continue with antibiotics for now -Abscess has been drained however patient had fever yesterday was considering need for surgical intervention. Anemia associated Thrombocytopenia patient transfused yesterday. H&H 8 and 23 hold heparin. Most likely secondary to severe sepsis. 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 Blood culture gr ew gram-positive rods, will follow identification -Patient is on IV heparin -Interventional radiology consulted for drainage of the liver abscess -Patient is still on pressors. Patient is off oxygen. 05/07/2020 -Patient had SVT yesterday afternoon and was given adenosine and amiodarone -Currently controlled, cardiology consult placed -IR will do drainage of the abscess 05/08/2020 -IR drained about 40 mL of purulent fluid from the liver and put a draining tube -Blood culture grew ESBL and ID is following the patient and change antibiotics to meropenem -Patient still have leukocytosis and fever -We will continue inpatient management 05/09/2020 Purulent exudate has decreased from draining Hospital course complicated by blood culture ESBL started on meropenem Patient is afebrile so far today. SVT has resolved pulse in the 90s. 05/10/2020 Patient today remains febrile at 101. Patient denied any pain. Able to eat felt well. No arthralgias myalgias. Discussed with patient about blood culture findings in [place]. Antibiotics has been changed to meropenem 05/11/2020. This is the first morning that patient has been afebrile. Patient denies pain denies arthralgias myalgias eating well. Hemoglobin hematocrit 8 and 24. 05/12: Patient today with worsening Leukocytosis, awaiting repeat CT scan to evaluate hepatic abscess. Based on this information a decision should be made if transfer is warranted. I have discussed and updated the spouse Iesha on the plan of care. I will also replace electrolytes and monitor. Continue abx for now. 05/13: Patient seen and examined, imaging study still showing multifocal hepatic Abscess. Discussed with the surgeon, I have contacted [facility] and they are reviewing as patient will need hepatobiliary surgeon, [facility] unable to accept. Hypokalemia, will replace AND ALSO Check Magnesium level. 05/14: Clinical stable continue to monitor. Per surgery as noted below. Spoke with Hepatobiliary surgeon Dr. Marrufo at [facility] yesterday. Details of patien t's condition discussed along with imaging findings and interventions thus far. Dr. Marrufo recommended continuing residential abx for at least 6 weeks. He also recommended upsizing existing RUQ drain vs placing additional drain in larger abscess. States there is no role for hepatectomy until patient has failed nonsurgical treatment as surgery would be aggressive option. Transfer request closed. Discussed with Dr. Bird. He will reassess patient today for additional procedures. Will follow. Check am labs. 05/15: Patient had CT-guided drainage of hepatic abscess. Exchange of drain was done and additional drain placed. He remains afebrile this morning. Will transfer to surgical unit. Still with desaturation on room air currently on 2 L of oxygen and tolerating. Continue conservative management. Continue to monitor Hemoglobin. 05/16: Continue supportive care, monitor drains, check labs in am. Case management to begin to work on placement for 6 weeks of abx and repeat imaging studies as recommended. 05/17: Was intermittently confused earlier this am, but improving some this morning. Mild episode of Low BP, will give 500cc Bolus today and continue to monitor. awaiting placement for completion of antibiotics History Interval history: Patient seen and examined, resting comfortable, clinically improving Hospitalist Physical - Physical exam Narrative exam: General appearance: Present: no acute distress, well-nourished - EENT Eyes: PERRL, EOM intact ENT: hearing intact, clear oral mucosa Ears: bilateral: normal - Neck Neck: supple, normal ROM - Respiratory Respiratory effort: normal Respiratory: bilateral: CTA - Breasts Breasts: normal - Cardiovascular Rhythm: regular Heart Sounds: Present: S1 & S2. Absent: gallop, rub Extremities: pulses intact, No edema, normal color, Full ROM - Gastrointestinal General gastrointestinal: Present: soft, non-tender, non-distended, normal bowel sounds. MARCIAL drains in place - Genitourinary Male genitourinary: normal - Integumentary Integumentary: clear, warm, dry - Musculoskeletal Musculoskeletal: 1, strength equal bilaterally - Neurologic Neurologic: moves all extremities - Psychiatric Psychiatric: memory intact, appropriate mood/affect, intact judgment & insight - Constitutional Vitals: Temp Pulse Resp BP Pulse Ox 99.1 F 100 H 18 102/64 95 05/17/20 01:01 05/17/20 09:28 05/17/20 01:01 05/17/20 09:28 05/17/20 01:01 General appearance: Present: no acute distress, well-nourished HEART Score - HEART Score Troponin: Troponin T 0.056 ng/mL (0.00-0.029) H 05/05/20 08:10 Results - Labs CBC & Chem 7: 05/17/20 05:46 05/17/20 05:46 Labs: Laboratory Last Values WBC 11.3 K/mm3 (4.5-11.0) H 05/17/20 05:46 RBC 2.55 M/mm3 (3.65-5.03) L 05/17/20 05:46 Hgb 7.4 gm/dl (11.8-15.2) L 05/17/20 05:46 Hct 21.8 % (35.5-45.6) L 05/17/20 05:46 MCV 86 fl (84-94) 05/17/20 05:46 MCH 29 pg (28-32) 05/17/20 05:46 MCHC 34 % (32-34) 05/17/20 05:46 RDW 17.2 % (13.2-15.2) H 05/17/20 05:46 Plt Count 200 K/mm3 (140-440) 05/17/20 05:46 Lymph % (Auto) 7.1 % (13.4-35.0) L 05/12/20 05:26 [place] % (Auto) 2.9 % (0.0-7.3) 05/12/20 05:26 Eos % (Auto) 0.4 % (0.0-4.3) 05/12/20 05:26 Baso % (Auto) 0.1 % (0.0-1.8) 05/12/20 05:26 Lymph # (Auto) 1.2 K/mm3 (1.2-5.4) 05/12/20 05:26 [place] # (Auto) 0.5 K/mm3 (0.0-0.8) 05/12/20 05:26 Eos # (Auto) 0.1 K/mm3 (0.0-0.4) 05/12/20 05:26 Baso # (Auto) 0.0 K/mm3 (0.0-0.1) 05/12/20 05:26 Add Manual Diff Complete 05/10/20 07:00 Total Counted 100 05/10/20 07:00 Seg Neutrophils % 89.5 % (40.0-70.0) H 05/12/20 05:26 Seg Neuts % (Manual) 99.0 % (40.0-70.0) H 05/10/20 07:00 Band Neutrophils % 1.0 % 05/07/20 06:30 Lymphocytes % (Manual) 2.0 % (13.4-35.0) L 05/08/20 06:00 Monocytes % (Manual) 1.0 % (0.0-7.3) 05/10/20 07:00 Promyelocytes % 0 % 05/05/20 08:10 Nucleated RBC % 1.0 % (0.0-0.9) H 05/10/20 07:00 Seg Neutrophils # 15.3 K/mm3 (1.8-7.7) H 05/12/20 05:26 Seg Neutrophils # Man 11.7 K/mm3 (1.8-7.7) H 05/10/20 07:00 Band Neutrophils # 0.0 K/mm3 05/10/20 07:00 Lymphocytes # (Manual) 0.0 K/mm3 (1.2-5.4) L 05/10/20 07:00 Abs React Lymphs (Man) 0.0 K/mm3 05/10/20 07:00 Monocytes # (Manual) 0.1 K/mm3 (0.0-0.8) 05/10/20 07:00 Eosinophils # (Manual) 0.0 K/mm3 (0.0-0.4) 05/10/20 07:00 Basophils # (Manual) 0.0 K/mm3 (0.0-0.1) 05/10/20 07:00 Metamyelocytes # 0.0 K/mm3 05/10/20 07:00 Myelocytes # 0.0 K/mm3 05/10/20 07:00 Promyelocytes # 0.0 K/mm3 05/10/20 07:00 Blast Cells # 0.0 K/mm3 05/10/20 07:00 WBC Morphology Not Reportable 05/10/20 07:00 Hypersegmented Neuts Not Reportable 05/10/20 07:00 Hyposegmented Neuts Not Reportable 05/10/20 07:00 Hypogranular Neuts Not Reportable 05/10/20 07:00 Smudge Cells Not Reportable 05/10/20 07:00 Toxic Granulation Not Reportable 05/10/20 07:00 Toxic Vacuolation Not Reportable 05/10/20 07:00 Dohle Bodies Not Reportable 05/10/20 07:00 Pelger-Huet Anomaly Not Reportable 05/10/20 07:00 [place] Rods Not Reportable 05/10/20 07:00 Platelet Estimate Consistent w auto 05/10/20 07:00 Clumped Platelets Not Reportable 05/10/20 07:00 Plt Clumps, EDTA Not Reportable 05/10/20 07:00 Large Platelets Not Reportable 05/10/20 07:00 Giant Platelets Not Reportable 05/10/20 07:00 Platelet Satelliting Not Reportable 05/10/20 07:00 Plt Morphology Comment Not Reportable 05/10/20 07:00 RBC Morphology Not Reportable 05/10/20 07:00 Dimorphic RBCs Not Reportable 05/10/20 07:00 Polychromasia Not Reportable 05/10/20 07:00 Hypochromasia 1+ 05/10/20 07:00 Poikilocytosis Not Reportable 05/10/20 07:00 Anisocytosis Not Reportable 05/10/20 07:00 Microcytosis Not Reportable 05/10/20 07:00 Macrocytosis Not Reportable 05/10/20 07:00 Spherocytes Not Reportable 05/10/20 07:00 Pappenheimer Bodies Not Reportable 05/10/20 07:00 Sickle Cells Not Reportable 05/10/20 07:00 Target Cells Not Reportable 05/10/20 07:00 Tear Drop Cells Not Reportable 05/10/20 07:00 Ovalocytes Not Reportable 05/10/20 07:00 Helmet Cells Not Reportable 05/10/20 07:00 [place] Bodies Not Reportable 05/10/20 07:00 [place] Rings Not Reportable 05/10/20 07:00 [place] Cells Not Reportable 05/10/20 07:00 Bite Cells Not Reportable 05/10/20 07:00 Crenated Cell Not Reportable 05/10/20 07:00 Elliptocytes Not Reportable 05/10/20 07:00 Acanthocytes (Spur) Not Reportable 05/10/20 07:00 Rouleaux Not Reportable 05/10/20 07:00 Hemoglobin C Crystals Not Reportable 05/10/20 07:00 Schistocytes Few 05/10/20 07:00 Malaria parasites Not Reportable 05/10/20 07:00 Aristides Bodies Not Reportable 05/10/20 07:00 Hem Pathologist Commnt No 05/10/20 07:00 PT 18.6 Sec. (12.2-14.9) H 05/08/20 09:15 INR 1.55 (0.87-1.13) H 05/08/20 09:15 APTT 210.9 Sec. (24.2-36.6) H* 05/05/20 13:35 D-Dimer Cancelled 05/07/20 06:30 Heparin Anti-Xa Level 0.36 U.I./ml (0.3-0.7) 05/07/20 06:30 ABG pH 7.409 pH Units (7.350-7.450) 05/05/20 09:10 ABG pCO2 16.7 mm Hg 05/05/20 09:10 ABG pO2 27.6 mm Hg (80.0-90.0) L* 05/05/20 09:10 ABG HCO3 10.3 mmol/L (20.0-26.0) L 05/05/20 09:10 ABG O2 Saturation 38.5 % (95.0-99.0) L 05/05/20 09:10 ABG O2 Content 3.6 (0.0-44) 05/05/20 09:10 ABG Base Excess -13.0 mmol/L (-2.0-3.0) L 05/05/20 09:10 ABG Hemoglobin 6.7 gm/dl (14.0-18.0) L 05/05/20 09:10 ABG Carboxyhemoglobin 1.0 % (0.0-5.0) 05/05/20 09:10 ABG Methemoglobin 0.8 % (0.0-1.5) 05/05/20 09:10 Oxyhemoglobin 37.9 % (95.0-99.0) L 05/05/20 09:10 FiO2 21 % 05/05/20 09:10 Sodium 132 mmol/L (137-145) L 05/17/20 05:46 Potassium 3.8 mmol/L (3.6-5.0) 05/17/20 05:46 Chloride 100.3 mmol/L (98-107) 05/17/20 05:46 Carbon Dioxide 27 mmol/L (22-30) 05/17/20 05:46 Anion Gap 9 mmol/L 05/17/20 05:46 BUN 6 mg/dL (9-20) L 05/17/20 05:46 Creatinine 0.5 mg/dL (0.8-1.3) L 05/17/20 05:46 Estimated GFR > 60 ml/min 05/17/20 05:46 BUN/Creatinine Ratio 12 % 05/17/20 05:46 Glucose 93 mg/dL (75-100) 05/17/20 05:46 POC Glucose 85 mg/dL (70-105) 05/08/20 16:46 Lactic Acid 1.20 mmol/L (0.7-2.0) 05/06/20 03:30 Calcium 7.5 mg/dL (8.4-10.2) L 05/17/20 05:46 Magnesium 1.90 mg/dL (1.7-2.3) 05/15/20 04:45 Iron 61 ug/dL (49-181) 05/07/20 12:38 TIBC 169 mcg/dL (250-450) L 05/07/20 12:38 Ferritin 1831.0 ng/mL (30.0-300.0) H 05/07/20 12:38 Total Bilirubin 0.90 mg/dL (0.1-1.2) 05/11/20 09:11 Direct Bilirubin 0.4 mg/dL (0-0.2) H 05/05/20 10:17 Indirect Bilirubin 0.0 mg/dL 05/05/20 10:17 AST 35 units/L (5-40) 05/11/20 09:11 ALT 26 units/L (7-56) 05/11/20 09:11 Alkaline Phosphatase 348 units/L (35-129) H 05/11/20 09:11 Troponin T 0.056 ng/mL (0.00-0.029) H 05/05/20 08:10 Total Protein 5.1 g/dL (6.3-8.2) L 05/11/20 09:11 Albumin 1.6 g/dL (3.9-5) L 05/11/20 09:11 Albumin/Globulin Ratio 0.5 % 05/11/20 09:11 Triglycerides 231 mg/dL (2-149) H 05/05/20 08:10 Cholesterol 80 mg/dL (50-199) 05/05/20 08:10 LDL Cholesterol Direct 17 mg/dL (50-130) L 05/05/20 08:10 HDL Cholesterol 11 mg/dL (40-59) L 05/05/20 08:10 Cholesterol/HDL Ratio 7.27 % 05/05/20 08:10 Lipase 68 units/L (13-60) H 05/05/20 10:17 Tumor Marker AFP See scanned report 05/06/20 22:22 Vitamin B12 > 2000 pg/mL (211-911) H 05/07/20 12:39 Folate 7.19 ng/mL (7.3-26.0) L 05/07/20 12:39 TSH 12.770 mlU/mL (0.270-4.200) H 05/05/20 08:10 Thyroxine (T4) 7.4 ug/dL (4.0-12.0) 05/05/20 08:10 Free T3 Index 3.7 pg/mL (2.3-4.2) 05/05/20 08:10 Urine Color Yellow (Yellow) 05/05/20 Unknown Urine Turbidity Slightly-cloudy (Clear) 05/05/20 Unknown Urine pH 5.0 (5.0-7.0) 05/05/20 Unknown Ur Specific [place] 1.009 (1.003-1.030) 05/05/20 Unknown Urine Protein <15 mg/dl mg/dL (Negative) 05/05/20 Unknown Urine Glucose (UA) Neg mg/dL (Negative) 05/05/20 Unknown Urine Ketones Neg mg/dL (Negative) 05/05/20 Unknown Urine Blood Sm (Negative) 05/05/20 Unknown Urine Nitrite Pos (Negative) 05/05/20 Unknown Urine Bilirubin Neg (Negative) 05/05/20 Unknown Urine Urobilinogen < 2.0 mg/dL (<2.0) 05/05/20 Unknown Ur Leukocyte Esterase Neg (Negative) 05/05/20 Unknown Urine WBC (Auto) 13.0 /HPF (0.0-6.0) H 05/05/20 Unknown Urine RBC (Auto) 1.0 /HPF (0.0-6.0) 05/05/20 Unknown Urine Bacteria (Auto) 4+ /HPF (Negative) 05/05/20 Unknown Urine Mucus 3+ /HPF 05/05/20 Unknown Coronavirus (PCR) Negative (Negative) 05/06/20 10:02 Hepatitis A IgM Ab Non-reactive (NonReactive) 05/06/20 22:22 Hep Bs Antigen Non-reactive (Negative) 05/06/20 22:22 Hep B Core IgM Ab Non-reactive (NonReactive) 05/06/20 22:22 Hepatitis C Antibody Non-reactive (NonReactive) 05/06/20 22:22 Blood Type O POSITIVE 05/09/20 15:30 Antibody Screen Negative 05/09/20 15:30 Crossmatch See Detail 05/09/20 15:30 Microbiology: Microbiology 05/14/20 15:01 Peripheral/Venous Blood Culture - Preliminary NO GROWTH AFTER 48 HOURS 05/14/20 15:01 Peripheral/Venous Blood Culture - Preliminary NO GROWTH AFTER 48 HOURS 05/14/20 14:20 Abdomen Surgical Culture - Preliminary Escherichia Coli Escherichia Coli#2 - Diagnostic Impressions Diagnostic Impressions: Echocardiogram 05/05/20 13:01 Transthoracic Echocardiogram Indication: PE BP: 95/71 HR: 108 Conclusions *Global left ventricular systolic function is normal. *The estimated ejection fraction is 50-55%. *The right ventricle is mildly dilated. *The right ventricular global systolic function is normal. *There is mild mitral regurgitation. *There is mild tricuspid regurgitation. *The right ventricular systolic pressure is calculated at 32 mmHg. *There is trace pulmonic regurgitation. *The aortic valve is trileaflet. The leaflets are thin with normal excursion. There is no aortic stenosis or regurgitation present. Findings Left Ventricle: The left ventricular chamber size is normal. Global left ventricular systolic function is normal. The estimated ejection fraction is 50-55%. Abnormal left ventricular diastolic filling is observed, consistent with impaired relaxation. Left Atrium: The left atrial chamber size is normal. Right Ventricle: The right ventricle is mildly dilated. The right ventricular global systolic function is normal. Right Atrium: The right atrial cavity size is normal. Aortic Valve: The aortic valve is trileaflet. The leaflets are thin with normal excursion. There is no aortic stenosis or regurgitation present. The aortic valve structure is normal. Mitral Valve: The mitral valve leaflets are mildly thickened. There is mild mitral regurgitation. Tricuspid Valve: The tricuspid valve leaflets are normal. There is mild tricuspid regurgitation. The right ventricular systolic pressure is calculated at 32 mmHg. Pulmonic Valve: The pulmonic valve appears normal. There is trace pulmonic regurgitation. Pericardium: There is no pericardial effusion. Aorta: The aorta appears normal. Venous: The inferior vena cava appears normal. Measurements Chambers 2D Name Value Normal Range IVSd (2D) 1.09 cm (0.6 - 1.1) LVPWd (2D) 1.08 cm (0.6 - 1.1) LVIDd (2D) 4.78 cm (3.7 - 5.6) LVIDs (2D) 3.74 cm (2 - 3.8) LV FS (2D) 21.72 % - Ao root diameter (2D) 3.12 cm (2 - 3.7) Volumes/Mass Name Value Normal Range LA ESV SP 4CH (A/L) 35.91 ml - LA ESV SP 2CH (A/L) 41.54 ml - LA ESV BP (A/L) 38.98 ml - LA ESV BP (A/L) index 22.28 ml/m2 - LA ESV SP 4CH (MOD) 31.77 ml - LA ESV SP 2CH (MOD) 41.03 ml - LA ESV BP (MOD) 36.28 ml - LA ESV BP (MOD) index 20.73 ml/m2 - Diastolic/Systolic Function Name Value Normal Range MV E-wave Vmax 0.93 m/sec - MV deceleration time 148.87 msec - MV A-wave Vmax 0.58 m/sec - MV E:A ratio 1.59 ratio - Aortic Valve Name Value Normal Range AV Vmax 1.34 m/sec - AV VTI 21.39 cm - AV peak gradient 7.18 mmHg - AV mean gradient 4.09 mmHg - LVOT diameter 2.04 cm - LVOT Vmax 1.06 m/sec - LVOT VTI 17.75 cm - LVOT peak gradient 4.48 mmHg - LVOT mean gradient 2.8 mmHg - SV LVOT 58.19 ml - PAUL (continuity Vmax) 2.59 cm2 - PAUL (continuity VTI) 2.72 cm2 - Ascending Ao 3.02 cm - Mitral Valve Name Value Normal Range MR Vmax 4.21 m/sec - Tricuspid Valve Name Value Normal Range TR Vmax 2.7 m/sec - TR peak gradient 29 mmHg - RAP 3 mmHg - RVSP 32 mmHg - IVC diameter 1.45 cm (1.2 - 2.3) Pulmonic Valve/Qp:Qs Name Value Normal Range PV Vmax 0.82 m/sec - PV peak gradient 2.71 mmHg - UT end-diastolic Vmax 1.1 m/sec - PV acceleration time 87.54 msec - [place]/IV: Voiding Method Urinal Active Medications - Current Medications Current Medications: Generic Name Dose Route Start Last Admin Trade Name Freq PRN Reason Stop Dose Admin Acetaminophen 650 mg 05/07/20 14:23 05/14/20 20:25 Acetaminophen 325 Mg Tab PO 650 mg Q6H PRN Administration Fever >101 Diphenhydramine HCl 25 mg 05/16/20 01:45 05/16/20 02:37 Diphenhydramine 50 Mg/Ml Vial IV 25 mg Q6H PRN Administration Itching Docusate Sodium 100 mg 05/17/20 11:00 05/17/20 11:25 Docusate Sodium 100 Mg Cap PO 100 mg BID RADHA Administration Hydromorphone HCl 2 mg 05/08/20 12:00 05/10/20 07:39 Hydromorphone 1 Mg/1 Ml Inj IV 2 mg Q3H PRN Administration Pain , Severe (7-10) MEROPENEM/NS 1 GRAM/100 ML 1 gram in 100 mls @ 100 mls/hr 05/14/20 14:00 05/17/20 06:09 Merrem/Ns 1 Gram/100 Ml IV 100 mls/hr Q6HR RADHA Administration Protocol Metoprolol Tartrate 2.5 mg 05/10/20 12:26 Metoprolol Tartrate 5 Mg/5 Ml Inj IV Q6HR PRN HR>120 Metoprolol Tartrate 25 mg 05/11/20 22:00 05/17/20 09:28 Metoprolol Tartrate 25 Mg Tab PO Not Given BID RADHA Oxycodone/Acetaminophen 1 tab 05/05/20 11:29 05/14/20 15:29 Oxycodone /Acetaminophen 5-325mg Tab PO 1 tab Q6H PRN Administration Pain, Moderate (4-6) Nutrition/Malnutrition Assess - Dietary Evaluation Nutrition/Malnutrition Findings: Nutrition Notes Start: 05/12/20 11:40 Freq: Status: Active Protocol: Document 05/12/20 11:40 AL (Rec: 05/12/20 12:00 AL [id number]) Co-Sign 05/12/20 11:40 LP Nutrition Notes Need for Assessment generated from: LOS Initial or Follow up Brief Note Current Diagnosis Sepsis Other Pertinent Diagnosis SOB, Liver abcess, Pneumonia, ANemia, UTI Current Diet Regular Diet [place] Body Weight (kg) 0 Weight Status Overweight Subjective/Other Information Pt is a LOS. Pt reported eating 50% of breakfast because it was "too early" and ate 100% of dinner last night . Pt says appetite is good and has no need for ONS. Burn Absent Trauma Absent GI Symptoms None Current % PO Good (75-100%) Minimum of two criteria No physical signs of malnutrition #1 Nutrition Diagnosis No nutrition diagnosis at this time Nutrition Intervention Change Diet Order: Continue Regular diet Anticipated Discharge Needs: Regular diet [place]is[place] per MD consult or patient Sign Off request:
[2020-05-18] MEDS: diphenhydrAMINE 50 MG/ML VIAL IV PRN (00:23)
[2020-05-18] MEDS: DOCUSATE SODIUM 100 MG CAP PO SCH ×2 (08:49→21:55)
[2020-05-18] MEDS: METOPROLOL TARTRATE 25 MG TAB PO SCH ×2 (08:50→21:55)
--- NOTE | 2020-05-18 11:01 | Progress Note ---
Assessment and Plan Assessment and plan: 44-year-old male with no significant past medical history presented to the emergency department with complaints of shortness of breath for the last 3 weeks. Shortness of breath is progressively worse and making to present to the emergency department this morning. Patient said he has associated dry cough. Patient denied fever chills, night sweats. Patient denied contact with Covid patient. He denied any chest pain, palpitation or leg swelling. Patient was seen in the emergency department. In the emergency department test x-ray was done and showed bibasilar infiltrates, CTA chest was done and significant for blood clot suspected septic emboli and liver abscess. Patient was hypotensive was started with IV fluids and pressor support. I have discussed with vascular surgery and said the clot burden is minimal and does not need any intervention at this time. Interventional radiology will do drainage of the abscess once the patient is stable. Patient started with IV antibiotics. ID was consulted. Patient was requiring 4 L of oxygen and pulmonary consulted. Patient will be admitted to ICU. Septic shock now resolved. Patient was still having fever however until today. -Patient is on IV fluids, IV antibiotics, able to discontinue pressor support. -ID consulted Septic emboli-from liver -Antibiotics changed to Meropenem secondary to ESBL positively. At present afebrile. -Blood clot burden is minimal, no vascular intervention needed -Since Meropenem patient's fever curve is come down to 98. Patient's white count is come down as well -Previous plan was to consult surgery when patient had persistent fever. Patient had I&D from intervention radiology for liver abscess. Still possible failed attempt. Given the fact the patient was A febrile may be responding to Meropenem. Also surgical intervention will be much more invasive.. - order echo Acute respiratory failure with hypoxia-resolved oxygen has been weaned. Will wean down again today -Patient is on 3 L of oxygen continue to wean O2. -Could be due to septic emboli -Continue antibiotics for now Sinus tachycardia improved with low-dose Lopressor. Will titrate accordingly. Liver abscess -Continue with antibiotics for now -Abscess has been drained however patient had fever yesterday was considering need for surgical intervention. Anemia associated Thrombocytopenia patient transfused yesterday. H&H 8 and 23 hold heparin. Most likely secondary to severe sepsis. Severe protein calorie Malnutrition: Fagot Maker following 05/06/2020 -Septic shock, septic emboli to the lungs, primary source could be the liver, liver abscess -Patient is on IV Levaquin and Flagyl, ID consult appreciated. Blood culture gr ew gram-positive rods, will follow identification -Patient is on IV heparin -Interventional radiology consulted for drainage of the liver abscess -Patient is still on pressors. Patient is off oxygen. 05/07/2020 -Patient had SVT yesterday afternoon and was given adenosine and amiodarone -Currently controlled, cardiology consult placed -IR will do drainage of the abscess 05/08/2020 -IR drained about 40 mL of purulent fluid from the liver and put a draining tube -Blood culture grew ESBL and ID is following the patient and change antibiotics to meropenem -Patient still have leukocytosis and fever -We will continue inpatient management 05/09/2020 Purulent exudate has decreased from draining Hospital course complicated by blood culture ESBL started on meropenem Patient is afebrile so far today. SVT has resolved pulse in the 90s. 05/10/2020 Patient today remains febrile at 101. Patient denied any pain. Able to eat felt well. No arthralgias myalgias. Discussed with patient about blood culture findings in [place]. Antibiotics has been changed to meropenem 05/11/2020. This is the first morning that patient has been afebrile. Patient denies pain denies arthralgias myalgias eating well. Hemoglobin hematocrit 8 and 24. 05/12: Patient today with worsening Leukocytosis, awaiting repeat CT scan to evaluate hepatic abscess. Based on this information a decision should be made if transfer is warranted. I have discussed and updated the spouse Iesha on the plan of care. I will also replace electrolytes and monitor. Continue abx for now. 05/13: Patient seen and examined, imaging study still showing multifocal hepatic Abscess. Discussed with the surgeon, I have contacted [facility] and they are reviewing as patient will need hepatobiliary surgeon, [facility] unable to accept. Hypokalemia, will replace AND ALSO Check Magnesium level. 05/14: Clinical stable continue to monitor. Per surgery as noted below. Spoke with Hepatobiliary surgeon Dr. Marrufo at [facility] yesterday. Details of patien t's condition discussed along with imaging findings and interventions thus far. Dr. Marrufo recommended continuing retirement abx for at least 6 weeks. He also recommended upsizing existing RUQ drain vs placing additional drain in larger abscess. States there is no role for hepatectomy until patient has failed nonsurgical treatment as surgery would be aggressive option. Transfer request closed. Discussed with Dr. Bird. He will reassess patient today for additional procedures. Will follow. Check am labs. 05/15: Patient had CT-guided drainage of hepatic abscess. Exchange of drain was done and additional drain placed. He remains afebrile this morning. Will transfer to surgical unit. Still with desaturation on room air currently on 2 L of oxygen and tolerating. Continue conservative management. Continue to monitor Hemoglobin. 05/16: Continue supportive care, monitor drains, check labs in am. Case management to begin to work on placement for 6 weeks of abx and repeat imaging studies as recommended. 05/17: Was intermittently confused earlier this am, but improving some this morning. Mild episode of Low BP, will give 500cc Bolus today and continue to monitor. awaiting placement for completion of antibiotics 05/18: Patient with no confusion this am. Mr. Ellis has hepatobiliary abscess that is currently being managed with drainage. Initial attempt to transfer the patient to [facility] for hepatobiliary surgeon was not successful as the surgeon recommended 6 weeks of antibiotics and reevaluation. Case management is currently working on placement while completing antibiotic therapy as patient is uninsured. He gets intermittently confused for that reason I will check an ammonia level this morning otherwise continue monitoring. History Interval history: Patient seen and examined, resting comfortable, clinically improving, No new complaints. Hospitalist Physical - Physical exam Narrative exam: General appearance: Present: no acute distress, well-nourished - EENT Eyes: PERRL, EOM intact ENT: hearing intact, clear oral mucosa Ears: bilateral: normal - Neck Neck: supple, normal ROM - Respiratory Respiratory effort: normal Respiratory: bilateral: CTA - Breasts Breasts: normal - Cardiovascular Rhythm: regular Heart Sounds: Present: S1 & S2. Absent: gallop, rub Extremities: pulses intact, No edema, normal color, Full ROM - Gastrointestinal General gastrointestinal: Present: soft, non-tender, non-distended, normal bowel sounds. MARCIAL drains in place - Genitourinary Male genitourinary: normal - Integumentary Integumentary: clear, warm, dry - Musculoskeletal Musculoskeletal: 1, strength equal bilaterally - Neurologic Neurologic: moves all extremities - Psychiatric Psychiatric: memory intact, appropriate mood/affect, intact judgment & insight - Constitutional Vitals: Temp Pulse Resp BP Pulse Ox 98.2 F 99 H 18 101/72 97 05/18/20 08:20 05/18/20 08:50 05/18/20 08:20 05/18/20 08:50 05/18/20 08:20 General appearance: Present: no acute distress, well-nourished HEART Score - HEART Score Troponin: Troponin T 0.056 ng/mL (0.00-0.029) H 05/05/20 08:10 Results - Labs CBC & Chem 7: 05/17/20 05:46 05/17/20 05:46 Labs: Laboratory Last Values WBC 11.3 K/mm3 (4.5-11.0) H 05/17/20 05:46 RBC 2.55 M/mm3 (3.65-5.03) L 05/17/20 05:46 Hgb 7.4 gm/dl (11.8-15.2) L 05/17/20 05:46 Hct 21.8 % (35.5-45.6) L 05/17/20 05:46 MCV 86 fl (84-94) 05/17/20 05:46 MCH 29 pg (28-32) 05/17/20 05:46 MCHC 34 % (32-34) 05/17/20 05:46 RDW 17.2 % (13.2-15.2) H 05/17/20 05:46 Plt Count 200 K/mm3 (140-440) 05/17/20 05:46 Lymph % (Auto) 7.1 % (13.4-35.0) L 05/12/20 05:26 Mobile % (Auto) 2.9 % (0.0-7.3) 05/12/20 05:26 Eos % (Auto) 0.4 % (0.0-4.3) 05/12/20 05:26 Baso % (Auto) 0.1 % (0.0-1.8) 05/12/20 05:26 Lymph # (Auto) 1.2 K/mm3 (1.2-5.4) 05/12/20 05:26 Mobile # (Auto) 0.5 K/mm3 (0.0-0.8) 05/12/20 05:26 Eos # (Auto) 0.1 K/mm3 (0.0-0.4) 05/12/20 05:26 Baso # (Auto) 0.0 K/mm3 (0.0-0.1) 05/12/20 05:26 Add Manual Diff Complete 05/10/20 07:00 Total Counted 100 05/10/20 07:00 Seg Neutrophils % 89.5 % (40.0-70.0) H 05/12/20 05:26 Seg Neuts % (Manual) 99.0 % (40.0-70.0) H 05/10/20 07:00 Band Neutrophils % 1.0 % 05/07/20 06:30 Lymphocytes % (Manual) 2.0 % (13.4-35.0) L 05/08/20 06:00 Monocytes % (Manual) 1.0 % (0.0-7.3) 05/10/20 07:00 Promyelocytes % 0 % 05/05/20 08:10 Nucleated RBC % 1.0 % (0.0-0.9) H 05/10/20 07:00 Seg Neutrophils # 15.3 K/mm3 (1.8-7.7) H 05/12/20 05:26 Seg Neutrophils # Man 11.7 K/mm3 (1.8-7.7) H 05/10/20 07:00 Band Neutrophils # 0.0 K/mm3 05/10/20 07:00 Lymphocytes # (Manual) 0.0 K/mm3 (1.2-5.4) L 05/10/20 07:00 Abs React Lymphs (Man) 0.0 K/mm3 05/10/20 07:00 Monocytes # (Manual) 0.1 K/mm3 (0.0-0.8) 05/10/20 07:00 Eosinophils # (Manual) 0.0 K/mm3 (0.0-0.4) 05/10/20 07:00 Basophils # (Manual) 0.0 K/mm3 (0.0-0.1) 05/10/20 07:00 Metamyelocytes # 0.0 K/mm3 05/10/20 07:00 Myelocytes # 0.0 K/mm3 05/10/20 07:00 Promyelocytes # 0.0 K/mm3 05/10/20 07:00 Blast Cells # 0.0 K/mm3 05/10/20 07:00 WBC Morphology Not Reportable 05/10/20 07:00 Hypersegmented Neuts Not Reportable 05/10/20 07:00 Hyposegmented Neuts Not Reportable 05/10/20 07:00 Hypogranular Neuts Not Reportable 05/10/20 07:00 Smudge Cells Not Reportable 05/10/20 07:00 Toxic Granulation Not Reportable 05/10/20 07:00 Toxic Vacuolation Not Reportable 05/10/20 07:00 Dohle Bodies Not Reportable 05/10/20 07:00 Pelger-Huet Anomaly Not Reportable 05/10/20 07:00 [place] Rods Not Reportable 05/10/20 07:00 Platelet Estimate Consistent w auto 05/10/20 07:00 Clumped Platelets Not Reportable 05/10/20 07:00 Plt Clumps, EDTA Not Reportable 05/10/20 07:00 Large Platelets Not Reportable 05/10/20 07:00 Giant Platelets Not Reportable 05/10/20 07:00 Platelet Satelliting Not Reportable 05/10/20 07:00 Plt Morphology Comment Not Reportable 05/10/20 07:00 RBC Morphology Not Reportable 05/10/20 07:00 Dimorphic RBCs Not Reportable 05/10/20 07:00 Polychromasia Not Reportable 05/10/20 07:00 Hypochromasia 1+ 05/10/20 07:00 Poikilocytosis Not Reportable 05/10/20 07:00 Anisocytosis Not Reportable 05/10/20 07:00 Microcytosis Not Reportable 05/10/20 07:00 Macrocytosis Not Reportable 05/10/20 07:00 Spherocytes Not Reportable 05/10/20 07:00 Pappenheimer Bodies Not Reportable 05/10/20 07:00 Sickle Cells Not Reportable 05/10/20 07:00 Target Cells Not Reportable 05/10/20 07:00 Tear Drop Cells Not Reportable 05/10/20 07:00 Ovalocytes Not Reportable 05/10/20 07:00 Helmet Cells Not Reportable 05/10/20 07:00 [place] Bodies Not Reportable 05/10/20 07:00 [place] Rings Not Reportable 05/10/20 07:00 [place] Cells Not Reportable 05/10/20 07:00 Bite Cells Not Reportable 05/10/20 07:00 Crenated Cell Not Reportable 05/10/20 07:00 Elliptocytes Not Reportable 05/10/20 07:00 Acanthocytes (Spur) Not Reportable 05/10/20 07:00 Rouleaux Not Reportable 05/10/20 07:00 Hemoglobin C Crystals Not Reportable 05/10/20 07:00 Schistocytes Few 05/10/20 07:00 Malaria parasites Not Reportable 05/10/20 07:00 Aristides Bodies Not Reportable 05/10/20 07:00 Hem Pathologist Commnt No 05/10/20 07:00 PT 18.6 Sec. (12.2-14.9) H 05/08/20 09:15 INR 1.55 (0.87-1.13) H 05/08/20 09:15 APTT 210.9 Sec. (24.2-36.6) H* 05/05/20 13:35 D-Dimer Cancelled 05/07/20 06:30 Heparin Anti-Xa Level 0.36 U.I./ml (0.3-0.7) 05/07/20 06:30 ABG pH 7.409 pH Units (7.350-7.450) 05/05/20 09:10 ABG pCO2 16.7 mm Hg 05/05/20 09:10 ABG pO2 27.6 mm Hg (80.0-90.0) L* 05/05/20 09:10 ABG HCO3 10.3 mmol/L (20.0-26.0) L 05/05/20 09:10 ABG O2 Saturation 38.5 % (95.0-99.0) L 05/05/20 09:10 ABG O2 Content 3.6 (0.0-44) 05/05/20 09:10 ABG Base Excess -13.0 mmol/L (-2.0-3.0) L 05/05/20 09:10 ABG Hemoglobin 6.7 gm/dl (14.0-18.0) L 05/05/20 09:10 ABG Carboxyhemoglobin 1.0 % (0.0-5.0) 05/05/20 09:10 ABG Methemoglobin 0.8 % (0.0-1.5) 05/05/20 09:10 Oxyhemoglobin 37.9 % (95.0-99.0) L 05/05/20 09:10 FiO2 21 % 05/05/20 09:10 Sodium 132 mmol/L (137-145) L 05/17/20 05:46 Potassium 3.8 mmol/L (3.6-5.0) 05/17/20 05:46 Chloride 100.3 mmol/L (98-107) 05/17/20 05:46 Carbon Dioxide 27 mmol/L (22-30) 05/17/20 05:46 Anion Gap 9 mmol/L 05/17/20 05:46 BUN 6 mg/dL (9-20) L 05/17/20 05:46 Creatinine 0.5 mg/dL (0.8-1.3) L 05/17/20 05:46 Estimated GFR > 60 ml/min 05/17/20 05:46 BUN/Creatinine Ratio 12 % 05/17/20 05:46 Glucose 93 mg/dL (75-100) 05/17/20 05:46 POC Glucose 85 mg/dL (70-105) 05/08/20 16:46 Lactic Acid 1.20 mmol/L (0.7-2.0) 05/06/20 03:30 Calcium 7.5 mg/dL (8.4-10.2) L 05/17/20 05:46 Magnesium 1.90 mg/dL (1.7-2.3) 05/15/20 04:45 Iron 61 ug/dL (49-181) 05/07/20 12:38 TIBC 169 mcg/dL (250-450) L 05/07/20 12:38 Ferritin 1831.0 ng/mL (30.0-300.0) H 05/07/20 12:38 Total Bilirubin 0.90 mg/dL (0.1-1.2) 05/11/20 09:11 Direct Bilirubin 0.4 mg/dL (0-0.2) H 05/05/20 10:17 Indirect Bilirubin 0.0 mg/dL 05/05/20 10:17 AST 35 units/L (5-40) 05/11/20 09:11 ALT 26 units/L (7-56) 05/11/20 09:11 Alkaline Phosphatase 348 units/L (35-129) H 05/11/20 09:11 Troponin T 0.056 ng/mL (0.00-0.029) H 05/05/20 08:10 Total Protein 5.1 g/dL (6.3-8.2) L 05/11/20 09:11 Albumin 1.6 g/dL (3.9-5) L 05/11/20 09:11 Albumin/Globulin Ratio 0.5 % 05/11/20 09:11 Triglycerides 231 mg/dL (2-149) H 05/05/20 08:10 Cholesterol 80 mg/dL (50-199) 05/05/20 08:10 LDL Cholesterol Direct 17 mg/dL (50-130) L 05/05/20 08:10 HDL Cholesterol 11 mg/dL (40-59) L 05/05/20 08:10 Cholesterol/HDL Ratio 7.27 % 05/05/20 08:10 Lipase 68 units/L (13-60) H 05/05/20 10:17 Tumor Marker AFP See scanned report 05/06/20 22:22 Vitamin B12 > 2000 pg/mL (211-911) H 05/07/20 12:39 Folate 7.19 ng/mL (7.3-26.0) L 05/07/20 12:39 TSH 12.770 mlU/mL (0.270-4.200) H 05/05/20 08:10 Thyroxine (T4) 7.4 ug/dL (4.0-12.0) 05/05/20 08:10 Free T3 Index 3.7 pg/mL (2.3-4.2) 05/05/20 08:10 Urine Color Yellow (Yellow) 05/05/20 Unknown Urine Turbidity Slightly-cloudy (Clear) 05/05/20 Unknown Urine pH 5.0 (5.0-7.0) 05/05/20 Unknown Ur Specific [place] 1.009 (1.003-1.030) 05/05/20 Unknown Urine Protein <15 mg/dl mg/dL (Negative) 05/05/20 Unknown Urine Glucose (UA) Neg mg/dL (Negative) 05/05/20 Unknown Urine Ketones Neg mg/dL (Negative) 05/05/20 Unknown Urine Blood Sm (Negative) 05/05/20 Unknown Urine Nitrite Pos (Negative) 05/05/20 Unknown Urine Bilirubin Neg (Negative) 05/05/20 Unknown Urine Urobilinogen < 2.0 mg/dL (<2.0) 05/05/20 Unknown Ur Leukocyte Esterase Neg (Negative) 05/05/20 Unknown Urine WBC (Auto) 13.0 /HPF (0.0-6.0) H 05/05/20 Unknown Urine RBC (Auto) 1.0 /HPF (0.0-6.0) 05/05/20 Unknown Urine Bacteria (Auto) 4+ /HPF (Negative) 05/05/20 Unknown Urine Mucus 3+ /HPF 05/05/20 Unknown Coronavirus (PCR) Negative (Negative) 05/06/20 10:02 Hepatitis A IgM Ab Non-reactive (NonReactive) 05/06/20 22:22 Hep Bs Antigen Non-reactive (Negative) 05/06/20 22:22 Hep B Core IgM Ab Non-reactive (NonReactive) 05/06/20 22:22 Hepatitis C Antibody Non-reactive (NonReactive) 05/06/20 22:22 Blood Type O POSITIVE 05/09/20 15:30 Antibody Screen Negative 05/09/20 15:30 Crossmatch See Detail 05/09/20 15:30 Microbiology: Microbiology 05/14/20 15:01 Peripheral/Venous Blood Culture - Preliminary NO GROWTH AFTER 72 HOURS 05/14/20 15:01 Peripheral/Venous Blood Culture - Preliminary NO GROWTH AFTER 72 HOURS 05/10/20 10:15 Peripheral/Venous Blood Culture - Preliminary 05/05/20 08:55 Peripheral/Venous Blood Culture - Final Escherichia Coli 05/14/20 14:20 Abdomen Surgical Culture - Final Escherichia Coli Escherichia Coli#2 - Diagnostic Impressions Diagnostic Impressions: Echocardiogram 05/05/20 13:01 Transthoracic Echocardiogram Indication: PE BP: 95/71 HR: 108 Conclusions *Global left ventricular systolic function is normal. *The estimated ejection fraction is 50-55%. *The right ventricle is mildly dilated. *The right ventricular global systolic function is normal. *There is mild mitral regurgitation. *There is mild tricuspid regurgitation. *The right ventricular systolic pressure is calculated at 32 mmHg. *There is trace pulmonic regurgitation. *The aortic valve is trileaflet. The leaflets are thin with normal excursion. There is no aortic stenosis or regurgitation present. Findings Left Ventricle: The left ventricular chamber size is normal. Global left ventricular systolic function is normal. The estimated ejection fraction is 50-55%. Abnormal left ventricular diastolic filling is observed, consistent with impaired relaxation. Left Atrium: The left atrial chamber size is normal. Right Ventricle: The right ventricle is mildly dilated. The right ventricular global systolic function is normal. Right Atrium: The right atrial cavity size is normal. Aortic Valve: The aortic valve is trileaflet. The leaflets are thin with normal excursion. There is no aortic stenosis or regurgitation present. The aortic valve structure is normal. Mitral Valve: The mitral valve leaflets are mildly thickened. There is mild mitral regurgitation. Tricuspid Valve: The tricuspid valve leaflets are normal. There is mild tricuspid regurgitation. The right ventricular systolic pressure is calculated at 32 mmHg. Pulmonic Valve: The pulmonic valve appears normal. There is trace pulmonic regurgitation. Pericardium: There is no pericardial effusion. Aorta: The aorta appears normal. Venous: The inferior vena cava appears normal. Measurements Chambers 2D Name Value Normal Range IVSd (2D) 1.09 cm (0.6 - 1.1) LVPWd (2D) 1.08 cm (0.6 - 1.1) LVIDd (2D) 4.78 cm (3.7 - 5.6) LVIDs (2D) 3.74 cm (2 - 3.8) LV FS (2D) 21.72 % - Ao root diameter (2D) 3.12 cm (2 - 3.7) Volumes/Mass Name Value Normal Range LA ESV SP 4CH (A/L) 35.91 ml - LA ESV SP 2CH (A/L) 41.54 ml - LA ESV BP (A/L) 38.98 ml - LA ESV BP (A/L) index 22.28 ml/m2 - LA ESV SP 4CH (MOD) 31.77 ml - LA ESV SP 2CH (MOD) 41.03 ml - LA ESV BP (MOD) 36.28 ml - LA ESV BP (MOD) index 20.73 ml/m2 - Diastolic/Systolic Function Name Value Normal Range MV E-wave Vmax 0.93 m/sec - MV deceleration time 148.87 msec - MV A-wave Vmax 0.58 m/sec - MV E:A ratio 1.59 ratio - Aortic Valve Name Value Normal Range AV Vmax 1.34 m/sec - AV VTI 21.39 cm - AV peak gradient 7.18 mmHg - AV mean gradient 4.09 mmHg - LVOT diameter 2.04 cm - LVOT Vmax 1.06 m/sec - LVOT VTI 17.75 cm - LVOT peak gradient 4.48 mmHg - LVOT mean gradient 2.8 mmHg - SV LVOT 58.19 ml - PAUL (continuity Vmax) 2.59 cm2 - PAUL (continuity VTI) 2.72 cm2 - Ascending Ao 3.02 cm - Mitral Valve Name Value Normal Range MR Vmax 4.21 m/sec - Tricuspid Valve Name Value Normal Range TR Vmax 2.7 m/sec - TR peak gradient 29 mmHg - RAP 3 mmHg - RVSP 32 mmHg - IVC diameter 1.45 cm (1.2 - 2.3) Pulmonic Valve/Qp:Qs Name Value Normal Range PV Vmax 0.82 m/sec - PV peak gradient 2.71 mmHg - MI end-diastolic Vmax 1.1 m/sec - PV acceleration time 87.54 msec - [place]/IV: Voiding Method Urinal Active Medications - Current Medications Current Medications: Generic Name Dose Route Start Last Admin Trade Name Indioq PRN Reason Stop Dose Admin Acetaminophen 650 mg 05/07/20 14:23 05/14/20 20:25 Acetaminophen 325 Mg Tab PO 650 mg Q6H PRN Administration Fever >101 Diphenhydramine HCl 25 mg 05/16/20 01:45 05/18/20 00:23 Diphenhydramine 50 Mg/Ml Vial IV 25 mg Q6H PRN Administration Itching Docusate Sodium 100 mg 05/17/20 11:00 05/18/20 08:49 Docusate Sodium 100 Mg Cap PO 100 mg BID RADHA Administration Hydromorphone HCl 2 mg 05/08/20 12:00 05/10/20 07:39 Hydromorphone 1 Mg/1 Ml Inj IV 2 mg Q3H PRN Administration Pain , Severe (7-10) MEROPENEM/NS 1 GRAM/100 ML 1 gram in 100 mls @ 100 mls/hr 05/14/20 14:00 03/09/30 23:56 Merrem/Ns 1 Gram/100 Ml IV 100 mls/hr Q6HR RADHA Administration Protocol Metoprolol Tartrate 2.5 mg 05/10/20 12:26 Metoprolol Tartrate 5 Mg/5 Ml Inj IV Q6HR PRN HR>120 Metoprolol Tartrate 25 mg 05/11/20 22:00 05/18/20 08:50 Metoprolol Tartrate 25 Mg Tab PO 25 mg BID RADHA Administration Oxycodone/Acetaminophen 1 tab 05/05/20 11:29 05/14/20 15:29 Oxycodone /Acetaminophen 5-325mg Tab PO 1 tab Q6H PRN Administration Pain, Moderate (4-6) Nutrition/Malnutrition Assess - Dietary Evaluation Nutrition/Malnutrition Findings: Nutrition Notes Start: 05/12/20 11:40 Freq: Status: Active Protocol: Document 05/12/20 11:40 AL (Rec: 05/12/20 12:00 AL [id number]) Co-Sign 05/12/20 11:40 LP Nutrition Notes Need for Assessment generated from: LOS Initial or Follow up Brief Note Current Diagnosis Sepsis Other Pertinent Diagnosis SOB, Liver abcess, Pneumonia, ANemia, UTI Current Diet Regular Diet Fowler Body Weight (kg) 0 Weight Status Overweight Subjective/Other Information Pt is a LOS. Pt reported eating 50% of breakfast because it was "too early" and ate 100% of dinner last night . Pt says appetite is good and has no need for ONS. Burn Absent Trauma Absent GI Symptoms None Current % PO Good (75-100%) Minimum of two criteria No physical signs of malnutrition #1 Nutrition Diagnosis No nutrition diagnosis at this time Nutrition Intervention Change Diet Order: Continue Regular diet Anticipated Discharge Needs: Regular diet Revisit per MD consult or patient Sign Off request:
[2020-05-18] MEDS: MEROPENEM/NS 1 GRAM/100 ML 1 GRAM/100 ML BAG IV SCH ×3 (13:17→18:07)
[2020-05-18] MEDS: oxyCODONE /ACETAMINOPHEN 5-325MG TAB PO PRN (13:57)
--- NOTE | 2020-05-18 13:57 | Progress Note ---
Assessment and Plan Cultures: 05/05/2020 blood culture: ESBL E. coli 05/07/2020 IR drainage culture: E. coli 05/10/2020 blood culture: GNR in 1 out of 4 bottles 05/14/2020 IR culture: E. coli 05/14/2020 blood culture: No growth A/P: 44 yo M no PMHx presents with liver abscess, PE, and septic emboli. #Acute sepsis with initial septic shock: Secondary to bacteremia and liver abscess #ESBL E. coli bacteremia: Secondary to liver abscess. #Large multiseptated liver abscess: CT showed a right hepatic multiseptated collection 7.3 x 6.3 x 7.9 cm. Status post IR drainage on 05/07/2020, 70 cc of purulent drained, cultures with E. coli. Appreciate Gen Surg assistance and discussion with Hepatobiliary Surgery. Plan for now is conservative management with drainage and IV abx. Underwent additional drain placement by interventional radiology on 05/14/2020. #Septic emboli: Echo without vegetations, though may be shedding bacteria from liver abscess causing lung seeding. Continue antibiotics #Acute hypoxemic respiratory failure #Acute PE: on anticoagulation. #Acute thrombocytopenia: probably from sepsis Recs: -PICC line ordered -OPAT orders placed for: IV ertapenem 1 g daily for 6 weeks ending 06/29/2020 -Continue IV meropenem while inpatient -drain management per MANA Garrett MD, FACP [facility] O: [phone] F: [phone] Subjective Date of service: 05/18/20 Principal diagnosis: Acute pulmonary embolism, liver abscess Interval history: No complaints. Feels well. Ambulating. Objective - Exam Narrative Exam: Physical Exam: Constitutional: Alert, cooperative. No acute distress Head, Ears, Nose: Normocephalic, atraumatic. External ears, nose normal Eyes: Conjunctivae/corneas clear. No icterus. No ptosis. Neck: Supple, no meningeal signs Cardiovascular: S1, S2 normal. Respiratory: Good air entry, clear to auscultation bilaterally GI: Soft, RUQ drains present; bowel sounds normal. No peritoneal signs Musculoskeletal: No pedal edema, no cyanosis. Skin: No rash or abscess Hem/Lymphatic: No palpable cervical or supraclavicular nodes. No lymphangitis Psych: Mood ok. Affect normal Neurological: Awake, alert, oriented. No gross abnormality - Constitutional Vitals: Vital Signs Temp Pulse Resp BP Pulse Ox 98.6 F 107 H 18 90/61 97 05/18/20 11:27 05/18/20 11:27 05/18/20 11:27 05/18/20 11:27 05/18/20 11:27 Temperature -Last 24 Hours Temperature 98.6 F Temperature 98.2 F Temperature 98.7 F Temperature 98.3 F Temperature 99.9 F - Labs CBC & Chem 7: 05/17/20 05:46 05/17/20 05:46
[2020-05-19] MEDS: MEROPENEM/NS 1 GRAM/100 ML 1 GRAM/100 ML BAG IV SCH ×3 (05:03→11:40)
[2020-05-19 05:28] LABS: Hematocrit 22.5 % (35.5-45.6); Hemoglobin 7.5 gm/dl (11.8-15.2); Mean Corpuscular HGB Conc 33 % (32-34); Mean Corpuscular Volume 87 fl (84-94); Platelet Count 277 K/mm3 (140-440); Red Cell Distribution Width 17.4 % (13.2-15.2)
[2020-05-19 05:48] LABS: Alanine Aminotransferase 17 units/L (7-56); Albumin 2.2 g/dL (3.9-5); Blood Urea Nitrogen 13 mg/dL (9-20); Calcium 7.9 mg/dL (8.4-10.2); Hemolysis Index 0
[2020-05-19 05:52] LABS: BUN/Creatinine Ratio 26
[2020-05-19] MEDS: oxyCODONE /ACETAMINOPHEN 5-325MG TAB PO PRN (06:15)
--- NOTE | 2020-05-19 10:13 | Progress Note ---
Assessment and Plan Assessment and plan: 44-year-old male with no significant past medical history presented to the emergency department with complaints of shortness of breath for the last 3 weeks. Shortness of breath is progressively worse and making to present to the emergency department this morning. Patient said he has associated dry cough. Patient denied fever chills, night sweats. Patient denied contact with Covid patient. He denied any chest pain, palpitation or leg swelling. Patient was seen in the emergency department. In the emergency department test x-ray was done and showed bibasilar infiltrates, CTA chest was done and significant for blood clot suspected septic emboli and liver abscess. Patient was hypotensive was started with IV fluids and pressor support. I have discussed with vascular surgery and said the clot burden is minimal and does not need any intervention at this time. Interventional radiology will do drainage of the abscess once the patient is stable. Patient started with IV antibiotics. ID pulmonary IR following --Sepsis with septic shock now resolved; Secondary to bacteremia and liver abscess --Septic emboli-from liver; Echo no evidence of vegetation --ESBL bacteremia; due to liver abscess ID following, continue meropenem May be switched to ertapenem upon discharge Total 6 weeks duration per ID Management will set up home antibiotics --Liver abscess; status post I&D/drainage per IR on 05/07/2020 Surgery discussed with hepatobiliary surgery Recommend conservative management with drainage and IV antibiotics Second drain placement on 05/14/2020 per IR --Acute respiratory failure with hypoxia; requiring supplemental oxygen Resolved, patient is on room air O2 sats saturating well above 95% --Acute PE; --Sinus tachycardia improved with low-dose Lopressor. Will titrate accordingly. --Anemia associated Thrombocytopenia patient transfused yesterday. H&H 8 and 23 hold heparin. Most likely secondary to severe sepsis. 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 Closely monitor the patient and adjust the management as needed Plan of care reviewed with the patient and his nurse History Interval history: I have seen and examined the patient at the bedside Patient's chart and medications reviewed Patient has no new complaints Vital signs reviewed Hospitalist Physical - Constitutional Vitals: Temp Pulse Resp BP Pulse Ox 98.6 F 103 H 16 90/56 98 05/19/20 07:16 05/19/20 07:16 05/19/20 07:16 05/19/20 07:16 05/19/20 07:16 General appearance: Present: no acute distress, well-nourished - EENT Eyes: Present: PERRL, EOM intact - Neck Neck: Present: supple, normal ROM - Respiratory Respiratory effort: normal Respiratory: bilateral: diminished, negative: rales, rhonchi, wheezing - Cardiovascular Rhythm: regular Heart Sounds: Present: S1 & S2 - Extremities Extremities: no ischemia, No edema - Abdominal General gastrointestinal: soft, non-tender, mass (Liver), other (Drains in place ,draining) - Integumentary Integumentary: Present: clear, warm - Psychiatric Psychiatric: appropriate mood/affect, cooperative - Neurologic Neurologic: CNII-XII intact, moves all extremities HEART Score - HEART Score Troponin: Troponin T 0.056 ng/mL (0.00-0.029) H 05/05/20 08:10 Results - Labs CBC & Chem 7: 05/19/20 05:05 05/19/20 05:05 Labs: Laboratory Last Values WBC 10.1 K/mm3 (4.5-11.0) 05/19/20 05:05 RBC 2.60 M/mm3 (3.65-5.03) L 05/19/20 05:05 Hgb 7.5 gm/dl (11.8-15.2) L 05/19/20 05:05 Hct 22.5 % (35.5-45.6) L 05/19/20 05:05 MCV 87 fl (84-94) 05/19/20 05:05 MCH 29 pg (28-32) 05/19/20 05:05 MCHC 33 % (32-34) 05/19/20 05:05 RDW 17.4 % (13.2-15.2) H 05/19/20 05:05 Plt Count 277 K/mm3 (140-440) 05/19/20 05:05 Lymph % (Auto) 7.1 % (13.4-35.0) L 05/12/20 05:26 Gibson % (Auto) 2.9 % (0.0-7.3) 05/12/20 05:26 Eos % (Auto) 0.4 % (0.0-4.3) 05/12/20 05:26 Baso % (Auto) 0.1 % (0.0-1.8) 05/12/20 05:26 Lymph # (Auto) 1.2 K/mm3 (1.2-5.4) 05/12/20 05:26 Gibson # (Auto) 0.5 K/mm3 (0.0-0.8) 05/12/20 05:26 Eos # (Auto) 0.1 K/mm3 (0.0-0.4) 05/12/20 05:26 Baso # (Auto) 0.0 K/mm3 (0.0-0.1) 05/12/20 05:26 Add Manual Diff Complete 05/10/20 07:00 Total Counted 100 05/10/20 07:00 Seg Neutrophils % 89.5 % (40.0-70.0) H 05/12/20 05:26 Seg Neuts % (Manual) 99.0 % (40.0-70.0) H 05/10/20 07:00 Band Neutrophils % 1.0 % 05/07/20 06:30 Lymphocytes % (Manual) 2.0 % (13.4-35.0) L 05/08/20 06:00 Monocytes % (Manual) 1.0 % (0.0-7.3) 05/10/20 07:00 Promyelocytes % 0 % 05/05/20 08:10 Nucleated RBC % 1.0 % (0.0-0.9) H 05/10/20 07:00 Seg Neutrophils # 15.3 K/mm3 (1.8-7.7) H 05/12/20 05:26 Seg Neutrophils # Man 11.7 K/mm3 (1.8-7.7) H 05/10/20 07:00 Band Neutrophils # 0.0 K/mm3 05/10/20 07:00 Lymphocytes # (Manual) 0.0 K/mm3 (1.2-5.4) L 05/10/20 07:00 Abs React Lymphs (Man) 0.0 K/mm3 05/10/20 07:00 Monocytes # (Manual) 0.1 K/mm3 (0.0-0.8) 05/10/20 07:00 Eosinophils # (Manual) 0.0 K/mm3 (0.0-0.4) 05/10/20 07:00 Basophils # (Manual) 0.0 K/mm3 (0.0-0.1) 05/10/20 07:00 Metamyelocytes # 0.0 K/mm3 05/10/20 07:00 Myelocytes # 0.0 K/mm3 05/10/20 07:00 Promyelocytes # 0.0 K/mm3 05/10/20 07:00 Blast Cells # 0.0 K/mm3 05/10/20 07:00 WBC Morphology Not Reportable 05/10/20 07:00 Hypersegmented Neuts Not Reportable 05/10/20 07:00 Hyposegmented Neuts Not Reportable 05/10/20 07:00 Hypogranular Neuts Not Reportable 05/10/20 07:00 Smudge Cells Not Reportable 05/10/20 07:00 Toxic Granulation Not Reportable 05/10/20 07:00 Toxic Vacuolation Not Reportable 05/10/20 07:00 Dohle Bodies Not Reportable 05/10/20 07:00 Pelger-Huet Anomaly Not Reportable 05/10/20 07:00 [place] Rods Not Reportable 05/10/20 07:00 Platelet Estimate Consistent w auto 05/10/20 07:00 Clumped Platelets Not Reportable 05/10/20 07:00 Plt Clumps, EDTA Not Reportable 05/10/20 07:00 Large Platelets Not Reportable 05/10/20 07:00 Giant Platelets Not Reportable 05/10/20 07:00 Platelet Satelliting Not Reportable 05/10/20 07:00 Plt Morphology Comment Not Reportable 05/10/20 07:00 RBC Morphology Not Reportable 05/10/20 07:00 Dimorphic RBCs Not Reportable 05/10/20 07:00 Polychromasia Not Reportable 05/10/20 07:00 Hypochromasia 1+ 05/10/20 07:00 Poikilocytosis Not Reportable 05/10/20 07:00 Anisocytosis Not Reportable 05/10/20 07:00 Microcytosis Not Reportable 05/10/20 07:00 Macrocytosis Not Reportable 05/10/20 07:00 Spherocytes Not Reportable 05/10/20 07:00 Pappenheimer Bodies Not Reportable 05/10/20 07:00 Sickle Cells Not Reportable 05/10/20 07:00 Target Cells Not Reportable 05/10/20 07:00 Tear Drop Cells Not Reportable 05/10/20 07:00 Ovalocytes Not Reportable 05/10/20 07:00 Helmet Cells Not Reportable 05/10/20 07:00 [place] Bodies Not Reportable 05/10/20 07:00 [place] Rings Not Reportable 05/10/20 07:00 Mami Cells Not Reportable 05/10/20 07:00 Bite Cells Not Reportable 05/10/20 07:00 Crenated Cell Not Reportable 05/10/20 07:00 Elliptocytes Not Reportable 05/10/20 07:00 Acanthocytes (Spur) Not Reportable 05/10/20 07:00 Rouleaux Not Reportable 05/10/20 07:00 Hemoglobin C Crystals Not Reportable 05/10/20 07:00 Schistocytes Few 05/10/20 07:00 Malaria parasites Not Reportable 05/10/20 07:00 Aristides Bodies Not Reportable 05/10/20 07:00 Hem Pathologist Commnt No 05/10/20 07:00 PT 18.6 Sec. (12.2-14.9) H 05/08/20 09:15 INR 1.55 (0.87-1.13) H 05/08/20 09:15 APTT 210.9 Sec. (24.2-36.6) H* 05/05/20 13:35 D-Dimer Cancelled 05/07/20 06:30 Heparin Anti-Xa Level 0.36 U.I./ml (0.3-0.7) 05/07/20 06:30 ABG pH 7.409 pH Units (7.350-7.450) 05/05/20 09:10 ABG pCO2 16.7 mm Hg 05/05/20 09:10 ABG pO2 27.6 mm Hg (80.0-90.0) L* 05/05/20 09:10 ABG HCO3 10.3 mmol/L (20.0-26.0) L 05/05/20 09:10 ABG O2 Saturation 38.5 % (95.0-99.0) L 05/05/20 09:10 ABG O2 Content 3.6 (0.0-44) 05/05/20 09:10 ABG Base Excess -13.0 mmol/L (-2.0-3.0) L 05/05/20 09:10 ABG Hemoglobin 6.7 gm/dl (14.0-18.0) L 05/05/20 09:10 ABG Carboxyhemoglobin 1.0 % (0.0-5.0) 05/05/20 09:10 ABG Methemoglobin 0.8 % (0.0-1.5) 05/05/20 09:10 Oxyhemoglobin 37.9 % (95.0-99.0) L 05/05/20 09:10 FiO2 21 % 05/05/20 09:10 Sodium 130 mmol/L (137-145) L 05/19/20 05:05 Potassium 3.9 mmol/L (3.6-5.0) 05/19/20 05:05 Chloride 99.3 mmol/L (98-107) 05/19/20 05:05 Carbon Dioxide 24 mmol/L (22-30) 05/19/20 05:05 Anion Gap 11 mmol/L 05/19/20 05:05 BUN 13 mg/dL (9-20) 05/19/20 05:05 Creatinine 0.5 mg/dL (0.8-1.3) L 05/19/20 05:05 Estimated GFR > 60 ml/min 05/19/20 05:05 BUN/Creatinine Ratio 26 % 05/19/20 05:05 Glucose 110 mg/dL (75-100) H 05/19/20 05:05 POC Glucose 85 mg/dL (70-105) 05/08/20 16:46 Lactic Acid 1.20 mmol/L (0.7-2.0) 05/06/20 03:30 Calcium 7.9 mg/dL (8.4-10.2) L 05/19/20 05:05 Magnesium 1.90 mg/dL (1.7-2.3) 05/15/20 04:45 Iron 61 ug/dL (49-181) 05/07/20 12:38 TIBC 169 mcg/dL (250-450) L 05/07/20 12:38 Ferritin 1831.0 ng/mL (30.0-300.0) H 05/07/20 12:38 Total Bilirubin 0.30 mg/dL (0.1-1.2) 05/19/20 05:05 Direct Bilirubin 0.4 mg/dL (0-0.2) H 05/05/20 10:17 Indirect Bilirubin 0.0 mg/dL 05/05/20 10:17 AST 19 units/L (5-40) 05/19/20 05:05 ALT 17 units/L (7-56) 05/19/20 05:05 Alkaline Phosphatase 149 units/L (35-129) H 05/19/20 05:05 Troponin T 0.056 ng/mL (0.00-0.029) H 05/05/20 08:10 Total Protein 7.2 g/dL (6.3-8.2) 05/19/20 05:05 Albumin 2.2 g/dL (3.9-5) L 05/19/20 05:05 Albumin/Globulin Ratio 0.4 % 05/19/20 05:05 Triglycerides 231 mg/dL (2-149) H 05/05/20 08:10 Cholesterol 80 mg/dL (50-199) 05/05/20 08:10 LDL Cholesterol Direct 17 mg/dL (50-130) L 05/05/20 08:10 HDL Cholesterol 11 mg/dL (40-59) L 05/05/20 08:10 Cholesterol/HDL Ratio 7.27 % 05/05/20 08:10 Lipase 68 units/L (13-60) H 05/05/20 10:17 Tumor Marker AFP See scanned report 05/06/20 22:22 Vitamin B12 > 2000 pg/mL (211-911) H 05/07/20 12:39 Folate 7.19 ng/mL (7.3-26.0) L 05/07/20 12:39 TSH 12.770 mlU/mL (0.270-4.200) H 05/05/20 08:10 Thyroxine (T4) 7.4 ug/dL (4.0-12.0) 05/05/20 08:10 Free T3 Index 3.7 pg/mL (2.3-4.2) 05/05/20 08:10 Urine Color Yellow (Yellow) 05/05/20 Unknown Urine Turbidity Slightly-cloudy (Clear) 05/05/20 Unknown Urine pH 5.0 (5.0-7.0) 05/05/20 Unknown Ur Specific [place] 1.009 (1.003-1.030) 05/05/20 Unknown Urine Protein <15 mg/dl mg/dL (Negative) 05/05/20 Unknown Urine Glucose (UA) Neg mg/dL (Negative) 05/05/20 Unknown Urine Ketones Neg mg/dL (Negative) 05/05/20 Unknown Urine Blood Sm (Negative) 05/05/20 Unknown Urine Nitrite Pos (Negative) 05/05/20 Unknown Urine Bilirubin Neg (Negative) 05/05/20 Unknown Urine Urobilinogen < 2.0 mg/dL (<2.0) 05/05/20 Unknown Ur Leukocyte Esterase Neg (Negative) 05/05/20 Unknown Urine WBC (Auto) 13.0 /HPF (0.0-6.0) H 05/05/20 Unknown Urine RBC (Auto) 1.0 /HPF (0.0-6.0) 05/05/20 Unknown Urine Bacteria (Auto) 4+ /HPF (Negative) 05/05/20 Unknown Urine Mucus 3+ /HPF 05/05/20 Unknown Coronavirus (PCR) Negative (Negative) 05/06/20 10:02 Hepatitis A IgM Ab Non-reactive (NonReactive) 05/06/20 22:22 Hep Bs Antigen Non-reactive (Negative) 05/06/20 22:22 Hep B Core IgM Ab Non-reactive (NonReactive) 05/06/20 22:22 Hepatitis C Antibody Non-reactive (NonReactive) 05/06/20 22:22 Blood Type O POSITIVE 05/09/20 15:30 Antibody Screen Negative 05/09/20 15:30 Crossmatch See Detail 05/09/20 15:30 Microbiology: Microbiology 05/14/20 15:01 Peripheral/Venous Blood Culture - Preliminary NO GROWTH AFTER 4 DAYS 05/14/20 15:01 Peripheral/Venous Blood Culture - Preliminary NO GROWTH AFTER 4 DAYS - Diagnostic Impressions Diagnostic Impressions: Echocardiogram 05/05/20 13:01 Transthoracic Echocardiogram Indication: PE BP: 95/71 HR: 108 Conclusions *Global left ventricular systolic function is normal. *The estimated ejection fraction is 50-55%. *The right ventricle is mildly dilated. *The right ventricular global systolic function is normal. *There is mild mitral regurgitation. *There is mild tricuspid regurgitation. *The right ventricular systolic pressure is calculated at 32 mmHg. *There is trace pulmonic regurgitation. *The aortic valve is trileaflet. The leaflets are thin with normal excursion. There is no aortic stenosis or regurgitation present. Findings Left Ventricle: The left ventricular chamber size is normal. Global left ventricular systolic function is normal. The estimated ejection fraction is 50-55%. Abnormal left ventricular diastolic filling is observed, consistent with impaired relaxation. Left Atrium: The left atrial chamber size is normal. Right Ventricle: The right ventricle is mildly dilated. The right ventricular global systolic function is normal. Right Atrium: The right atrial cavity size is normal. Aortic Valve: The aortic valve is trileaflet. The leaflets are thin with normal excursion. There is no aortic stenosis or regurgitation present. The aortic valve structure is normal. Mitral Valve: The mitral valve leaflets are mildly thickened. There is mild mitral regurgitation. Tricuspid Valve: The tricuspid valve leaflets are normal. There is mild tricuspid regurgitation. The right ventricular systolic pressure is calculated at 32 mmHg. Pulmonic Valve: The pulmonic valve appears normal. There is trace pulmonic regurgitation. Pericardium: There is no pericardial effusion. Aorta: The aorta appears normal. Venous: The inferior vena cava appears normal. Measurements Chambers 2D Name Value Normal Range IVSd (2D) 1.09 cm (0.6 - 1.1) LVPWd (2D) 1.08 cm (0.6 - 1.1) LVIDd (2D) 4.78 cm (3.7 - 5.6) LVIDs (2D) 3.74 cm (2 - 3.8) LV FS (2D) 21.72 % - Ao root diameter (2D) 3.12 cm (2 - 3.7) Volumes/Mass Name Value Normal Range LA ESV SP 4CH (A/L) 35.91 ml - LA ESV SP 2CH (A/L) 41.54 ml - LA ESV BP (A/L) 38.98 ml - LA ESV BP (A/L) index 22.28 ml/m2 - LA ESV SP 4CH (MOD) 31.77 ml - LA ESV SP 2CH (MOD) 41.03 ml - LA ESV BP (MOD) 36.28 ml - LA ESV BP (MOD) index 20.73 ml/m2 - Diastolic/Systolic Function Name Value Normal Range MV E-wave Vmax 0.93 m/sec - MV deceleration time 148.87 msec - MV A-wave Vmax 0.58 m/sec - MV E:A ratio 1.59 ratio - Aortic Valve Name Value Normal Range AV Vmax 1.34 m/sec - AV VTI 21.39 cm - AV peak gradient 7.18 mmHg - AV mean gradient 4.09 mmHg - LVOT diameter 2.04 cm - LVOT Vmax 1.06 m/sec - LVOT VTI 17.75 cm - LVOT peak gradient 4.48 mmHg - LVOT mean gradient 2.8 mmHg - SV LVOT 58.19 ml - PAUL (continuity Vmax) 2.59 cm2 - PAUL (continuity VTI) 2.72 cm2 - Ascending Ao 3.02 cm - Mitral Valve Name Value Normal Range MR Vmax 4.21 m/sec - Tricuspid Valve Name Value Normal Range TR Vmax 2.7 m/sec - TR peak gradient 29 mmHg - RAP 3 mmHg - RVSP 32 mmHg - IVC diameter 1.45 cm (1.2 - 2.3) Pulmonic Valve/Qp:Qs Name Value Normal Range PV Vmax 0.82 m/sec - PV peak gradient 2.71 mmHg - [place] end-diastolic Vmax 1.1 m/sec - PV acceleration time 87.54 msec - [place]/IV: Voiding Method Urinal Active Medications - Current Medications Current Medications: Generic Name Dose Route Start Last Admin Trade Name Freq PRN Reason Stop Dose Admin Acetaminophen 650 mg 05/07/20 14:23 05/14/20 20:25 Acetaminophen 325 Mg Tab PO 650 mg Q6H PRN Administration Fever >101 Diphenhydramine HCl 25 mg 05/16/20 01:45 05/18/20 00:23 Diphenhydramine 50 Mg/Ml Vial IV 25 mg Q6H PRN Administration Itching Docusate Sodium 100 mg 05/17/20 11:00 05/18/20 21:55 Docusate Sodium 100 Mg Cap PO 100 mg BID RADHA Administration Hydromorphone HCl 2 mg 05/08/20 12:00 05/10/20 07:39 Hydromorphone 1 Mg/1 Ml Inj IV 2 mg Q3H PRN Administration Pain , Severe (7-10) MEROPENEM/NS 1 GRAM/100 ML 1 gram in 100 mls @ 100 mls/hr 05/14/20 14:00 05/19/20 05:03 Merrem/Ns 1 Gram/100 Ml IV 100 mls/hr Q6HR RADHA Administration Protocol Metoprolol Tartrate 2.5 mg 05/10/20 12:26 Metoprolol Tartrate 5 Mg/5 Ml Inj IV Q6HR PRN HR>120 Metoprolol Tartrate 25 mg 05/11/20 22:00 05/18/20 21:55 Metoprolol Tartrate 25 Mg Tab PO Not Given BID RADHA Oxycodone/Acetaminophen 1 tab 05/05/20 11:29 05/19/20 06:15 Oxycodone /Acetaminophen 5-325mg Tab PO 1 tab Q6H PRN Administration Pain, Moderate (4-6) Nutrition/Malnutrition Assess - Dietary Evaluation Nutrition/Malnutrition Findings: Nutrition Notes Start: 05/12/20 11:40 Freq: Status: Active Protocol: Document 05/12/20 11:40 AL (Rec: 05/12/20 12:00 AL [id number]) Co-Sign 05/12/20 11:40 LP Nutrition Notes Need for Assessment generated from: LOS Initial or Follow up Brief Note Current Diagnosis Sepsis Other Pertinent Diagnosis SOB, Liver abcess, Pneumonia, ANemia, UTI Current Diet Regular Diet [place] Body Weight (kg) 0 Weight Status Overweight Subjective/Other Information Pt is a LOS. Pt reported eating 50% of breakfast because it was "too early" and ate 100% of dinner last night . Pt says appetite is good and has no need for ONS. Burn Absent Trauma Absent GI Symptoms None Current % PO Good (75-100%) Minimum of two criteria No physical signs of malnutrition #1 Nutrition Diagnosis No nutrition diagnosis at this time Nutrition Intervention Change Diet Order: Continue Regular diet Anticipated Discharge Needs: Regular diet Revisit per MD consult or patient Sign Off request:
[2020-05-19] MEDS: METOPROLOL TARTRATE 25 MG TAB PO SCH ×2 (11:39→22:48)
[2020-05-19] MEDS: DOCUSATE SODIUM 100 MG CAP PO SCH ×2 (11:40→22:48)
--- NOTE | 2020-05-19 14:27 | Progress Note ---
Assessment and Plan Cultures: 05/05/2020 blood culture: ESBL E. coli 05/07/2020 IR drainage culture: E. coli 05/10/2020 blood culture: GNR in 1 out of 4 bottles 05/14/2020 IR culture: E. coli 05/14/2020 blood culture: No growth A/P: 44 yo M no PMHx presents with liver abscess, PE, and septic emboli. #Acute sepsis with initial septic shock: Secondary to bacteremia and liver abscess #ESBL E. coli bacteremia: Secondary to liver abscess. #Large multiseptated liver abscess: CT showed a right hepatic multiseptated collection 7.3 x 6.3 x 7.9 cm. Status post IR drainage on 05/07/2020, 70 cc of purulent drained, cultures with E. coli. Appreciate Gen Surg assistance and discussion with Hepatobiliary Surgery. Plan for now is conservative management with drainage and IV abx. Underwent additional drain placement by interventional radiology on 05/14/2020. #Septic emboli: Echo without vegetations, though may be shedding bacteria from liver abscess causing lung seeding. Continue antibiotics #Acute hypoxemic respiratory failure #Acute PE: on anticoagulation. 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 Feels well. Ambulating. Got PICC line placed. Awaiting abx set up. Objective - Exam Narrative Exam: Physical Exam: Constitutional: Alert, cooperative. No acute distress Head, Ears, Nose: Normocephalic, atraumatic. External ears, nose normal Eyes: Conjunctivae/corneas clear. No icterus. No ptosis. Neck: Supple, no meningeal signs Cardiovascular: S1, S2 normal. Respiratory: Good air entry, clear to auscultation bilaterally GI: Soft, RUQ drains present; bowel sounds normal. No peritoneal signs Musculoskeletal: No pedal edema, no cyanosis. Skin: No rash or abscess Hem/Lymphatic: No palpable cervical or supraclavicular nodes. No lymphangitis Psych: Mood ok. Affect normal Neurological: Awake, alert, oriented. No gross abnormality - Constitutional Vitals: Vital Signs Temp Pulse Resp BP Pulse Ox 97.8 F 107 H 16 95/57 99 05/19/20 12:07 05/19/20 12:07 05/19/20 12:07 05/19/20 12:07 05/19/20 12:07 Temperature -Last 24 Hours Temperature 97.8 F Temperature 98.6 F Temperature 98.9 F Temperature 98.6 F Temperature 98.6 F Temperature 98.2 F Temperature 98.6 F - Labs CBC & Chem 7: 05/19/20 05:05 05/19/20 05:05 Labs: Abnormal lab results 05/19/20 05/19/20 Range/Units 05:05 05:05 RBC 2.60 L (3.65-5.03) M/mm3 Hgb 7.5 L (11.8-15.2) gm/dl Hct 22.5 L (35.5-45.6) % RDW 17.4 H (13.2-15.2) % Sodium 130 L (137-145) mmol/L Creatinine 0.5 L (0.8-1.3) mg/dL Glucose 110 H (75-100) mg/dL Calcium 7.9 L (8.4-10.2) mg/dL Alkaline Phosphatase 149 H (35-129) units/L Albumin 2.2 L (3.9-5) g/dL
[2020-05-19] MEDS: ERTAPENEM 1 GM in SODIUM CHLORIDE 0.9% 50 ML IV SCH (16:49)
[2020-05-20] MEDS: METOPROLOL TARTRATE 25 MG TAB PO SCH ×3 (05:13→21:34)
[2020-05-20] MEDS ORDERED: SODIUM CHLORIDE 0.9% 500 ML 500 ML IV ONE (05:27)
[2020-05-20] MEDS: DOCUSATE SODIUM 100 MG CAP PO SCH ×2 (07:52→21:33)
[2020-05-20] MEDS: ERTAPENEM 1 GM in SODIUM CHLORIDE 0.9% 50 ML IV SCH (10:28)
--- NOTE | 2020-05-20 12:09 | Progress Note ---
Assessment and Plan Cultures: 05/05/2020 blood culture: ESBL E. coli 05/07/2020 IR drainage culture: E. coli 05/10/2020 blood culture: GNR in 1 out of 4 bottles 05/14/2020 IR culture: E. coli 05/14/2020 blood culture: No growth A/P: 44 yo M no PMHx presents with liver abscess, PE, and septic emboli. #Acute sepsis with initial septic shock: Secondary to bacteremia and liver abscess #ESBL E. coli bacteremia: Secondary to liver abscess. #Large multiseptated liver abscess: CT showed a right hepatic multiseptated collection 7.3 x 6.3 x 7.9 cm. Status post IR drainage on 05/07/2020, 70 cc of purulent drained, cultures with E. coli. Appreciate Gen Surg assistance and discussion with Hepatobiliary Surgery. Plan for now is conservative management with drainage and IV abx. Underwent additional drain placement by interventional radiology on 05/14/2020. #Septic emboli: Echo without vegetations, though may be shedding bacteria from liver abscess causing lung seeding. #Acute hypoxemic respiratory failure #Acute PE: on anticoagulation. #Acute thrombocytopenia: probably from sepsis Recs: -d/w CM, cheapest option for abx is going to be IV Meropenem -OPAT orders adjusted to: IV meropenem 1 g q8 hrs for 6 weeks ending 06/29/2020 -please set up follow up appointment with IR for drain management -ID clinic follow up in 4 weeks (computer processing scheduler notified) Ese Garrett MD, FACP [facility] ([facility] O: [phone] F: [phone] Subjective Date of service: 05/20/20 Principal diagnosis: Acute pulmonary embolism, liver abscess Interval history: No complaints. Feels well. Objective - Exam Narrative Exam: Physical Exam: Constitutional: Alert, cooperative. No acute distress Head, Ears, Nose: Normocephalic, atraumatic. External ears, nose normal Eyes: Conjunctivae/corneas clear. No icterus. No ptosis. Neck: Supple, no meningeal signs Cardiovascular: S1, S2 normal. Respiratory: Good air entry, clear to auscultation bilaterally GI: Soft, RUQ drains present; bowel sounds normal. No peritoneal signs Musculoskeletal: No pedal edema, no cyanosis. Skin: No rash or abscess Hem/Lymphatic: No palpable cervical or supraclavicular nodes. No lymphangitis Psych: Mood ok. Affect normal Neurological: Awake, alert, oriented. No gross abnormality - Constitutional Vitals: Vital Signs Temp Pulse Resp BP Pulse Ox 98.9 F 105 H 16 92/62 100 05/20/20 11:06 05/20/20 11:06 05/20/20 11:06 05/20/20 11:06 05/20/20 11:06 Temperature -Last 24 Hours Temperature 98.9 F Temperature 98.0 F Temperature 97.5 F Temperature 98.8 F Temperature 98.1 F Temperature 98.6 F Temperature 98.2 F - Labs CBC & Chem 7: 05/19/20 05:05 05/19/20 05:05
--- NOTE | 2020-05-20 14:21 | Progress Note ---
Assessment and Plan Assessment and plan: 44-year-old male with no significant past medical history presented to the emergency department with complaints of shortness of breath for the last 3 weeks. Shortness of breath is progressively worse and making to present to the emergency department this morning. Patient said he has associated dry cough. Patient denied fever chills, night sweats. Patient denied contact with Covid patient. He denied any chest pain, palpitation or leg swelling. Patient was seen in the emergency department. In the emergency department test x-ray was done and showed bibasilar infiltrates, CTA chest was done and significant for blood clot suspected septic emboli and liver abscess. Patient was hypotensive was started with IV fluids and pressor support. I have discussed with vascular surgery and said the clot burden is minimal and does not need any intervention at this time. Interventional radiology will do drainage of the abscess once the patient is stable. Patient started with IV antibiotics. ID pulmonary IR following --Sepsis with septic shock now resolved; Secondary to bacteremia and liver abscess --Septic emboli-from liver; Echo no evidence of vegetation --ESBL bacteremia; due to liver abscess ID following, recommend long-term ertapenem upon discharge However as patient is unfunded, consult to be very expensive ID recommended meropenem, case management assisting with Antibiotics and discharge planning Total 6 weeks meropenem stop date 06/29/2020 DC planning per case management --Liver abscess; status post I&D/drainage per IR on 05/07/2020 Surgery discussed with hepatobiliary surgery Recommend conservative management with drainage and IV antibiotics Second drain placement on 05/14/2020 per IR And will follow up with IR upon discharge --Acute respiratory failure with hypoxia; requiring supplemental oxygen Resolved, patient is on room air O2 sats saturating well above 95% --Acute PE; --Sinus tachycardia improved with low-dose Lopressor. Will titrate accordingly. --Anemia associated Thrombocytopenia patient transfused yesterday. --Severe protein calorie Malnutrition: Nut Grinder following Closely monitor the patient and adjust the management as needed Plan of care reviewed with the patient and his nurse History Interval history: I have seen and examined the patient at the bedside Patient's chart and medications reviewed No new complaints Vital signs noted Hospitalist Physical - Constitutional Vitals: Temp Pulse Resp BP Pulse Ox 98.9 F 105 H 16 92/62 100 05/20/20 11:06 05/20/20 11:06 05/20/20 11:06 05/20/20 11:06 05/20/20 11:06 General appearance: Present: no acute distress, well-nourished - EENT Eyes: Present: PERRL, EOM intact - Neck Neck: Present: supple, normal ROM - Respiratory Respiratory effort: normal Respiratory: bilateral: diminished, negative: rales, rhonchi, wheezing - Cardiovascular Rhythm: regular Heart Sounds: Present: S1 & S2 - Extremities Extremities: no ischemia, No edema - Abdominal General gastrointestinal: soft, non-tender, non-distended, normal bowel sounds - Integumentary Integumentary: Present: clear, warm - Psychiatric Psychiatric: appropriate mood/affect, cooperative - Neurologic Neurologic: CNII-XII intact, moves all extremities HEART Score - HEART Score Troponin: Troponin T 0.056 ng/mL (0.00-0.029) H 05/05/20 08:10 Results - Labs CBC & Chem 7: 05/19/20 05:05 05/19/20 05:05 Labs: Laboratory Last Values WBC 10.1 K/mm3 (4.5-11.0) 05/19/20 05:05 RBC 2.60 M/mm3 (3.65-5.03) L 05/19/20 05:05 Hgb 7.5 gm/dl (11.8-15.2) L 05/19/20 05:05 Hct 22.5 % (35.5-45.6) L 05/19/20 05:05 MCV 87 fl (84-94) 05/19/20 05:05 MCH 29 pg (28-32) 05/19/20 05:05 MCHC 33 % (32-34) 05/19/20 05:05 RDW 17.4 % (13.2-15.2) H 05/19/20 05:05 Plt Count 277 K/mm3 (140-440) 05/19/20 05:05 Lymph % (Auto) 7.1 % (13.4-35.0) L 05/12/20 05:26 [place] % (Auto) 2.9 % (0.0-7.3) 05/12/20 05:26 Eos % (Auto) 0.4 % (0.0-4.3) 05/12/20 05:26 Baso % (Auto) 0.1 % (0.0-1.8) 05/12/20 05:26 Lymph # (Auto) 1.2 K/mm3 (1.2-5.4) 05/12/20 05:26 [place] # (Auto) 0.5 K/mm3 (0.0-0.8) 05/12/20 05:26 Eos # (Auto) 0.1 K/mm3 (0.0-0.4) 05/12/20 05:26 Baso # (Auto) 0.0 K/mm3 (0.0-0.1) 05/12/20 05:26 Add Manual Diff Complete 05/10/20 07:00 Total Counted 100 05/10/20 07:00 Seg Neutrophils % 89.5 % (40.0-70.0) H 05/12/20 05:26 Seg Neuts % (Manual) 99.0 % (40.0-70.0) H 05/10/20 07:00 Band Neutrophils % 1.0 % 05/07/20 06:30 Lymphocytes % (Manual) 2.0 % (13.4-35.0) L 05/08/20 06:00 Monocytes % (Manual) 1.0 % (0.0-7.3) 05/10/20 07:00 Promyelocytes % 0 % 05/05/20 08:10 Nucleated RBC % 1.0 % (0.0-0.9) H 05/10/20 07:00 Seg Neutrophils # 15.3 K/mm3 (1.8-7.7) H 05/12/20 05:26 Seg Neutrophils # Man 11.7 K/mm3 (1.8-7.7) H 05/10/20 07:00 Band Neutrophils # 0.0 K/mm3 05/10/20 07:00 Lymphocytes # (Manual) 0.0 K/mm3 (1.2-5.4) L 05/10/20 07:00 Abs React Lymphs (Man) 0.0 K/mm3 05/10/20 07:00 Monocytes # (Manual) 0.1 K/mm3 (0.0-0.8) 05/10/20 07:00 Eosinophils # (Manual) 0.0 K/mm3 (0.0-0.4) 05/10/20 07:00 Basophils # (Manual) 0.0 K/mm3 (0.0-0.1) 05/10/20 07:00 Metamyelocytes # 0.0 K/mm3 05/10/20 07:00 Myelocytes # 0.0 K/mm3 05/10/20 07:00 Promyelocytes # 0.0 K/mm3 05/10/20 07:00 Blast Cells # 0.0 K/mm3 05/10/20 07:00 WBC Morphology Not Reportable 05/10/20 07:00 Hypersegmented Neuts Not Reportable 05/10/20 07:00 Hyposegmented Neuts Not Reportable 05/10/20 07:00 Hypogranular Neuts Not Reportable 05/10/20 07:00 Smudge Cells Not Reportable 05/10/20 07:00 Toxic Granulation Not Reportable 05/10/20 07:00 Toxic Vacuolation Not Reportable 05/10/20 07:00 Dohle Bodies Not Reportable 05/10/20 07:00 Pelger-Huet Anomaly Not Reportable 05/10/20 07:00 [place] Rods Not Reportable 05/10/20 07:00 Platelet Estimate Consistent w auto 05/10/20 07:00 Clumped Platelets Not Reportable 05/10/20 07:00 Plt Clumps, EDTA Not Reportable 05/10/20 07:00 Large Platelets Not Reportable 05/10/20 07:00 Giant Platelets Not Reportable 05/10/20 07:00 Platelet Satelliting Not Reportable 05/10/20 07:00 Plt Morphology Comment Not Reportable 05/10/20 07:00 RBC Morphology Not Reportable 05/10/20 07:00 Dimorphic RBCs Not Reportable 05/10/20 07:00 Polychromasia Not Reportable 05/10/20 07:00 Hypochromasia 1+ 05/10/20 07:00 Poikilocytosis Not Reportable 05/10/20 07:00 Anisocytosis Not Reportable 05/10/20 07:00 Microcytosis Not Reportable 05/10/20 07:00 Macrocytosis Not Reportable 05/10/20 07:00 Spherocytes Not Reportable 05/10/20 07:00 Pappenheimer Bodies Not Reportable 05/10/20 07:00 Sickle Cells Not Reportable 05/10/20 07:00 Target Cells Not Reportable 05/10/20 07:00 Tear Drop Cells Not Reportable 05/10/20 07:00 Ovalocytes Not Reportable 05/10/20 07:00 Helmet Cells Not Reportable 05/10/20 07:00 [place] Bodies Not Reportable 05/10/20 07:00 [place] Rings Not Reportable 05/10/20 07:00 Mami Cells Not Reportable 05/10/20 07:00 Bite Cells Not Reportable 05/10/20 07:00 Crenated Cell Not Reportable 05/10/20 07:00 Elliptocytes Not Reportable 05/10/20 07:00 Acanthocytes (Spur) Not Reportable 05/10/20 07:00 Rouleaux Not Reportable 05/10/20 07:00 Hemoglobin C Crystals Not Reportable 05/10/20 07:00 Schistocytes Few 05/10/20 07:00 Malaria parasites Not Reportable 05/10/20 07:00 [place]ides Bodies Not Reportable 05/10/20 07:00 Hem Pathologist Commnt No 05/10/20 07:00 PT 18.6 Sec. (12.2-14.9) H 05/08/20 09:15 INR 1.55 (0.87-1.13) H 05/08/20 09:15 APTT 210.9 Sec. (24.2-36.6) H* 05/05/20 13:35 D-Dimer Cancelled 05/07/20 06:30 Heparin Anti-Xa Level 0.36 U.I./ml (0.3-0.7) 05/07/20 06:30 ABG pH 7.409 pH Units (7.350-7.450) 05/05/20 09:10 ABG pCO2 16.7 mm Hg 05/05/20 09:10 ABG pO2 27.6 mm Hg (80.0-90.0) L* 05/05/20 09:10 ABG HCO3 10.3 mmol/L (20.0-26.0) L 05/05/20 09:10 ABG O2 Saturation 38.5 % (95.0-99.0) L 05/05/20 09:10 ABG O2 Content 3.6 (0.0-44) 05/05/20 09:10 ABG Base Excess -13.0 mmol/L (-2.0-3.0) L 05/05/20 09:10 ABG Hemoglobin 6.7 gm/dl (14.0-18.0) L 05/05/20 09:10 ABG Carboxyhemoglobin 1.0 % (0.0-5.0) 05/05/20 09:10 ABG Methemoglobin 0.8 % (0.0-1.5) 05/05/20 09:10 Oxyhemoglobin 37.9 % (95.0-99.0) L 05/05/20 09:10 FiO2 21 % 05/05/20 09:10 Sodium 130 mmol/L (137-145) L 05/19/20 05:05 Potassium 3.9 mmol/L (3.6-5.0) 05/19/20 05:05 Chloride 99.3 mmol/L (98-107) 05/19/20 05:05 Carbon Dioxide 24 mmol/L (22-30) 05/19/20 05:05 Anion Gap 11 mmol/L 05/19/20 05:05 BUN 13 mg/dL (9-20) 05/19/20 05:05 Creatinine 0.5 mg/dL (0.8-1.3) L 05/19/20 05:05 Estimated GFR > 60 ml/min 05/19/20 05:05 BUN/Creatinine Ratio 26 % 05/19/20 05:05 Glucose 110 mg/dL (75-100) H 05/19/20 05:05 POC Glucose 85 mg/dL (70-105) 05/08/20 16:46 Lactic Acid 1.20 mmol/L (0.7-2.0) 05/06/20 03:30 Calcium 7.9 mg/dL (8.4-10.2) L 05/19/20 05:05 Magnesium 1.90 mg/dL (1.7-2.3) 05/15/20 04:45 Iron 61 ug/dL (49-181) 05/07/20 12:38 TIBC 169 mcg/dL (250-450) L 05/07/20 12:38 Ferritin 1831.0 ng/mL (30.0-300.0) H 05/07/20 12:38 Total Bilirubin 0.30 mg/dL (0.1-1.2) 05/19/20 05:05 Direct Bilirubin 0.4 mg/dL (0-0.2) H 05/05/20 10:17 Indirect Bilirubin 0.0 mg/dL 05/05/20 10:17 AST 19 units/L (5-40) 05/19/20 05:05 ALT 17 units/L (7-56) 05/19/20 05:05 Alkaline Phosphatase 149 units/L (35-129) H 05/19/20 05:05 Troponin T 0.056 ng/mL (0.00-0.029) H 05/05/20 08:10 Total Protein 7.2 g/dL (6.3-8.2) 05/19/20 05:05 Albumin 2.2 g/dL (3.9-5) L 05/19/20 05:05 Albumin/Globulin Ratio 0.4 % 05/19/20 05:05 Triglycerides 231 mg/dL (2-149) H 05/05/20 08:10 Cholesterol 80 mg/dL (50-199) 05/05/20 08:10 LDL Cholesterol Direct 17 mg/dL (50-130) L 05/05/20 08:10 HDL Cholesterol 11 mg/dL (40-59) L 05/05/20 08:10 Cholesterol/HDL Ratio 7.27 % 05/05/20 08:10 Lipase 68 units/L (13-60) H 05/05/20 10:17 Tumor Marker AFP See scanned report 05/06/20 22:22 Vitamin B12 > 2000 pg/mL (211-911) H 05/07/20 12:39 Folate 7.19 ng/mL (7.3-26.0) L 05/07/20 12:39 TSH 12.770 mlU/mL (0.270-4.200) H 05/05/20 08:10 Thyroxine (T4) 7.4 ug/dL (4.0-12.0) 05/05/20 08:10 Free T3 Index 3.7 pg/mL (2.3-4.2) 05/05/20 08:10 Urine Color Yellow (Yellow) 05/05/20 Unknown Urine Turbidity Slightly-cloudy (Clear) 05/05/20 Unknown Urine pH 5.0 (5.0-7.0) 05/05/20 Unknown Ur Specific [place] 1.009 (1.003-1.030) 05/05/20 Unknown Urine Protein <15 mg/dl mg/dL (Negative) 05/05/20 Unknown Urine Glucose (UA) Neg mg/dL (Negative) 05/05/20 Unknown Urine Ketones Neg mg/dL (Negative) 05/05/20 Unknown Urine Blood Sm (Negative) 05/05/20 Unknown Urine Nitrite Pos (Negative) 05/05/20 Unknown Urine Bilirubin Neg (Negative) 05/05/20 Unknown Urine Urobilinogen < 2.0 mg/dL (<2.0) 05/05/20 Unknown Ur Leukocyte Esterase Neg (Negative) 05/05/20 Unknown Urine WBC (Auto) 13.0 /HPF (0.0-6.0) H 05/05/20 Unknown Urine RBC (Auto) 1.0 /HPF (0.0-6.0) 05/05/20 Unknown Urine Bacteria (Auto) 4+ /HPF (Negative) 05/05/20 Unknown Urine Mucus 3+ /HPF 05/05/20 Unknown Coronavirus (PCR) Negative (Negative) 05/06/20 10:02 Hepatitis A IgM Ab Non-reactive (NonReactive) 05/06/20 22:22 Hep Bs Antigen Non-reactive (Negative) 05/06/20 22:22 Hep B Core IgM Ab Non-reactive (NonReactive) 05/06/20 22:22 Hepatitis C Antibody Non-reactive (NonReactive) 05/06/20 22:22 Blood Type O POSITIVE 05/09/20 15:30 Antibody Screen Negative 05/09/20 15:30 Crossmatch See Detail 05/09/20 15:30 Microbiology: Microbiology 05/14/20 15:01 Peripheral/Venous Blood Culture - Final NO GROWTH AFTER 5 DAYS 05/14/20 15:01 Peripheral/Venous Blood Culture - Final NO GROWTH AFTER 5 DAYS - Diagnostic Impressions Diagnostic Impressions: Echocardiogram 05/05/20 13:01 Transthoracic Echocardiogram Indication: PE BP: 95/71 HR: 108 Conclusions *Global left ventricular systolic function is normal. *The estimated ejection fraction is 50-55%. *The right ventricle is mildly dilated. *The right ventricular global systolic function is normal. *There is mild mitral regurgitation. *There is mild tricuspid regurgitation. *The right ventricular systolic pressure is calculated at 32 mmHg. *There is trace pulmonic regurgitation. *The aortic valve is trileaflet. The leaflets are thin with normal excursion. There is no aortic stenosis or regurgitation present. Findings Left Ventricle: The left ventricular chamber size is normal. Global left ventricular systolic function is normal. The estimated ejection fraction is 50-55%. Abnormal left ventricular diastolic filling is observed, consistent with impaired relaxation. Left Atrium: The left atrial chamber size is normal. Right Ventricle: The right ventricle is mildly dilated. The right ventricular global systolic function is normal. Right Atrium: The right atrial cavity size is normal. Aortic Valve: The aortic valve is trileaflet. The leaflets are thin with normal excursion. There is no aortic stenosis or regurgitation present. The aortic valve structure is normal. Mitral Valve: The mitral valve leaflets are mildly thickened. There is mild mitral regurgitation. Tricuspid Valve: The tricuspid valve leaflets are normal. There is mild tricuspid regurgitation. The right ventricular systolic pressure is calculated at 32 mmHg. Pulmonic Valve: The pulmonic valve appears normal. There is trace pulmonic regurgitation. Pericardium: There is no pericardial effusion. Aorta: The aorta appears normal. Venous: The inferior vena cava appears normal. Measurements Chambers 2D Name Value Normal Range IVSd (2D) 1.09 cm (0.6 - 1.1) LVPWd (2D) 1.08 cm (0.6 - 1.1) LVIDd (2D) 4.78 cm (3.7 - 5.6) LVIDs (2D) 3.74 cm (2 - 3.8) LV FS (2D) 21.72 % - Ao root diameter (2D) 3.12 cm (2 - 3.7) Volumes/Mass Name Value Normal Range LA ESV SP 4CH (A/L) 35.91 ml - LA ESV SP 2CH (A/L) 41.54 ml - LA ESV BP (A/L) 38.98 ml - LA ESV BP (A/L) index 22.28 ml/m2 - LA ESV SP 4CH (MOD) 31.77 ml - LA ESV SP 2CH (MOD) 41.03 ml - LA ESV BP (MOD) 36.28 ml - LA ESV BP (MOD) index 20.73 ml/m2 - Diastolic/Systolic Function Name Value Normal Range MV E-wave Vmax 0.93 m/sec - MV deceleration time 148.87 msec - MV A-wave Vmax 0.58 m/sec - MV E:A ratio 1.59 ratio - Aortic Valve Name Value Normal Range AV Vmax 1.34 m/sec - AV VTI 21.39 cm - AV peak gradient 7.18 mmHg - AV mean gradient 4.09 mmHg - LVOT diameter 2.04 cm - LVOT Vmax 1.06 m/sec - LVOT VTI 17.75 cm - LVOT peak gradient 4.48 mmHg - LVOT mean gradient 2.8 mmHg - SV LVOT 58.19 ml - PAUL (continuity Vmax) 2.59 cm2 - PAUL (continuity VTI) 2.72 cm2 - Ascending Ao 3.02 cm - Mitral Valve Name Value Normal Range MR Vmax 4.21 m/sec - Tricuspid Valve Name Value Normal Range TR Vmax 2.7 m/sec - TR peak gradient 29 mmHg - RAP 3 mmHg - RVSP 32 mmHg - IVC diameter 1.45 cm (1.2 - 2.3) Pulmonic Valve/Qp:Qs Name Value Normal Range PV Vmax 0.82 m/sec - PV peak gradient 2.71 mmHg - NM end-diastolic Vmax 1.1 m/sec - PV acceleration time 87.54 msec - [place]/IV: Voiding Method Urinal Active Medications - Current Medications Current Medications: Generic Name Dose Route Start Last Admin Trade Name Freq PRN Reason Stop Dose Admin Acetaminophen 650 mg 05/07/20 14:23 05/14/20 20:25 Acetaminophen 325 Mg Tab PO 650 mg Q6H PRN Administration Fever >101 Diphenhydramine HCl 25 mg 05/16/20 01:45 05/18/20 00:23 Diphenhydramine 50 Mg/Ml Vial IV 25 mg Q6H PRN Administration Itching Docusate Sodium 100 mg 05/17/20 11:00 05/20/20 07:52 Docusate Sodium 100 Mg Cap PO 100 mg BID RADHA Administration Hydromorphone HCl 2 mg 05/08/20 12:00 05/10/20 07:39 Hydromorphone 1 Mg/1 Ml Inj IV 2 mg Q3H PRN Administration Pain , Severe (7-10) Ertapenem 1 gm/ Sodium 50 mls @ 100 mls/hr 05/19/20 16:00 05/20/20 10:28 Chloride IV 06/29/20 08:29 100 mls/hr QDAY RADHA Administration Metoprolol Tartrate 2.5 mg 05/10/20 12:26 Metoprolol Tartrate 5 Mg/5 Ml Inj IV Q6HR PRN HR>120 Metoprolol Tartrate 25 mg 05/11/20 22:00 05/20/20 05:13 Metoprolol Tartrate 25 Mg Tab PO Not Given BID RADHA Oxycodone/Acetaminophen 1 tab 05/05/20 11:29 05/19/20 06:15 Oxycodone /Acetaminophen 5-325mg Tab PO 1 tab Q6H PRN Administration Pain, Moderate (4-6) Nutrition/Malnutrition Assess - Dietary Evaluation Nutrition/Malnutrition Findings: Nutrition Notes Start: 05/12/20 11:40 Freq: Status: Active Protocol: Document 05/12/20 11:40 AL (Rec: 05/12/20 12:00 AL [id number]) Co-Sign 05/12/20 11:40 LP Nutrition Notes Need for Assessment generated from: LOS Initial or Follow up Brief Note Current Diagnosis Sepsis Other Pertinent Diagnosis SOB, Liver abcess, Pneumonia, ANemia, UTI Current Diet Regular Diet [place] Body Weight (kg) 0 Weight Status Overweight Subjective/Other Information Pt is a LOS. Pt reported eating 50% of breakfast because it was "too early" and ate 100% of dinner last night . Pt says appetite is good and has no need for ONS. Burn Absent Trauma Absent GI Symptoms None Current % PO Good (75-100%) Minimum of two criteria No physical signs of malnutrition #1 Nutrition Diagnosis No nutrition diagnosis at this time Nutrition Intervention Change Diet Order: Continue Regular diet Anticipated Discharge Needs: Regular diet Revisit per MD consult or patient Sign Off request:
[2020-05-21] MEDS: METOPROLOL TARTRATE 25 MG TAB PO SCH ×2 (08:21→21:37)
[2020-05-21] MEDS: ERTAPENEM 1 GM in SODIUM CHLORIDE 0.9% 50 ML IV SCH (08:22)
[2020-05-21] MEDS: DOCUSATE SODIUM 100 MG CAP PO SCH ×2 (08:22→21:34)
[2020-05-21] MEDS: oxyCODONE /ACETAMINOPHEN 5-325MG TAB PO PRN (09:49)
--- NOTE | 2020-05-21 18:11 | Progress Note ---
Assessment and Plan Assessment and plan: 44-year-old male with no significant past medical history presented to the emergency department with complaints of shortness of breath for the last 3 weeks. Shortness of breath is progressively worse and making to present to the emergency department this morning. Patient said he has associated dry cough. Patient denied fever chills, night sweats. Patient denied contact with Covid patient. He denied any chest pain, palpitation or leg swelling. Patient was seen in the emergency department. In the emergency department test x-ray was done and showed bibasilar infiltrates, CTA chest was done and significant for blood clot suspected septic emboli and liver abscess. Patient was hypotensive was started with IV fluids and pressor support. I have discussed with vascular surgery and said the clot burden is minimal and does not need any intervention at this time. Patient underwent CT-guided drainage of liver abscess with bilateral drain placement per IR ID evaluated and recommended long-term antibiotics for total 6 weeks, CM processing DC planning, IV antibiotics are very expensive and patient has no resources, --Sepsis with septic shock now resolved; Secondary to bacteremia and liver abscess --Septic emboli-from liver; Echo no evidence of vegetation --ESBL bacteremia; due to liver abscess ID following, recommend long-term ertapenem upon discharge However as patient is unfunded, consult to be very expensive ID recommended meropenem, case management assisting with Antibiotics and discharge planning Total 6 weeks meropenem stop date 06/29/2020 DC planning per case management --Liver abscess; status post CT-guided drainage and drain placement per IR on 05/07/2020 Surgery discussed with hepatobiliary surgery Recommend conservative management with drainage and IV antibiotics Second drain placement on 05/14/2020 per IR And will follow up with IR upon discharge --Acute respiratory failure with hypoxia; requiring supplemental oxygen Resolved, patient is on room air O2 sats saturating well above 95% --Acute PE; --Sinus tachycardia improved with low-dose Lopressor. Will titrate accordingly. --Anemia associated Thrombocytopenia patient transfused yesterday. 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 Closely monitor the patient and adjust the management as needed Plan of care reviewed with the patient and his nurse DC planning per case management; Assisting with long-term IV antibiotics which are very expensive Patient is stable for discharge Plan of care reviewed with the patient and his nurse Also discussed with case management History Interval history: I seen and examined the patient at the bedside Patient feels better anxious to go home Awaiting long-term IV antibiotics recommended by ID Patient has no new complaints Hospitalist Physical - Constitutional Vitals: Temp Pulse Resp BP Pulse Ox 98.1 F 108 H 16 110/59 97 05/21/20 15:49 05/21/20 15:49 05/21/20 15:49 05/21/20 15:49 05/21/20 15:49 General appearance: Present: no acute distress, well-nourished - EENT Eyes: Present: PERRL, EOM intact - Neck Neck: Present: supple, normal ROM - Respiratory Respiratory effort: normal Respiratory: bilateral: diminished, negative: rales, rhonchi, wheezing - Cardiovascular Rhythm: regular Heart Sounds: Present: S1 & S2 - Extremities Extremities: no ischemia, No edema - Abdominal General gastrointestinal: soft, non-tender, non-distended, normal bowel sounds - Integumentary Integumentary: Present: clear, warm - Psychiatric Psychiatric: appropriate mood/affect, cooperative - Neurologic Neurologic: CNII-XII intact, moves all extremities HEART Score - HEART Score Troponin: Troponin T 0.056 ng/mL (0.00-0.029) H 05/05/20 08:10 Results - Labs CBC & Chem 7: 05/19/20 05:05 05/19/20 05:05 Labs: Laboratory Last Values WBC 10.1 K/mm3 (4.5-11.0) 05/19/20 05:05 RBC 2.60 M/mm3 (3.65-5.03) L 05/19/20 05:05 Hgb 7.5 gm/dl (11.8-15.2) L 05/19/20 05:05 Hct 22.5 % (35.5-45.6) L 05/19/20 05:05 MCV 87 fl (84-94) 05/19/20 05:05 MCH 29 pg (28-32) 05/19/20 05:05 MCHC 33 % (32-34) 05/19/20 05:05 RDW 17.4 % (13.2-15.2) H 05/19/20 05:05 Plt Count 277 K/mm3 (140-440) 05/19/20 05:05 Lymph % (Auto) 7.1 % (13.4-35.0) L 05/12/20 05:26 [place] % (Auto) 2.9 % (0.0-7.3) 05/12/20 05:26 Eos % (Auto) 0.4 % (0.0-4.3) 05/12/20 05:26 Baso % (Auto) 0.1 % (0.0-1.8) 05/12/20 05:26 Lymph # (Auto) 1.2 K/mm3 (1.2-5.4) 05/12/20 05:26 [place] # (Auto) 0.5 K/mm3 (0.0-0.8) 05/12/20 05: Eos # (Auto) 0.1 K/mm3 (0.0-0.4) 05/12/20 05:26 Baso # (Auto) 0.0 K/mm3 (0.0-0.1) 05/12/20 05:26 Add Manual Diff Complete 05/10/20 07:00 Total Counted 100 05/10/20 07:00 Seg Neutrophils % 89.5 % (40.0-70.0) H 05/12/20 05:26 Seg Neuts % (Manual) 99.0 % (40.0-70.0) H 05/10/20 07:00 Band Neutrophils % 1.0 % 05/07/20 06:30 Lymphocytes % (Manual) 2.0 % (13.4-35.0) L 05/08/20 06:00 Monocytes % (Manual) 1.0 % (0.0-7.3) 05/10/20 07:00 Promyelocytes % 0 % 05/05/20 08:10 Nucleated RBC % 1.0 % (0.0-0.9) H 05/10/20 07:00 Seg Neutrophils # 15.3 K/mm3 (1.8-7.7) H 05/12/20 05:26 Seg Neutrophils # Man 11.7 K/mm3 (1.8-7.7) H 05/10/20 07:00 Band Neutrophils # 0.0 K/mm3 05/10/20 07:00 Lymphocytes # (Manual) 0.0 K/mm3 (1.2-5.4) L 05/10/20 07:00 Abs React Lymphs (Man) 0.0 K/mm3 05/10/20 07:00 Monocytes # (Manual) 0.1 K/mm3 (0.0-0.8) 05/10/20 07:00 Eosinophils # (Manual) 0.0 K/mm3 (0.0-0.4) 05/10/20 07:00 Basophils # (Manual) 0.0 K/mm3 (0.0-0.1) 05/10/20 07:00 Metamyelocytes # 0.0 K/mm3 05/10/20 07:00 Myelocytes # 0.0 K/mm3 05/10/20 07:00 Promyelocytes # 0.0 K/mm3 05/10/20 07:00 Blast Cells # 0.0 K/mm3 05/10/20 07:00 WBC Morphology Not Reportable 05/10/20 07:00 Hypersegmented Neuts Not Reportable 05/10/20 07:00 Hyposegmented Neuts Not Reportable 05/10/20 07:00 Hypogranular Neuts Not Reportable 05/10/20 07:00 Smudge Cells Not Reportable 05/10/20 07:00 Toxic Granulation Not Reportable 05/10/20 07:00 Toxic Vacuolation Not Reportable 05/10/20 07:00 Dohle Bodies Not Reportable 05/10/20 07:00 [place]uet Anomaly Not Reportable 05/10/20 07:00 [place] Rods Not Reportable 05/10/20 07:00 Platelet Estimate Consistent w auto 05/10/20 07:00 Clumped Platelets Not Reportable 05/10/20 07:00 Plt Clumps, EDTA Not Reportable 05/10/20 07:00 Large Platelets Not Reportable 05/10/20 07:00 Giant Platelets Not Reportable 05/10/20 07:00 Platelet Satelliting Not Reportable 05/10/20 07:00 Plt Morphology Comment Not Reportable 05/10/20 07:00 RBC Morphology Not Reportable 05/10/20 07:00 Dimorphic RBCs Not Reportable 05/10/20 07:00 Polychromasia Not Reportable 05/10/20 07:00 Hypochromasia 1+ 05/10/20 07:00 Poikilocytosis Not Reportable 05/10/20 07:00 Anisocytosis Not Reportable 05/10/20 07:00 Microcytosis Not Reportable 05/10/20 07:00 Macrocytosis Not Reportable 05/10/20 07:00 Spherocytes Not Reportable 05/10/20 07:00 Pappenheimer Bodies Not Reportable 05/10/20 07:00 Sickle Cells Not Reportable 05/10/20 07:00 Target Cells Not Reportable 05/10/20 07:00 Tear Drop Cells Not Reportable 05/10/20 07:00 Ovalocytes Not Reportable 05/10/20 07:00 Helmet Cells Not Reportable 05/10/20 07:00 [place] Bodies Not Reportable 05/10/20 07:00 [place] Rings Not Reportable 05/10/20 07:00 Mami Cells Not Reportable 05/10/20 07:00 Bite Cells Not Reportable 05/10/20 07:00 Crenated Cell Not Reportable 05/10/20 07:00 Elliptocytes Not Reportable 05/10/20 07:00 Acanthocytes (Spur) Not Reportable 05/10/20 07:00 Rouleaux Not Reportable 05/10/20 07:00 Hemoglobin C Crystals Not Reportable 05/10/20 07:00 Schistocytes Few 05/10/20 07:00 Malaria parasites Not Reportable 05/10/20 07:00 [place] Bodies Not Reportable 05/10/20 07:00 Hem Pathologist Commnt No 05/10/20 07:00 PT 18.6 Sec. (12.2-14.9) H 05/08/20 09:15 INR 1.55 (0.87-1.13) H 05/08/20 09:15 APTT 210.9 Sec. (24.2-36.6) H* 05/05/20 13:35 D-Dimer Cancelled 05/07/20 06:30 Heparin Anti-Xa Level 0.36 U.I./ml (0.3-0.7) 05/07/20 06:30 ABG pH 7.409 pH Units (7.350-7.450) 05/05/20 09:10 ABG pCO2 16.7 mm Hg 05/05/20 09:10 ABG pO2 27.6 mm Hg (80.0-90.0) L* 05/05/20 09:10 ABG HCO3 10.3 mmol/L (20.0-26.0) L 05/05/20 09:10 ABG O2 Saturation 38.5 % (95.0-99.0) L 05/05/20 09:10 ABG O2 Content 3.6 (0.0-44) 05/05/20 09:10 ABG Base Excess -13.0 mmol/L (-2.0-3.0) L 05/05/20 09:10 ABG Hemoglobin 6.7 gm/dl (14.0-18.0) L 05/05/20 09:10 ABG Carboxyhemoglobin 1.0 % (0.0-5.0) 05/05/20 09:10 ABG Methemoglobin 0.8 % (0.0-1.5) 05/05/20 09:10 Oxyhemoglobin 37.9 % (95.0-99.0) L 05/05/20 09:10 FiO2 21 % 05/05/20 09:10 Sodium 130 mmol/L (137-145) L 05/19/20 05:05 Potassium 3.9 mmol/L (3.6-5.0) 05/19/20 05:05 Chloride 99.3 mmol/L (98-107) 05/19/20 05:05 Carbon Dioxide 24 mmol/L (22-30) 05/19/20 05:05 Anion Gap 11 mmol/L 05/19/20 05:05 BUN 13 mg/dL (9-20) 05/19/20 05:05 Creatinine 0.5 mg/dL (0.8-1.3) L 05/19/20 05:05 Estimated GFR > 60 ml/min 05/19/20 05:05 BUN/Creatinine Ratio 26 % 05/19/20 05:05 Glucose 110 mg/dL (75-100) H 05/19/20 05:05 POC Glucose 85 mg/dL (70-105) 05/08/20 16:46 Lactic Acid 1.20 mmol/L (0.7-2.0) 05/06/20 03:30 Calcium 7.9 mg/dL (8.4-10.2) L 05/19/20 05:05 Magnesium 1.90 mg/dL (1.7-2.3) 05/15/20 04:45 Iron 61 ug/dL (49-181) 05/07/20 12:38 TIBC 169 mcg/dL (250-450) L 05/07/20 12:38 Ferritin 1831.0 ng/mL (30.0-300.0) H 05/07/20 12:38 Total Bilirubin 0.30 mg/dL (0.1-1.2) 05/19/20 05:05 Direct Bilirubin 0.4 mg/dL (0-0.2) H 05/05/20 10:17 Indirect Bilirubin 0.0 mg/dL 05/05/20 10:17 AST 19 units/L (5-40) 05/19/20 05:05 ALT 17 units/L (7-56) 05/19/20 05:05 Alkaline Phosphatase 149 units/L (35-129) H 05/19/20 05:05 Troponin T 0.056 ng/mL (0.00-0.029) H 05/05/20 08:10 Total Protein 7.2 g/dL (6.3-8.2) 05/19/20 05:05 Albumin 2.2 g/dL (3.9-5) L 05/19/20 05:05 Albumin/Globulin Ratio 0.4 % 05/19/20 05:05 Triglycerides 231 mg/dL (2-149) H 05/05/20 08:10 Cholesterol 80 mg/dL (50-199) 05/05/20 08:10 LDL Cholesterol Direct 17 mg/dL (50-130) L 05/05/20 08:10 HDL Cholesterol 11 mg/dL (40-59) L 05/05/20 08:10 Cholesterol/HDL Ratio 7.27 % 05/05/20 08:10 Lipase 68 units/L (13-60) H 05/05/20 10:17 Tumor Marker AFP See scanned report 05/06/20 22:22 Vitamin B12 > 2000 pg/mL (211-911) H 05/07/20 12:39 Folate 7.19 ng/mL (7.3-26.0) L 05/07/20 12:39 TSH 12.770 mlU/mL (0.270-4.200) H 05/05/20 08:10 Thyroxine (T4) 7.4 ug/dL (4.0-12.0) 05/05/20 08:10 Free T3 Index 3.7 pg/mL (2.3-4.2) 05/05/20 08:10 Urine Color Yellow (Yellow) 05/05/20 Unknown Urine Turbidity Slightly-cloudy (Clear) 05/05/20 Unknown Urine pH 5.0 (5.0-7.0) 05/05/20 Unknown Ur Specific [place] 1.009 (1.003-1.030) 05/05/20 Unknown Urine Protein <15 mg/dl mg/dL (Negative) 05/05/20 Unknown Urine Glucose (UA) Neg mg/dL (Negative) 05/05/20 Unknown Urine Ketones Neg mg/dL (Negative) 05/05/20 Unknown Urine Blood Sm (Negative) 05/05/20 Unknown Urine Nitrite Pos (Negative) 05/05/20 Unknown Urine Bilirubin Neg (Negative) 05/05/20 Unknown Urine Urobilinogen < 2.0 mg/dL (<2.0) 05/05/20 Unknown Ur Leukocyte Esterase Neg (Negative) 05/05/20 Unknown Urine WBC (Auto) 13.0 /HPF (0.0-6.0) H 05/05/20 Unknown Urine RBC (Auto) 1.0 /HPF (0.0-6.0) 05/05/20 Unknown Urine Bacteria (Auto) 4+ /HPF (Negative) 05/05/20 Unknown Urine Mucus 3+ /HPF 05/05/20 Unknown Coronavirus (PCR) Negative (Negative) 05/06/20 10:02 Hepatitis A IgM Ab Non-reactive (NonReactive) 05/06/20 22:22 Hep Bs Antigen Non-reactive (Negative) 05/06/20 22:22 Hep B Core IgM Ab Non-reactive (NonReactive) 05/06/20 22:22 Hepatitis C Antibody Non-reactive (NonReactive) 05/06/20 22:22 Blood Type O POSITIVE 05/09/20 15:30 Antibody Screen Negative 05/09/20 15:30 Crossmatch See Detail 05/09/20 15:30 - Diagnostic Impressions Diagnostic Impressions: Echocardiogram 05/05/20 13:01 Transthoracic Echocardiogram Indication: PE BP: 95/71 HR: 108 Conclusions *Global left ventricular systolic function is normal. *The estimated ejection fraction is 50-55%. *The right ventricle is mildly dilated. *The right ventricular global systolic function is normal. *There is mild mitral regurgitation. *There is mild tricuspid regurgitation. *The right ventricular systolic pressure is calculated at 32 mmHg. *There is trace pulmonic regurgitation. *The aortic valve is trileaflet. The leaflets are thin with normal excursion. There is no aortic stenosis or regurgitation present. Findings Left Ventricle: The left ventricular chamber size is normal. Global left ventricular systolic function is normal. The estimated ejection fraction is 50-55%. Abnormal left ventricular diastolic filling is observed, consistent with impaired relaxation. Left Atrium: The left atrial chamber size is normal. Right Ventricle: The right ventricle is mildly dilated. The right ventricular global systolic function is normal. Right Atrium: The right atrial cavity size is normal. Aortic Valve: The aortic valve is trileaflet. The leaflets are thin with normal excursion. There is no aortic stenosis or regurgitation present. The aortic valve structure is normal. Mitral Valve: The mitral valve leaflets are mildly thickened. There is mild mitral regurgitation. Tricuspid Valve: The tricuspid valve leaflets are normal. There is mild tricuspid regurgitation. The right ventricular systolic pressure is calculated at 32 mmHg. Pulmonic Valve: The pulmonic valve appears normal. There is trace pulmonic regurgitation. Pericardium: There is no pericardial effusion. Aorta: The aorta appears normal. Venous: The inferior vena cava appears normal. Measurements Chambers 2D Name Value Normal Range IVSd (2D) 1.09 cm (0.6 - 1.1) LVPWd (2D) 1.08 cm (0.6 - 1.1) LVIDd (2D) 4.78 cm (3.7 - 5.6) LVIDs (2D) 3.74 cm (2 - 3.8) LV FS (2D) 21.72 % - Ao root diameter (2D) 3.12 cm (2 - 3.7) Volumes/Mass Name Value Normal Range LA ESV SP 4CH (A/L) 35.91 ml - LA ESV SP 2CH (A/L) 41.54 ml - LA ESV BP (A/L) 38.98 ml - LA ESV BP (A/L) index 22.28 ml/m2 - LA ESV SP 4CH (MOD) 31.77 ml - LA ESV SP 2CH (MOD) 41.03 ml - LA ESV BP (MOD) 36.28 ml - LA ESV BP (MOD) index 20.73 ml/m2 - Diastolic/Systolic Function Name Value Normal Range MV E-wave Vmax 0.93 m/sec - MV deceleration time 148.87 msec - MV A-wave Vmax 0.58 m/sec - MV E:A ratio 1.59 ratio - Aortic Valve Name Value Normal Range AV Vmax 1.34 m/sec - AV VTI 21.39 cm - AV peak gradient 7.18 mmHg - AV mean gradient 4.09 mmHg - LVOT diameter 2.04 cm - LVOT Vmax 1.06 m/sec - LVOT VTI 17.75 cm - LVOT peak gradient 4.48 mmHg - LVOT mean gradient 2.8 mmHg - SV LVOT 58.19 ml - PAUL (continuity Vmax) 2.59 cm2 - PAUL (continuity VTI) 2.72 cm2 - Ascending Ao 3.02 cm - Mitral Valve Name Value Normal Range MR Vmax 4.21 m/sec - Tricuspid Valve Name Value Normal Range TR Vmax 2.7 m/sec - TR peak gradient 29 mmHg - RAP 3 mmHg - RVSP 32 mmHg - IVC diameter 1.45 cm (1.2 - 2.3) Pulmonic Valve/Qp:Qs Name Value Normal Range PV Vmax 0.82 m/sec - PV peak gradient 2.71 mmHg - ND end-diastolic Vmax 1.1 m/sec - PV acceleration time 87.54 msec - [place]/IV: Voiding Method Toilet Active Medications - Current Medications Current Medications: Generic Name Dose Route Start Last Admin Trade Name Freq PRN Reason Stop Dose Admin Acetaminophen 650 mg 05/07/20 14:23 05/14/20 20:25 Acetaminophen 325 Mg Tab PO 650 mg Q6H PRN Administration Fever >101 Diphenhydramine HCl 25 mg 05/16/20 01:45 05/18/20 00:23 Diphenhydramine 50 Mg/Ml Vial IV 25 mg Q6H PRN Administration Itching Docusate Sodium 100 mg 05/17/20 11:00 05/21/20 08:22 Docusate Sodium 100 Mg Cap PO 100 mg BID RADHA Administration Hydromorphone HCl 2 mg 05/08/20 12:00 05/10/20 07:39 Hydromorphone 1 Mg/1 Ml Inj IV 2 mg Q3H PRN Administration Pain , Severe (7-10) Ertapenem 1 gm/ Sodium 50 mls @ 100 mls/hr 05/19/20 16:00 05/21/20 08:22 Chloride IV 06/29/20 08:29 100 mls/hr QDAY RADHA Administration Metoprolol Tartrate 2.5 mg 05/10/20 12:26 Metoprolol Tartrate 5 Mg/5 Ml Inj IV Q6HR PRN HR>120 Metoprolol Tartrate 25 mg 05/11/20 22:00 05/21/20 08:21 Metoprolol Tartrate 25 Mg Tab PO Not Given BID RADHA Oxycodone/Acetaminophen 1 tab 05/05/20 11:29 05/21/20 09:49 Oxycodone /Acetaminophen 5-325mg Tab PO 1 tab Q6H PRN Administration Pain, Moderate (4-6) Nutrition/Malnutrition Assess - Dietary Evaluation Nutrition/Malnutrition Findings: Nutrition Notes Start: 05/12/20 11: 40 Freq: Status: Active Protocol: Document 05/12/20 11:40 AL (Rec: 05/12/20 12:00 AL [id number]) Co-Sign 05/12/20 11:40 LP Nutrition Notes Need for Assessment generated from: LOS Initial or Follow up Brief Note Current Diagnosis Sepsis Other Pertinent Diagnosis SOB, Liver abcess, Pneumonia, ANemia, UTI Current Diet Regular Diet [place] Body Weight (kg) 0 Weight Status Overweight Subjective/Other Information Pt is a LOS. Pt reported eating 50% of breakfast because it was "too early" and ate 100% of dinner last night . Pt says appetite is good and has no need for ONS. Burn Absent Trauma Absent GI Symptoms None Current % PO Good (75-100%) Minimum of two criteria No physical signs of malnutrition #1 Nutrition Diagnosis No nutrition diagnosis at this time Nutrition Intervention Change Diet Order: Continue Regular diet Anticipated Discharge Needs: Regular diet Revisit per MD consult or patient Sign Off request:
--- NOTE | 2020-05-22 09:38 | Progress Note ---
Assessment and Plan Assessment and plan: 44-year-old male with no significant past medical history presented to the emergency department with complaints of shortness of breath for the last 3 weeks. Shortness of breath is progressively worse and making to present to the emergency department this morning. Patient said he has associated dry cough. Patient denied fever chills, night sweats. Patient denied contact with Covid patient. He denied any chest pain, palpitation or leg swelling. Patient was seen in the emergency department. In the emergency department test x-ray was done and showed bibasilar infiltrates, CTA chest was done and significant for blood clot suspected septic emboli and liver abscess. Patient was hypotensive was started with IV fluids and pressor support. I have discussed with vascular surgery and said the clot burden is minimal and does not need any intervention at this time. Patient underwent CT-guided drainage of liver abscess with bilateral drain placement per IR ID evaluated and recommended long-term antibiotics for total 6 weeks, CM processing DC planning, IV antibiotics are very expensive and patient has no resources, patient had bilateral PE on heparin drip, however anticoagulation was held due to procedures addressing liver abscess. Will start Eliquis per protocol. --Acute PE; CTA 05/05/2020 patient received heparin drip initially, anticoagulation held for IR procedure CT-guided drainage of liver abscess. Patient is more stable now, will will start Eliquis per protocol And discharged the patient on Eliquis --Liver abscess; status post CT-guided drainage and drain placement per IR on 05/07/2020 Surgery discussed with hepatobiliary surgery Recommend conservative management with drainage and IV antibiotics Second drain placement on 05/14/2020 per IR, very little drainage seen Check with IR to advise prior to discharge, discussed with patient's nurse --Sepsis with septic shock now resolved; Secondary to bacteremia and liver abscess --Septic emboli-from liver; Echo no evidence of vegetation --ESBL bacteremia; due to liver abscess ID following, recommend long-term ertapenem upon discharge However as patient is unfunded, consult to be very expensive ID recommended meropenem, case management assisting with Antibiotics and discharge planning Total 6 weeks meropenem stop date 06/29/2020 DC planning per case management --Acute respiratory failure with hypoxia; requiring supplemental oxygen Resolved, patient is on room air O2 sats saturating well above 95% --Sinus tachycardia improved with low-dose Lopressor. Will titrate accordingly. --Anemia associated Thrombocytopenia patient transfused yesterday. --Severe protein calorie Malnutrition: Development Rep following Closely monitor the patient and adjust the management as needed Plan of care reviewed with the patient and his nurse DC planning per case management; Assisting with long-term IV antibiotics which are very expensive Patient is stable for discharge Plan of care reviewed with the patient and his nurse Also discussed with case management 05/20/2020; ID has recommended total 6 weeks of ertapenem stop date 06/29/2020 However ertapenem is very expensive, alternate medication meropenem was considered Case management assisting with home antibiotics and home health 05/21/2020; case management is processing long-term home IV antibiotics Ertapenem changed to meropenem due to cost effectiveness, will closely monitor 05/22/2020; patient had PE 05/05/2020, started on heparin drip, anticoagulation held for surgical procedure Now that patient is stable will resume and start Eliquis per protocol, closely monitor for any bleeding issues History Interval history: I have seen and examined the patient at the bedside Patient's chart and medications reviewed Patient feels better no new complaints Anxious to go home Case management processing prison IV antibiotics arrangement Patient has social and financial issues Vital signs reviewed Hospitalist Physical - Constitutional Vitals: Temp Pulse Resp BP Pulse Ox 98.2 F 90 18 115/78 95 05/22/20 07:53 05/22/20 07:53 05/22/20 07:53 05/22/20 07:53 05/22/20 07:53 General appearance: Present: no acute distress, well-nourished - EENT Eyes: Present: PERRL, EOM intact - Neck Neck: Present: supple, normal ROM - Respiratory Respiratory effort: normal Respiratory: bilateral: diminished, rhonchi, negative: rales, wheezing - Cardiovascular Rhythm: regular Heart Sounds: Present: S1 & S2 - Extremities Extremities: no ischemia, No edema - Abdominal General gastrointestinal: soft, non-tender, non-distended, normal bowel sounds, other (Drains are in place, very minimal drainage) - Integumentary Integumentary: Present: clear, warm - Psychiatric Psychiatric: appropriate mood/affect, cooperative - Neurologic Neurologic: CNII-XII intact, moves all extremities HEART Score - HEART Score Troponin: Troponin T 0.056 ng/mL (0.00-0.029) H 05/05/20 08:10 Results - Labs CBC & Chem 7: 05/19/20 05:05 05/19/20 05:05 Labs: Laboratory Last Values WBC 10.1 K/mm3 (4.5-11.0) 05/19/20 05:05 RBC 2.60 M/mm3 (3.65-5.03) L 05/19/20 05:05 Hgb 7.5 gm/dl (11.8-15.2) L 05/19/20 05:05 Hct 22.5 % (35.5-45.6) L 05/19/20 05:05 MCV 87 fl (84-94) 05/19/20 05:05 MCH 29 pg (28-32) 05/19/20 05:05 MCHC 33 % (32-34) 05/19/20 05:05 RDW 17.4 % (13.2-15.2) H 05/19/20 05:05 Plt Count 277 K/mm3 (140-440) 05/19/20 05:05 Lymph % (Auto) 7.1 % (13.4-35.0) L 05/12/20 05:26 [place] % (Auto) 2.9 % (0.0-7.3) 05/12/20 05:26 Eos % (Auto) 0.4 % (0.0-4.3) 05/12/20 05:26 Baso % (Auto) 0.1 % (0.0-1.8) 05/12/20 05:26 Lymph # (Auto) 1.2 K/mm3 (1.2-5.4) 05/12/20 05:26 [place] # (Auto) 0.5 K/mm3 (0.0-0.8) 05/12/20 05:26 Eos # (Auto) 0.1 K/mm3 (0.0-0.4) 05/12/20 05:26 Baso # (Auto) 0.0 K/mm3 (0.0-0.1) 05/12/20 05:26 Add Manual Diff Complete 05/10/20 07:00 Total Counted 100 05/10/20 07:00 Seg Neutrophils % 89.5 % (40.0-70.0) H 05/12/20 05:26 Seg Neuts % (Manual) 99.0 % (40.0-70.0) H 05/10/20 07:00 Band Neutrophils % 1.0 % 05/07/20 06:30 Lymphocytes % (Manual) 2.0 % (13.4-35.0) L 05/08/20 06:00 Monocytes % (Manual) 1.0 % (0.0-7.3) 05/10/20 07:00 Promyelocytes % 0 % 05/05/20 08:10 Nucleated RBC % 1.0 % (0.0-0.9) H 05/10/20 07:00 Seg Neutrophils # 15.3 K/mm3 (1.8-7.7) H 05/12/20 05:26 Seg Neutrophils # Man 11.7 K/mm3 (1.8-7.7) H 05/10/20 07:00 Band Neutrophils # 0.0 K/mm3 05/10/20 07:00 Lymphocytes # (Manual) 0.0 K/mm3 (1.2-5.4) L 05/10/20 07:00 Abs React Lymphs (Man) 0.0 K/mm3 05/10/20 07:00 Monocytes # (Manual) 0.1 K/mm3 (0.0-0.8) 05/10/20 07:00 Eosinophils # (Manual) 0.0 K/mm3 (0.0-0.4) 05/10/20 07:00 Basophils # (Manual) 0.0 K/mm3 (0.0-0.1) 05/10/20 07:00 Metamyelocytes # 0.0 K/mm3 05/10/20 07:00 Myelocytes # 0.0 K/mm3 05/10/20 07:00 Promyelocytes # 0.0 K/mm3 05/10/20 07:00 Blast Cells # 0.0 K/mm3 05/10/20 07:00 WBC Morphology Not Reportable 05/10/20 07:00 Hypersegmented Neuts Not Reportable 05/10/20 07:00 Hyposegmented Neuts Not Reportable 05/10/20 07:00 Hypogranular Neuts Not Reportable 05/10/20 07:00 Smudge Cells Not Reportable 05/10/20 07:00 Toxic Granulation Not Reportable 05/10/20 07:00 Toxic Vacuolation Not Reportable 05/10/20 07:00 Dohle Bodies Not Reportable 05/10/20 07:00 Pel[place]-Huet Anomaly Not Reportable 05/10/20 07:00 [place] Rods Not Reportable 05/10/20 07:00 Platelet Estimate Consistent w auto 05/10/20 07:00 Clumped Platelets Not Reportable 05/10/20 07:00 Plt Clumps, EDTA Not Reportable 05/10/20 07:00 Large Platelets Not Reportable 05/10/20 07:00 Giant Platelets Not Reportable 05/10/20 07:00 Platelet Satelliting Not Reportable 05/10/20 07:00 Plt Morphology Comment Not Reportable 05/10/20 07:00 RBC Morphology Not Reportable 05/10/20 07:00 Dimorphic RBCs Not Reportable 05/10/20 07:00 Polychromasia Not Reportable 05/10/20 07:00 Hypochromasia 1+ 05/10/20 07:00 Poikilocytosis Not Reportable 05/10/20 07:00 Anisocytosis Not Reportable 05/10/20 07:00 Microcytosis Not Reportable 05/10/20 07:00 Macrocytosis Not Reportable 05/10/20 07:00 Spherocytes Not Reportable 05/10/20 07:00 Pappenheimer Bodies Not Reportable 05/10/20 07:00 Sickle Cells Not Reportable 05/10/20 07:00 Target Cells Not Reportable 05/10/20 07:00 Tear Drop Cells Not Reportable 05/10/20 07:00 Ovalocytes Not Reportable 05/10/20 07:00 Helmet Cells Not Reportable 05/10/20 07:00 [place] Bodies Not Reportable 05/10/20 07:00 [place] Rings Not Reportable 05/10/20 07:00 [place] Cells Not Reportable 05/10/20 07:00 Bite Cells Not Reportable 05/10/20 07:00 Crenated Cell Not Reportable 05/10/20 07:00 Elliptocytes Not Reportable 05/10/20 07:00 Acanthocytes (Spur) Not Reportable 05/10/20 07:00 Rouleaux Not Reportable 05/10/20 07:00 Hemoglobin C Crystals Not Reportable 05/10/20 07:00 Schistocytes Few 05/10/20 07:00 Malaria parasites Not Reportable 05/10/20 07:00 [place] Bodies Not Reportable 05/10/20 07:00 Hem Pathologist Commnt No 05/10/20 07:00 PT 18.6 Sec. (12.2-14.9) H 05/08/20 09:15 INR 1.55 (0.87-1.13) H 05/08/20 09:15 APTT 210.9 Sec. (24.2-36.6) H* 05/05/20 13:35 D-Dimer Cancelled 05/07/20 06:30 Heparin Anti-Xa Level 0.36 U.I./ml (0.3-0.7) 05/07/20 06:30 ABG pH 7.409 pH Units (7.350-7.450) 05/05/20 09:10 ABG pCO2 16.7 mm Hg 05/05/20 09:10 ABG pO2 27.6 mm Hg (80.0-90.0) L* 05/05/20 09:10 ABG HCO3 10.3 mmol/L (20.0-26.0) L 05/05/20 09:10 ABG O2 Saturation 38.5 % (95.0-99.0) L 05/05/20 09:10 ABG O2 Content 3.6 (0.0-44) 05/05/20 09:10 ABG Base Excess -13.0 mmol/L (-2.0-3.0) L 05/05/20 09:10 ABG Hemoglobin 6.7 gm/dl (14.0-18.0) L 05/05/20 09:10 ABG Carboxyhemoglobin 1.0 % (0.0-5.0) 05/05/20 09:10 ABG Methemoglobin 0.8 % (0.0-1.5) 05/05/20 09:10 Oxyhemoglobin 37.9 % (95.0-99.0) L 05/05/20 09:10 FiO2 21 % 05/05/20 09:10 Sodium 130 mmol/L (137-145) L 05/19/20 05:05 Potassium 3.9 mmol/L (3.6-5.0) 05/19/20 05:05 Chloride 99.3 mmol/L (98-107) 05/19/20 05:05 Carbon Dioxide 24 mmol/L (22-30) 05/19/20 05:05 Anion Gap 11 mmol/L 05/19/20 05:05 BUN 13 mg/dL (9-20) 05/19/20 05:05 Creatinine 0.5 mg/dL (0.8-1.3) L 05/19/20 05:05 Estimated GFR > 60 ml/min 05/19/20 05:05 BUN/Creatinine Ratio 26 % 05/19/20 05:05 Glucose 110 mg/dL (75-100) H 05/19/20 05:05 POC Glucose 85 mg/dL (70-105) 05/08/20 16:46 Lactic Acid 1.20 mmol/L (0.7-2.0) 05/06/20 03:30 Calcium 7.9 mg/dL (8.4-10.2) L 05/19/20 05:05 Magnesium 1.90 mg/dL (1.7-2.3) 05/15/20 04:45 Iron 61 ug/dL (49-181) 05/07/20 12:38 TIBC 169 mcg/dL (250-450) L 05/07/20 12:38 Ferritin 1831.0 ng/mL (30.0-300.0) H 05/07/20 12:38 Total Bilirubin 0.30 mg/dL (0.1-1.2) 05/19/20 05:05 Direct Bilirubin 0.4 mg/dL (0-0.2) H 05/05/20 10:17 Indirect Bilirubin 0.0 mg/dL 05/05/20 10:17 AST 19 units/L (5-40) 05/19/20 05:05 ALT 17 units/L (7-56) 05/19/20 05:05 Alkaline Phosphatase 149 units/L (35-129) H 05/19/20 05:05 Troponin T 0.056 ng/mL (0.00-0.029) H 05/05/20 08:10 Total Protein 7.2 g/dL (6.3-8.2) 05/19/20 05:05 Albumin 2.2 g/dL (3.9-5) L 05/19/20 05:05 Albumin/Globulin Ratio 0.4 % 05/19/20 05:05 Triglycerides 231 mg/dL (2-149) H 05/05/20 08:10 Cholesterol 80 mg/dL (50-199) 05/05/20 08:10 LDL Cholesterol Direct 17 mg/dL (50-130) L 05/05/20 08:10 HDL Cholesterol 11 mg/dL (40-59) L 05/05/20 08:10 Cholesterol/HDL Ratio 7.27 % 05/05/20 08:10 Lipase 68 units/L (13-60) H 05/05/20 10:17 Tumor Marker AFP See scanned report 05/06/20 22:22 Vitamin B12 > 2000 pg/mL (211-911) H 05/07/20 12:39 Folate 7.19 ng/mL (7.3-26.0) L 05/07/20 12:39 TSH 12.770 mlU/mL (0.270-4.200) H 05/05/20 08:10 Thyroxine (T4) 7.4 ug/dL (4.0-12.0) 05/05/20 08:10 Free T3 Index 3.7 pg/mL (2.3-4.2) 05/05/20 08:10 Urine Color Yellow (Yellow) 05/05/20 Unknown Urine Turbidity Slightly-cloudy (Clear) 05/05/20 Unknown Urine pH 5.0 (5.0-7.0) 05/05/20 Unknown Ur Specific [place] 1.009 (1.003-1.030) 05/05/20 Unknown Urine Protein <15 mg/dl mg/dL (Negative) 05/05/20 Unknown Urine Glucose (UA) Neg mg/dL (Negative) 05/05/20 Unknown Urine Ketones Neg mg/dL (Negative) 05/05/20 Unknown Urine Blood Sm (Negative) 05/05/20 Unknown Urine Nitrite Pos (Negative) 05/05/20 Unknown Urine Bilirubin Neg (Negative) 05/05/20 Unknown Urine Urobilinogen < 2.0 mg/dL (<2.0) 05/05/20 Unknown Ur Leukocyte Esterase Neg (Negative) 05/05/20 Unknown Urine WBC (Auto) 13.0 /HPF (0.0-6.0) H 05/05/20 Unknown Urine RBC (Auto) 1.0 /HPF (0.0-6.0) 05/05/20 Unknown Urine Bacteria (Auto) 4+ /HPF (Negative) 05/05/20 Unknown Urine Mucus 3+ /HPF 05/05/20 Unknown Coronavirus (PCR) Negative (Negative) 05/06/20 10:02 Hepatitis A IgM Ab Non-reactive (NonReactive) 05/06/20 22:22 Hep Bs Antigen Non-reactive (Negative) 05/06/20 22:22 Hep B Core IgM Ab Non-reactive (NonReactive) 05/06/20 22:22 Hepatitis C Antibody Non-reactive (NonReactive) 05/06/20 22:22 Blood Type O POSITIVE 05/09/20 15:30 Antibody Screen Negative 05/09/20 15:30 Crossmatch See Detail 05/09/20 15:30 - Diagnostic Impressions Diagnostic Impressions: Echocardiogram 05/05/20 13:01 Transthoracic Echocardiogram Indication: PE BP: 95/71 HR: 108 Conclusions *Global left ventricular systolic function is normal. *The estimated ejection fraction is 50-55%. *The right ventricle is mildly dilated. *The right ventricular global systolic function is normal. *There is mild mitral regurgitation. *There is mild tricuspid regurgitation. *The right ventricular systolic pressure is calculated at 32 mmHg. *There is trace pulmonic regurgitation. *The aortic valve is trileaflet. The leaflets are thin with normal excursion. There is no aortic stenosis or regurgitation present. Findings Left Ventricle: The left ventricular chamber size is normal. Global left ventricular systolic function is normal. The estimated ejection fraction is 50-55%. Abnormal left ventricular diastolic filling is observed, consistent with impaired relaxation. Left Atrium: The left atrial chamber size is normal. Right Ventricle: The right ventricle is mildly dilated. The right ventricular global systolic function is normal. Right Atrium: The right atrial cavity size is normal. Aortic Valve: The aortic valve is trileaflet. The leaflets are thin with normal excursion. There is no aortic stenosis or regurgitation present. The aortic valve structure is normal. Mitral Valve: The mitral valve leaflets are mildly thickened. There is mild mitral regurgitation. Tricuspid Valve: The tricuspid valve leaflets are normal. There is mild tricuspid regurgitation. The right ventricular systolic pressure is calculated at 32 mmHg. Pulmonic Valve: The pulmonic valve appears normal. There is trace pulmonic regurgitation. Pericardium: There is no pericardial effusion. Aorta: The aorta appears normal. Venous: The inferior vena cava appears normal. Measurements Chambers 2D Name Value Normal Range IVSd (2D) 1.09 cm (0.6 - 1.1) LVPWd (2D) 1.08 cm (0.6 - 1.1) LVIDd (2D) 4.78 cm (3.7 - 5.6) LVIDs (2D) 3.74 cm (2 - 3.8) LV FS (2D) 21.72 % - Ao root diameter (2D) 3.12 cm (2 - 3.7) Volumes/Mass Name Value Normal Range LA ESV SP 4CH (A/L) 35.91 ml - LA ESV SP 2CH (A/L) 41.54 ml - LA ESV BP (A/L) 38.98 ml - LA ESV BP (A/L) index 22.28 ml/m2 - LA ESV SP 4CH (MOD) 31.77 ml - LA ESV SP 2CH (MOD) 41.03 ml - LA ESV BP (MOD) 36.28 ml - LA ESV BP (MOD) index 20.73 ml/m2 - Diastolic/Systolic Function Name Value Normal Range MV E-wave Vmax 0.93 m/sec - MV deceleration time 148.87 msec - MV A-wave Vmax 0.58 m/sec - MV E:A ratio 1.59 ratio - Aortic Valve Name Value Normal Range AV Vmax 1.34 m/sec - AV VTI 21.39 cm - AV peak gradient 7.18 mmHg - AV mean gradient 4.09 mmHg - LVOT diameter 2.04 cm - LVOT Vmax 1.06 m/sec - LVOT VTI 17.75 cm - LVOT peak gradient 4.48 mmHg - LVOT mean gradient 2.8 mmHg - SV LVOT 58.19 ml - PAUL (continuity Vmax) 2.59 cm2 - PAUL (continuity VTI) 2.72 cm2 - Ascending Ao 3.02 cm - Mitral Valve Name Value Normal Range MR Vmax 4.21 m/sec - Tricuspid Valve Name Value Normal Range TR Vmax 2.7 m/sec - TR peak gradient 29 mmHg - RAP 3 mmHg - RVSP 32 mmHg - IVC diameter 1.45 cm (1.2 - 2.3) Pulmonic Valve/Qp:Qs Name Value Normal Range PV Vmax 0.82 m/sec - PV peak gradient 2.71 mmHg - LA end-diastolic Vmax 1.1 m/sec - PV acceleration time 87.54 msec - [place]/IV: Voiding Method Urinal Active Medications - Current Medications Current Medications: Generic Name Dose Route Start Last Admin Trade Name Freq PRN Reason Stop Dose Admin Acetaminophen 650 mg 05/07/20 14:23 05/14/20 20:25 Acetaminophen 325 Mg Tab PO 650 mg Q6H PRN Administration Fever >101 Apixaban 10 mg 05/22/20 10:00 Apixaban 5 Mg Tab PO 05/28/20 22:01 Q12HR RADHA Protocol Apixaban 5 mg 05/29/20 10:00 Apixaban 5 Mg Tab PO Q12HR RADHA Protocol Diphenhydramine HCl 25 mg 05/16/20 01:45 05/18/20 00:23 Diphenhydramine 50 Mg/Ml Vial IV 25 mg Q6H PRN Administration Itching Docusate Sodium 100 mg 05/17/20 11:00 05/21/20 21:34 Docusate Sodium 100 Mg Cap PO 100 mg BID RADHA Administration Hydromorphone HCl 2 mg 05/08/20 12:00 05/10/20 07:39 Hydromorphone 1 Mg/1 Ml Inj IV 2 mg Q3H PRN Administration Pain , Severe (7-10) Ertapenem 1 gm/ Sodium 50 mls @ 100 mls/hr 05/19/20 16:00 05/21/20 08:22 Chloride IV 06/29/20 08:29 100 mls/hr QDAY RADHA Administration Metoprolol Tartrate 2.5 mg 05/10/20 12:26 Metoprolol Tartrate 5 Mg/5 Ml Inj IV Q6HR PRN HR>120 Metoprolol Tartrate 25 mg 05/11/20 22:00 05/21/20 21:37 Metoprolol Tartrate 25 Mg Tab PO 25 mg BID RADHA Administration Oxycodone/Acetaminophen 1 tab 05/05/20 11:29 05/21/20 09:49 Oxycodone /Acetaminophen 5-325mg Tab PO 1 tab Q6H PRN Administration Pain, Moderate (4-6) Nutrition/Malnutrition Assess - Dietary Evaluation Nutrition/Malnutrition Findings: Nutrition Notes Start: 05/12/20 11:40 Freq: Status: Active Protocol: Document 05/12/20 11:40 AL (Rec: 05/12/20 12:00 AL [id number]) Co-Sign 05/12/20 11:40 LP Nutrition Notes Need for Assessment generated from: LOS Initial or Follow up Brief Note Current Diagnosis Sepsis Other Pertinent Diagnosis SOB, Liver abcess, Pneumonia, ANemia, UTI Current Diet Regular Diet [place] Body Weight (kg) 0 Weight Status Overweight Subjective/Other Information Pt is a LOS. Pt reported eating 50% of breakfast because it was "too early" and ate 100% of dinner last night . Pt says appetite is good and has no need for ONS. Burn Absent Trauma Absent GI Symptoms None Current % PO Good (75-100%) Minimum of two criteria No physical signs of malnutrition #1 Nutrition Diagnosis No nutrition diagnosis at this time Nutrition Intervention Change Diet Order: Continue Regular diet Anticipated Discharge Needs: Regular diet [place]is[place] per MD consult or patient Sign Off request:
[2020-05-22] MEDS ORDERED: APIXABAN 5 MG TAB PO SCH (10:00)
[2020-05-22] MEDS: METOPROLOL TARTRATE 25 MG TAB PO SCH (10:53)
[2020-05-22] MEDS: ERTAPENEM 1 GM in SODIUM CHLORIDE 0.9% 50 ML IV SCH (10:53)
[2020-05-22] MEDS: DOCUSATE SODIUM 100 MG CAP PO SCH (10:54)
[2020-05-22 11:50] VITALS: BP 102/50
--- NOTE | 2020-05-22 12:07 | Discharge Summary ---
Providers - Providers Date of Admission: 05/05/20 09:57 Date of discharge: 05/22/20 Attending physician: CEFERINO DESAI 05/05/20 10:02 Consult to Physician [CONS] Routine Comment: Consulting Provider: ELMER COLLIER Physician Instructions: Reason For Exam: Severe sepsis 05/05/20 13:03 Consult to Physician [CONS] Routine Comment: called office/ josé Consulting Provider: SOFIA SOMMER Physician Instructions: Reason For Exam: massive PE 05/06/20 12:25 Consult to Physician [CONS] Routine Comment: called office/ josé Consulting Provider: RICHARD HYLTON Physician Instructions: Reason For Exam: hepatic abscess 05/07/20 17:16 Consult to PICC Line RN [CONS] Routine Reason For Exam: DC Right Femoral after placement Verification Type Line:: PICC 05/11/20 12:50 Consult to Physician [CONS] Routine Comment: Consulting Provider: EMANUEL BELLAMY Physician Instructions: Reason For Exam: Liver abscess persistent fever. 05/18/20 13:57 Consult to Case Management [CONS] Routine Services Needed at Discharge: Other Notified:: cm notified Comment:: abx Additional Physician Instructions: [facility] O: [phone] F: [phone] OUTPATIENT PARENTERAL ANTIBIOTIC THERAPY (OPAT) ORDERS Diagnoses: There were abscess Antimicrobial administration: IV meropenem 1 g every 8 hours for 6 weeks ending 06/29/2020 - Remove PICC line after last dose unless otherwise instructed. Lines: Maintain IV access with weekly dressing changes and locks per protocol. Lab monitoring: - CBC with differential, Creatinine, ALT, AST, CRP once a week every Monday/Monday while on IV antibiotics. -Please fax results to [phone] and call [phone] for critical lab results. MD [facility] Consult to PICC Line RN [CONS] Routine Reason For Exam: abx Type Line:: PICC Primary care physician: LAY BROTHER Hospitalization Condition: Stable Hospital course: 44-year-old male with no significant past medical history presented to the emergency department with complaints of shortness of breath for the last 3 weeks. Shortness of breath is progressively worse and making to present to the emergency department this morning. Patient said he has associated dry cough. Patient denied fever chills, night sweats. Patient denied contact with Covid patient. He denied any chest pain, palpitation or leg swelling. Patient was seen in the emergency department. In the emergency department test x-ray was done and showed bibasilar infiltrates, CTA chest was done and significant for blood clot suspected septic emboli and liver abscess. Patient was hypotensive was started with IV fluids and pressor support. I have discussed with vascular surgery and said the clot burden is minimal and does not need any intervention at this time. Patient underwent CT-guided drainage of liver abscess with bilateral drain placement per IR ID evaluated and recommended long-term antibiotics for total 6 weeks, CM processing DC planning, IV antibiotics are very expensive and patient has no resources, patient had bilateral PE on heparin drip, however anticoagulation was held due to procedures addressing liver abscess. Will start Eliquis per protocol. --Acute PE; CTA 05/05/2020 patient received heparin drip initially, anticoagulation held for IR procedure CT-guided drainage of liver abscess. Patient is more stable now, will will start Eliquis per protocol And discharged the patient on Eliquis --Liver abscess; status post CT-guided drainage and drain placement per IR on 05/07/2020 Surgery discussed with hepatobiliary surgery Recommend conservative management with drainage and IV antibiotics Second drain placement on 05/14/2020 per IR, very little drainage seen Check with IR to advise prior to discharge, discussed with patient's nurse --Sepsis with septic shock now resolved; Secondary to bacteremia and liver abscess --Septic emboli-from liver; Echo no evidence of vegetation --ESBL bacteremia; due to liver abscess ID following, recommend long-term ertapenem upon discharge However as patient is unfunded, consult to be very expensive ID recommended meropenem, case management assisting with Antibiotics and discharge planning Total 6 weeks meropenem stop date 06/29/2020 DC planning per case management --Acute respiratory failure with hypoxia; requiring supplemental oxygen Resolved, patient is on room air O2 sats saturating well above 95% --Sinus tachycardia improved with low-dose Lopressor. Will titrate accordingly. --Anemia associated Thrombocytopenia patient transfused yesterday. 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 following Closely monitor the patient and adjust the management as needed Plan of care reviewed with the patient and his nurse DC planning per case management; Assisting with long-term IV antibiotics which are very expensive Patient is stable for discharge Plan of care reviewed with the patient and his nurse Also discussed with case management 05/20/2020; ID has recommended total 6 weeks of ertapenem stop date 06/29/2020 However ertapenem is very expensive, alternate medication meropenem was considered Case management assisting with home antibiotics and home health 05/21/2020; case management is processing long-term home IV antibiotics Ertapenem changed to meropenem due to cost effectiveness, will closely monitor 05/22/2020; patient had PE 05/05/2020, started on heparin drip, anticoagulation held for surgical procedure Now that patient is stable will resume and start Eliquis per protocol, closely monitor for any bleeding issues Disposition: DC-01 TO HOME OR SELFCARE Time spent for discharge: 35 min Exam - Constitutional Vitals: Temp Pulse Resp BP Pulse Ox 97.4 F L 67 18 102/50 96 05/22/20 11:33 05/22/20 11:33 05/22/20 11:33 05/22/20 11:33 05/22/20 11:33 Plan Activity: advance as tolerated Diet: regular Additional Instructions: Patient advised to see, Dr. Bird in 2 weeks, to discuss about his abdominal drains. Nurse has given the instructions both to the patient and his how to take care of the abdominal drains. Strongly advised to comply with medications, and follow-up visits. Follow infection disease DrMarge [ID] in 4 weeks. If you have worsening symptoms contact MD and go to emergency room Follow up with: PRIMARY CARE, [Primary Care Provider] - 3-5 Days JESSENIA RESENDIZ MD [Staff Physician] - 06/22/20 SOFIA BIRD MD [Staff Physician] - 14 Days Prescriptions: Apixaban [Eliquis] 2 mg PO Q12HR #28 tablet Apixaban [Eliquis] 5 mg PO Q12HR #60 tablet Metoprolol [Lopressor TAB] 25 mg PO BID #60 tablet
[2020-05-29] MEDS ORDERED: APIXABAN 5 MG TAB PO SCH (10:00)
== END 2020-05-22 14:10 | disposition home health service (06) | DRG 871 ==
LOC: ED 07:26 → IMCU 09:57 → CC1 14:25 → IMCU 05-08 16:26 → 3B 05-15 13:16
PROVIDERS: ADMIT Internal Medicine; ATTEND Internal Medicine
PROC: 06HY33Z Insertion of Infusion Device into Lower Vein, Percutaneous Approach (ICD-10-PCS; 2020-05-05)
PROC: B54BZZA Ultrasonography of Right Lower Extremity Veins, Guidance (ICD-10-PCS; 2020-05-05)
PROC: 0F9130Z Drainage of Right Lobe Liver with Drainage Device, Percutaneous Approach (ICD-10-PCS; principal; 2020-05-07)
PROC: 30233N1 Transfusion of Nonautologous Red Blood Cells into Peripheral Vein, Percutaneous Approach (ICD-10-PCS; 2020-05-09)
PROC: 0F9130Z Drainage of Right Lobe Liver with Drainage Device, Percutaneous Approach (ICD-10-PCS; 2020-05-14)
PROC: 0F20X0Z Change Drainage Device in Liver, External Approach (ICD-10-PCS; 2020-05-14)
PROC: 02HV33Z Insertion of Infusion Device into Superior Vena Cava, Percutaneous Approach (ICD-10-PCS; 2020-05-18)
DX: A41.51 Sepsis due to Escherichia coli [E. coli] (principal); J18.9 Pneumonia, unspecified organism; J96.01 Acute respiratory failure with hypoxia; I26.99 Other pulmonary embolism without acute cor pulmonale; K75.0 Abscess of liver; R65.21 Severe sepsis with septic shock; E43 Unspecified severe protein-calorie malnutrition; N39.0 Urinary tract infection, site not specified; D64.9 Anemia, unspecified; D69.6 Thrombocytopenia, unspecified; K40.90 Unilateral inguinal hernia, without obstruction or gangrene, not specified as recurrent; Z20.822 Contact with and (suspected) exposure to COVID-19; Z90.49 Acquired absence of other specified parts of digestive tract; Z68.27 Body mass index [BMI] 27.0-27.9, adult; Z79.01 Long term (current) use of anticoagulants
CPT/HCPCS: 10160; 36415; 71045; 71275; 74176; 74178; 77012; 80048; 80053; 80061; 80074; 80076; 81001; 82106; 82140; 82607; 82728; 82747; 82803; 82962; 83550; 83690; 83735; 84132; 84436; 84443; 84481; 84484; 85007; 85014; 85018; 85025; 85027; 85049; 85379; 85520; 85610; 85730; 86850; 86900; 86901; 86920; 87040; 87076; 87086; 87116; 87186; 93005; 93306; 94640; 94760; 96361; 96375; G0378; C1769; J0153; J0282; J0456; J0696; J1100; J1170; J1200; J1335; J1630; J1644; J1650; J2185; J2250; J2270; J3010; J3475; J7030; J7040; J7060; J7120; P9016; Q9967; U0003